=== PATIENT | male | born 1950 | race Caucasian/White ===

== ENCOUNTER 2017-12-01 10:43 | Inpatient (IN) ==
--- NOTE | 2017-12-01 11:25 | ED ---
HPI General Chief Complaint: Altered Mental Status Stated Complaint: Altered Mental Status Time Seen by Provider: 12/01/17 11:05 Source: family and EMS Mode of arrival: EMS Limitations: altered mental status History of Present Illness HPI narrative: Patient is a 67-year-old male presenting to emerge department for evaluation of altered mental status. Per EMS report patient's blood glucose on their arrival was 36. He was given dextrose, his blood sugar improved to 82. Son called 911 and stated that patient missed several dialysis treatments and was acting disoriented. H&P is limited at this time due to patient's mental status and there is no family at bedside. Patient has a history of chronic kidney disease, peripheral artery disease, COPD/emphysema, type 2 diabetes, coronary artery disease with stent placement. His dialysis schedule is Tuesday, , Tuesday. Blood glucose was reassessed on arrival to the emergency department is currently 326. Patient is attempting to speak but appears to have expressive aphasia at this time. MD complaint: altered mental status and confusion Onset (ago): unknown Timing confirmed by: family member Consistency of symptoms: unknown Context: diabetes and unknown Treatments prior to arrival: glucose Related Data Home Medications Medication Instructions Recorded Confirmed Nephro-Tye Rx 1 tab PO DAILY 12/01/17 12/01/17 Novolog Flexpen U-100 Insulin 12/01/17 Vitamin D3 2,000 units PO DAILY 12/01/17 12/01/17 albuterol sulfate [Ventolin HFA] 2 inh INHALATION 12/01/17 alpha lipoic acid 600 mg PO DAILY 12/01/17 12/01/17 apixaban [Eliquis] 5 mg PO BID 12/01/17 12/01/17 atorvastatin 40 mg 12/01/17 carvedilol 25 mg PO BID 12/01/17 12/01/17 colchicine 0.6 mg PO 4XW 12/01/17 12/01/17 [id number] 1 inh INHALATION DAILY 12/01/17 12/01/17 [Trelegy Ellipta] gentamicin 3 drp 12/01/17 glimepiride 4 mg PO BID 12/01/17 12/01/17 insulin detemir U-100 [Levemir 25 unit SUB-Q QPM 12/01/17 12/01/17 U-100 Insulin] levothyroxine 50 mcg PO DAILY 12/01/17 12/01/17 [id number] [Creon] 1 cap PO QID 12/01/17 12/01/17 lisinopril 10 mg PO DAILY 12/01/17 12/01/17 nifedipine 90 mg PO DAILY 12/01/17 12/01/17 omeprazole 40 mg PO DAILY 12/01/17 12/01/17 Allergies Allergy/AdvReac Type Severity Reaction Status Date / Time Penicillins Allergy Mild rash Verified 12/01/17 17:09 Review of Systems ROS Unobtainable ROS Unobtainable: unobtainable due to mental status PMFSH History History Provided By: Family Member and Hiv/Aids Care Nurse / EMT Medical History Medical History GERD (gastroesophageal reflux disease) (Chronic) Hypothyroidism (Chronic) CAD (coronary artery disease) (Chronic) CKD (chronic kidney disease) (Chronic) COPD (chronic obstructive pulmonary disease) (Chronic) ESRD (end stage renal disease) on dialysis (Chronic) PAD (peripheral artery disease) (Chronic) Type 2 diabetes mellitus (Chronic) Social History Social History Smoking Status: Former smoker Tobacco Type: Cigarettes How Often Do You Have a Drink Containing Alcohol: 2 to 3 times a week Recent Travel in [place] within the Last 8 Weeks: No Recent Out of Country Travel within the Last 8 Weeks: No Exam Narrative Exam Narrative: GENERAL: Well-developed, well-nourished, alert agitated appearing elderly male. SKIN: Focused skin assessment warm/dry. HEAD: Atraumatic. Normocephalic. EYES: Pupils equal and round. No scleral icterus. No injection or drainage. ENT: No nasal bleeding or discharge. Mucous membranes pink and moist. Dried blood to left nostril NECK: Trachea midline. No JVD. CARDIOVASCULAR: Regular rate and rhythm. No murmur appreciated. Left upper arm AV fistula, positive thrill, positive bruit. Right chest wall dialysis catheter. RESPIRATORY: No accessory muscle use. Coarse breath sounds right lower lobe. GASTROINTESTINAL: Abdomen soft, non-tender, nondistended. Hepatic and splenic margins not palpable. MUSCULOSKELETAL: No obvious deformities. No clubbing. No cyanosis. No edema. NEUROLOGICAL: Awake and alert. No obvious cranial nerve deficits. Motor grossly within normal limits. Expressive aphasia. Course Initial Documented Vital Signs Temperature 98.5 F 12/01/17 11:13 Pulse Rate 94 H 12/01/17 11:13 Respiratory Rate 18 12/01/17 11:13 Blood Pressure 165/78 H 12/01/17 11:13 Pulse Oximetry 100 12/01/17 11:13 Last Documented Vital Signs Temperature 98.5 F 12/01/17 11:15 Pulse Rate 75 12/01/17 16:30 Respiratory Rate 18 12/01/17 16:30 Blood Pressure 182/81 H 12/01/17 16:30 Pulse Oximetry 95 12/01/17 16:30 Medical Decision Making MDM Narrative Medical decision making narrative: Patient is a 67-year-old male presenting with altered mental status. In the setting of a very limited history, patient currently has expressive aphasia, we are sure of his baseline. Sepsis workup initiated. Labs and imaging ordered and pending. Blood cultures ordered and pending. Patient was started on antibiotics empirically. IV access established , patient was placed on telemetry monitoring continuous pulse oximetry. Patient was placed on 2 L of oxygen via nasal cannula. Ativan 0.5 mg ordered 1 dose, patient appears agitated and restless. Patient was initially hypoglycemic on EMS arrival, he was given dextrose and blood sugar has improved to 326. CT scan of the brain shows mild atrophy, no acute infarct. CBC with an elevated white count of 13.9, BUN and creatinine are elevated, this is to be expected patient is currently on dialysis. Potassium level is 5.3. Troponin is elevated 0.06, CPK was greater than 2000. Patient had received a total of 1300 cc of IV fluids between the 500 cc he received from EMS, the 500 of normal saline in the ER, 250 cc in the vancomycin infusion and 50 cc in the Zosyn infusion. Discussed with Dr. Cartagena, nephrology. He stated that he would see him in consult. Patient is resting comfortably, he appears restless. Family never presented to the emergency department. 1545- Brother presented to the ED. He stated that patient normally drives, has full cognition, cares for himself. He last spoke with patient Tuesday. According to the brother he was notified by the dialysis clinic today that pt had missed 3 treatments, today being the 3rd. Verified with Delmer in [facility] that he is their patient. Medical records are being sent to the ED. Medical records reviewed. Medication list was updated in the computer. Pt is followed by Dr. Briceno who does not practice at this facility. Pt transported to dialysis from the ED. Medical Screen Exam Complete: Yes Emergency Medical Condition: Yes Differential Diagnosis Differential Diagnosis: CVA versus TIA versus metabolic abnormality versus sepsis versus other Lab Data Lab results reviewed: Yes I reviewed the patient's lab results. Result diagrams: 12/01/17 11:20 12/01/17 13:14 Lab Results 12/01/17 12/01/17 12/01/17 Range/Units 11:19 11:20 11:20 WBC 13.9 H (4.0-11.0) th/mm3 RBC 4.74 (4.50-5.90) mil/mm3 Hgb 13.0 (13.0-17.0) gm/dL Hct 41.0 (39.0-51.0) % MCV 86.5 (80.0-100.0) fL MCH 27.5 (27.0-34.0) pg MCHC 31.8 L (32.0-36.0) % RDW 19.6 H (11.6-17.2) % Plt Count 157 (150-450) th/mm3 MPV 9.0 (7.0-11.0) fL Neut % (Auto) 82.1 H (16.0-70.0) % Lymph % (Auto) 5.2 L (9.0-44.0) % Hart % (Auto) 9.8 H (0.0-8.0) % Eos % (Auto) 2.2 (0.0-4.0) % Baso % (Auto) 0.7 (0.0-2.0) % Neut # (Auto) 11.4 H (1.8-7.7) th/mm3 Lymph # (Auto) 0.7 L (1.0-4.8) th/mm3 Hart # (Auto) 1.4 H (0.0-0.9) th/mm3 Eos # (Auto) 0.3 (0.0-0.4) th/mm3 Baso # (Auto) 0.1 (0.0-0.2) th/mm3 WBC Differential . Differential Comment Auto diff final Sodium (136-145) meq/L Potassium (3.5-5.1) meq/L Chloride (98-107) meq/L Carbon Dioxide (21.0-32.0) meq/L Anion Gap (5-15) meq/L BUN (7-18) mg/dL Creatinine (0.60-1.30) mg/dL Estimated GFR (>89) mL/min POC Glucose 326 H (68-110) mg/dl Random Glucose (74-106) mg/dL Lactic Acid 2.2 H (0.4-2.0) mmol/L Calcium (8.5-10.1) mg/dL Magnesium (1.5-2.5) mg/dL Total Bilirubin (0.2-1.0) mg/dL AST (15-37) U/L ALT (12-78) U/L Alkaline Phosphatase (45-117) U/L Total Creatine Kinase (39-308) U/L CK-MB (CK-2) (0.5-3.6) ng/mL CK-MB (CK-2) % (0.0-4.0) % Troponin I (0.02-0.05) ng/mL Total Protein (6.4-8.2) g/dL Albumin (3.4-5.0) g/dL Urine Color (Yellw/Straw) Urine Clarity (Clear) Urine pH (5.0-8.5) Ur Specific [place] (1.002-1.035) Urine Protein (Neg-Trace) mg/dL Urine Glucose (UA) (Negative) mg/dL Urine Ketones (Negative) mg/dL Urine Occult Blood (Negative) Urine Nitrate (Negative) Urine Bilirubin (Negative) Urine Urobilinogen (Less than 2) mg/dL Ur Leukocyte Esterase (Negative) Urine RBC (0-3) /hpf Urine WBC (0-5) /hpf Urine Bacteria (None) /hpf Hyaline Casts (0-3) /lpf Micro UA Comment Ur Microscopic Review Urine Culture Comments 12/01/17 12/01/17 Range/Units 13:14 13:52 WBC (4.0-11.0) th/mm3 RBC (4.50-5.90) mil/mm3 Hgb (13.0-17.0) gm/dL Hct (39.0-51.0) % MCV (80.0-100.0) fL MCH (27.0-34.0) pg MCHC (32.0-36.0) % RDW (11.6-17.2) % Plt Count (150-450) th/mm3 MPV (7.0-11.0) fL Neut % (Auto) (16.0-70.0) % Lymph % (Auto) (9.0-44.0) % Hart % (Auto) (0.0-8.0) % Eos % (Auto) (0.0-4.0) % Baso % (Auto) (0.0-2.0) % Neut # (Auto) (1.8-7.7) th/mm3 Lymph # (Auto) (1.0-4.8) th/mm3 Hart # (Auto) (0.0-0.9) th/mm3 Eos # (Auto) (0.0-0.4) th/mm3 Baso # (Auto) (0.0-0.2) th/mm3 WBC Differential Differential Comment Sodium 139 (136-145) meq/L Potassium 5.3 H (3.5-5.1) meq/L Chloride 106 (98-107) meq/L Carbon Dioxide 18.5 L (21.0-32.0) meq/L Anion Gap 15 (5-15) meq/L BUN 37 H (7-18) mg/dL Creatinine 5.72 H (0.60-1.30) mg/dL Estimated GFR 10 L (>89) mL/min POC Glucose (68-110) mg/dl Random Glucose 169 H (74-106) mg/dL Lactic Acid (0.4-2.0) mmol/L Calcium 8.0 L (8.5-10.1) mg/dL Magnesium 1.8 (1.5-2.5) mg/dL Total Bilirubin 0.5 (0.2-1.0) mg/dL AST 89 H (15-37) U/L ALT 43 (12-78) U/L Alkaline Phosphatase 138 H (45-117) U/L Total Creatine Kinase 2049 H (39-308) U/L CK-MB (CK-2) 40.2 H (0.5-3.6) ng/mL CK-MB (CK-2) % 2.0 (0.0-4.0) % Troponin I 0.06 H (0.02-0.05) ng/mL Total Protein 5.6 L (6.4-8.2) g/dL Albumin 2.4 L (3.4-5.0) g/dL Urine Color Yellow (Yellw/Straw) Urine Clarity Cloudy H (Clear) Urine pH 5.0 (5.0-8.5) Ur Specific [place] 1.015 (1.002-1.035) Urine Protein 500 or greater (Neg-Trace) mg/dL Urine Glucose (UA) 50 (Negative) mg/dL Urine Ketones Trace H (Negative) mg/dL Urine Occult Blood Large H (Negative) Urine Nitrate Negative (Negative) Urine Bilirubin Negative (Negative) Urine Urobilinogen Less than 2 (Less than 2) mg/dL Ur Leukocyte Esterase Trace H (Negative) Urine RBC 1 (0-3) /hpf Urine WBC 18 H (0-5) /hpf Urine Bacteria Moderate H (None) /hpf Hyaline Casts 6 (0-3) /lpf Micro UA Comment Cath-culture ind Ur Microscopic Review Not Reportable Urine Culture Comments Cath-cult indicated Imaging Data Radiologist's impression: Chest X-Ray 12/01/17 11:12 CONCLUSION: 1. No focal or acute intrathoracic disease. 2. Right-sided central line in place. Head CT 12/01/17 11:12 CONCLUSION: 1. Mild cerebral atrophy. 2. No acute infarct, acute hemorrhage, midline shift or extra-axial fluid collections. 3. Small fluid level within the left maxillary sinus. Discharge Plan Discharge Disposition Patient Disposition: 30 Still Patient Discharge Condition Condition: Stable Discharge Details Diagnosis: Altered mental status, Hypoglycemia, Sepsis, ESRD (end stage renal disease) on dialysis Physicians Team ED Provider: Manuel Veronica ED Midlevel Provider: Franny Maya Primary Care Provider: UNKNOWN, Attending Provider: Mehdi Hsieh Other Providers: Antonina Cartagena Status ED Status: Admitted Patient
[2017-12-01 11:40] LABS: Baso # (Auto) 0.1 th/mm3 (0.0-0.2); Baso % (Auto) 0.7 % (0.0-2.0); Eos # (Auto) 0.3 th/mm3 (0.0-0.4); Eos % (Auto) 2.2 % (0.0-4.0); Lymph # (Auto) 0.7 th/mm3 (1.0-4.8); Lymph % (Auto) 5.2 % (9.0-44.0); Mean Corpuscular HGB Conc 31.8 % (32.0-36.0); Mean Corpuscular Hemoglobin 27.5 pg (27.0-34.0); Mean Corpuscular Volume 86.5 fL (80.0-100.0); Mono # (Auto) 1.4 th/mm3 (0.0-0.9); Mono % (Auto) 9.8 % (0.0-8.0); Neut # (Auto) 11.4 th/mm3 (1.8-7.7); Neut % (Auto) 82.1 % (16.0-70.0); Platelet Count 157 th/mm3 (150-450); Red Blood Count 4.74 mil/mm3 (4.50-5.90); Red Cell Distribution Width 19.6 % (11.6-17.2); White Blood Count 13.9 th/mm3 (4.0-11.0)
--- NOTE | 2017-12-01 11:42 | XR ---
EXAM DATE: 12/01/2017 11:30 AM EDT AGE/SEX: 67 years / Male INDICATIONS: Fever CLINICAL DATA: This is the patient's initial encounter. Patient reports that signs and symptoms have been present for 1 day and indicates a pain score of Nonresponsive. MEDICAL/SURGICAL HISTORY: Non-responsive. Non-responsive. COMPARISON: No prior exams available for comparison. FINDINGS: A single AP view of the chest demonstrates the lungs to be symmetrically aerated without evidence of mass, infiltrate or effusion. The cardiomediastinal contours are unremarkable. Osseous structures a re intact. There is a right-sided central line in place. There is no pneumothorax. CONCLUSION: 1. No focal or acute intrathoracic disease. 2. Right-sided central line in place. Electronically signed by: Madhu Jose MD 12/01/2017 11:40 AM EDT
[2017-12-01] MEDS ORDERED: Sodium Chlor 0.9% Inj 500 ML IV.SIG SCH (12:00)
[2017-12-01 12:02] LABS: Alanine Aminotransferase 43 U/L (12-78)
--- NOTE | 2017-12-01 12:20 | CT ---
EXAM DATE: 12/01/2017 11:49 AM EDT AGE/SEX: 67 years / Male INDICATIONS: Altered mental status CLINICAL DATA: This is the patient's initial encounter. Patient reports that signs and symptoms have been present for 1 day and indicates a pain score of Nonresponsive. MEDICAL/SURGICAL HISTORY: Non-responsive. Non-responsive. RADIATION DOSE: 43.24 CTDI (mGy) COMPARISON: No prior exams available for comparison. TECHNIQUE: CT of the head without contrast. Using automated exposure control and adjustment of the mA and/or kV according to patient size, radiation dose was kept as low as reasonably achievable to ob tain optimal diagnostic quality images. DICOM format image data is available electronically for revi ew and comparison. FINDINGS: Cerebrum: Mild cerebral atrophy is noted. No evidence of midline shift, mass lesion, hemorrhage or a cute infarction. No extraaxial fluid collections are seen. Posterior Fossa: The cerebellum and brainstem are intact. The 4th ventricle is midline. The cerebe llopontine angle is unremarkable. Extracranial: The visualized portion of the orbits is intact. Small fluid level is noted within left maxillary sinus. Skull: The calvaria is intact. No evidence of skull fracture. CONCLUSION: 1. Mild cerebral atrophy. 2. No acute infarct, acute hemorrhage, midline shift or extra-axial fluid collections. 3. Small fluid level within the left maxillary sinus. Electronically signed by: Tommy Duran MD 12/01/2017 12:18 PM EDT
[2017-12-01] MEDS ORDERED: Vancomycin Inj 1,000 MG in Sodium Chlor 0.9% Inj 250 ML IV.SIG STA (12:25)
[2017-12-01] MEDS ORDERED: Piperacil/Tazo 3.375 GM Premix 50 ML IV.SIG ONE (12:27)
[2017-12-01 14:18] LABS: Bacteria,Urine Moderate /hpf; Bilirubin,Urine Negative (Negative); Clarity,Urine Cloudy (Clear); Color,Urine Yellow (Yellw/Straw); Glucose,Urine (UA) 50 mg/dL (Negative); Hyaline Casts,Urine 6 /lpf (0-3); Leukocyte Esterase,Urine Trace (Negative); Nitrite,Urine Negative (Negative); Specific Gravity,Urine 1.015 (1.002-1.035)
[2017-12-01 14:18] LABS: Albumin 2.4 g/dL (3.4-5.0); Anion Gap 15 meq/L (5-15); Aspartate Aminotransferase 89 U/L (15-37); Blood Urea Nitrogen 37 mg/dL (7-18); Carbon Dioxide 18.5 meq/L (21.0-32.0); Chloride 106 meq/L (98-107); Glomerular Filtration Rate 10 mL/min (>89); Glucose,Random 169 mg/dL (74-106); Magnesium 1.8 mg/dL (1.5-2.5); Sodium 139 meq/L (136-145)
[2017-12-01 14:22] LABS: Potassium 5.3 meq/L (3.5-5.1)
[2017-12-01 14:29] LABS: Alkaline Phosphatase 138 U/L (45-117); Creatine Kinase 2049 U/L (39-308); Total Protein 5.6 g/dL (6.4-8.2); Troponin I 0.06 ng/mL (0.02-0.05)
[2017-12-01 14:44] LABS: Creatine Kinase MB 40.2 ng/mL (0.5-3.6)
--- NOTE | 2017-12-01 16:31 | ECG ---
Date Performed: 12/01/2017 Time Performed: 12:18:07 PTAGE: 67 years EKG: SINUS TACHYCARDIA ABNORMAL ECG NO PREVIOUS TRACING DOCTOR: Joel Hess Interpretating Date/Time 12/01/2017 16:30:11
--- NOTE | 2017-12-01 16:47 | P.HP ---
History of Present Illness Primary Care Physician: UNKNOWN History of Present Illness: 67-year-old white male being admitted for acute metabolic encephalopathy. Patient was in his usual state of health until he was found to be lying on the floor at home. His dialysis center contacted the patient's brother today when they noted that he missed his session today, and they say that the patient never misses his dialysis sessions. They say at baseline the patient is ambulatory and quite functional. Upon the brothers investigation, patient was found to be needed medical help. Dialysis session read mentions that the patient has been on NovoLog and Levemir flex pens for the past month. Patient was brought to the emergency department with confusion. Blood work demonstrated leukocytosis at about 13,000, elevated creatinine greater than 5. CT head is negative for any acute insults. Chest x-ray which I independently reviewed is negative. EKG which independently reviewed shows normal rate with hypertrophy otherwise. Troponin is minimally elevated at 0.06. In the emergency department patient was given vancomycin and Zosyn. Given about 1300 mL's of fluid. Patient attends [facility] dialysis in [place]. Inpatient Certification: I certify that the inpatient services were ordered in accordance with Medicare regulations governing the order. This includes certification that hospital inpatient services are reasonable and necessary and in the case of services not specified as inpatient-only under 42 CFR 419.22(n), that they are appropriately provided as inpatient services in accordance to with the 2-midnight benchmark under 43 CFR 412.3(e) Estimated Total Length of Stay (Days): 2 Plans for Post Hospital Care: Not yet determined Review of Systems unobtainable due to mental condition PMFSH - History History Provided By: Family Member, Shop Director / EMT - Medical History Medical History: Medical History (Last Reviewed 12/01/17 @ 16:35 by Mehdi Hsieh MD) CAD (coronary artery disease) CKD (chronic kidney disease) COPD (chronic obstructive pulmonary disease) ESRD (end stage renal disease) on dialysis PAD (peripheral artery disease) Type 2 diabetes mellitus - Family History Family History: Family History (Last Updated 12/08/17 @ 15:16 by JENN Carvajal) Other Diabetes - Tobacco History Tobacco Use In Past 30 Days: No Smoking Status: Former smoker Tobacco Type: Cigarettes - Alcohol History How Often Do You Have a Drink Containing Alcohol: 2 to 3 times a week - Travel History Recent Travel in the [place] Within the Last 8 Weeks: No Recent Travel Out of the Country Within the Last 8 Weeks: No - Immunization History Tetanus Immunization: Unable to Assess Hx Influenza Vaccine This Season: Unable to Assess Medications and Allergies Active Medications: Active Medications Sodium Chloride (Ns Inj) 500 mls @ 0 mls/hr IV.SIG BOLUS KRUNAL Last Admin: 12/01/17 13:15 Dose: 500 mls/hr Sodium Chloride (Ns Flush) 2 ml IV.FLUSH BID KRUNAL Sodium Chloride (Ns Flush) 2 ml IV.FLUSH UNSCH PRN PRN Reason: FLUSH AFTER USING IV ACCESS Allergies Allergy/AdvReac Type Severity Reaction Status Date / Time Penicillins Allergy Mild rash Verified 12/01/17 17:09 Home Medications Medication Instructions Recorded Confirmed Type Nephro-Tye Rx 1 tab PO DAILY 12/01/17 12/01/17 History Novolog Flexpen U-100 Insulin 12/01/17 History Vitamin D3 2,000 units PO DAILY 12/01/17 12/01/17 History albuterol sulfate [Ventolin HFA] 2 inh INHALATION 12/01/17 History alpha lipoic acid 600 mg PO DAILY 12/01/17 12/01/17 History apixaban [Eliquis] 5 mg PO BID 12/01/17 12/01/17 History atorvastatin 40 mg 12/01/17 History carvedilol 25 mg PO BID 12/01/17 12/01/17 History colchicine 0.6 mg PO 4XW 12/01/17 12/01/17 History oxwyxafhzvb-uqjwgjbwx-zmztkrhb 1 inh INHALATION DAILY 12/01/17 12/01/17 History [Trelegy Ellipta] gentamicin 3 drp 12/01/17 History glimepiride 4 mg PO BID 12/01/17 12/01/17 History insulin detemir U-100 [Levemir 25 unit SUB-Q QPM 12/01/17 12/01/17 History U-100 Insulin] levothyroxine 50 mcg PO DAILY 12/01/17 12/01/17 History oiifgd-uvrvpewq-bpssbbx [Creon] 1 cap PO QID 12/01/17 12/01/17 History lisinopril 10 mg PO DAILY 12/01/17 12/01/17 History nifedipine 90 mg PO DAILY 12/01/17 12/01/17 History omeprazole 40 mg PO DAILY 12/01/17 12/01/17 History Exam Vital signs: Vital Signs 12/01/17 11:13 12/01/17 11:15 12/01/17 11:27 Temperature 98.5 F 98.5 F Pulse Rate 94 H 102 H Respiratory Rate 18 19 Blood Pressure 165/78 H 165/84 H Pulse Oximetry 100 95 98 12/01/17 14:03 12/01/17 15:44 Temperature Pulse Rate 101 H 95 H Respiratory Rate 21 17 Blood Pressure 170/83 H Pulse Oximetry 96 Intake & Output 11/30/17 12/01/17 12/01/17 18:59 06:59 18:59 Weight 81.81 kg Narrative: VS: afebrile GENERAL: Encephalopathic middle-aged white male, lying in bed, spontaneously moving all extremities, may his eye contact but makes no statements, has some feces on him, appears disheveled SKIN: Warm and dry. EYES: Pupils equal and round. No scleral icterus. No injection or drainage. ENT: NC AT CARDIOVASCULAR: Regular rate and rhythm. no murmurs RESPIRATORY: No accessory muscle use. Clear to auscultation. Breath sounds equal bilaterally. GASTROINTESTINAL: Abdomen soft, non-tender, nondistended. Extremities: No clubbing, cyanosis, or edema. No obvious deformities. MUSCULOSKELETAL: adequate muscle bulk and tone for age and habitus NEUROLOGICAL: Awake, maintaining eye contact, not making any coherent speech, has no facial droop PSYCHIATRIC: Encephalopathic, unable to assess mood Results - Labs CBC & Chem 7: 12/09/17 07:51 12/09/17 07:51 Labs: Laboratory Results - last 24 hr 12/01/17 12/01/17 12/01/17 11:19 11:20 11:20 WBC 13.9 H RBC 4.74 Hgb 13.0 Hct 41.0 MCV 86.5 MCH 27.5 MCHC 31.8 L RDW 19.6 H Plt Count 157 MPV 9.0 Neut % (Auto) 82.1 H Lymph % (Auto) 5.2 L [place] % (Auto) 9.8 H Eos % (Auto) 2.2 Baso % (Auto) 0.7 Neut # (Auto) 11.4 H Lymph # (Auto) 0.7 L [place] # (Auto) 1.4 H Eos # (Auto) 0.3 Baso # (Auto) 0.1 WBC Differential . Differential Comment Auto diff final Sodium Potassium Chloride Carbon Dioxide Anion Gap BUN Creatinine Estimated GFR POC Glucose 326 H Random Glucose Lactic Acid 2.2 H Calcium Magnesium Total Bilirubin AST ALT Alkaline Phosphatase Total Creatine Kinase CK-MB (CK-2) CK-MB (CK-2) % Troponin I Total Protein Albumin Urine Color Urine Clarity Urine pH Ur Specific [place] Urine Protein Urine Glucose (UA) Urine Ketones Urine Occult Blood Urine Nitrate Urine Bilirubin Urine Urobilinogen Ur Leukocyte Esterase Urine RBC Urine WBC Urine Bacteria Hyaline Casts Micro UA Comment Ur Microscopic Review Urine Culture Comments 12/01/17 12/01/17 13:14 13:52 WBC RBC Hgb Hct MCV MCH MCHC RDW Plt Count MPV Neut % (Auto) Lymph % (Auto) [place] % (Auto) Eos % (Auto) Baso % (Auto) Neut # (Auto) Lymph # (Auto) [place] # (Auto) Eos # (Auto) Baso # (Auto) WBC Differential Differential Comment Sodium 139 Potassium 5.3 H Chloride 106 Carbon Dioxide 18.5 L Anion Gap 15 BUN 37 H Creatinine 5.72 H Estimated GFR 10 L POC Glucose Random Glucose 169 H Lactic Acid Calcium 8.0 L Magnesium 1.8 Total Bilirubin 0.5 AST 89 H ALT 43 Alkaline Phosphatase 138 H Total Creatine Kinase 2049 H CK-MB (CK-2) 40.2 H CK-MB (CK-2) % 2.0 Troponin I 0.06 H Total Protein 5.6 L Albumin 2.4 L Urine Color Yellow Urine Clarity Cloudy H Urine pH 5.0 Ur Specific [place] 1.015 Urine Protein 500 or greater Urine Glucose (UA) 50 Urine Ketones Trace H Urine Occult Blood Large H Urine Nitrate Negative Urine Bilirubin Negative Urine Urobilinogen Less than 2 Ur Leukocyte Esterase Trace H Urine RBC 1 Urine WBC 18 H Urine Bacteria Moderate H Hyaline Casts 6 Micro UA Comment Cath-culture ind Ur Microscopic Review Not Reportable Urine Culture Comments Cath-cult indicated - Imaging Impressions Chest X-Ray 12/01/17 11:12 CONCLUSION: 1. No focal or acute intrathoracic disease. 2. Right-sided central line in place. Head CT 12/01/17 11:12 CONCLUSION: 1. Mild cerebral atrophy. 2. No acute infarct, acute hemorrhage, midline shift or extra-axial fluid collections. 3. Small fluid level within the left maxillary sinus. Caprini VTE Risk Assessment Caprini VTE Risk Assessment: Moderate/High Risk (score >= 2) Caprini Risk Assessment Model: Point Value = 1 Point Value = 2 Point Value = 3 Point Value = 5 Age 41-60 Minor surgery BMI > 25 kg/m2 Swollen legs Varicose veins or History of unexplained or recurrent spontaneous Oral contraceptives or hormone replacement Sepsis (< 1 month) Serious lung disease, including pneumonia (< 1 month) Abnormal pulmonary function Acute myocardial infarction Congestive heart failure (< 1 month) History of inflammatory bowel disease Medical patient at bed rest Age 61-74 Arthroscopic surgery Major open surgery (> 45 min) Laparoscopic surgery (> 45 min) Malignancy Confined to bed (> 72 hours) Immobilizing plaster cast Central venous access Age >= 75 History of VTE Family history of VTE Factor V Leiden Prothrombin [id number] Lupus anticoagulant Anticardiolipin antibodies Elevated serum homocysteine Heparin-induced thrombocytopenia Other congenital or acquired thrombophilia Stroke (< 1 month) Elective arthroplasty Hip, pelvis, or leg fracture Acute spinal cord injury (< 1 month) Prophylaxis Regimen: Total Risk Factor Score Risk Level Prophylaxis Regimen 0-1 Low Early ambulation 2 Moderate Order ONE of the following: *Sequential Compression Device (SCD) *Heparin 5000 units SQ BID 3-4 Higher Order ONE of the following medications: *Heparin 5000 units SQ TID *Enoxaparin/Lovenox 40 mg SQ daily (WT < 150 kg, CrCl > 30 mL/min) *Enoxaparin/Lovenox 30 mg SQ daily (WT < 150 kg, CrCl > 10-29 mL/min) *Enoxaparin/Lovenox 30 mg SQ BID (WT < 150 kg, CrCl > 30 mL/min) AND/OR *Sequential Compression Device (SCD) 5 or more Highest Order ONE of the following medications: *Heparin 5000 units SQ TID (Preferred with Epidurals) *Enoxaparin/Lovenox 40 mg SQ daily (WT < 150 kg, CrCl > 30 mL/min) *Enoxaparin/Lovenox 30 mg SQ daily (WT < 150 kg, CrCl > 10-29 mL/min) *Enoxaparin/Lovenox 30 mg SQ BID (WT < 150 kg, CrCl > 30 mL/min) AND *Sequential Compression Device (SCD) Assessment and Plan - Plan 67-year-old white male being admitted for acute encephalopathy and possible sepsis. Acute encephalopathy Metabolic versus infectious versus neurogenic -Telemetry -Emergency department has already contacted nephrology, who will see the patient Renal function panel in a.m., status post 1300 cc of fluid -Head CT in AM, neuro-checks at this time, telemetry, Head MRI if symptoms don' t improve by AM Dialysis dependent CKD - nephrology being consulted Possible sepsis -? UTI, f/u cultures, follow-up blood cultures, chest x-ray is negative Continue vancomycin and Zosyn renally dosed Acute rhabdomylosis - unsure of etiology, s/p fluid boluses, hopefully will improve w/ dialysis - trend CK slightly bumped troponin - no st segment elevation or depression - trend, likely type 2 secondary to CKD DM - LDSS w/ accuchecks novolog and christiano flexpen Dialysis center verifies that he takes lisinopril 10 mg daily nifedipine 90 ER mg daily coreg 25 mg BID Awaiting for dialysis ctr to fax pt's home meds over. [facility] in [facility] is on [facility]Sn and their # [phone]
[2017-12-01] MEDS ORDERED: Dextrose 50% in Water 50 ML Vial IV.PUSH PRN (16:51)
[2017-12-01] MEDS ORDERED: Sod Chloride 0.9% Inj 1,000 ML OTHER PRN ×2 (17:33)
[2017-12-01] MEDS ORDERED: Heparin 10,000 UNITS/10 ML Vial (for IV use) OTHER PRN (17:33)
[2017-12-01] MEDS ORDERED: Acetaminophen 325 MG Tablet PO PRN (17:33)
[2017-12-01] MEDS ORDERED: Sodium Chlor 0.9% Inj 200 ML IV.CONT PRN (17:33)
[2017-12-01] MEDS ORDERED: Gelatin 12 MM/7 MM Topical Foam TOPICAL PRN (17:33)
--- NOTE | 2017-12-01 17:41 | P.CONNP ---
History of Present Illness Service: Nephrology Consult date: 12/01/17 Requesting Physician: Mehdi Hsieh Reason for Consult: End-stage renal disease on hemodialysis Primary Care Provider: UNKNOWN History of Present Illness: Patient is a 67-year-old white male with history of diabetes was found altered mental status and brought to the emergency. Apparently patient was due for dialysis at [facility], he missed dialysis and was brought here he is unable to provide any clear history and he has a permacath in place and has a AV fistula and left arm. Review of Systems unobtainable due to mental status PMFSH - History History Provided By: Family Member, Data Virtualization Consultant / EMT - Medical History Medical History: Medical History (Last Updated 12/01/17 @ 17:13 by JENN Rodrigues) GERD (gastroesophageal reflux disease) Hypothyroidism CAD (coronary artery disease) CKD (chronic kidney disease) COPD (chronic obstructive pulmonary disease) ESRD (end stage renal disease) on dialysis PAD (peripheral artery disease) Type 2 diabetes mellitus - Tobacco History Tobacco Use In Past 30 Days: No Smoking Status: Former smoker Tobacco Type: Cigarettes - Alcohol History How Often Do You Have a Drink Containing Alcohol: 2 to 3 times a week - Travel History Recent Travel in the [place] Within the Last 8 Weeks: No Recent Travel Out of the Country Within the Last 8 Weeks: No - Immunization History Tetanus Immunization: Unable to Assess Hx Influenza Vaccine This Season: Unable to Assess Medications and Allergies Active Medications: Active Medications Acetaminophen (Tylenol) 650 mg PO UNSCH PRN PRN Reason: SEE LABEL COMMENTS Carvedilol (Coreg) 25 mg PO BID KRUNAL Clonidine HCl (Catapres) 0.1 mg PO UNSCH PRN PRN Reason: SEE LABEL COMMENTS Dextrose (D50w Vial) 50 ml IV.PUSH UNSCH PRN PRN Reason: PER HYPOGLYCEMIA PROTOCOL Diphenhydramine HCl (Benadryl) 25 mg PO UNSCH PRN PRN Reason: SEE LABEL COMMENTS Gelatin (Gelfoam 12 Mm/7 Mm Topical) 1 foam TOPICAL PRN PRN PRN Reason: help stop bleeding from site Gentamicin Sulfate (Gentamicin Inj) 20 mg OTHER WITH DIALYSIS PRN PRN Reason: Dwell Gentamycin Lock Glucagon (Glucagon Inj) 1 mg OTHER UNSCH PRN PRN Reason: for Hypoglycemia Protocol Heparin Sodium (Porcine) (Heparin Inj) 8,000 units OTHER WITH DIALYSIS PRN PRN Reason: for machine prime Heparin Sodium (Porcine) (Heparin Inj) 1,000 units OTHER WITH DIALYSIS PRN PRN Reason: Dwell Heparin to Fill Catheter Sodium Chloride (Ns Inj) 500 mls @ 0 mls/hr IV.SIG BOLUS KRUNAL Last Infusion: 12/01/17 14:15 Dose: Infused Albumin Human (Flexbumin 25% Inj) 100 mls @ 60 mls/hr IV.SIG WITH DIALYSIS PRN PRN Reason: hypotension / volume replace Sodium Chloride (Ns Inj) 1,000 mls @ 0 mls/hr OTHER .Q0M PRN PRN Reason: for prime and rinse back Sodium Chloride (Ns Inj) 1,000 mls @ 200 mls/hr OTHER .Q5H PRN PRN Reason: for dialyzer flush PRN Sodium Chloride (Ns Inj) 1,000 mls @ 0 mls/hr IV.CONT .Q0M PRN PRN Reason: hypotension / volume replace Insulin Aspart (Novolog Insulin Correctional Sugar Inj) 0 unit SQ ACHS KRUNAL; Protocol Mannitol (Mannitol Inj) 12.5 gm IV.PUSH UNSCH PRN PRN Reason: hypotension / volume replace Nitroglycerin (Nitrostat Sl) 0.4 mg SL Q5M PRN PRN Reason: CHEST PAIN Ondansetron HCl (Zofran Inj) 4 mg IV.PUSH UNSCH PRN PRN Reason: NAUSEA OR VOMITING Sodium Chloride (Ns Flush) 2 ml IV.FLUSH BID KRUNAL Sodium Chloride (Ns Flush) 2 ml IV.FLUSH UNSCH PRN PRN Reason: FLUSH AFTER USING IV ACCESS Sodium Chloride (Ns Flush) 5 ml IV.FLUSH PRN PRN PRN Reason: flush each lumen during HD Allergies Allergy/AdvReac Type Severity Reaction Status Date / Time Penicillins Allergy Mild rash Verified 12/01/17 17:09 Home Medications Medication Instructions Recorded Confirmed Type Nephro-Tye Rx 1 tab PO DAILY 12/01/17 12/01/17 History Novolog Flexpen U-100 Insulin 12/01/17 History Vitamin D3 2,000 units PO DAILY 12/01/17 12/01/17 History albuterol sulfate [Ventolin HFA] 2 inh INHALATION 12/01/17 History alpha lipoic acid 600 mg PO DAILY 12/01/17 12/01/17 History apixaban [Eliquis] 5 mg PO BID 12/01/17 12/01/17 History atorvastatin 40 mg 12/01/17 History carvedilol 25 mg PO BID 12/01/17 12/01/17 History colchicine 0.6 mg PO 4XW 12/01/17 12/01/17 History lipozfowzet-ucqkrmkjx-jkpfxfjf 1 inh INHALATION DAILY 12/01/17 12/01/17 History [Trelegy Ellipta] gentamicin 3 drp 12/01/17 History glimepiride 4 mg PO BID 12/01/17 12/01/17 History insulin detemir U-100 [Levemir 25 unit SUB-Q QPM 12/01/17 12/01/17 History U-100 Insulin] levothyroxine 50 mcg PO DAILY 12/01/17 12/01/17 History mswyfk-mnmhxrak-tddqiwd [Creon] 1 cap PO QID 12/01/17 12/01/17 History lisinopril 10 mg PO DAILY 12/01/17 12/01/17 History nifedipine 90 mg PO DAILY 12/01/17 12/01/17 History omeprazole 40 mg PO DAILY 12/01/17 12/01/17 History Exam Vital signs: Vital Signs 12/01/17 11:13 12/01/17 11:15 12/01/17 11:27 Temperature 98.5 F 98.5 F Pulse Rate 94 H 102 H Respiratory Rate 18 19 Blood Pressure 165/78 H 165/84 H Pulse Oximetry 100 95 98 12/01/17 14:03 12/01/17 15:44 12/01/17 16:30 Temperature Pulse Rate 101 H 95 H 75 Respiratory Rate 21 17 18 Blood Pressure 170/83 H 182/81 H Pulse Oximetry 96 95 Intake & Output 11/30/17 12/01/17 12/01/17 18:59 06:59 18:59 Intake Total 800 / 800 Balance 800 / 800 Weight 81.81 kg Intake: IV 800 / 800 NS Inj 500 ML @ Wide Open IV. 500 / 500 SIG BOLUS KRUNAL Rx#:[id number] - Constitutional no acute distress - Routine HEENT Exam Head: Present: normocephalic Eye: Present: EOMI, PERRL - Routine Neck Exam Present: supple - Routine Respiratory Exam Present: decreased breath sounds (At bases) - Routine Cardiovascular Exam Present: RRR - Routine Abdominal Exam Present: soft, normoactive bowel sounds - Routine Extremities Exam Present: edema - Routine Skin Exam Present: intact - Routine Neurological Exam Present: alert (Confused) Results - Lab Results 12/01/17 11:20 12/01/17 13:14 Most recent lab results Calcium 8.0 mg/dL (8.5-10.1) L 12/01/17 13:14 Magnesium 1.8 mg/dL (1.5-2.5) 12/01/17 13:14 Assessment and Plan - Assessment (1) Altered mental status Code(s): R41.82 - Altered mental status, unspecified Status: Acute (2) Hypoglycemia Code(s): E16.2 - Hypoglycemia, unspecified Status: Acute (3) Sepsis Code(s): A41.9 - Sepsis, unspecified organism Status: Acute (4) ESRD (end stage renal disease) on dialysis Code(s): N18.6 - End stage renal disease; Z99.2 - Dependence on renal dialysis Status: Acute - Plan Patient is on insulin and possibly has hypoglycemic event he is being observed for altered mental status and recovery I have seen him during hemodialysis he was confused, his AV fistula appeared matured and this was accessed he has a PermCath on the right side of the chest as well continue to provide dialysis while in the hospital. Follow blood cultures, he was given vancomycin and Zosyn Continue to monitor his situation. (1) Altered mental status Qualifiers: Altered mental status type: unspecified Qualified Code(s): R41.82 - Altered mental status, unspecified (3) Sepsis Qualifiers: Sepsis type: sepsis due to unspecified organism Qualified Code(s): A41.9 - Sepsis, unspecified organism
[2017-12-01] MEDS ORDERED: Vancomycin Consult Pharmacy OTHER PRN (18:47)
[2017-12-01] MEDS: Insulin NovoLOG Aspart Correctional Sugar Inj SQ SCH ×2 (21:13→22:30)
[2017-12-01] MEDS: Carvedilol 12.5 MG Tablet PO SCH ×3 (22:29→23:29)
[2017-12-01 23:20] LABS: Activated Partial Thrombo Time 29.4 sec (24.3-30.1); INR 1.2 Ratio
[2017-12-01 23:21] LABS: Prothrombin Time 12.1 sec (9.8-11.6)
[2017-12-01] MEDS: Lipase/Protease/Amylase 24/76/120 DR Capsule PO SCH (23:29)
[2017-12-02] MEDS: Piperacil/Tazo 2.25 GM Premix 50 ML IV.SIG SCH ×2 (02:26→12:15)
[2017-12-02] MEDS: Insulin NovoLOG Aspart Correctional Sugar Inj SQ SCH ×2 (07:36→11:09)
[2017-12-02 08:15] LABS: Albumin 2.5 g/dL (3.4-5.0); Calcium 8.4 mg/dL (8.5-10.1); Phosphorus 8.3 mg/dL (2.5-4.9); Troponin I 0.08 ng/mL (0.02-0.05); Vancomycin,Random 10.1 Comment
[2017-12-02 08:33] LABS: CKMB Percent 1.7 % (0.0-4.0); Creatine Kinase MB 35.3 ng/mL (0.5-3.6)
[2017-12-02] MEDS: Vitamin B Complex/Vit C/Folic Tablet PO SCH (08:59)
[2017-12-02] MEDS: Lipase/Protease/Amylase 24/76/120 DR Capsule PO SCH ×4 (08:59→22:33)
[2017-12-02] MEDS: Carvedilol 12.5 MG Tablet PO SCH ×4 (08:59→22:32)
[2017-12-02] MEDS: Levothyroxine 50 MCG Tablet PO SCH (09:00)
[2017-12-02] MEDS: Lisinopril 10 MG Tablet PO SCH (09:00)
[2017-12-02] MEDS ORDERED: FLUTICASONE UMECLIDIN VILANTER INH SCH (09:00)
--- NOTE | 2017-12-02 09:46 | P.PNIM ---
Subjective Interval history: f/u; encephalopathy in no acute distress. but still confused and on restraints. no fever. Physical Exam Vital signs: Vital Signs 12/01/17 11:13 12/01/17 11:15 12/01/17 11:27 Temperature 98.5 F 98.5 F Pulse Rate 94 H 102 H Respiratory Rate 18 19 Blood Pressure 165/78 H 165/84 H Pulse Oximetry 100 95 98 12/01/17 14:03 12/01/17 15:44 12/01/17 16:30 Temperature Pulse Rate 101 H 95 H 75 Respiratory Rate 21 17 18 Blood Pressure 170/83 H 182/81 H Pulse Oximetry 96 95 12/01/17 20:00 12/01/17 21:30 12/01/17 23:45 Temperature 98 F 98 F Pulse Rate 110 H 110 H Respiratory Rate 20 20 Blood Pressure 130/89 130/89 Pulse Oximetry 96 96 96 12/02/17 04:40 12/02/17 07:15 12/02/17 08:00 Temperature 98.8 F 98.0 F Pulse Rate 109 H 98 H Respiratory Rate 20 12 18 Blood Pressure 144/80 H 152/66 H Pulse Oximetry 96 96 Intake & Output 12/01/17 12/02/17 12/02/17 18:59 06:59 18:59 Intake Total 800 / 800 50 / 50 Output Total 0 / 0 Balance 800 / 800 50 / 50 Weight 81.81 kg 77.5 kg Intake: IV 800 / 800 50 / 50 Zosyn 2.25 GM Premix 50 ML @ 50 / 50 100 mls/hr IV.SIG Q12H KRUNAL Rx#: [id number] NS Inj 500 ML @ Wide Open IV. 500 / 500 SIG BOLUS KRUNAL Rx#:[id number] Oral 0 / 0 Output: Urine 0 / 0 Other: # Incontinent Voids 1 # Bowel Movements 0 Weight On Admission 77.5 kg - Constitutional no acute distress - Routine Respiratory Exam Present: CTA bilaterally - Routine Cardiovascular Exam Present: RRR - Routine Abdominal Exam Present: soft - Routine Extremities Exam Comments: no pedal edema. - Routine Neurological Exam awake but confused. - Urinary Catheter Management Straight Cath placed during this visit: yes Reason for continuing: Not indwelling catheter Insertion date: 12/01/17 Insertion time: 13:46 Results - Labs CBC & Chem 7: 12/01/17 11:20 12/02/17 06:57 Laboratory Results - last 24 hr 12/01/17 12/01/17 12/01/17 11:19 11:20 11:20 WBC 13.9 H RBC 4.74 Hgb 13.0 Hct 41.0 MCV 86.5 MCH 27.5 MCHC 31.8 L RDW 19.6 H Plt Count 157 MPV 9.0 Neut % (Auto) 82.1 H Lymph % (Auto) 5.2 L Parmer % (Auto) 9.8 H Eos % (Auto) 2.2 Baso % (Auto) 0.7 Neut # (Auto) 11.4 H Lymph # (Auto) 0.7 L Parmer # (Auto) 1.4 H Eos # (Auto) 0.3 Baso # (Auto) 0.1 WBC Differential . Differential Comment Auto diff final PT INR APTT Sodium Potassium Chloride Carbon Dioxide Anion Gap BUN Creatinine Estimated GFR POC Glucose 326 H Random Glucose Lactic Acid 2.2 H Calcium Phosphorus Magnesium Total Bilirubin AST ALT Alkaline Phosphatase Total Creatine Kinase CK-MB (CK-2) CK-MB (CK-2) % Troponin I Total Protein Albumin Urine Color Urine Clarity Urine pH Ur Specific Aiken Urine Protein Urine Glucose (UA) Urine Ketones Urine Occult Blood Urine Nitrate Urine Bilirubin Urine Urobilinogen Ur Leukocyte Esterase Urine RBC Urine WBC Urine Bacteria Hyaline Casts Micro UA Comment Ur Microscopic Review Urine Culture Comments Random Vancomycin 12/01/17 12/01/17 12/01/17 13:14 13:52 18:58 WBC RBC Hgb Hct MCV MCH MCHC RDW Plt Count MPV Neut % (Auto) Lymph % (Auto) Parmer % (Auto) Eos % (Auto) Baso % (Auto) Neut # (Auto) Lymph # (Auto) Parmer # (Auto) Eos # (Auto) Baso # (Auto) WBC Differential Differential Comment PT INR APTT Sodium 139 Potassium 5.3 H Chloride 106 Carbon Dioxide 18.5 L Anion Gap 15 BUN 37 H Creatinine 5.72 H Estimated GFR 10 L POC Glucose 104 Random Glucose 169 H Lactic Acid Calcium 8.0 L Phosphorus Magnesium 1.8 Total Bilirubin 0.5 AST 89 H ALT 43 Alkaline Phosphatase 138 H Total Creatine Kinase 2049 H CK-MB (CK-2) 40.2 H CK-MB (CK-2) % 2.0 Troponin I 0.06 H Total Protein 5.6 L Albumin 2.4 L Urine Color Yellow Urine Clarity Cloudy H Urine pH 5.0 Ur Specific Aiken 1.015 Urine Protein 500 or greater Urine Glucose (UA) 50 Urine Ketones Trace H Urine Occult Blood Large H Urine Nitrate Negative Urine Bilirubin Negative Urine Urobilinogen Less than 2 Ur Leukocyte Esterase Trace H Urine RBC 1 Urine WBC 18 H Urine Bacteria Moderate H Hyaline Casts 6 Micro UA Comment Cath-culture ind Ur Microscopic Review Not Reportable Urine Culture Comments Cath-cult indicated Random Vancomycin 12/01/17 12/01/17 12/01/17 22:28 22:50 22:50 WBC RBC Hgb Hct MCV MCH MCHC RDW Plt Count MPV Neut % (Auto) Lymph % (Auto) Parmer % (Auto) Eos % (Auto) Baso % (Auto) Neut # (Auto) Lymph # (Auto) Parmer # (Auto) Eos # (Auto) Baso # (Auto) WBC Differential Differential Comment PT 12.1 H INR 1.2 APTT 29.4 Sodium Potassium Chloride Carbon Dioxide Anion Gap BUN Creatinine Estimated GFR POC Glucose 112 H Random Glucose Lactic Acid 1.7 Calcium Phosphorus Magnesium Total Bilirubin AST ALT Alkaline Phosphatase Total Creatine Kinase CK-MB (CK-2) CK-MB (CK-2) % Troponin I Total Protein Albumin Urine Color Urine Clarity Urine pH Ur Specific Aiken Urine Protein Urine Glucose (UA) Urine Ketones Urine Occult Blood Urine Nitrate Urine Bilirubin Urine Urobilinogen Ur Leukocyte Esterase Urine RBC Urine WBC Urine Bacteria Hyaline Casts Micro UA Comment Ur Microscopic Review Urine Culture Comments Random Vancomycin 12/01/17 12/02/17 12/02/17 22:50 06:57 07:06 WBC RBC Hgb Hct MCV MCH MCHC RDW Plt Count MPV Neut % (Auto) Lymph % (Auto) Parmer % (Auto) Eos % (Auto) Baso % (Auto) Neut # (Auto) Lymph # (Auto) Parmer # (Auto) Eos # (Auto) Baso # (Auto) WBC Differential Differential Comment PT INR APTT Sodium 144 Potassium 4.0 D Chloride 104 Carbon Dioxide 22.0 Anion Gap 18 H BUN 40 H Creatinine 5.52 H Estimated GFR 10 L POC Glucose 138 H Random Glucose 146 H Lactic Acid Calcium 8.4 L Phosphorus 8.3 H Magnesium Total Bilirubin AST ALT Alkaline Phosphatase Total Creatine Kinase 2122 H CK-MB (CK-2) 35.3 H CK-MB (CK-2) % 1.7 Troponin I 0.08 H 0.08 H Total Protein Albumin 2.5 L Urine Color Urine Clarity Urine pH Ur Specific Aiken Urine Protein Urine Glucose (UA) Urine Ketones Urine Occult Blood Urine Nitrate Urine Bilirubin Urine Urobilinogen Ur Leukocyte Esterase Urine RBC Urine WBC Urine Bacteria Hyaline Casts Micro UA Comment Ur Microscopic Review Urine Culture Comments Random Vancomycin 10.1 Microbiology 12/01/17 11:20 Blood - Peripheral Anaerobic Blood Culture - Final QNS - See aerobic report. 12/01/17 11:20 Blood - Peripheral Anaerobic Blood Culture - Final QNS - See aerobic report. - Imaging Impressions Chest X-Ray 12/01/17 11:12 CONCLUSION: 1. No focal or acute intrathoracic disease. 2. Right-sided central line in place. Head CT 12/01/17 11:12 CONCLUSION: 1. Mild cerebral atrophy. 2. No acute infarct, acute hemorrhage, midline shift or extra-axial fluid collections. 3. Small fluid level within the left maxillary sinus. Assessment and Plan - Plan Acute encephalopathy- hasn't improved. Metabolic versus infectious versus neurogenic -Telemetry -will obtain MRI and consult Neurology if no improvement within the next 24 hrs. Dialysis dependent CKD - nephrology consulted. Possible sepsis -? UTI, f/u cultures, follow-up blood cultures, chest x-ray is negative Continue vancomycin and Zosyn renally dosed Acute rhabdomylosis - unsure of etiology, s/p fluid boluses, hopefully will improve w/ dialysis - trend CK slightly bumped troponin - no st segment elevation or depression - trend, likely type 2 secondary to CKD DM with reported hypoglycemia prior to this presentation - LDSS w/ accuchecks Hypertension; resumed home meds. DVT prophylaxis; on Eliquis
[2017-12-02] MEDS ORDERED: Vancomycin Inj 500 MG in Sodium Chlor 0.9% Inj 100 ML IV.SIG ONE (12:00)
[2017-12-02] MEDS: Sodium Chloride 0.45 % Inj 1,000 ML IV.CONT SCH (12:51)
--- NOTE | 2017-12-02 17:04 | MR ---
EXAM DATE: 12/02/2017 4:56 PM EDT AGE/SEX: 67 years / Male INDICATIONS: Altered mental status. CLINICAL DATA: This is the patient's subsequent encounter. Patient reports that signs and symptoms h ave been present for 2 days and indicates a pain score of 0/10. MEDICAL/SURGICAL HISTORY: . CKD, Dialysis . Cardiac Cath (06/2017), AV Fistula placed COMPARISON: [facility] [place], CT HEAD W/O CONTRAST, 12/01/2017. . TECHNIQUE: Multiplanar, multisequence examination of the brain was performed without contrast. FINDINGS: There are no signs of intracranial hemorrhage. No masses are seen. A small focus of increased FLAIR s ignal is noted in the right frontal subcortical white matter, otherwise the signal intensity of the b rain is normal. There is mild diffuse prominence of the CSF spaces, ventricles and cisterns. Diffusio n weighted images are normal. No signs of acute infarction. CONCLUSION: 1. No acute findings. 2. Atrophy and minimal white matter disease. Electronically signed by: Anatoly Villegas MD 12/02/2017 5:03 PM EDT
--- NOTE | 2017-12-02 17:57 | P.PNNP ---
Subjective Interval history: Patient has sepsis Physical Exam Vital signs: Vital Signs 12/01/17 20:00 12/01/17 21:30 12/01/17 23:45 Temperature 98 F 98 F Pulse Rate 110 H 110 H Respiratory Rate 20 20 Blood Pressure 130/89 130/89 Pulse Oximetry 96 96 96 12/02/17 04:40 12/02/17 07:15 12/02/17 08:00 Temperature 98.8 F 98.0 F Pulse Rate 109 H 98 H Respiratory Rate 20 12 18 Blood Pressure 144/80 H 152/66 H Pulse Oximetry 96 96 12/02/17 12:00 12/02/17 12:21 12/02/17 17:52 Temperature 98.1 F Pulse Rate 98 H Respiratory Rate 18 Blood Pressure 122/56 L Pulse Oximetry 104 H 98 98 Intake & Output 12/01/17 12/02/17 12/02/17 18:59 06:59 18:59 Intake Total 800 / 800 50 / 50 150 / 150 Output Total 0 / 0 Balance 800 / 800 50 / 50 150 / 150 Weight 81.81 kg 77.5 kg Intake: IV 800 / 800 50 / 50 150 / 150 Zosyn 2.25 GM Premix 50 ML @ 50 / 50 50 / 50 100 mls/hr IV.SIG Q12H KRUNAL Rx#: [id number] NS Inj 500 ML @ Wide Open IV. 500 / 500 SIG BOLUS KRUNAL Rx#:[id number] Vancomycin Inj 500 MG In NS Inj 100 / 100 100 ML @ 200 mls/hr IV.SIG ONCE ONE Rx#:[id number] Oral 0 / 0 0 / 0 Output: Urine 0 / 0 Other: # Incontinent Voids 1 # Bowel Movements 0 Weight On Admission 77.5 kg - Constitutional no acute distress - Routine HEENT Exam Eye: Present: EOMI - Routine Neck Exam Present: supple - Routine Respiratory Exam Present: CTA bilaterally - Routine Cardiovascular Exam Present: RRR - Routine Abdominal Exam Present: soft - Routine Extremities Exam Present: edema - Urinary Catheter Management Straight Cath placed during this visit: yes Reason for continuing: Not indwelling catheter Insertion date: 12/01/17 Insertion time: 13:46 Assessment and Plan - Assessment (1) Altered mental status Code(s): R41.82 - Altered mental status, unspecified Status: Acute Qualifiers: Altered mental status type: unspecified Qualified Code(s): R41.82 - Altered mental status, unspecified (2) Hypoglycemia Code(s): E16.2 - Hypoglycemia, unspecified Status: Acute (3) Sepsis Code(s): A41.9 - Sepsis, unspecified organism Status: Acute Qualifiers: Sepsis type: sepsis due to unspecified organism Qualified Code(s): A41.9 - Sepsis, unspecified organism (4) ESRD (end stage renal disease) on dialysis Code(s): N18.6 - End stage renal disease; Z99.2 - Dependence on renal dialysis Status: Acute - Plan Patient AV fistula is matured and being used Gram-positive cocci blood cultures, he was given vancomycin Continue to monitor his situation. Altered mental status due to sepsis
[2017-12-03] MEDS: Piperacil/Tazo 2.25 GM Premix 50 ML IV.SIG SCH ×2 (00:41→15:17)
[2017-12-03] MEDS ORDERED: Labetalol HCl Inj 100 MG/20 ML Vial IV.PUSH ONE (01:14)
[2017-12-03 09:13] LABS: Calcium 8.3 mg/dL (8.5-10.1); Carbon Dioxide 18.2 meq/L (21.0-32.0); Vancomycin,Random 13.3 Comment
[2017-12-03 09:21] LABS: Potassium 4.8 meq/L (3.5-5.1)
--- NOTE | 2017-12-03 10:08 | P.PNNP ---
Subjective Interval history: Patient seen on dialysis - confusion and altered mental status. infiltration of AVF with cannulation - using right IJ tunneled catheter now. Physical Exam Vital signs: Vital Signs 12/02/17 12:00 12/02/17 12:21 12/02/17 17:52 Temperature 98.1 F Pulse Rate 98 H Respiratory Rate 18 Blood Pressure 122/56 L Pulse Oximetry 104 H 98 98 12/02/17 20:00 12/02/17 21:30 12/02/17 23:25 Temperature 98 F 98.3 F Pulse Rate 96 H 89 Respiratory Rate 19 20 Blood Pressure 180/85 H 183/90 H Pulse Oximetry 97 94 L 95 12/02/17 23:26 12/03/17 02:19 12/03/17 05:30 Temperature 97.8 F Pulse Rate 75 87 Respiratory Rate 18 22 Blood Pressure 148/69 H 187/87 H Pulse Oximetry 97 95 93 L Intake & Output 12/02/17 12/03/17 12/03/17 18:59 06:59 18:59 Intake Total 150 / 150 50 / 50 Output Total 0 / 0 Balance 150 / 150 50 / 50 Weight 78 kg Intake: IV 150 / 150 50 / 50 Zosyn 2.25 GM Premix 50 ML @ 50 / 50 50 / 50 100 mls/hr IV.SIG Q12H KRUNAL Rx#: [id number] Vancomycin Inj 500 MG In NS Inj 100 / 100 100 ML @ 200 mls/hr IV.SIG ONCE ONE Rx#:[id number] Oral 0 / 0 0 / 0 Output: Urine 0 / 0 Other: # Incontinent Voids 0 # Bowel Movements 0 # Incontinent Bowel Movements 0 - Constitutional moderate distress Comments: confused - Routine HEENT Exam Head: Present: normocephalic Eye: Present: EOMI ENT: Present: mucous membranes moist - Routine Neck Exam Present: supple - Routine Respiratory Exam Present: decreased breath sounds - Routine Cardiovascular Exam Present: RRR - Routine Abdominal Exam Present: soft - Routine Skin Exam Present: intact - Routine Neurological Exam Present: altered mental status - Detailed Neurological Exam: Coma Scale Eye Opening: Spontaneous - Routine Psychiatric Exam Present: unable to assess - Urinary Catheter Management Straight Cath placed during this visit: yes Reason for continuing: Not indwelling catheter Insertion date: 12/01/17 Insertion time: 13:46 Assessment and Plan - Assessment (1) Altered mental status Code(s): R41.82 - Altered mental status, unspecified Status: Acute Qualifiers: Altered mental status type: unspecified Qualified Code(s): R41.82 - Altered mental status, unspecified (2) Hypoglycemia Code(s): E16.2 - Hypoglycemia, unspecified Status: Acute (3) Sepsis Code(s): A41.9 - Sepsis, unspecified organism Status: Acute Qualifiers: Sepsis type: sepsis due to unspecified organism Qualified Code(s): A41.9 - Sepsis, unspecified organism (4) ESRD (end stage renal disease) on dialysis Code(s): N18.6 - End stage renal disease; Z99.2 - Dependence on renal dialysis Status: Acute - Plan Gram-positive cocci blood cultures, he was given vancomycin Suspect AMS secondary to sepsis - likely related to dialysis catheter. Seen on HD today - continue TTS HD Attempted AV fistula use today - however fistula infiltration and currently using dialysis catheter. Received 1 gram Vancomycin with HD today. Tunneled right IJ catheter D/C after treatment today and catheter tip sent for culture, blood cultures from catheter also sent for culture. Suspect MRSA at this point - continue with Vancomycin Will need cattuesday for next HD - catheter holiday from now until next treatment, continue to treat with Vancomycin. Procedure note: Right IJ Tunneled Catheter Removal: The catheter exit site was prepped. Blunt dissction and traction was used to fully remove the tunneled catheter. A dressing was placed at the exit site, and the tip was sent for culture. There were no complications
--- NOTE | 2017-12-03 13:48 | P.PNIM ---
Subjective Interval history: in no acute distress. but still confused. had his HD today. no fever. d/w the RN at the bedside. Physical Exam Vital signs: Vital Signs 12/02/17 17:52 12/02/17 20:00 12/02/17 21:30 Temperature 98 F Pulse Rate 96 H Respiratory Rate 19 Blood Pressure 180/85 H Pulse Oximetry 98 97 94 L 12/02/17 23:25 12/02/17 23:26 12/03/17 02:19 Temperature 98.3 F Pulse Rate 89 75 Respiratory Rate 20 18 Blood Pressure 183/90 H 148/69 H Pulse Oximetry 95 97 95 12/03/17 05:30 Temperature 97.8 F Pulse Rate 87 Respiratory Rate 22 Blood Pressure 187/87 H Pulse Oximetry 93 L Intake & Output 12/02/17 12/03/17 12/03/17 18:59 06:59 18:59 Intake Total 150 / 150 50 / 50 Output Total 0 / 0 1999 Balance 150 / 150 50 / 50 -1999 Weight 78 kg Intake: IV 150 / 150 50 / 50 Zosyn 2.25 GM Premix 50 ML @ 50 / 50 50 / 50 100 mls/hr IV.SIG Q12H KRUNAL Rx#: [id number] Vancomycin Inj 500 MG In NS Inj 100 / 100 100 ML @ 200 mls/hr IV.SIG ONCE ONE Rx#:[id number] Oral 0 / 0 0 / 0 Output: Urine 0 / 0 Hemodialysis Amount 1999 Other: # Incontinent Voids 0 # Bowel Movements 0 # Incontinent Bowel Movements 0 - Constitutional no acute distress - Routine Respiratory Exam Present: CTA bilaterally - Routine Cardiovascular Exam Present: RRR - Routine Abdominal Exam Present: soft - Routine Skin Exam Present: erythema (right shoulder.) - Routine Neurological Exam awake but confused. - Urinary Catheter Management Straight Cath placed during this visit: yes Reason for continuing: Not indwelling catheter Insertion date: 12/01/17 Insertion time: 13:46 Results - Labs CBC & Chem 7: 12/01/17 11:20 12/03/17 08:00 Laboratory Results - last 24 hr 12/02/17 12/02/17 12/03/17 15:55 19:41 01:49 Sodium Potassium Chloride Carbon Dioxide Anion Gap BUN Creatinine Estimated GFR POC Glucose 103 132 H 91 Random Glucose Calcium Random Vancomycin 12/03/17 12/03/17 08:00 13:30 Sodium 145 Potassium 4.8 D Chloride 104 Carbon Dioxide 18.2 L Anion Gap 23 H BUN 56 H Creatinine 6.81 H Estimated GFR 8 L POC Glucose 85 Random Glucose 133 H Calcium 8.3 L Random Vancomycin 13.3 Microbiology 12/01/17 11:20 Blood - Peripheral Aerobic Blood Culture - Preliminary No growth in 2 days 12/01/17 11:20 Blood - Peripheral Anaerobic Blood Culture - Final QNS - See aerobic report. 12/01/17 11:20 Blood - Peripheral Aerobic Blood Culture - Preliminary Staphylococcus coag negative 12/01/17 11:20 Blood - Peripheral Anaerobic Blood Culture - Final QNS - See aerobic report. 12/01/17 13:52 Catheterized Urine Urine Culture - Final No growth in 48 hours - Imaging Impressions Head MRI 12/02/17 00:00 CONCLUSION: 1. No acute findings. 2. Atrophy and minimal white matter disease. Assessment and Plan - Plan Acute encephalopathy- hasn't improved. Metabolic versus infectious -Telemetry -MRI brain with no acute abnormality -continue to monitor. -awaiting ST for f/u; will insert NG tube if he fails the swallow evaluation. Dialysis dependent CKD - nephrology consulted. Possible sepsis -possibly due to HD access Continue vancomycin and Zosyn renally dosed -will follow the repeated blood cultures. Acute rhabdomylosis - unsure of etiology, s/p fluid boluses, hopefully will improve w/ dialysis - trend CK slightly bumped troponin - no st segment elevation or depression - trend, likely type 2 secondary to CKD DM with reported hypoglycemia prior to this presentation - LDSS w/ accuchecks Hypertension; resumed home meds. DVT prophylaxis; on Eliquis Discharge Planning: still confused- suspect HD access infection. not ready for discharge.
[2017-12-03] MEDS ORDERED: Vancomycin Inj 1,000 MG in Sodium Chlor 0.9% Inj 250 ML IV.SIG SCH (14:00)
[2017-12-03] MEDS: Carvedilol 12.5 MG Tablet PO SCH ×4 (14:17→22:13)
[2017-12-03] MEDS: Vitamin B Complex/Vit C/Folic Tablet PO SCH (14:18)
[2017-12-03] MEDS: Lipase/Protease/Amylase 24/76/120 DR Capsule PO SCH ×3 (14:18→22:13)
[2017-12-03] MEDS: Levothyroxine 50 MCG Tablet PO SCH (14:19)
[2017-12-03] MEDS: Lisinopril 10 MG Tablet PO SCH (14:19)
[2017-12-03] MEDS: Sodium Chloride 0.45 % Inj 1,000 ML IV.CONT SCH (15:18)
[2017-12-04] MEDS: Piperacil/Tazo 2.25 GM Premix 50 ML IV.SIG SCH ×2 (01:42→12:01)
[2017-12-04] MEDS ORDERED: Labetalol HCl Inj 100 MG/20 ML Vial IV.PUSH ONE (04:50)
--- NOTE | 2017-12-04 05:36 | MB ---
cc: Vladislav Ruby MD, PhD DATE: 12/03/2017 REASON FOR CONSULTATION: Mental status change. HISTORY OF PRESENT ILLNESS: Mr. Power is a 67-year-old man who has renal failure, is on dialysis, was found at home lying on the floor very confused. The dialysis center contacted his brother when he missed dialysis as that was unusual since he never misses dialysis. He had no seizure activity. No focal deficits. He has been very confused and disoriented. PAST MEDICAL HISTORY: End-stage renal disease on dialysis, COPD, coronary artery disease, peripheral artery disease, type 2 diabetes. CURRENT MEDICATIONS: 1. Tylenol. 2. Albumin. 3. Eliquis 5 mg b.i.d. 4. Lipitor 40 mg daily. 5. Coreg 25 mg b.i.d. 6. Catapres. 7. Benadryl. 8. Gentamicin with dialysis. 9. Heparin with dialysis. 10. Insulin. 11. Synthroid. 12. Prinivil. 13. Ativan. 14. Mannitol p.r.n. 15. Nitroglycerin p.r.n. 16. Zofran p.r.n. 17. Piperacillin 18. Vancomycin. NEUROLOGICAL EXAMINATION: VITAL SIGNS: His blood pressure is 183/90, pulse 89, respirations 20, temperature 98.3. HIGHER CORTICAL FUNCTION: He is alert. He is very confused and disoriented. He can only follow occasional commands. He keeps repeating phrases that do not make sense. Cranial nerves are intact. His neck is supple with no meningismus. On motor exam, he is generally weak, but no focal deficits are identified. DIAGNOSTIC DATA: His MRI of the brain, no acute changes. There is atrophy present. CT of the head, mild atrophy, no acute change present. LABORATORY DATA: White count 13,900, hemoglobin 13, hematocrit 41%, platelet count 157,000. PT 12.1, INR 1.2, PTT 29.4. Sodium is 145, potassium 4.8, chloride 104, CO2 is 18.2, BUN is 56, creatinine 6.81, glucose is 133. UA, pH is 5, specific gravity 1.015, protein 500 or greater. Glucose is 50. 18 WBCs are identified, moderate bacteria. Culture is pending. Blood culture positive for Staph coag-negative. IMPRESSION: Mental status change probably encephalopathy from urosepsis. ASSESSMENT AND PLAN: MRI brain is normal. No sign of acute stroke. There is no meningismus. No sign of meningitis. Would not recommend LP at this time, especially in view of the fact that he is on Eliquis, which would contraindicate a lumbar puncture. Vladislav Ruby MD, PhD RASHIDA/amlik , 04:08 PM , 04:15 PM
[2017-12-04 06:57] LABS: Calcium 8.3 mg/dL (8.5-10.1); Carbon Dioxide 24.6 meq/L (21.0-32.0)
--- NOTE | 2017-12-04 09:57 | P.PNIM ---
Subjective Interval history: in no acute distress. still on restraints. no fever today. d/w the RN. Physical Exam Vital signs: Vital Signs 12/03/17 17:51 12/03/17 19:55 12/03/17 20:00 Temperature 98.2 F Pulse Rate 101 H 116 H Respiratory Rate 20 Blood Pressure 182/81 H Pulse Oximetry 94 L 91 L 91 L 12/04/17 00:00 12/04/17 00:17 12/04/17 04:00 Temperature 97.2 F L 97.4 F L Pulse Rate 96 H 95 H Respiratory Rate 20 20 Blood Pressure 155/86 H 189/96 H Pulse Oximetry 96 94 L 98 12/04/17 06:04 12/04/17 08:00 12/04/17 08:04 Temperature 97.4 F L Pulse Rate 76 78 Respiratory Rate 20 Blood Pressure 168/80 H 172/80 H Pulse Oximetry 97 98 Intake & Output 12/03/17 12/04/17 12/04/17 18:59 06:59 18:59 Intake Total 1050 / 1050 50 / 50 Output Total 1999 Balance -950 / -950 50 / 50 Weight 97.4 kg Intake: IV 1050 / 1050 50 / 50 1/2 Normal Saline Inj 1,000 ML 1000 / 1000 @ 55 mls/hr IV.CONT .[id number] KRUNAL Rx#:[id number] Zosyn 2.25 GM Premix 50 ML @ 50 / 50 50 / 50 100 mls/hr IV.SIG Q12H KRUNAL Rx#: [id number] Output: Hemodialysis Amount 1999 Other: # Incontinent Voids 1 Date of Last Bowel Movement 12/04/17 12/01/17 - Constitutional no acute distress - Routine Respiratory Exam Present: CTA bilaterally - Routine Cardiovascular Exam Present: RRR - Routine Abdominal Exam Present: soft - Routine Extremities Exam Comments: no pedal edema. - Routine Neurological Exam confused. - Urinary Catheter Management Straight Cath placed during this visit: yes Reason for continuing: Not indwelling catheter Insertion date: 12/01/17 Insertion time: 13:46 Results - Labs CBC & Chem 7: 12/01/17 11:20 12/04/17 05:49 Laboratory Results - last 24 hr 12/03/17 12/03/17 12/03/17 13:30 18:23 23:57 Sodium Potassium Chloride Carbon Dioxide Anion Gap BUN Creatinine Estimated GFR POC Glucose 85 126 H 139 H Random Glucose Calcium 12/04/17 12/04/17 12/04/17 05:49 06:12 06:20 Sodium 143 Potassium 4.0 D Chloride 99 Carbon Dioxide 24.6 Anion Gap 19 H BUN 35 H Creatinine 5.61 H Estimated GFR 10 L POC Glucose 225 H 203 H Random Glucose 192 H Calcium 8.3 L 12/04/17 07:45 Sodium Potassium Chloride Carbon Dioxide Anion Gap BUN Creatinine Estimated GFR POC Glucose 174 H Random Glucose Calcium Microbiology 12/01/17 11:20 Blood - Peripheral Aerobic Blood Culture - Preliminary No growth in 2 days 12/01/17 11:20 Blood - Peripheral Anaerobic Blood Culture - Final QNS - See aerobic report. 12/01/17 11:20 Blood - Peripheral Aerobic Blood Culture - Preliminary Staphylococcus coag negative 12/01/17 11:20 Blood - Peripheral Anaerobic Blood Culture - Final QNS - See aerobic report. 12/01/17 13:52 Catheterized Urine Urine Culture - Final No growth in 48 hours Assessment and Plan - Plan Acute encephalopathy- hasn't improved. Metabolic versus infectious -Telemetry -MRI brain with no acute abnormality -neurology consult appreciated. -continue to monitor. -awaiting ST for f/u; will insert NG tube if he fails the swallow evaluation. Dialysis dependent CKD - nephrology consulted. Possible sepsis -possibly due to HD access; this was removed on 12/03- -needs vas-cath for next HD. Continue vancomycin and Zosyn renally dosed -will follow the repeated blood cultures/ and cath-tip culture. Acute rhabdomyolysis - unsure of etiology, s/p fluid boluses, hopefully will improve w/ dialysis - trend CK slightly bumped troponin - no st segment elevation or depression - trend, likely type 2 secondary to CKD DM with reported hypoglycemia prior to this presentation - LDSS w/ accuchecks Hypertension; resumed home meds. DVT prophylaxis; on Eliquis Discharge Planning: still confused- suspect HD access infection. not ready for discharge.
[2017-12-04 10:50] LABS: CKMB Percent 2.7 % (0.0-4.0); Creatine Kinase MB 11.4 ng/mL (0.5-3.6)
[2017-12-04] MEDS: Carvedilol 12.5 MG Tablet PO SCH ×3 (11:13→22:27)
[2017-12-04] MEDS: Lipase/Protease/Amylase 24/76/120 DR Capsule PO SCH ×4 (11:16→22:26)
[2017-12-04] MEDS: Lisinopril 10 MG Tablet PO SCH (11:17)
[2017-12-04] MEDS: Vitamin B Complex/Vit C/Folic Tablet PO SCH (11:17)
[2017-12-04] MEDS: Levothyroxine 50 MCG Tablet PO SCH (11:34)
--- NOTE | 2017-12-04 14:59 | P.PNNP ---
Subjective Interval history: ongoing confusion and AMS - however more lucid today per family Physical Exam Vital signs: Vital Signs 12/03/17 17:51 12/03/17 19:55 12/03/17 20:00 Temperature 98.2 F Pulse Rate 101 H 116 H Respiratory Rate 20 Blood Pressure 182/81 H Pulse Oximetry 94 L 91 L 91 L 12/04/17 00:00 12/04/17 00:17 12/04/17 04:00 Temperature 97.2 F L 97.4 F L Pulse Rate 96 H 95 H Respiratory Rate 20 20 Blood Pressure 155/86 H 189/96 H Pulse Oximetry 96 94 L 98 12/04/17 06:04 12/04/17 08:00 12/04/17 08:04 Temperature 97.4 F L Pulse Rate 76 78 Respiratory Rate 20 Blood Pressure 168/80 H 172/80 H Pulse Oximetry 97 98 12/04/17 12:00 12/04/17 13:18 Temperature 97.1 F L Pulse Rate 85 90 Respiratory Rate 20 Blood Pressure 191/88 H Pulse Oximetry 97 Intake & Output 12/03/17 12/04/17 12/04/17 18:59 06:59 18:59 Intake Total 1050 / 1050 50 / 50 50 / 50 Output Total 1999 Balance -950 / -950 50 / 50 50 / 50 Weight 97.4 kg Intake: IV 1050 / 1050 50 / 50 50 / 50 1/2 Normal Saline Inj 1,000 ML 1000 / 1000 @ 55 mls/hr IV.CONT .[id number] [facility] Rx#:[id number] Zosyn 2.25 GM Premix 50 ML @ 50 / 50 50 / 50 50 / 50 100 mls/hr IV.SIG Q12H [facility] Rx#: [id number] Output: Hemodialysis Amount 1999 Other: # Incontinent Voids 1 Date of Last Bowel Movement 12/04/17 12/01/17 - Constitutional no acute distress - Routine HEENT Exam Head: Present: normocephalic Eye: Present: EOMI ENT: Present: mucous membranes moist - Routine Neck Exam Present: supple - Routine Respiratory Exam Present: diminished air movement - Routine Cardiovascular Exam Present: RRR - Routine Abdominal Exam Present: soft - Routine Extremities Exam Present: AV fistula, vascular access - Routine Skin Exam Present: intact - Detailed Neurological Exam: Coma Scale Eye Opening: Spontaneous Verbal Response: Confused - Routine Psychiatric Exam Present: unable to assess - Urinary Catheter Management Straight Cath placed during this visit: yes Reason for continuing: Not indwelling catheter Insertion date: 12/01/17 Insertion time: 13:46 Assessment and Plan - Assessment (1) Altered mental status Code(s): R41.82 - Altered mental status, unspecified Status: Acute Qualifiers: Altered mental status type: unspecified Qualified Code(s): R41.82 - Altered mental status, unspecified (2) Hypoglycemia Code(s): E16.2 - Hypoglycemia, unspecified Status: Acute (3) Sepsis Code(s): A41.9 - Sepsis, unspecified organism Status: Acute Qualifiers: Sepsis type: sepsis due to unspecified organism Qualified Code(s): A41.9 - Sepsis, unspecified organism (4) ESRD (end stage renal disease) on dialysis Code(s): N18.6 - End stage renal disease; Z99.2 - Dependence on renal dialysis Status: Acute - Plan Gram-positive cocci blood cultures, he was given vancomycin Suspect AMS secondary to sepsis - likely related to dialysis catheter. HD done Tuesday Attempted AV fistula Tuesday - however fistula infiltration and catheter used. Tunneled right IJ catheter D/C after treatment Tuesday and catheter tip sent for culture, blood cultures from catheter also sent for culture. Suspect MRSA at this point - continue with Vancomycin with HD and follow cultures. Will need vascath Tuesday for next HD - catheter holiday from now until next treatment, continue to treat with Vancomycin. Ordered vascath with IR for Tuesday - will need to be NPO at midnight Tuesday night. Volume status and electrolytes otherwise stable.
[2017-12-04] MEDS ORDERED: Sod Chloride 0.9% Inj 1,000 ML IV.SIG ONE (20:14)
--- NOTE | 2017-12-04 21:43 | XR ---
EXAM DATE: 12/04/2017 9:37 PM EDT AGE/SEX: 67 years / Male INDICATIONS: Pain. CLINICAL DATA: This is the patient's initial encounter. Patient reports that signs and symptoms have been present for 1 day and indicates a pain score of Nonresponsive. MEDICAL/SURGICAL HISTORY: . CKD, Dialysis . Cardiac Cath (06/2017), AV Fistula placed None. COMPARISON: No prior exams available for comparison. FINDINGS: No definite fractures, or dislocations are identified. No definite lytic or sclerotic les ion is seen. The joint spaces are well maintained. Chronic vascular calcifications are seen. CONCLUSION: Unremarkable study. Electronically signed by: Nagi Paige MD 12/04/2017 9:42 PM EDT
--- NOTE | 2017-12-04 21:44 | XR ---
EXAM DATE: 12/04/2017 9:39 PM EDT AGE/SEX: 67 years / Male INDICATIONS: Pain. CLINICAL DATA: This is the patient's initial encounter. Patient reports that signs and symptoms have been present for 1 day and indicates a pain score of Nonresponsive. MEDICAL/SURGICAL HISTORY: . CKD, Dialysis . Cardiac Cath (06/2017), AV Fistula placed None. COMPARISON: No prior exams available for comparison. FINDINGS: No definite fractures, or dislocations are identified. There are atherosclerotic calcifica tions involving the visualized blood vessels chronic in nature. No definite lytic or sclerotic lesio n is seen. CONCLUSION: Unremarkable study. Electronically signed by: Nagi Paige MD 12/04/2017 9:43 PM EDT
--- NOTE | 2017-12-04 21:49 | XR ---
EXAM DATE: 12/04/2017 9:45 PM EDT AGE/SEX: 67 years / Male INDICATIONS: Pain. CLINICAL DATA: This is the patient's initial encounter. Patient reports that signs and symptoms have been present for 1 day and indicates a pain score of Nonresponsive. MEDICAL/SURGICAL HISTORY: . CKD, Dialysis . Cardiac Cath (06/2017), AV Fistula placed None. COMPARISON: No prior exams available for comparison. FINDINGS: No definite fractures, or dislocations are identified. No definite lytic or sclerotic les ion is seen. Slight hypertrophic change is identified within the AC joint with indentation on the sub acromial fat plane. CONCLUSION: No definite fracture is identified for technique. Electronically signed by: Nagi Paige MD 12/04/2017 9:48 PM EDT
[2017-12-05] MEDS: Piperacil/Tazo 2.25 GM Premix 50 ML IV.SIG SCH ×2 (01:06→12:20)
[2017-12-05 05:42] LABS: Hematocrit 35.4 % (39.0-51.0); Hemoglobin 11.2 gm/dL (13.0-17.0); Mean Corpuscular HGB Conc 31.6 % (32.0-36.0); Mean Corpuscular Hemoglobin 27.3 pg (27.0-34.0); Mean Corpuscular Volume 86.6 fL (80.0-100.0); Mean Platelet Volume 9.1 fL (7.0-11.0); Platelet Count 161 th/mm3 (150-450); Red Blood Count 4.09 mil/mm3 (4.50-5.90); Red Cell Distribution Width 18.6 % (11.6-17.2); White Blood Count 19.5 th/mm3 (4.0-11.0)
[2017-12-05 05:54] LABS: INR 1.4 Ratio; Prothrombin Time 14.1 sec (9.8-11.6)
[2017-12-05 06:04] LABS: Calcium 8.3 mg/dL (8.5-10.1); Carbon Dioxide 20.4 meq/L (21.0-32.0); Potassium 4.3 meq/L (3.5-5.1)
[2017-12-05] MEDS: Levothyroxine 50 MCG Tablet PO SCH (09:13)
[2017-12-05] MEDS: Vitamin B Complex/Vit C/Folic Tablet PO SCH (09:14)
[2017-12-05] MEDS: Lisinopril 10 MG Tablet PO SCH (09:14)
[2017-12-05] MEDS: Carvedilol 12.5 MG Tablet PO SCH ×2 (09:14→21:09)
[2017-12-05] MEDS: Lipase/Protease/Amylase 24/76/120 DR Capsule PO SCH ×4 (09:19→21:03)
--- NOTE | 2017-12-05 11:01 | P.PNIM ---
Subjective Interval history: in no acute distress. but still confused and on restraints. started to eat part of his breakfast and also took his meds this morning. no fever. d/w the RN. Physical Exam Vital signs: Vital Signs 12/04/17 12:00 12/04/17 13:18 12/04/17 16:00 Temperature 97.1 F L 98.8 F Pulse Rate 85 90 104 H Respiratory Rate 20 20 Blood Pressure 191/88 H 189/90 H Pulse Oximetry 97 94 L 12/04/17 16:04 12/04/17 20:00 12/05/17 00:00 Temperature 102.7 F H 98.7 F Pulse Rate 126 H 84 Respiratory Rate 20 18 Blood Pressure 176/71 H 100/51 L Pulse Oximetry 97 95 97 12/05/17 04:00 12/05/17 07:46 12/05/17 07:56 Temperature 97.9 F 95.9 F L Pulse Rate 73 69 Respiratory Rate 18 18 Blood Pressure 109/51 L 115/57 L Pulse Oximetry 95 96 97 12/05/17 10:00 Temperature Pulse Rate Respiratory Rate Blood Pressure Pulse Oximetry 97 Intake & Output 12/04/17 12/05/17 12/05/17 18:59 06:59 18:59 Intake Total 50 / 50 2150 / 2150 Output Total 300 / 300 Balance -250 / -250 2150 / 2150 Weight 74.4 kg Intake: IV 50 / 50 2150 / 2150 Ofirmev Inj 1,000 mg In 100 ml 100 / 100 @ 400 mls/hr IV.SIG ONCE ONE Rx #:[id number] Zosyn 2.25 GM Premix 50 ML @ 50 / 50 50 / 50 100 mls/hr IV.SIG Q12H [facility] Rx#: [id number] NS Inj 1,000 ML @ Wide Open IV. 1000 / 1000 SIG BOLUS ONE Rx#:[id number] Output: Urine 300 / 300 Other: # Incontinent Voids 1 Date of Last Bowel Movement 12/01/17 12/05/17 12/05/17 # Bowel Movements 0 - Constitutional no acute distress - Routine Respiratory Exam Present: CTA bilaterally - Routine Cardiovascular Exam Present: RRR - Routine Abdominal Exam Present: soft - Routine Extremities Exam Comments: no pedal edema. - Routine Neurological Exam awake but confused. - Urinary Catheter Management Straight Cath placed during this visit: yes Reason for continuing: Not indwelling catheter Insertion date: 12/01/17 Insertion time: 13:46 Results - Labs CBC & Chem 7: 12/05/17 04:56 12/05/17 04:56 Laboratory Results - last 24 hr 12/04/17 12/04/17 12/04/17 11:25 17:03 23:46 WBC RBC Hgb Hct MCV MCH MCHC RDW Plt Count MPV PT INR Sodium Potassium Chloride Carbon Dioxide Anion Gap BUN Creatinine Estimated GFR POC Glucose 177 H 193 H 216 H Random Glucose Calcium 12/05/17 12/05/17 12/05/17 04:56 04:56 04:56 WBC 19.5 H RBC 4.09 L Hgb 11.2 L Hct 35.4 L MCV 86.6 MCH 27.3 MCHC 31.6 L RDW 18.6 H Plt Count 161 MPV 9.1 PT 14.1 H INR 1.4 Sodium 143 Potassium 4.3 Chloride 101 Carbon Dioxide 20.4 L Anion Gap 22 H BUN 48 H Creatinine 7.94 H Estimated GFR 7 L POC Glucose Random Glucose 251 H Calcium 8.3 L 12/05/17 06:32 WBC RBC Hgb Hct MCV MCH MCHC RDW Plt Count MPV PT INR Sodium Potassium Chloride Carbon Dioxide Anion Gap BUN Creatinine Estimated GFR POC Glucose 263 H Random Glucose Calcium Microbiology 12/01/17 11:20 Blood - Peripheral Aerobic Blood Culture - Final Staphylococcus epidermidis 12/01/17 11:20 Blood - Peripheral Anaerobic Blood Culture - Final QNS - See aerobic report. 12/03/17 11:50 Catheter Tip - Other Wound Culture - Final No growth in 48 hours 12/03/17 11:30 Blood - Line Aerobic Blood Culture - Preliminary No growth in 1 day 12/03/17 11:30 Blood - Line Anaerobic Blood Culture - Preliminary No growth in 1 day 12/03/17 11:10 Blood - Line Aerobic Blood Culture - Preliminary No growth in 1 day 12/03/17 11:10 Blood - Line Anaerobic Blood Culture - Preliminary No growth in 1 day 12/01/17 11:20 Blood - Peripheral Aerobic Blood Culture - Preliminary No growth in 3 days 12/01/17 11:20 Blood - Peripheral Anaerobic Blood Culture - Final QNS - See aerobic report. - Imaging Impressions Hand X-Ray 12/04/17 00:00 CONCLUSION: Unremarkable study. Forearm X-Ray 12/04/17 18:49 CONCLUSION: Unremarkable study. Shoulder X-Ray 12/04/17 18:49 CONCLUSION: No definite fracture is identified for technique. Assessment and Plan - Plan Acute encephalopathy- hasn't improved. Metabolic versus infectious versus due to hypoglycemia ( prior to this presentation). -Telemetry -MRI brain with no acute abnormality -neurology consult appreciated. -continue to monitor. -awaiting ST for f/u - will insert NG tube if his oral intake doesn't improve. Dialysis dependent CKD - nephrology consulted. Possible sepsis -possibly due to HD access; this was removed on 12/03- -needs vas-cath for next HD; this will be done tomorrow. Continue vancomycin and Zosyn renally dosed -repeated blood cultures and cath- tip culture negative so far. 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 DVT prophylaxis; on Eliquis ( will hold for the planned procedure) Discharge Planning: still confused- suspect HD access infection. not ready for discharge.
[2017-12-05] MEDS ORDERED: Dextrose 50% in Water 50 ML Vial IV.PUSH PRN (11:56)
--- NOTE | 2017-12-05 11:58 | P.PNADD ---
Addendum to Inpatient Note Reason for Addendum: Additional Documentation (d/w the daughter at the bedside- she was given an update- code status and extent of care were discussed- she wants to talk to her uncle.she agreed with tube feeding if necessary.)
[2017-12-05] MEDS: Insulin NovoLOG Aspart Correctional Sugar Inj SQ SCH ×3 (12:53→23:07)
--- NOTE | 2017-12-05 13:36 | P.PNNP ---
Subjective Interval history: Patient is sleeping open sites Physical Exam Vital signs: Vital Signs 12/04/17 16:00 12/04/17 16:04 12/04/17 20:00 Temperature 98.8 F 102.7 F H Pulse Rate 104 H 126 H Respiratory Rate 20 20 Blood Pressure 189/90 H 176/71 H Pulse Oximetry 94 L 97 95 12/05/17 00:00 12/05/17 04:00 12/05/17 07:46 Temperature 98.7 F 97.9 F Pulse Rate 84 73 Respiratory Rate 18 18 Blood Pressure 100/51 L 109/51 L Pulse Oximetry 97 95 96 12/05/17 07:56 12/05/17 08:00 12/05/17 10:00 Temperature 95.9 F L Pulse Rate 69 74 Respiratory Rate 18 Blood Pressure 115/57 L Pulse Oximetry 97 97 12/05/17 12:42 Temperature 97.4 F L Pulse Rate 70 Respiratory Rate 16 Blood Pressure 107/56 L Pulse Oximetry 96 Intake & Output 12/04/17 12/05/17 12/05/17 18:59 06:59 18:59 Intake Total 50 / 50 2150 / 2150 50 / 50 Output Total 300 / 300 Balance -250 / -250 2150 / 2150 50 / 50 Weight 74.4 kg Intake: IV 50 / 50 2150 / 2150 50 / 50 Ofirmev Inj 1,000 mg In 100 ml 100 / 100 @ 400 mls/hr IV.SIG ONCE ONE Rx #:[id number] Zosyn 2.25 GM Premix 50 ML @ 50 / 50 50 / 50 50 / 50 100 mls/hr IV.SIG Q12H [facility] Rx#: [id number] NS Inj 1,000 ML @ Wide Open IV. 1000 / 1000 SIG BOLUS ONE Rx#:[id number] Output: Urine 300 / 300 Other: # Incontinent Voids 1 Date of Last Bowel Movement 12/01/17 12/05/17 12/05/17 # Bowel Movements 0 - Constitutional no acute distress - Routine HEENT Exam Head: Present: normocephalic Eye: Present: EOMI - Routine Neck Exam Present: supple - Routine Respiratory Exam Present: CTA bilaterally - Routine Cardiovascular Exam Present: RRR - Routine Abdominal Exam Present: soft, normoactive bowel sounds - Routine Extremities Exam Present: pulses intact - Urinary Catheter Management Straight Cath placed during this visit: yes Reason for continuing: Not indwelling catheter Insertion date: 12/01/17 Insertion time: 13:46 Assessment and Plan - Assessment (1) Altered mental status Code(s): R41.82 - Altered mental status, unspecified Status: Acute Qualifiers: Altered mental status type: unspecified Qualified Code(s): R41.82 - Altered mental status, unspecified (2) Hypoglycemia Code(s): E16.2 - Hypoglycemia, unspecified Status: Acute (3) Sepsis Code(s): A41.9 - Sepsis, unspecified organism Status: Acute Qualifiers: Sepsis type: sepsis due to unspecified organism Qualified Code(s): A41.9 - Sepsis, unspecified organism (4) ESRD (end stage renal disease) on dialysis Code(s): N18.6 - End stage renal disease; Z99.2 - Dependence on renal dialysis Status: Acute - Plan Gram-positive cocci blood cultures, he was given vancomycin Suspect AMS secondary to sepsis - likely related to dialysis catheter. HD done Tuesday Attempted AV fistula Tuesday - however fistula infiltration and catheter used. Tunneled right IJ catheter D/C after treatment Tuesday and catheter tip sent for culture, blood cultures from catheter also sent for culture. Suspect MRSA at this point - continue with Vancomycin with HD and follow cultures. Will need vascath Tuesday for next HD - catheter holiday from now until next treatment, continue to treat with Vancomycin. Ordered vascath with IR for Tuesday - will need to be NPO at midnight Tuesday night. Volume status and electrolytes otherwise stable. Condition remained stable continue to observe
[2017-12-05 15:49] LABS: Alanine Aminotransferase 32 U/L (12-78); Albumin 1.9 g/dL (3.4-5.0); Alkaline Phosphatase 92 U/L (45-117); Anion Gap 18 meq/L (5-15); Aspartate Aminotransferase 24 U/L (15-37); Blood Urea Nitrogen 54 mg/dL (7-18); Calcium 8.2 mg/dL (8.5-10.1); Carbon Dioxide 24.5 meq/L (21.0-32.0); Chloride 100 meq/L (98-107); Glomerular Filtration Rate 6 mL/min (>89); Glucose,Random 323 mg/dL (74-106); Potassium 4.2 meq/L (3.5-5.1); Sodium 142 meq/L (136-145); Total Protein 5.8 g/dL (6.4-8.2); Vancomycin,Random 14.2 Comment
[2017-12-05] MEDS ORDERED: Metoprolol Tartrate 25 MG Tablet PO ONE (15:50)
[2017-12-05] MEDS ORDERED: Chlorhexidine Gluconate 2% 1 Pack (2 Cloths) TOPICAL ONE ×2 (15:50→16:27)
[2017-12-05] MEDS ORDERED: Sodium Chlor 0.9% Inj 500 ML IV.SIG SCH ×2 (16:00→17:00)
[2017-12-05] MEDS ORDERED: Vancomycin Inj 1,000 MG in Sodium Chlor 0.9% Inj 250 ML IV.SIG ONE (17:00)
--- NOTE | 2017-12-05 21:31 | ECG ---
Date Performed: 12/05/2017 Time Performed: 16:01:25 PTAGE: 67 years EKG: Sinus rhythm ANTEROSEPTAL MYOCARDIAL INFARCTION , OF INDETERMINATE AGE ABNORMAL ECG PREVIOUS TRACING : 12/01/2017 12.18 No significant change from previous tracing noted. DOCTOR: Justin Rowley Interpretating Date/Time 12/05/2017 21:30:36
[2017-12-06] MEDS: Piperacil/Tazo 2.25 GM Premix 50 ML IV.SIG SCH ×2 (02:06→13:12)
[2017-12-06 07:39] LABS: Baso # (Auto) 0.1 th/mm3 (0.0-0.2); Baso % (Auto) 0.6 % (0.0-2.0); Eos # (Auto) 1.1 th/mm3 (0.0-0.4); Eos % (Auto) 8.9 % (0.0-4.0); Hematocrit 32.7 % (39.0-51.0); Hemoglobin 10.3 gm/dL (13.0-17.0); Lymph # (Auto) 0.7 th/mm3 (1.0-4.8); Lymph % (Auto) 5.2 % (9.0-44.0); Mean Corpuscular HGB Conc 31.4 % (32.0-36.0); Mean Corpuscular Hemoglobin 27.4 pg (27.0-34.0); Mean Corpuscular Volume 87.2 fL (80.0-100.0); Mean Platelet Volume 8.5 fL (7.0-11.0); Mono # (Auto) 1.3 th/mm3 (0.0-0.9); Neut # (Auto) 9.5 th/mm3 (1.8-7.7); Neut % (Auto) 75.3 % (16.0-70.0); Platelet Count 161 th/mm3 (150-450); Red Blood Count 3.75 mil/mm3 (4.50-5.90); Red Cell Distribution Width 18.8 % (11.6-17.2); White Blood Count 12.7 th/mm3 (4.0-11.0)
[2017-12-06 08:06] LABS: Alanine Aminotransferase 30 U/L (12-78); Albumin 1.8 g/dL (3.4-5.0); Alkaline Phosphatase 94 U/L (45-117); Anion Gap 17 meq/L (5-15); Aspartate Aminotransferase 24 U/L (15-37); Blood Urea Nitrogen 63 mg/dL (7-18); Calcium 8.3 mg/dL (8.5-10.1); Carbon Dioxide 23.1 meq/L (21.0-32.0); Chloride 103 meq/L (98-107); Glomerular Filtration Rate 5 mL/min (>89); Glucose,Random 271 mg/dL (74-106); Potassium 3.8 meq/L (3.5-5.1); Sodium 143 meq/L (136-145); Total Protein 5.6 g/dL (6.4-8.2)
--- NOTE | 2017-12-06 09:23 | P.PNIM ---
Subjective Interval history: f/u encephalopathy in no acute distress. but still confused and on restraints. no fever. Physical Exam Vital signs: Vital Signs 12/05/17 10:00 12/05/17 12:42 12/05/17 15:45 Temperature 97.4 F L 98.1 F Pulse Rate 70 69 Respiratory Rate 16 14 Blood Pressure 107/56 L 112/56 L Pulse Oximetry 97 96 94 L 12/05/17 20:00 12/06/17 00:00 12/06/17 04:00 Temperature 98.1 F 98 F 98.1 F Pulse Rate 74 76 78 Respiratory Rate 18 18 18 Blood Pressure 109/57 L 111/62 114/65 Pulse Oximetry 96 96 96 12/06/17 08:00 Temperature 98.1 F Pulse Rate 74 Respiratory Rate 18 Blood Pressure 108/59 L Pulse Oximetry 91 L Intake & Output 12/05/17 12/06/17 12/06/17 18:59 06:59 18:59 Intake Total 170 / 170 300 / 300 Output Total 101 / 101 Balance 170 / 170 199 / 199 Weight 74.4 kg Intake: IV 50 / 50 300 / 300 Zosyn 2.25 GM Premix 50 ML @ 50 / 50 50 / 50 100 mls/hr IV.SIG Q12H [facility] Rx#: [id number] Vancomycin Inj 1,000 MG In NS 250 / 250 Inj 250 ML @ 250 mls/hr IV.SIG ONCE ONE Rx#:[id number] Oral 120 / 120 Output: Urine 100 / 100 Stool 1 / Other: # Incontinent Voids 1 Date of Last Bowel Movement 12/05/17 12/06/17 # Incontinent Bowel Movements 3 2 - Constitutional no acute distress - Routine Respiratory Exam Present: CTA bilaterally - Routine Cardiovascular Exam Present: RRR - Routine Abdominal Exam Present: soft - Routine Extremities Exam Comments: no pedal edema. - Routine Neurological Exam awake but confused. - Urinary Catheter Management Straight Cath placed during this visit: yes Reason for continuing: Not indwelling catheter Insertion date: 12/01/17 Insertion time: 13:46 Results - Labs CBC & Chem 7: 12/06/17 06:56 12/06/17 06:56 Laboratory Results - last 24 hr 12/05/17 12/05/17 12/05/17 10:59 14:50 16:50 WBC RBC Hgb Hct MCV MCH MCHC RDW Plt Count MPV Neut % (Auto) Lymph % (Auto) Roberts % (Auto) Eos % (Auto) Baso % (Auto) Neut # (Auto) Lymph # (Auto) Roberts # (Auto) Eos # (Auto) Baso # (Auto) WBC Differential Differential Comment Sodium 142 Potassium 4.2 Chloride 100 Carbon Dioxide 24.5 Anion Gap 18 H BUN 54 H Creatinine 8.70 H Estimated GFR 6 L POC Glucose 313 H 298 H Random Glucose 323 H Calcium 8.2 L Total Bilirubin 0.5 AST 24 ALT 32 Alkaline Phosphatase 92 Total Protein 5.8 L Albumin 1.9 L Random Vancomycin 14.2 12/05/17 12/06/17 12/06/17 21:00 06:56 06:56 WBC 12.7 H RBC 3.75 L Hgb 10.3 L Hct 32.7 L MCV 87.2 MCH 27.4 MCHC 31.4 L RDW 18.8 H Plt Count 161 MPV 8.5 Neut % (Auto) 75.3 H Lymph % (Auto) 5.2 L Roberts % (Auto) 10.0 H Eos % (Auto) 8.9 H Baso % (Auto) 0.6 Neut # (Auto) 9.5 H Lymph # (Auto) 0.7 L Roberts # (Auto) 1.3 H Eos # (Auto) 1.1 H Baso # (Auto) 0.1 WBC Differential . Differential Comment Auto diff final Sodium 143 Potassium 3.8 Chloride 103 Carbon Dioxide 23.1 Anion Gap 17 H BUN 63 H Creatinine 9.77 H Estimated GFR 5 L POC Glucose 180 H Random Glucose 271 H Calcium 8.3 L Total Bilirubin 0.5 AST 24 ALT 30 Alkaline Phosphatase 94 Total Protein 5.6 L Albumin 1.8 L Random Vancomycin 12/06/17 08:11 WBC RBC Hgb Hct MCV MCH MCHC RDW Plt Count MPV Neut % (Auto) Lymph % (Auto) Roberts % (Auto) Eos % (Auto) Baso % (Auto) Neut # (Auto) Lymph # (Auto) Roberts # (Auto) Eos # (Auto) Baso # (Auto) WBC Differential Differential Comment Sodium Potassium Chloride Carbon Dioxide Anion Gap BUN Creatinine Estimated GFR POC Glucose 269 H Random Glucose Calcium Total Bilirubin AST ALT Alkaline Phosphatase Total Protein Albumin Random Vancomycin Microbiology 12/03/17 11:30 Blood - Line Aerobic Blood Culture - Preliminary No growth in 2 days 12/03/17 11:30 Blood - Line Anaerobic Blood Culture - Preliminary No growth in 2 days 12/03/17 11:10 Blood - Line Aerobic Blood Culture - Preliminary No growth in 2 days 12/03/17 11:10 Blood - Line Anaerobic Blood Culture - Preliminary No growth in 2 days 12/01/17 11:20 Blood - Peripheral Aerobic Blood Culture - Preliminary No growth in 4 days 12/01/17 11:20 Blood - Peripheral Anaerobic Blood Culture - Final QNS - See aerobic report. 12/01/17 11:20 Blood - Peripheral Aerobic Blood Culture - Final Staphylococcus epidermidis 12/01/17 11:20 Blood - Peripheral Anaerobic Blood Culture - Final QNS - See aerobic report. 12/03/17 11:50 Catheter Tip - Other Wound Culture - Final No growth in 48 hours Assessment and Plan - Plan Acute encephalopathy- hasn't improved. Metabolic versus infectious versus due to hypoglycemia ( prior to this presentation). -Telemetry -MRI brain with no acute abnormality -neurology consult appreciated. -continue to monitor. -on puree diet per ST but will consider NG tube if his oral intake doesn't improve. this was previously d/w the daughter who agreed with the plan. Dialysis dependent CKD - nephrology consulted. Possible sepsis -possibly due to HD access; this was removed on 12/03- -needs vas-cath for next HD; this will be done today. Continue vancomycin and Zosyn renally dosed; will deescalate the antibiotic regimen within the next 24-48 hrs. -repeated blood cultures and cath- tip culture negative so far. 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 DVT prophylaxis; on Eliquis ( will hold for the planned procedure) Discharge Planning: still confused- suspect HD access infection. not ready for discharge. d/w the daughter yesterday; palliative care consult was discussed; she would talk to her uncle about the code status and extent of care.
[2017-12-06] MEDS: Carvedilol 12.5 MG Tablet PO SCH ×3 (10:17→20:52)
[2017-12-06] MEDS: Lisinopril 10 MG Tablet PO SCH ×2 (10:17→10:29)
[2017-12-06] MEDS: Vitamin B Complex/Vit C/Folic Tablet PO SCH ×2 (10:17→10:28)
[2017-12-06] MEDS: Levothyroxine 50 MCG Tablet PO SCH ×2 (10:17→10:29)
[2017-12-06] MEDS: Insulin NovoLOG Aspart Correctional Sugar Inj SQ SCH ×4 (10:18→20:52)
[2017-12-06] MEDS: Lipase/Protease/Amylase 24/76/120 DR Capsule PO SCH ×4 (10:19→20:52)
[2017-12-06] MEDS ORDERED: *Heparin 10,000 UNITS/10 ML Vial Periprocedural ONLY ONE (13:57)
--- NOTE | 2017-12-06 14:58 | IR ---
EXAM DATE: 12/06/2017 2:51 PM EDT AGE/SEX: 67 years / Male INDICATIONS: Patient presents with renal failure in need of dialysis catheter placement. CLINICAL DATA: This is the patient's initial encounter. Patient reports that signs and symptoms have been present for 4 - 6 days and indicates a pain score of Nonresponsive. MEDICAL/SURGICAL HISTORY: . GERD, CAD, CKD, COPD, ESRD, PAD, Diabetes, Former smoker. . Barr ry stent placement COMPARISON: No prior exams available for comparison. FLUORO TIME (min): 0.6 IMAGE SERIES: 2 ACCESS SITE: Right internal jugular vein MEDICATION(S): 1 mg lorazepam (Ativan) IV 2,200 units Heparin IV DEVICE(S): 15 Maori double lumen 15 cm Schon catheter . . PROCEDURE : 1. Ultrasound guided venipuncture. 2. Fluoroscopic guidance. 3. Central line placement. The risks, benefits and alternatives to the procedure were explained and verbal and written consent w as obtained. The site was prepped in sterile fashion. Full sterile technique was used, including ca p, mask, sterile gloves and gown and a large sterile sheet. Hand hygiene and 2% chlorhexidine prep w as utilized per protocol for cutaneous antisepsis with appropriate dry time for site. Sterile gel an d sterile probe cover were utilized for ultrasound guidance. The skin and subcutaneous tissues were infiltrated with local anesthetic solution. A suitable site a mike the vein was selected with ultrasound and fluoroscopic guidance. A small incision was made. Th e vein was accessed under direct ultrasound visualization using the micropuncture technique. The ojsiane ropuncture set was exchanged for a 0.035 wire. The tract was dilated. The catheter was advanced int o position under direct fluoroscopic visualization, and was advanced with the tip at the junction of the superior vena cava and rt atrium. The catheter was fixed in place with suture and a sterile dres sing was applied. The patient tolerated the procedure well and there were no complications. CONCLUSION: 1. Uncomplicated line placement as above. Electronically signed by: Elio Mcgarry MD 12/06/2017 2:57 PM EDT
[2017-12-06] MEDS: Albumin Human 25% Inj 100 ML IV.SIG PRN (16:36)
[2017-12-06] MEDS: Heparin 10,000 UNITS/10 ML Vial (for IV use) OTHER PRN (16:38)
--- NOTE | 2017-12-06 21:14 | P.PNNP ---
Subjective Interval history: Patient remains confused Physical Exam Vital signs: Vital Signs 12/06/17 00:00 12/06/17 04:00 12/06/17 08:00 Temperature 98 F 98.1 F 98.1 F Pulse Rate 76 78 74 Respiratory Rate 18 18 18 Blood Pressure 111/62 114/65 108/59 L Pulse Oximetry 96 96 95 12/06/17 12:00 12/06/17 13:00 12/06/17 14:34 Temperature 97.5 F L Pulse Rate 68 Respiratory Rate 18 Blood Pressure 89/43 L 96/52 L Pulse Oximetry 92 L 96 12/06/17 17:47 Temperature Pulse Rate Respiratory Rate Blood Pressure Pulse Oximetry 96 Intake & Output 12/06/17 12/06/17 12/07/17 06:59 18:59 06:59 Intake Total 300 / 300 50 / 50 100 / 100 Output Total 101 / 101 1900 / 1900 Balance 199 / 199 -1850 / -1850 100 / 100 Weight 74.4 kg Intake: IV 300 / 300 50 / 50 100 / 100 Flexbumin 25% Inj 100 ML @ 60 100 / 100 mls/hr IV.SIG WITH DIALYSIS PRN Rx#:[id number] Zosyn 2.25 GM Premix 50 ML @ 50 / 50 50 / 50 100 mls/hr IV.SIG Q12H KRUNAL Rx#: [id number] Vancomycin Inj 1,000 MG In NS 250 / 250 Inj 250 ML @ 250 mls/hr IV.SIG ONCE ONE Rx#:[id number] Oral 0 / 0 Output: Urine 100 / 100 100 / 100 Stool 1 / 1 Hemodialysis Amount 1800 / 1800 Other: Date of Last Bowel Movement 12/06/17 12/06/17 # Incontinent Bowel Movements 2 - Constitutional no acute distress - Routine HEENT Exam Head: Present: normocephalic - Routine Respiratory Exam Present: CTA bilaterally - Routine Cardiovascular Exam Present: RRR - Routine Abdominal Exam Present: soft, normoactive bowel sounds - Routine Extremities Exam Present: edema - Urinary Catheter Management Straight Cath placed during this visit: yes Reason for continuing: Not indwelling catheter Insertion date: 12/01/17 Insertion time: 13:46 Assessment and Plan - Assessment (1) Altered mental status Code(s): R41.82 - Altered mental status, unspecified Status: Acute Qualifiers: Altered mental status type: unspecified Qualified Code(s): R41.82 - Altered mental status, unspecified (2) Hypoglycemia Code(s): E16.2 - Hypoglycemia, unspecified Status: Acute (3) Sepsis Code(s): A41.9 - Sepsis, unspecified organism Status: Acute Qualifiers: Sepsis type: sepsis due to unspecified organism Qualified Code(s): A41.9 - Sepsis, unspecified organism (4) ESRD (end stage renal disease) on dialysis Code(s): N18.6 - End stage renal disease; Z99.2 - Dependence on renal dialysis Status: Acute - Plan Gram-positive cocci blood cultures, he was given vancomycin Suspect AMS secondary to sepsis - likely related to dialysis catheter. HD done today 1 L off vascath in place Volume status and electrolytes otherwise stable. Condition remained confused continue to observe
[2017-12-07] MEDS: Piperacil/Tazo 2.25 GM Premix 50 ML IV.SIG SCH ×2 (00:30→14:50)
[2017-12-07] MEDS: Vitamin B Complex/Vit C/Folic Tablet PO SCH (09:56)
[2017-12-07] MEDS: Lipase/Protease/Amylase 24/76/120 DR Capsule PO SCH ×4 (09:56→20:23)
[2017-12-07] MEDS: Carvedilol 12.5 MG Tablet PO SCH ×2 (09:56→20:23)
[2017-12-07] MEDS: Levothyroxine 50 MCG Tablet PO SCH (09:56)
[2017-12-07] MEDS: Lisinopril 10 MG Tablet PO SCH (09:59)
[2017-12-07] MEDS: Insulin NovoLOG Aspart Correctional Sugar Inj SQ SCH ×4 (09:59→21:22)
--- NOTE | 2017-12-07 11:25 | P.PNIM ---
Subjective Interval history: f/u; encephalopathy/poor oral intake in no acute distress. but still confused and on restraints. no fever. didn't eat as much yesterday. d/w the RN. Physical Exam Vital signs: Vital Signs 12/06/17 12:00 12/06/17 13:00 12/06/17 14:34 Temperature 97.5 F L Pulse Rate 68 Respiratory Rate 18 Blood Pressure 89/43 L 96/52 L Pulse Oximetry 92 L 96 12/06/17 17:47 12/06/17 20:00 12/07/17 00:00 Temperature 98.2 F 97.6 F Pulse Rate 69 74 Respiratory Rate 18 18 Blood Pressure 131/83 119/56 L Pulse Oximetry 96 94 L 95 12/07/17 04:00 12/07/17 07:27 12/07/17 08:00 Temperature 97.7 F 97.9 F Pulse Rate 75 75 75 Respiratory Rate 18 18 Blood Pressure 118/58 L 102/45 L Pulse Oximetry 95 95 12/07/17 09:38 Temperature Pulse Rate Respiratory Rate Blood Pressure Pulse Oximetry 95 Intake & Output 12/06/17 12/07/17 12/07/17 18:59 06:59 18:59 Intake Total 50 / 50 150 / 150 Output Total 1900 / 1900 Balance -1850 / -1850 150 / 150 Weight 75.5 kg 75.5 kg Intake: IV 50 / 50 150 / 150 Flexbumin 25% Inj 100 ML @ 60 100 / 100 mls/hr IV.SIG WITH DIALYSIS PRN Rx#:[id number] Zosyn 2.25 GM Premix 50 ML @ 50 / 50 50 / 50 100 mls/hr IV.SIG Q12H KRUNAL Rx#: [id number] Oral 0 / 0 Output: Urine 100 / 100 Hemodialysis Amount 1800 / 1800 Other: # Voids 1 Date of Last Bowel Movement 12/06/17 12/06/17 # Bowel Movements 1 - Constitutional no acute distress - Routine Respiratory Exam Present: CTA bilaterally - Routine Cardiovascular Exam Present: RRR - Routine Abdominal Exam Present: soft - Routine Extremities Exam Comments: no pedal edema. - Routine Neurological Exam awake but confused. - Urinary Catheter Management Straight Cath placed during this visit: yes Reason for continuing: Not indwelling catheter Insertion date: 12/01/17 Insertion time: 13:46 Results - Labs CBC & Chem 7: 12/06/17 06:56 12/06/17 06:56 Laboratory Results - last 24 hr 12/06/17 12/06/17 12/06/17 13:00 14:59 20:06 POC Glucose 223 H 198 H Vancomycin Trough 25.6 H 12/07/17 09:39 POC Glucose 255 H Vancomycin Trough Microbiology 12/03/17 11:30 Blood - Line Aerobic Blood Culture - Preliminary No growth in 4 days 12/03/17 11:30 Blood - Line Anaerobic Blood Culture - Preliminary No growth in 4 days 12/03/17 11:10 Blood - Line Aerobic Blood Culture - Preliminary No growth in 4 days 12/03/17 11:10 Blood - Line Anaerobic Blood Culture - Preliminary No growth in 4 days 12/01/17 11:20 Blood - Peripheral Aerobic Blood Culture - Final No growth in 5 days 12/01/17 11:20 Blood - Peripheral Anaerobic Blood Culture - Final QNS - See aerobic report. - Imaging Impressions Catheter Placement 12/06/17 00:00 CONCLUSION: 1. Uncomplicated line placement as above. Assessment and Plan - Plan Acute encephalopathy- hasn't improved as much. Metabolic versus infectious versus due to hypoglycemia ( prior to this presentation). -Telemetry -MRI brain with no acute abnormality -neurology consult appreciated. -continue to monitor. -on puree diet per ST but still with poor oral intake- will place NG tube; [employer] worker consulted for tube feeding. this was previously d/w the daughter who agreed with the plan. Dialysis dependent CKD - nephrology consulted. Possible sepsis -possibly due to HD access; this was removed on 12/03- -s/p vas-cath placement . Continue vancomycin and Zosyn renally dosed; will deescalate the antibiotic regimen within the next 24 hrs. -repeated blood cultures and cath- tip culture negative so far. 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 DVT prophylaxis; on Eliquis ( will hold for the planned procedure) Discharge Planning: still confused- suspect HD access infection. not ready for discharge. previously d/w the daughter ; palliative care consult was discussed; she would talk to her uncle about the code status and extent of care.
--- NOTE | 2017-12-07 12:34 | P.PNNP ---
Subjective Interval history: Is confused Physical Exam Vital signs: Vital Signs 12/06/17 13:00 12/06/17 14:34 12/06/17 17:47 Temperature Pulse Rate Respiratory Rate Blood Pressure 96/52 L Pulse Oximetry 96 96 12/06/17 20:00 12/07/17 00:00 12/07/17 04:00 Temperature 98.2 F 97.6 F Pulse Rate 69 74 75 Respiratory Rate 18 18 Blood Pressure 131/83 119/56 L Pulse Oximetry 94 L 95 12/07/17 07:27 12/07/17 08:00 12/07/17 09:38 Temperature 97.7 F 97.9 F Pulse Rate 75 75 Respiratory Rate 18 18 Blood Pressure 118/58 L 102/45 L Pulse Oximetry 95 95 95 Intake & Output 12/06/17 12/07/17 12/07/17 18:59 06:59 18:59 Intake Total 50 / 50 150 / 150 Output Total 1900 / 1900 Balance -1850 / -1850 150 / 150 Weight 75.5 kg 75.5 kg Intake: IV 50 / 50 150 / 150 Flexbumin 25% Inj 100 ML @ 60 100 / 100 mls/hr IV.SIG WITH DIALYSIS PRN Rx#:[id number] Zosyn 2.25 GM Premix 50 ML @ 50 / 50 50 / 50 100 mls/hr IV.SIG Q12H KRUNAL Rx#: [id number] Oral 0 / 0 Output: Urine 100 / 100 Hemodialysis Amount 1800 / 1800 Other: # Voids 1 Date of Last Bowel Movement 12/06/17 12/06/17 # Bowel Movements 1 - Constitutional no acute distress - Routine Respiratory Exam Present: CTA bilaterally - Routine Cardiovascular Exam Present: RRR - Routine Abdominal Exam Present: soft - Routine Skin Exam Present: erythema - Routine Neurological Exam Present: alert (Confused) - Urinary Catheter Management Straight Cath placed during this visit: yes Reason for continuing: Not indwelling catheter Insertion date: 12/01/17 Insertion time: 13:46 Assessment and Plan - Assessment (1) Altered mental status Code(s): R41.82 - Altered mental status, unspecified Status: Acute Qualifiers: Altered mental status type: unspecified Qualified Code(s): R41.82 - Altered mental status, unspecified (2) Hypoglycemia Code(s): E16.2 - Hypoglycemia, unspecified Status: Acute (3) Sepsis Code(s): A41.9 - Sepsis, unspecified organism Status: Acute Qualifiers: Sepsis type: sepsis due to unspecified organism Qualified Code(s): A41.9 - Sepsis, unspecified organism (4) ESRD (end stage renal disease) on dialysis Code(s): N18.6 - End stage renal disease; Z99.2 - Dependence on renal dialysis Status: Acute - Plan Gram-positive cocci blood cultures, he was given vancomycin Suspect AMS secondary to hypoglycemia versus sepsis HD done yesterday 1 L off vascath in place Volume status and electrolytes otherwise stable. Condition remained unchanged and remains confused Cultures are so far -1 culture grew staph epidermidis Possibly a contaminant I believe the initial insult with hypoglycemia may have caused altered mental status
[2017-12-07 13:11] LABS: Hemoglobin 10.9 gm/dL (13.0-17.0); Mean Corpuscular HGB Conc 31.9 % (32.0-36.0); Mean Corpuscular Volume 87.7 fL (80.0-100.0); Mean Platelet Volume 9.2 fL (7.0-11.0); Platelet Count 212 th/mm3 (150-450); Red Blood Count 3.88 mil/mm3 (4.50-5.90); White Blood Count 9.7 th/mm3 (4.0-11.0)
[2017-12-07 13:21] LABS: Albumin 2.6 g/dL (3.4-5.0); Anion Gap 25 meq/L (5-15); Aspartate Aminotransferase 26 U/L (15-37); Blood Urea Nitrogen 51 mg/dL (7-18); Calcium 8.4 mg/dL (8.5-10.1); Carbon Dioxide 17.4 meq/L (21.0-32.0); Chloride 100 meq/L (98-107); Glomerular Filtration Rate 7 mL/min (>89); Glucose,Random 276 mg/dL (74-106); Sodium 142 meq/L (136-145)
[2017-12-07 13:23] LABS: Alanine Aminotransferase 31 U/L (12-78)
[2017-12-07 13:25] LABS: Alkaline Phosphatase 92 U/L (45-117); Total Protein 6.5 g/dL (6.4-8.2)
--- NOTE | 2017-12-07 15:01 | P.DIET ---
Nutritional Evaluation Type of nutrition evaluation: initial Nutrition screening: [facility] [place] (TF recommendation) Subjective Subjective Comments: Confused. Poor po intake. Eats ~25% at times. Objective - Diagnosis AMS, CKD, sepsis - Objective % IBW: 108 (IBW = 154#) Body Weight Used for Calculations: Actual (75.5 kg) Energy Needs - Lower Range (kCal/kg): 28 Energy Needs - Upper Range (kCal/kg): 32 Lower Limit kCal/kg (kCals): 2,115 Upper Limit kCal/kg (kCals): 2,416 Lower Limit Protein Factor (Grams per Kg): 1.2 Upper Limit Protein Factor (Grams per Kg): 1.5 Lower Protein Needs (Protein): 91 Upper Protein Needs (Protein): 113 Dietitian Reviewed in Medical Record: Current diet, Curent medications, Intake & Output, Labs, Medical history Diet Order: Renal: 50K, 2GM NA, Mechanical Soft, honey thickened liqs Speech Therapy Recommendations: Yes (pureed, honey thickened liqs) Objective Comments: Meds include synthroid Assessment Assessment: Pt is at high nutrition risk d/t dx, poor po intake, dependence on dialysis and need for TFing. To meet nutritional needs with TFing, recommend Nepro @ 55 mls/ hr x 22 hrs to provide 2178 kcals, 98 gms protein and 880 mls of free water. TF run time will be 22 hours because the pt is on synthroid and the TF must be held one hour before and after this med is given. Will monitor po intake and adjust TF recs accordingly. Recommendations: Nepro @ 55 mls/hr x 22 hrs (d/t synthroid) Dietitian to Monitor: Lab values, Intake & Output, Tube feeding tolerance, Weight change, PO Intake, Diet advancement, Swallow recommendations, Medical course
[2017-12-08] MEDS: Piperacil/Tazo 2.25 GM Premix 50 ML IV.SIG SCH ×2 (00:28→15:37)
--- NOTE | 2017-12-08 05:50 | XR ---
EXAM DATE: 12/08/2017 5:45 AM EDT AGE/SEX: 67 years / Male INDICATIONS: Nasogastric tube placement. CLINICAL DATA: This is the patient's subsequent encounter. Patient reports that signs and symptoms h ave been present for 1 week and indicates a pain score of Nonresponsive. MEDICAL/SURGICAL HISTORY: Renal disease. None. COMPARISON: No prior exams available for comparison. FINDINGS: Single view of the upper abdomen demonstrates nasogastric tube distal tip at the GE junction. Other l bryan overlie the patient. Upper abdomen demonstrates no abnormality. Visualized lungs are clear. CONCLUSION: Nasogastric tube distal tip is at the GE junction. Suggest further advancement stomach. Electronically signed by: Luis Eagle MD 12/08/2017 5:49 AM EDT
[2017-12-08 08:05] LABS: Hematocrit 35.2 % (39.0-51.0); Mean Corpuscular HGB Conc 31.1 % (32.0-36.0); Mean Corpuscular Hemoglobin 27.3 pg (27.0-34.0); Mean Corpuscular Volume 87.6 fL (80.0-100.0); Mean Platelet Volume 9.1 fL (7.0-11.0); Platelet Count 243 th/mm3 (150-450); Red Blood Count 4.02 mil/mm3 (4.50-5.90); Red Cell Distribution Width 18.8 % (11.6-17.2); White Blood Count 12.3 th/mm3 (4.0-11.0)
--- NOTE | 2017-12-08 08:17 | P.PNIM ---
Subjective Interval history: f/u; encephalopathy in no acute distress. mental status hasn't changes as much; still confused and on restraints. no fever. NG tube in place. Physical Exam Vital signs: Vital Signs 12/07/17 09:38 12/07/17 12:00 12/07/17 20:00 Temperature 97.4 F L 98.3 F Pulse Rate 72 88 Respiratory Rate 16 18 Blood Pressure 102/44 L 142/79 H Pulse Oximetry 95 92 L 98 12/08/17 00:00 12/08/17 05:00 Temperature 98 F 98.2 F Pulse Rate 83 76 Respiratory Rate 18 18 Blood Pressure 121/63 145/67 H Pulse Oximetry 95 94 L Intake & Output 12/07/17 12/08/17 12/08/17 18:59 06:59 18:59 Intake Total 0 / 0 100 / 100 Balance 0 / 0 100 / 100 Weight 75.5 kg 73.3 kg Intake: IV 100 / 100 Zosyn 2.25 GM Premix 50 ML @ 100 / 100 100 mls/hr IV.SIG Q12H KRUNAL Rx#: [id number] Oral 0 / 0 Other: # Incontinent Voids 1 1 Date of Last Bowel Movement 12/07/17 12/07/17 # Bowel Movements 1 - Constitutional no acute distress - Routine Respiratory Exam Present: CTA bilaterally - Routine Cardiovascular Exam Present: RRR - Routine Abdominal Exam Present: soft - Routine Extremities Exam Comments: no pedal edema. - Routine Neurological Exam awake but confused. - Urinary Catheter Management Straight Cath placed during this visit: yes Reason for continuing: Not indwelling catheter Insertion date: 12/01/17 Insertion time: 13:46 Results - Labs CBC & Chem 7: 12/08/17 06:50 12/07/17 12:15 Laboratory Results - last 24 hr 12/07/17 12/07/17 12/07/17 09:39 12:15 12:15 WBC 9.7 RBC 3.88 L Hgb 10.9 L Hct 34.0 L MCV 87.7 MCH 28.0 MCHC 31.9 L RDW 19.0 H Plt Count 212 D MPV 9.2 Sodium 142 Potassium 4.0 Chloride 100 Carbon Dioxide 17.4 L Anion Gap 25 H BUN 51 H Creatinine 8.29 H Estimated GFR 7 L POC Glucose 255 H Random Glucose 276 H Calcium 8.4 L Total Bilirubin 0.6 AST 26 ALT 31 Alkaline Phosphatase 92 Total Protein 6.5 D Albumin 2.6 L D 12/07/17 12/08/17 12/08/17 21:10 06:50 07:58 WBC 12.3 H RBC 4.02 L Hgb 11.0 L Hct 35.2 L MCV 87.6 MCH 27.3 MCHC 31.1 L RDW 18.8 H Plt Count 243 MPV 9.1 Sodium Potassium Chloride Carbon Dioxide Anion Gap BUN Creatinine Estimated GFR POC Glucose 332 H 262 H Random Glucose Calcium Total Bilirubin AST ALT Alkaline Phosphatase Total Protein Albumin Microbiology 12/03/17 11:30 Blood - Line Aerobic Blood Culture - Preliminary No growth in 4 days 12/03/17 11:30 Blood - Line Anaerobic Blood Culture - Preliminary No growth in 4 days 12/03/17 11:10 Blood - Line Aerobic Blood Culture - Preliminary No growth in 4 days 12/03/17 11:10 Blood - Line Anaerobic Blood Culture - Preliminary No growth in 4 days - Imaging Impressions Abdomen X-Ray 12/08/17 04:58 CONCLUSION: Nasogastric tube distal tip is at the GE junction. Suggest further advancement stomach. Assessment and Plan - Plan Acute encephalopathy- hasn't improved as much. Metabolic versus infectious versus due to hypoglycemia ( prior to this presentation). -Telemetry -MRI brain with no acute abnormality -neurology consult appreciated. -continue to monitor. -on puree diet per ST but still with poor oral intake- NG tube i place; factory helper consulted for tube feeding. this was previously d/w the daughter who agreed with the plan. Dialysis dependent CKD - nephrology consulted. Possible sepsis -possibly due to HD access; this was removed on 12/03- -s/p vas-cath placement . received vancomycin - will dc Zosyn. -repeated blood cultures and cath- tip culture negative so far. 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 DVT prophylaxis; will resume Eliquis. Discharge Planning: still confused and on restraints. not ready for discharge. will consider palliative care evaluation.
[2017-12-08 08:48] LABS: Alanine Aminotransferase 32 U/L (12-78); Albumin 2.6 g/dL (3.4-5.0); Alkaline Phosphatase 98 U/L (45-117); Anion Gap 26 meq/L (5-15); Aspartate Aminotransferase 31 U/L (15-37); Blood Urea Nitrogen 58 mg/dL (7-18); Calcium 8.8 mg/dL (8.5-10.1); Carbon Dioxide 17.6 meq/L (21.0-32.0); Chloride 102 meq/L (98-107); Glomerular Filtration Rate 5 mL/min (>89); Glucose,Random 217 mg/dL (74-106); Potassium 3.7 meq/L (3.5-5.1); Sodium 146 meq/L (136-145); Total Protein 6.7 g/dL (6.4-8.2); Vancomycin,Random 22.2 Comment
[2017-12-08] MEDS: Lipase/Protease/Amylase 24/76/120 DR Capsule PO SCH ×4 (10:09→20:29)
[2017-12-08] MEDS: Levothyroxine 50 MCG Tablet PO SCH (10:09)
[2017-12-08] MEDS: Vitamin B Complex/Vit C/Folic Tablet PO SCH (10:09)
[2017-12-08] MEDS: Lisinopril 10 MG Tablet PO SCH (10:09)
[2017-12-08] MEDS: Insulin NovoLOG Aspart Correctional Sugar Inj SQ SCH ×4 (10:15→20:30)
[2017-12-08] MEDS: Carvedilol 12.5 MG Tablet PO SCH ×2 (10:16→20:30)
[2017-12-08] MEDS ORDERED: *Heparin 10,000 UNITS/10 ML Vial Periprocedural ONLY ONE (12:54)
--- NOTE | 2017-12-08 14:05 | P.CONPAL ---
Consult Service: Palliative Care Requesting Physician: Mallory Dolan Reason for Consult: a. To assist with evaluation and management of symptoms including: confusion/ agitation, pain b. To assist medical decision maker(s) with: better understanding of current medical conditions; weighing benefits/burdens of medical treatment options; making medical treatment decisions. Primary Care Provider: UNKNOWN History of Present Illness History of Present Illness: This is a 67 y/o male with hx CAD s/p stent placement, CKD, COPD, ESRD, PAD, DM2 , who presented to ER 12/01 via EMS for altered mental status after being found down. Reportedly pt had blood glucose 36 when EMS arrived. Son reported to 911 that pt had missed several dialysis treatments and had seemed disoriented. On arrival pt was noted to have expressive aphasia, WBC 13k, Creatinine 5.3, creatine kinase 2049, troponin 0.[address] showed mild cerebral atrophy. Pt remained confused. MRI showed no acute findings. Neurology consulted, feels encephalopathy could be 2/2 urosepsis. Pt minimally cooperative with swallow evals, placed on pureed diet with honey thick; having decreased PO intake so NGT was placed. Today pt noted by nursing staff to be agitated, unable to participate in physical therapy and failed swallow eval. Pt seen in dialysis. He is restrained, eyes half closed, moaning, and trying to flail arms. HD RN and a tech are attempting to calm him to keep him from disturbing his recently replaced IJ HD catheter, which is starting to ooze blood. RN reports he was "like this" during HD Tuesday as well. Function/Cognitive Trajectory: Reportedly prior to this admission pt was independent with no cognitive deficits. Review of Systems unobtainable due to mental status (limited ROS from family, RN, chart) Constitutional: Denies weight gain Ears, Nose, Mouth, and Throat: Denies nosebleed Cardiovascular: Denies slow heart rate Respiratory: Denies wheezing Gastrointestinal: Reports difficulty swallowing Skin/Breast: Denies bleeding lesions Neurologic: Reports behavioral changes, Reports confusion PMFSH - History History Provided By: Family Member, Bag Repairer / EMT - Medical History Medical History: Medical History (Last Reviewed 12/08/17 @ 08:18 by Yanelis Soliman) GERD (gastroesophageal reflux disease) Hypothyroidism CAD (coronary artery disease) CKD (chronic kidney disease) COPD (chronic obstructive pulmonary disease) ESRD (end stage renal disease) on dialysis PAD (peripheral artery disease) Type 2 diabetes mellitus - Family History Family History: Family History (Last Updated 12/08/17 @ 15:16 by JENN Carvajal) Other Diabetes - Tobacco History Tobacco Use In Past 30 Days: No Smoking Status: Former smoker Tobacco Type: Cigarettes - Alcohol History How Often Do You Have a Drink Containing Alcohol: 2 to 3 times a week - Substance Use History Substance History: No History of Abuse - Travel History Recent Travel in the [place] Within the Last 8 Weeks: No Recent Travel Out of the Country Within the Last 8 Weeks: No - Immunization History Tetanus Immunization: Unable to Assess Hx Influenza Vaccine This Season: Unable to Assess Medications and Allergies Active Medications: Active Medications Acetaminophen (Tylenol) 650 mg PO UNSCH PRN PRN Reason: SEE LABEL COMMENTS Lipase/Protease/Amylase (Ian Enrique /120) 1 cap PO QID [facility] Last Admin: 12/08/17 10:09 Dose: 1 cap Apixaban (Eliquis) 5 mg PO BID [facility] Last Admin: 12/05/17 09:14 Dose: 5 mg Atorvastatin Calcium (Lipitor) 40 mg PO HS [facility] Last Admin: 12/07/17 20:23 Dose: 40 mg Carvedilol (Coreg) 25 mg PO BID [facility] Last Admin: 12/08/17 10:16 Dose: 25 mg Clonidine HCl (Catapres) 0.1 mg PO Q8H PRN PRN Reason: SEE LABEL COMMENTS Dextrose (D50w Vial) 50 ml IV.PUSH UNSCH PRN PRN Reason: PER HYPOGLYCEMIA PROTOCOL Diphenhydramine HCl (Benadryl) 25 mg PO UNSCH PRN PRN Reason: SEE LABEL COMMENTS Enalaprilat (Vasotec Inj) 1.25 mg IV.PUSH Q8H PRN PRN Reason: SBP>180 OR DBP>100 Last Admin: 12/04/17 18:46 Dose: 1.25 mg Gelatin (Gelfoam 12 Mm/7 Mm Topical) 1 foam TOPICAL PRN PRN PRN Reason: help stop bleeding from site Gentamicin Sulfate (Gentamicin Inj) 20 mg OTHER WITH DIALYSIS PRN PRN Reason: Dwell Gentamycin Lock Last Admin: 12/06/17 16:38 Dose: 20 mg Glucagon (Glucagon Inj) 1 mg OTHER PRN PRN PRN Reason: for Hypoglycemia Protocol Heparin Sodium (Porcine) (Heparin Inj) 8,000 units OTHER WITH DIALYSIS PRN PRN Reason: for machine prime Last Admin: 12/01/17 19:31 Dose: 2,000 units Heparin Sodium (Porcine) (Heparin Inj) 0 units OTHER WITH DIALYSIS PRN PRN Reason: Dwell Heparin to Fill Catheter Last Admin: 12/06/17 16:38 Dose: 1,000 units Sodium Chloride (Ns Inj) 500 mls @ 0 mls/hr IV.SIG BOLUS KRUNAL Last Infusion: 12/01/17 14:15 Dose: Infused Albumin Human (Flexbumin 25% Inj) 100 mls @ 60 mls/hr IV.SIG WITH DIALYSIS PRN PRN Reason: hypotension / volume replace Last Infusion: 12/06/17 19:00 Dose: Infused Sodium Chloride (Ns Inj) 1,000 mls @ 0 mls/hr OTHER .Q0M PRN PRN Reason: for prime and rinse back Sodium Chloride (Ns Inj) 1,000 mls @ 200 mls/hr OTHER .Q5H PRN PRN Reason: for dialyzer flush PRN Sodium Chloride (Ns Inj) 200 mls @ 0 mls/hr IV.CONT .Q0M PRN PRN Reason: hypotension / volume replace Piperacillin/Tazobactam/Dextrose (Zosyn 2.25 Gm Premix) 50 mls @ 100 mls/hr IV.SIG Q12H KRUNAL Last Infusion: 12/08/17 01:06 Dose: Infused Vancomycin HCl 1,000 mg/ (Sodium Chloride) 250 mls @ 250 mls/hr IV.SIG WITH DIALYSIS KRUNAL Sodium Chloride (Ns Inj) 500 mls @ 30 mls/hr IV.SIG .Q10H KRUNAL Last Admin: 12/06/17 01:51 Dose: Not Given Sodium Chloride (Ns Inj) 500 mls @ 30 mls/hr IV.SIG .Q10H KRUNAL Last Admin: 12/06/17 01:52 Dose: Not Given Insulin Aspart (Novolog Insulin Correctional Sugar Inj) 0 unit SQ ACHS KRUNAL; Protocol Last Admin: 12/08/17 10:15 Dose: 3 unit Levothyroxine Sodium (Synthroid) 50 mcg PO DAILY KRUNAL Last Admin: 12/08/17 10:09 Dose: 50 mcg Lisinopril (Prinivil) 10 mg PO DAILY KRUNAL Last Admin: 12/08/17 10:09 Dose: 10 mg Lorazepam (Ativan Inj) 0.5 mg IV.PUSH Q6H PRN PRN Reason: AGITATION Last Admin: 12/08/17 06:29 Dose: 0.5 mg Mannitol (Mannitol Inj) 12.5 gm IV.PUSH UNSCH PRN PRN Reason: hypotension / volume replace Nifedipine (Procardia Xl) 90 mg PO DAILY [facility] Last Admin: 12/08/17 10:09 Dose: 90 mg Nitroglycerin (Nitrostat Sl) 0.4 mg SL Q5M PRN PRN Reason: CHEST PAIN Ondansetron HCl (Zofran Inj) 4 mg IV.PUSH UNSCH PRN PRN Reason: NAUSEA OR VOMITING Fluticasone- Umeclidin-Vilanter [ Trelegy Ellipta] 1 Inh 1 each INH DAILY [facility] Pharmacy Profile Note (Vancomycin Consult Pharmacy) 1 each OTHER PRN PRN PRN Reason: Pharmacy to dose Sodium Chloride (Ns Flush) 2 ml IV.FLUSH BID [facility] Last Admin: 12/08/17 10:09 Dose: 2 ml Sodium Chloride (Ns Flush) 2 ml IV.FLUSH UNSCH PRN PRN Reason: FLUSH AFTER USING IV ACCESS Last Admin: 12/07/17 03:36 Dose: 2 ml Sodium Chloride (Ns Flush) 5 ml IV.FLUSH UNSCH PRN PRN Reason: flush each lumen during HD Vitamin B Complex/Vit C/Folic Acid (Nephrocaps) 1 tab PO DAILY [facility] Last Admin: 12/08/17 10:09 Dose: 1 tab Allergies Allergy/AdvReac Type Severity Reaction Status Date / Time Penicillins Allergy Mild rash Verified 12/01/17 17:09 Home Medications Medication Instructions Recorded Confirmed Type Nephro-Tye Rx 1 tab PO DAILY 12/01/17 12/01/17 History Novolog Flexpen U-100 Insulin 12/01/17 History Vitamin D3 2,000 units PO DAILY 12/01/17 12/01/17 History albuterol sulfate [Ventolin HFA] 2 inh INHALATION 12/01/17 History alpha lipoic acid 600 mg PO DAILY 12/01/17 12/01/17 History apixaban [Eliquis] 5 mg PO BID 12/01/17 12/01/17 History atorvastatin 40 mg 12/01/17 History carvedilol 25 mg PO BID 12/01/17 12/01/17 History colchicine 0.6 mg PO 4XW 12/01/17 12/01/17 History vuvbcartjwf-xdbnsmsvd-daandoho 1 inh INHALATION DAILY 12/01/17 12/01/17 History [Trelegy Ellipta] gentamicin 3 drp 12/01/17 History glimepiride 4 mg PO BID 12/01/17 12/01/17 History insulin detemir U-100 [Levemir 25 unit SUB-Q QPM 12/01/17 12/01/17 History U-100 Insulin] levothyroxine 50 mcg PO DAILY 12/01/17 12/01/17 History [id number]-uxokxwjc-sudroct [Creon] 1 cap PO QID 12/01/17 12/01/17 History lisinopril 10 mg PO DAILY 12/01/17 12/01/17 History nifedipine 90 mg PO DAILY 12/01/17 12/01/17 History omeprazole 40 mg PO DAILY 12/01/17 12/01/17 History Advance Directives Living Will: No Healthcare Surrogate: No Power of Supervisor Grinding: No Ethical and Legal Issues: patient not currently capacitated to make medical decisions. In the absence of a spouse, or designated healthcare surrogate, medical decision making would fall majority of his 3 adult children. Hector has opted out so decision making falls to pt's 2 daughters, who appear to be working together. Physical Exam Vital Signs: Vital Signs - 24 hr 12/07/17 20:00 12/08/17 00:00 12/08/17 05:00 Temperature 98.3 F 98 F 98.2 F Pulse Rate 88 83 76 Respiratory Rate 18 18 18 Blood Pressure 142/79 H 121/63 145/67 H Pulse Oximetry 98 95 94 L 12/08/17 09:00 Temperature 98 F Pulse Rate 84 Respiratory Rate 16 Blood Pressure 165/75 H Pulse Oximetry 94 L I&O: Intake & Output 12/06/17 12/07/17 12/08/17 12/09/17 06:59 06:59 06:59 06:59 Intake Total 470 / 470 200 / 200 100 / 100 Output Total 101 / 101 1900 / 1900 Balance 369 / 369 -1700 / -1700 100 / 100 Weight 74.4 kg 75.5 kg 73.3 kg Physical Exam: CONSTITUTIONAL/GENERAL: This is an adequately nourished patient, restless TUBES/LINES/DRAINS: left IJ HD cath SKIN: No jaundice, rashes, or lesions. No wounds seen anteriorly. Skin temperature appropriate. Not diaphoretic. excoriations around IJ site head: Atraumatic. Normocephalic. EYES: unable to assess pupils 2/2 pt lack coooperation. Extraocular motions intact. No scleral icterus. No injection or drainage. Fundi not examined. ENT: unable to assess hearing 2/2 mental status Nose without bleeding or purulent drainage. NECK: Trachea midline. Supple CARDIOVASCULAR: RRR without murmurs, gallops, or rubs. No JVD. RESPIRATORY/CHEST: Symmetric, unlabored respirations. Clear to auscultation. Breath sounds equal bilaterally. No wheezes, rales, or rhonchi. GASTROINTESTINAL: Abdomen soft, non-tender, nondistended. No hepato-splenomegaly , or palpable masses. No guarding. Bowel sounds present. GENITOURINARY: Without palpable bladder distension. MUSCULOSKELETAL: Extremities without clubbing, cyanosis, or edema. No joint tenderness or effusion noted. No mottling or clubbing. +BUE restraints NEUROLOGICAL: restless, confused, somewhat agitated. moves all extremities PSYCHIATRIC: restless, agitated Diagnostic Tests Laboratory: Laboratory Results - last 72 hr 12/05/17 12/05/17 12/05/17 14:50 16:50 21:00 WBC RBC Hgb Hct MCV MCH MCHC RDW Plt Count MPV Neut % (Auto) Lymph % (Auto) [place] % (Auto) Eos % (Auto) Baso % (Auto) Neut # (Auto) Lymph # (Auto) [place] # (Auto) Eos # (Auto) Baso # (Auto) WBC Differential Differential Comment Sodium 142 Potassium 4.2 Chloride 100 Carbon Dioxide 24.5 Anion Gap 18 H BUN 54 H Creatinine 8.70 H Estimated GFR 6 L POC Glucose 298 H 180 H Random Glucose 323 H Calcium 8.2 L Total Bilirubin 0.5 AST 24 ALT 32 Alkaline Phosphatase 92 Total Protein 5.8 L Albumin 1.9 L Vancomycin Trough Random Vancomycin 14.2 12/06/17 12/06/17 12/06/17 06:56 06:56 08:11 WBC 12.7 H RBC 3.75 L Hgb 10.3 L Hct 32.7 L MCV 87.2 MCH 27.4 MCHC 31.4 L RDW 18.8 H Plt Count 161 MPV 8.5 Neut % (Auto) 75.3 H Lymph % (Auto) 5.2 L [place] % (Auto) 10.0 H Eos % (Auto) 8.9 H Baso % (Auto) 0.6 Neut # (Auto) 9.5 H Lymph # (Auto) 0.7 L [place] # (Auto) 1.3 H Eos # (Auto) 1.1 H Baso # (Auto) 0.1 WBC Differential . Differential Comment Auto diff final Sodium 143 Potassium 3.8 Chloride 103 Carbon Dioxide 23.1 Anion Gap 17 H BUN 63 H Creatinine 9.77 H Estimated GFR 5 L POC Glucose 269 H Random Glucose 271 H Calcium 8.3 L Total Bilirubin 0.5 AST 24 ALT 30 Alkaline Phosphatase 94 Total Protein 5.6 L Albumin 1.8 L Vancomycin Trough Random Vancomycin 12/06/17 12/06/17 12/06/17 13:00 14:59 20:06 WBC RBC Hgb Hct MCV MCH MCHC RDW Plt Count MPV Neut % (Auto) Lymph % (Auto) [place] % (Auto) Eos % (Auto) Baso % (Auto) Neut # (Auto) Lymph # (Auto) [place] # (Auto) Eos # (Auto) Baso # (Auto) WBC Differential Differential Comment Sodium Potassium Chloride Carbon Dioxide Anion Gap BUN Creatinine Estimated GFR POC Glucose 223 H 198 H Random Glucose Calcium Total Bilirubin AST ALT Alkaline Phosphatase Total Protein Albumin Vancomycin Trough 25.6 H Random Vancomycin 12/07/17 12/07/17 12/07/17 09:39 12:15 12:15 WBC 9.7 RBC 3.88 L Hgb 10.9 L Hct 34.0 L MCV 87.7 MCH 28.0 MCHC 31.9 L RDW 19.0 H Plt Count 212 D MPV 9.2 Neut % (Auto) Lymph % (Auto) [place] % (Auto) Eos % (Auto) Baso % (Auto) Neut # (Auto) Lymph # (Auto) [place] # (Auto) Eos # (Auto) Baso # (Auto) WBC Differential Differential Comment Sodium 142 Potassium 4.0 Chloride 100 Carbon Dioxide 17.4 L Anion Gap 25 H BUN 51 H Creatinine 8.29 H Estimated GFR 7 L POC Glucose 255 H Random Glucose 276 H Calcium 8.4 L Total Bilirubin 0.6 AST 26 ALT 31 Alkaline Phosphatase 92 Total Protein 6.5 D Albumin 2.6 L D Vancomycin Trough Random Vancomycin 12/07/17 12/08/17 12/08/17 21:10 06:50 06:50 WBC 12.3 H RBC 4.02 L Hgb 11.0 L Hct 35.2 L MCV 87.6 MCH 27.3 MCHC 31.1 L RDW 18.8 H Plt Count 243 MPV 9.1 Neut % (Auto) Lymph % (Auto) [place] % (Auto) Eos % (Auto) Baso % (Auto) Neut # (Auto) Lymph # (Auto) [place] # (Auto) Eos # (Auto) Baso # (Auto) WBC Differential Differential Comment Sodium 146 H Potassium 3.7 Chloride 102 Carbon Dioxide 17.6 L Anion Gap 26 H BUN 58 H Creatinine 9.64 H Estimated GFR 5 L POC Glucose 332 H Random Glucose 217 H Calcium 8.8 Total Bilirubin 0.6 AST 31 ALT 32 Alkaline Phosphatase 98 Total Protein 6.7 Albumin 2.6 L Vancomycin Trough Random Vancomycin 22.2 12/08/17 12/08/17 07:58 10:07 WBC RBC Hgb Hct MCV MCH MCHC RDW Plt Count MPV Neut % (Auto) Lymph % (Auto) [place] % (Auto) Eos % (Auto) Baso % (Auto) Neut # (Auto) Lymph # (Auto) [place] # (Auto) Eos # (Auto) Baso # (Auto) WBC Differential Differential Comment Sodium Potassium Chloride Carbon Dioxide Anion Gap BUN Creatinine Estimated GFR POC Glucose 262 H 240 H Random Glucose Calcium Total Bilirubin AST ALT Alkaline Phosphatase Total Protein Albumin Vancomycin Trough Random Vancomycin Result Diagrams: 12/08/17 06:50 12/08/17 06:50 Microbiology: Microbiology 12/03/17 11:30 Aerobic Blood Culture - Final Blood - Line No growth in 5 days Anaerobic Blood Culture - Final No growth in 5 days 12/03/17 11:10 Aerobic Blood Culture - Final Blood - Line No growth in 5 days Anaerobic Blood Culture - Final No growth in 5 days 12/01/17 11:20 Aerobic Blood Culture - Final Blood - Peripheral No growth in 5 days Anaerobic Blood Culture - Final QNS - See aerobic report. 12/01/17 11:20 Aerobic Blood Culture - Final Blood - Peripheral Staphylococcus epidermidis Anaerobic Blood Culture - Final QNS - See aerobic report. 12/03/17 11:50 Wound Culture - Final Catheter Tip - Other No growth in 48 hours Imaging: ITS Impressions Chest X-Ray 12/01/17 11:12 CONCLUSION: 1. No focal or acute intrathoracic disease. 2. Right-sided central line in place. Head CT 12/01/17 11:12 CONCLUSION: 1. Mild cerebral atrophy. 2. No acute infarct, acute hemorrhage, midline shift or extra-axial fluid collections. 3. Small fluid level within the left maxillary sinus. Head MRI 12/02/17 00:00 CONCLUSION: 1. No acute findings. 2. Atrophy and minimal white matter disease. Hand X-Ray 12/04/17 00:00 CONCLUSION: Unremarkable study. Forearm X-Ray 12/04/17 18:49 CONCLUSION: Unremarkable study. Shoulder X-Ray 12/04/17 18:49 CONCLUSION: No definite fracture is identified for technique. Catheter Placement 12/06/17 00:00 CONCLUSION: 1. Uncomplicated line placement as above. Abdomen X-Ray 12/08/17 04:58 CONCLUSION: Nasogastric tube distal tip is at the GE junction. Suggest further advancement stomach. Procedures: 12/06 right IJ dialysis cath placed Patient/Family Conference Present at Family Conference: Tommy Adams Family Conference Location: Telephone Issues Discussed: spoke with Rich Crawford "Hector," and Tommy separately on the phone. * Palliative care role, purpose, approach * Additional medical, psychosocial, and spiritual history * Patients general health, functional status, and cognitive changes in the months leading up to the current hospitalization * family understanding of the current medical problems * family understanding of prognosis * Current medical treatment options and benefits/burdens of those options * Likely scenarios comparing ongoing aggressive care with a transition to comfort measures only including hospice * legal decision makers - Hector opts out of decision making, "I was not close to him" * Questions answered to the best of my ability * Palliative care contact information provided Goals pending family discussion. Spoke with all 3 adult children of pt; Hector opted out of decision making and the other 2 children verbalize not wanting him to suffer. They do not seem inclined to agree with feeding tube placement, "he will just pull it out." Tommy was hoping he could be lucid enough for them to discuss with him. THey are working on a return trip to [place]. Will follow up 12/09. Assessment and Plan - Disease Oriented Problem List (1) ESRD (end stage renal disease) on dialysis (2) Altered mental status (3) Hypoglycemia (4) Diabetes - Symptom Scale (1) Pain 0-10 Scale: Unable to quantify (2) Agitation 0-10 Scale: Unable to quantify Pertinent Non-Medical Issues: Psychosocial: Not . Has 3 children. Spiritual: pending Legal: Pt is not capacitated to make medical decisions. He is not . In the absence of designated HCS, medical decision making falls to the majority of his 3 adult children. Ethical issues impacting care: none Important Contacts: Daughter Tommy Tierney [phone] Son Rich Power [phone] Daughter Yvette Garcia [phone] Prognosis: This is a 67 y/o male with hx CAD s/p stent placement, CKD, COPD, ESRD, PAD, DM2 , who presented with AMS after being found down. Reportedly pt had blood glucose 36. He has had little PO intake, pulled out NGT. Cause of his continued encephalopathy is unclear at this time and it is unclear if he will return to his baseline. He is having to be restrained for dialysis. Given his comorbidities he is at risk for further decline, complications, setbacks. Without dialysis his prognosis is terminal. If his PO intake continues to be poor, his prognosis is quite poor. With or without feeding tube he is at risk for aspiration. Code Status: Full Code Plan: - LEGAL DECISON MAKER -patient not currently capacitated to make medical decisions. In the absence of a spouse, or designated healthcare surrogate, medical decision making would fall majority of his 3 adult children. Hector has opted out so decision making falls to pt's 2 daughters, who appear to be working together. - CODE STATUS- full code - GOALS -Goals pending family discussion. Spoke with all 3 adult children of pt ; Hector opted out of decision making and the other 2 children verbalize not wanting him to suffer. They do not seem inclined to agree with feeding tube placement, "he will just pull it out." Tommy was hoping he could be lucid enough for them to discuss with him. THey are working on a return trip to [place]. Will follow up 12/09. - SYMPTOMS - * agitation - unclear etiology. pt found down, blood glucose 36. per family he was somewhat lucid over the weekend but on my eval in HD he is confused and restless, moaning. He has PRN ativan 0.5mg IV q6h. HD RN giving additional ativan per orders of Dr Cartagena. Consider scheduled ativan. await neurology follow up. * pain - multifactorial - mult lines, recent procedure to replace HD catheter. unable to assess pt's pain level but he does appear restless and uncomfortable. has PRN apap ordered, would use caution with opiates given his mental status. - will follow up 12/09 after family has discussed - Palliative care will continue to follow during hospital course as condition evolves, to assist patient/decision-maker with understanding of medical conditions, weighing benefits/burdens of treatment options, for clarification of goals of treatment. Additionally will assist with any symptoms of palliative concern Appreciation Thank you for the opportunity to participate in the care of Malachi Power.
--- NOTE | 2017-12-08 14:14 | P.RAD ---
Post Procedure Progress Note - Pre Procedure Diagnosis (1) ESRD (end stage renal disease) on dialysis - Post Procedure Diagnosis (1) ESRD (end stage renal disease) on dialysis - Procedure Information Procedure Date: 12/08/17 Supervising Radiologist: Tung Gray MD Estimated blood loss (mL): 0 Anesthesia: Local - Plan of Activity Patient to Unit: Nursing Unit Patient Condition: Good See PACS Report for procedural detail/treatment. [facility] Radiology Procedures right Internal Jugular Hemodialysis Catheter Non-Tunneled Exchange [place]: 14 PICC Line Length (cm): 20 - Additional Detail Findings: Exchanged and upsized to 20 cm
--- NOTE | 2017-12-08 15:17 | P.PNNP ---
Subjective Interval history: Patient remains confused Physical Exam Vital signs: Vital Signs 12/07/17 20:00 12/08/17 00:00 12/08/17 05:00 Temperature 98.3 F 98 F 98.2 F Pulse Rate 88 83 76 Respiratory Rate 18 18 18 Blood Pressure 142/79 H 121/63 145/67 H Pulse Oximetry 98 95 94 L 12/08/17 09:00 Temperature 98 F Pulse Rate 84 Respiratory Rate 16 Blood Pressure 165/75 H Pulse Oximetry 94 L Intake & Output 12/07/17 12/08/17 12/08/17 18:59 06:59 18:59 Intake Total 0 / 0 100 / 100 Balance 0 / 0 100 / 100 Weight 75.5 kg 73.3 kg Intake: IV 100 / 100 Zosyn 2.25 GM Premix 50 ML @ 100 / 100 100 mls/hr IV.SIG Q12H KRUNAL Rx#: [id number] Oral 0 / 0 Other: # Incontinent Voids 1 1 Date of Last Bowel Movement 12/07/17 12/07/17 12/08/17 # Bowel Movements 1 - Constitutional no acute distress - Routine Neck Exam Present: supple - Routine Respiratory Exam Present: CTA bilaterally - Routine Cardiovascular Exam Present: RRR - Routine Abdominal Exam Present: soft, normoactive bowel sounds - Routine Extremities Exam Present: edema - Urinary Catheter Management Straight Cath placed during this visit: yes Reason for continuing: Not indwelling catheter Insertion date: 12/01/17 Insertion time: 13:46 Assessment and Plan - Assessment (1) Altered mental status Code(s): R41.82 - Altered mental status, unspecified Status: Acute Qualifiers: Qualified Code(s): R41.82 - Altered mental status, unspecified (2) Hypoglycemia Code(s): E16.2 - Hypoglycemia, unspecified Status: Acute (3) Sepsis Code(s): A41.9 - Sepsis, unspecified organism Status: Acute Qualifiers: Qualified Code(s): A41.9 - Sepsis, unspecified organism (4) ESRD (end stage renal disease) on dialysis Code(s): N18.6 - End stage renal disease; Z99.2 - Dependence on renal dialysis Status: Acute - Plan Suspect AMS secondary to hypoglycemic event 2 L off seen during hemodialysis treatment vascath in place which was replaced Volume status and electrolytes otherwise stable. Condition remained confused due to hypoglycemic event Patient remains confused and there is no recovery seen Prognosis is poor
[2017-12-08] MEDS: Sod Chloride 0.9% Inj 1,000 ML IV.CONT SCH (18:17)
[2017-12-09] MEDS: Piperacil/Tazo 2.25 GM Premix 50 ML IV.SIG SCH ×2 (00:03→15:02)
[2017-12-09] MEDS: Levothyroxine 50 MCG Tablet PO SCH (05:00)
[2017-12-09 08:19] LABS: Hematocrit 37.8 % (39.0-51.0); Hemoglobin 12.1 gm/dL (13.0-17.0); Mean Corpuscular Hemoglobin 27.8 pg (27.0-34.0); Mean Corpuscular Volume 86.8 fL (80.0-100.0); Mean Platelet Volume 8.9 fL (7.0-11.0); Platelet Count 211 th/mm3 (150-450); Red Blood Count 4.35 mil/mm3 (4.50-5.90); Red Cell Distribution Width 18.7 % (11.6-17.2); White Blood Count 8.7 th/mm3 (4.0-11.0)
[2017-12-09 08:47] LABS: Alanine Aminotransferase 34 U/L (12-78); Albumin 2.6 g/dL (3.4-5.0); Alkaline Phosphatase 100 U/L (45-117); Anion Gap 22 meq/L (5-15); Aspartate Aminotransferase 30 U/L (15-37); Blood Urea Nitrogen 41 mg/dL (7-18); Calcium 8.8 mg/dL (8.5-10.1); Carbon Dioxide 21.5 meq/L (21.0-32.0); Chloride 101 meq/L (98-107); Glomerular Filtration Rate 8 mL/min (>89); Glucose,Random 250 mg/dL (74-106); Potassium 3.9 meq/L (3.5-5.1); Sodium 144 meq/L (136-145); Total Protein 6.6 g/dL (6.4-8.2); Vancomycin,Random 16.8 Comment
[2017-12-09] MEDS: Vitamin B Complex/Vit C/Folic Tablet PO SCH (09:05)
[2017-12-09] MEDS: Lisinopril 10 MG Tablet PO SCH (09:05)
[2017-12-09] MEDS: Carvedilol 12.5 MG Tablet PO SCH ×2 (09:05→21:02)
[2017-12-09] MEDS: Lipase/Protease/Amylase 24/76/120 DR Capsule PO SCH ×4 (09:05→21:02)
--- NOTE | 2017-12-09 09:52 | IR ---
EXAM DATE: 12/08/2017 2:30 PM EDT AGE/SEX: 67 years / Male INDICATIONS: Patient presents with Sepsis in need of temporary dialysis catheter exchange. CLINICAL DATA: This is the patient's initial encounter. Patient reports that signs and symptoms have been present for 1 week and indicates a pain score of Nonresponsive. MEDICAL/SURGICAL HISTORY: Chronic obstructive pulmonary disease. Gastroesophageal reflux disea se. Diabetes mellitus type II. Coronary artery disease, Chronic kidney disease, End of stage renal disease, Peripheral artery disease. None. COMPARISON: No prior exams available for comparison. FLUORO TIME (min): .26 IMAGE SERIES: 1 ACCESS SITE: Right internal jugular vein DEVICE(S): 14 Macanese double lumen 20cm Vas Cath . . PROCEDURE : 1. Fluoroscopic guided central line placement. 2. Central line placement. The risks, benefits and alternatives to the procedure were explained and verbal and written consent w as obtained. The site was prepped in sterile fashion. Full sterile technique was used, including ca p, mask, sterile gloves and gown and a large sterile sheet. Hand hygiene and 2% chlorhexidine prep w as utilized per protocol for cutaneous antisepsis with appropriate dry time for site. The skin and subcutaneous tissues were infiltrated with local anesthetic solution. A wire was placed through the existing 15 cm Vas-Cath catheter and the device removed.. The new, 20 cm catheter was ad vanced into position under direct fluoroscopic visualization, and was advanced with the tip at the ju nction of the superior vena cava and rt atrium. The catheter was fixed in place with suture and a st erile dressing was applied. The patient tolerated the procedure well and there were no complications. CONCLUSION: 1. Uncomplicated line replacement and upsize. Electronically signed by: Tung Gray MD 12/09/2017 9:51 AM EDT
[2017-12-09] MEDS: Insulin NovoLOG Aspart Correctional Sugar Inj SQ SCH ×4 (10:07→21:05)
[2017-12-09] MEDS ORDERED: Vancomycin Inj 500 MG in Sodium Chlor 0.9% Inj 100 ML IV.SIG ONE (11:00)
--- NOTE | 2017-12-09 11:16 | P.PNIM ---
Subjective Interval history: in no acute distress. still confused with no improvement in his mental status. d/a the brother at the bedside. d/w the RN. Physical Exam Vital signs: Vital Signs 12/08/17 20:00 12/09/17 00:00 12/09/17 04:00 Temperature 98.4 F 98.5 F 97.9 F Pulse Rate 80 86 75 Respiratory Rate 18 18 18 Blood Pressure 146/69 H 169/82 H 165/79 H Pulse Oximetry 95 95 94 L 12/09/17 08:00 Temperature 98 F Pulse Rate 51 L Respiratory Rate 14 Blood Pressure 143/92 H Pulse Oximetry 94 L Intake & Output 12/08/17 12/09/17 12/09/17 18:59 06:59 18:59 Intake Total 50 / 50 Output Total 1999 Balance -1999 49 / 49 Weight 72.6 kg Intake: IV 50 / 50 Zosyn 2.25 GM Premix 50 ML @ 50 / 50 100 mls/hr IV.SIG Q12H [facility] Rx#: [id number] Output: Stool Hemodialysis Amount 1999 Other: # Incontinent Voids 1 Date of Last Bowel Movement 12/08/17 12/09/17 12/10/17 # Bowel Movements 2 # Incontinent Bowel Movements 2 - Constitutional no acute distress - Routine Respiratory Exam Present: CTA bilaterally - Routine Cardiovascular Exam Present: RRR - Routine Abdominal Exam Present: soft - Routine Extremities Exam Comments: no pedal edema. - Routine Neurological Exam still confused with no change. - Urinary Catheter Management Straight Cath placed during this visit: yes Reason for continuing: Not indwelling catheter Insertion date: 12/01/17 Insertion time: 13:46 Results - Labs CBC & Chem 7: 12/09/17 07:51 12/09/17 07:51 Laboratory Results - last 24 hr 12/08/17 12/08/17 12/09/17 17:35 20:17 07:23 WBC RBC Hgb Hct MCV MCH MCHC RDW Plt Count MPV Sodium Potassium Chloride Carbon Dioxide Anion Gap BUN Creatinine Estimated GFR POC Glucose 146 H 182 H 228 H Random Glucose Calcium Total Bilirubin AST ALT Alkaline Phosphatase Total Protein Albumin Random Vancomycin 12/09/17 12/09/17 07:51 07:51 WBC 8.7 RBC 4.35 L Hgb 12.1 L Hct 37.8 L MCV 86.8 MCH 27.8 MCHC 32.0 RDW 18.7 H Plt Count 211 MPV 8.9 Sodium 144 Potassium 3.9 Chloride 101 Carbon Dioxide 21.5 Anion Gap 22 H BUN 41 H Creatinine 6.90 H Estimated GFR 8 L POC Glucose Random Glucose 250 H Calcium 8.8 Total Bilirubin 0.6 AST 30 ALT 34 Alkaline Phosphatase 100 Total Protein 6.6 Albumin 2.6 L Random Vancomycin 16.8 Microbiology 12/03/17 11:30 Blood - Line Aerobic Blood Culture - Final No growth in 5 days 12/03/17 11:30 Blood - Line Anaerobic Blood Culture - Final No growth in 5 days 12/03/17 11:10 Blood - Line Aerobic Blood Culture - Final No growth in 5 days 12/03/17 11:10 Blood - Line Anaerobic Blood Culture - Final No growth in 5 days - Imaging Impressions Catheter Placement 12/08/17 00:00 CONCLUSION: 1. Uncomplicated line replacement and upsize. Assessment and Plan - Plan Acute encephalopathy- hasn't improved as much. likely due to hypoglycemia ( prior to this presentation). -Telemetry -MRI brain with no acute abnormality -neurology consult appreciated. -continue to monitor. -on puree diet per ST but still with poor oral intake- NG tube i place; felt hat pouncing operator hand consulted for tube feeding. this was previously d/w the daughter who agreed with the plan. Dialysis dependent CKD - nephrology consulted. Possible sepsis -possibly due to HD access; this was removed on 12/03- -s/p vas-cath placement . received vancomycin - dc'ed Zosyn -repeated blood cultures and cath- tip culture negative so far. 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 DVT prophylaxis; resumed Eliquis. no recovery in his mental status. d/w the brother at the bedside today who wants to wait for his niece to arrive. palliative care consulted. Discharge Planning: still confused and on restraints. not ready for discharge. awaiting the family to make a decision on goals of care/ including PEG placement.
[2017-12-09] MEDS: Sod Chloride 0.9% Inj 1,000 ML IV.CONT SCH (15:02)
--- NOTE | 2017-12-09 16:38 | P.PNPAL ---
Reason for Visit Reason for visit: a. To assist with evaluation and management of symptoms including: confusion/ agitation, pain, dyspnea b. To assist medical decision maker(s) with: better understanding of current medical conditions; weighing benefits/burdens of medical treatment options; making medical treatment decisions. Subjective Subjective/Interval History: Pt in bed, mildly agitated. He is pulling at his BUE restraints and repeating "help me." He moans intermittently. Per RN they are prophylactically treating for scabies as he has been noted to scratch when not in restraints. BP up today, most recent reading 178/96. He is on NC 2L, sat 93. He is mildly tachypneic. He does not appear to be in any pain, no tenderness on exam. pt with copious liquid stool, c diff pending. Family/Friend Interactions: met with pt's brother and 2 daughters -Palliative care role, purpose, approach -Additional medical, psychosocial history -Patients general health, function, cognition in the months before current hospitalization -family understanding of the current medical problems -family understanding of prognosis -Current medical treatment options and their benefits/burdens -Likely scenarios comparing ongoing aggressive care with transition to ``comfort -measures only -introduced hospice - CODE STATUS, benefits/burdens/limitations of CPR, intubation, and mechanical ventilation -Questions answered to the best of my ability - Palliative care contact information provided Goals are aggressive. Family wants to "give him a chance". They wish to proceed with PEG tube placement as soon as possible, hoping to avoid another NGT placement. They wish for him to remain full code for now. They are not ready for hospice and would feel like they are giving up on him. Objective Vital Signs: Vital Signs 12/08/17 20:00 12/09/17 00:00 12/09/17 04:00 Temperature 98.4 F 98.5 F 97.9 F Pulse Rate 80 86 75 Respiratory Rate 18 18 18 Blood Pressure 146/69 H 169/82 H 165/79 H Pulse Oximetry 95 95 94 L 12/09/17 08:00 12/09/17 12:00 12/09/17 12:11 Temperature 98 F 98.5 F Pulse Rate 51 L 79 Respiratory Rate 14 18 Blood Pressure 143/92 H 180/81 H Pulse Oximetry 94 L 95 96 12/09/17 16:00 Temperature 97.8 F Pulse Rate 77 Respiratory Rate 20 Blood Pressure 178/96 H Pulse Oximetry 93 L Intake & Output 12/08/17 12/09/17 12/09/17 18:59 06:59 18:59 Intake Total 50 / 50 100 / 100 Output Total 1999 Balance -1999 49 / 49 100 / 100 Weight 72.6 kg Intake: IV 50 / 50 100 / 100 Zosyn 2.25 GM Premix 50 ML @ 50 / 50 100 mls/hr IV.SIG Q12H [facility] Rx#: [id number] Vancomycin Inj 500 MG In NS Inj 100 / 100 100 ML @ 200 mls/hr IV.SIG ONCE ONE Rx#:[id number] Output: Stool Hemodialysis Amount 1999 Other: # Incontinent Voids 1 Date of Last Bowel Movement 12/08/17 12/09/17 12/10/17 # Bowel Movements 2 # Incontinent Bowel Movements 2 Physical Exam: SKIN: No jaundice, rashes, or lesions. Skin temperature appropriate. Not diaphoretic. excoriations around IJ web site admin: Atraumatic. Normocephalic. EYES: Extraocular motions intact. No scleral icterus. No injection or drainage. Fundi not examined. ENT: no obvious hearing deficit. Nose without bleeding or purulent drainage. CARDIOVASCULAR: RRR without murmurs, gallops, or rubs. No JVD. RESPIRATORY/CHEST: Symmetric, unlabored respirations. Clear to auscultation. Breath sounds equal bilaterally. No wheezes, rales, or rhonchi. mildly tachypneic GASTROINTESTINAL: Abdomen soft, non-tender, nondistended. No hepato-splenomegaly , or palpable masses. No guarding. Bowel sounds present. GENITOURINARY: Without palpable bladder distension. MUSCULOSKELETAL: Extremities without clubbing, cyanosis, or edema. No joint tenderness or effusion noted. No mottling or clubbing. +BUE restraints NEUROLOGICAL: restless, confused, somewhat agitated. moves all extremities PSYCHIATRIC: restless, agitated Diagnostic Tests Laboratory: Laboratory Results - last 72 hr 12/06/17 12/07/17 12/07/17 20:06 09:39 12:15 WBC 9.7 RBC 3.88 L Hgb 10.9 L Hct 34.0 L MCV 87.7 MCH 28.0 MCHC 31.9 L RDW 19.0 H Plt Count 212 D MPV 9.2 Sodium Potassium Chloride Carbon Dioxide Anion Gap BUN Creatinine Estimated GFR POC Glucose 198 H 255 H Random Glucose Calcium Total Bilirubin AST ALT Alkaline Phosphatase Total Protein Albumin Random Vancomycin 12/07/17 12/07/17 12/08/17 12:15 21:10 06:50 WBC 12.3 H RBC 4.02 L Hgb 11.0 L Hct 35.2 L MCV 87.6 MCH 27.3 MCHC 31.1 L RDW 18.8 H Plt Count 243 MPV 9.1 Sodium 142 Potassium 4.0 Chloride 100 Carbon Dioxide 17.4 L Anion Gap 25 H BUN 51 H Creatinine 8.29 H Estimated GFR 7 L POC Glucose 332 H Random Glucose 276 H Calcium 8.4 L Total Bilirubin 0.6 AST 26 ALT 31 Alkaline Phosphatase 92 Total Protein 6.5 D Albumin 2.6 L D Random Vancomycin 12/08/17 12/08/17 12/08/17 06:50 07:58 10:07 WBC RBC Hgb Hct MCV MCH MCHC RDW Plt Count MPV Sodium 146 H Potassium 3.7 Chloride 102 Carbon Dioxide 17.6 L Anion Gap 26 H BUN 58 H Creatinine 9.64 H Estimated GFR 5 L POC Glucose 262 H 240 H Random Glucose 217 H Calcium 8.8 Total Bilirubin 0.6 AST 31 ALT 32 Alkaline Phosphatase 98 Total Protein 6.7 Albumin 2.6 L Random Vancomycin 22.2 12/08/17 12/08/17 12/09/17 17:35 20:17 07:23 WBC RBC Hgb Hct MCV MCH MCHC RDW Plt Count MPV Sodium Potassium Chloride Carbon Dioxide Anion Gap BUN Creatinine Estimated GFR POC Glucose 146 H 182 H 228 H Random Glucose Calcium Total Bilirubin AST ALT Alkaline Phosphatase Total Protein Albumin Random Vancomycin 12/09/17 12/09/17 12/09/17 07:51 07:51 12:10 WBC 8.7 RBC 4.35 L Hgb 12.1 L Hct 37.8 L MCV 86.8 MCH 27.8 MCHC 32.0 RDW 18.7 H Plt Count 211 MPV 8.9 Sodium 144 Potassium 3.9 Chloride 101 Carbon Dioxide 21.5 Anion Gap 22 H BUN 41 H Creatinine 6.90 H Estimated GFR 8 L POC Glucose 277 H Random Glucose 250 H Calcium 8.8 Total Bilirubin 0.6 AST 30 ALT 34 Alkaline Phosphatase 100 Total Protein 6.6 Albumin 2.6 L Random Vancomycin 16.8 Result Diagrams: 12/09/17 07:51 12/09/17 07:51 Microbiology: Microbiology 12/03/17 11:30 Aerobic Blood Culture - Final Blood - Line No growth in 5 days Anaerobic Blood Culture - Final No growth in 5 days 12/03/17 11:10 Aerobic Blood Culture - Final Blood - Line No growth in 5 days Anaerobic Blood Culture - Final No growth in 5 days Imaging: ITS Impressions Chest X-Ray 12/01/17 11:12 CONCLUSION: 1. No focal or acute intrathoracic disease. 2. Right-sided central line in place. Head CT 12/01/17 11:12 CONCLUSION: 1. Mild cerebral atrophy. 2. No acute infarct, acute hemorrhage, midline shift or extra-axial fluid collections. 3. Small fluid level within the left maxillary sinus. Head MRI 12/02/17 00:00 CONCLUSION: 1. No acute findings. 2. Atrophy and minimal white matter disease. Hand X-Ray 12/04/17 00:00 CONCLUSION: Unremarkable study. Forearm X-Ray 12/04/17 18:49 CONCLUSION: Unremarkable study. Shoulder X-Ray 12/04/17 18:49 CONCLUSION: No definite fracture is identified for technique. Catheter Placement 12/08/17 00:00 CONCLUSION: 1. Uncomplicated line replacement and upsize. Abdomen X-Ray 12/08/17 04:58 CONCLUSION: Nasogastric tube distal tip is at the GE junction. Suggest further advancement stomach. Procedures: 12/06 right IJ dialysis cath placed Assessment and Plan - Disease Oriented Problem List (1) ESRD (end stage renal disease) on dialysis (2) Altered mental status (3) Hypoglycemia (4) Diabetes - Symptom Scale (1) Pain 0-10 Scale: Unable to quantify (2) Agitation 0-10 Scale: Unable to quantify (3) Dyspnea 0-10 Scale: Unable to quantify Pertinent Non-Medical Issues: Psychosocial: Not . Has 3 children. Spiritual: pending Legal: Pt is not capacitated to make medical decisions. He is not . In the absence of designated HCS, medical decision making falls to the majority of his 3 adult children. Ethical issues impacting care: none Important Contacts: Daughter Tommy Tierney [phone] Son Rich Power [phone] Daughter Yvette Garcia [phone] Prognosis: This is a 67 y/o male with hx CAD s/p stent placement, CKD, COPD, ESRD, PAD, DM2 , who presented with AMS after being found down. Reportedly pt had blood glucose 36. He has had little PO intake, pulled out NGT. Cause of his continued encephalopathy is unclear at this time and it is unclear if he will return to his baseline. He is having to be restrained for dialysis. Given his comorbidities he is at risk for further decline, complications, setbacks. Without dialysis his prognosis is terminal. If his PO intake continues to be poor, his prognosis is quite poor. With or without feeding tube he is at risk for aspiration. Code Status: Full Code Plan: - LEGAL DECISON MAKER -patient not currently capacitated to make medical decisions. In the absence of a spouse, or designated healthcare surrogate, medical decision making would fall majority of his 3 adult children. Hector has opted out so decision making falls to pt's 2 daughters, who appear to be working together, and including pt's brother in decision making. - CODE STATUS- full code - GOALS -Goals are aggressive. Explained that prognosis remains poor and he may not recover from this encephalopathy. They verbalized understanding.Family wants to "give him a chance". They wish to proceed with PEG tube placement as soon as possible, hoping to avoid another NGT placement. They wish for him to remain full code for now. They are not ready for hospice and would feel like they are giving up on him. - SYMPTOMS - * agitation - unclear etiology. ?hypoglyemia related brain injury? pt found down , blood glucose 36. he is agitated, pulling at restraints, "help me" on my eval. Per RN he is going to be treated for scabies as he has been trying to scractch and was noted to have excoriations on his buttocks. He does have excoriations around site of his IJ. + liquid stool, c diff pending. has PRN benadryl, recommend administering this. He has PRN ativan 0.5mg IV q6h. no further recs * pain - multifactorial - mult lines, recent procedure to replace HD catheter. unable to assess pt's pain, he appears restless and uncomfortable but not sure if this is due to pain, anxiety, or itching. has PRN apap ordered, would use caution with opiates given his mental status. * dyspnea - unclear etiology, 2/2 agitation possibly. he is on o2 2L via NC. sat 93. m ildly tachypneic. poss could improve if agitation improved, recommend use PRN sigrid gayle - d/w RN, D/w Dr Dolan - Palliative care will continue to follow during hospital course as condition evolves, to assist patient/decision-maker with understanding of medical conditions, weighing benefits/burdens of treatment options, for clarification of goals of treatment. Additionally will assist with any symptoms of palliative concern
[2017-12-09] MEDS ORDERED: niCARdipine Inj 25 MG in Sodium Chlor 0.9% Inj 240 ML IV.CONT PRN (20:05)
[2017-12-09] MEDS: Metoprolol Inj 5 MG/5 ML Vial IV.PUSH PRN (20:59)
[2017-12-10] MEDS: Piperacil/Tazo 2.25 GM Premix 50 ML IV.SIG SCH ×2 (01:27→13:22)
[2017-12-10] MEDS: Levothyroxine 50 MCG Tablet PO SCH (05:09)
[2017-12-10] MEDS: Vitamin B Complex/Vit C/Folic Tablet PO SCH (08:56)
[2017-12-10] MEDS: Carvedilol 12.5 MG Tablet PO SCH (08:56)
[2017-12-10] MEDS: Lipase/Protease/Amylase 24/76/120 DR Capsule PO SCH ×3 (08:56→18:29)
[2017-12-10] MEDS: Insulin NovoLOG Aspart Correctional Sugar Inj SQ SCH ×3 (08:56→18:28)
[2017-12-10] MEDS: Lisinopril 10 MG Tablet PO SCH (08:57)
--- NOTE | 2017-12-10 10:48 | P.PNNP ---
Subjective Interval history: very confused seen on dialysis Physical Exam Vital signs: Vital Signs 12/09/17 12:00 12/09/17 12:11 12/09/17 16:00 Temperature 98.5 F 97.8 F Pulse Rate 79 77 Respiratory Rate 18 20 Blood Pressure 180/81 H 178/96 H Pulse Oximetry 95 96 93 L 12/09/17 18:09 12/09/17 18:10 12/09/17 20:00 Temperature 98.1 F Pulse Rate 78 Respiratory Rate 20 Blood Pressure 204/81 H Pulse Oximetry 93 L 93 L 99 12/09/17 21:41 12/10/17 00:00 12/10/17 00:30 Temperature 97.9 F Pulse Rate 70 83 Respiratory Rate 20 Blood Pressure 184/76 H 164/79 H Pulse Oximetry 100 93 L 12/10/17 04:00 12/10/17 08:00 Temperature 97.6 F 97.7 F Pulse Rate 89 71 Respiratory Rate 20 20 Blood Pressure 184/88 H 187/82 H Pulse Oximetry 98 93 L Intake & Output 12/09/17 12/10/17 12/10/17 18:59 06:59 18:59 Intake Total 100 / 100 1050 / 1050 Balance 100 / 100 1050 / 1050 Weight 72 kg Intake: IV 100 / 100 1050 / 1050 NS Inj 1,000 ML @ 42 mls/hr IV. 1000 / 1000 CONT .[id number] [facility] Rx#:[id number] Zosyn 2.25 GM Premix 50 ML @ 50 / 50 100 mls/hr IV.SIG Q12H [facility] Rx#: [id number] Vancomycin Inj 500 MG In NS Inj 100 / 100 100 ML @ 200 mls/hr IV.SIG ONCE ONE Rx#:[id number] Oral 0 / 0 Other: # Voids 4 Date of Last Bowel Movement 12/10/17 12/10/17 12/10/17 # Bowel Movements 2 - Constitutional agitated - Routine Respiratory Exam Present: CTA bilaterally - Routine Cardiovascular Exam Present: tachycardia - Routine Abdominal Exam Present: soft, normoactive bowel sounds - Routine Extremities Exam Present: full ROM - Urinary Catheter Management Straight Cath placed during this visit: yes Reason for continuing: Not indwelling catheter Insertion date: 12/01/17 Insertion time: 13:46 Assessment and Plan - Assessment (1) Altered mental status Code(s): R41.82 - Altered mental status, unspecified Status: Acute Qualifiers: Altered mental status type: unspecified Qualified Code(s): R41.82 - Altered mental status, unspecified (2) Hypoglycemia Code(s): E16.2 - Hypoglycemia, unspecified Status: Acute (3) Sepsis Code(s): A41.9 - Sepsis, unspecified organism Status: Acute Qualifiers: Sepsis type: sepsis due to unspecified organism Qualified Code(s): A41.9 - Sepsis, unspecified organism (4) ESRD (end stage renal disease) on dialysis Code(s): N18.6 - End stage renal disease; Z99.2 - Dependence on renal dialysis Status: Acute - Plan Suspect AMS secondary to hypoglycemic event 2 L off seen during hemodialysis treatment doing poorly tied to the bed vey confused vascath in place which was replaced Volume status and electrolytes otherwise stable. Condition remained confused due to hypoglycemic event Patient remains confused and there is no recovery seen Prognosis is poor
[2017-12-10] MEDS ORDERED: Vancomycin Inj 1,000 MG in Sodium Chlor 0.9% Inj 250 ML IV.SIG SCH (13:00)
--- NOTE | 2017-12-10 13:13 | P.PNIM ---
Subjective Interval history: f/u; encephalopathy in no acute distress. still confused, restless and on restraints. no fever. d/w the RN. Physical Exam Vital signs: Vital Signs 12/09/17 16:00 12/09/17 18:09 12/09/17 18:10 Temperature 97.8 F Pulse Rate 77 Respiratory Rate 20 Blood Pressure 178/96 H Pulse Oximetry 93 L 93 L 93 L 12/09/17 20:00 12/09/17 21:41 12/10/17 00:00 Temperature 98.1 F 97.9 F Pulse Rate 78 70 83 Respiratory Rate 20 20 Blood Pressure 204/81 H 184/76 H 164/79 H Pulse Oximetry 99 100 12/10/17 00:30 12/10/17 04:00 12/10/17 08:00 Temperature 97.6 F 97.7 F Pulse Rate 89 77 Respiratory Rate 20 20 Blood Pressure 184/88 H 187/82 H Pulse Oximetry 93 L 98 93 L Intake & Output 12/09/17 12/10/17 12/10/17 18:59 06:59 18:59 Intake Total 100 / 100 1050 / 1050 Output Total 1999 Balance 100 / 100 1050 / 1050 -1999 Weight 72 kg Intake: IV 100 / 100 1050 / 1050 NS Inj 1,000 ML @ 42 mls/hr IV. 1000 / 1000 [facility][id number] Rx#:[id number] Zosyn 2.25 GM Premix 50 ML @ 50 / 50 100 mls/hr IV.SIG Q12H [facility] Rx#: [id number] Vancomycin Inj 500 MG In NS Inj 100 / 100 100 ML @ 200 mls/hr IV.SIG ONCE ONE Rx#:[id number] Oral 0 / 0 Output: Hemodialysis Amount 1999 Other: # Voids 4 Date of Last Bowel Movement 12/10/17 12/10/17 12/10/17 # Bowel Movements 2 - Constitutional no acute distress - Routine Respiratory Exam Present: CTA bilaterally - Routine Cardiovascular Exam Present: RRR - Routine Abdominal Exam Present: soft - Routine Extremities Exam Comments: no pedal edema. - Routine Neurological Exam confused with no change. - Urinary Catheter Management Straight Cath placed during this visit: yes Reason for continuing: Not indwelling catheter Insertion date: 12/01/17 Insertion time: 13:46 Results - Labs CBC & Chem 7: 12/09/17 07:51 12/09/17 07:51 Laboratory Results - last 24 hr 12/09/17 12/10/17 12/10/17 17:30 07:21 11:08 POC Glucose 277 H 302 H 166 H Assessment and Plan - Plan Acute encephalopathy- hasn't improved as much. likely due to hypoglycemia ( prior to this presentation). -Telemetry -MRI brain with no acute abnormality -neurology consult appreciated. -continue to monitor. -on puree diet per ST but still with poor oral intake- d/w the daughter again today regarding the PEG and she wants to proceed with feeding tube placement; GI consulted for PEG placement. will reinsert NG tube till GI evaluation. Dialysis dependent CKD - nephrology consulted. Possible sepsis -possibly due to HD access; this was removed on 12/03- -s/p vas-cath placement . received vancomycin - dc'ed Zosyn -repeated blood cultures and cath- tip culture negative so far. 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 DVT prophylaxis; resumed Eliquis. no recovery in his mental status. palliative care following. Discharge Planning: still confused and on restraints. not ready for discharge. PEG to be placed.
--- NOTE | 2017-12-10 15:42 | MB ---
cc: Varinder Serrano MD DATE: 12/10/2017 TYPE OF CONSULTATION: GI consult. REASON FOR CONSULTATION: PEG tube placement. HISTORY OF PRESENT ILLNESS: This is a 67-year-old male patient with history of coronary artery disease, status post multiple stent placement, chronic kidney disease, chronic obstructive pulmonary disease, end-stage renal disease, type 2 diabetes, who presented to the emergency room with an episode of hypoglycemia. The patient was found to be unresponsive with a glucose of 36. The patient has had low oral intake over the last few days before the presentation. An NG tube was placed during this hospitalization and he pulled out all the attempts to place the NG tube. The patient continued to have encephalopathy despite correction of his blood sugar and given the fact that he is not showing any evidence of improvement in mental status, GI was consulted for possible PEG tube placement for nutrition. The procedure was explained to family members, including his 2 daughters and they agreed to proceed with that and they would like to keep him on FULL CODE for the time being. REVIEW OF SYSTEMS: Unobtainable. PSYCHOSOCIAL HISTORY: He is an ex-smoker. He drinks 2-3 drinks a week. No history of IV drug abuse. PAST MEDICAL HISTORY: Coronary artery disease, chronic kidney disease, chronic obstructive pulmonary disease, end-stage renal disease on hemodialysis, peripheral artery disease, type 2 diabetes. PHYSICAL EXAMINATION: GENERAL: The patient appeared to be very agitated, restrained at the current time. Hemodynamically stable. No pallor or jaundice. HEAD AND NECK: Normocephalic, atraumatic. CHEST: Clear to auscultation bilaterally. No crackles or wheezes. HEART: Regular rate and rhythm. No murmurs. ABDOMEN: Soft, nontender. No hepatosplenomegaly. No palpable masses. EXTREMITIES: Normal pulses. No edema. NEUROLOGIC: Difficult to evaluate with his agitation status. SKIN: No rashes. LABORATORY DATA: Showed a white count of 8.7, hemoglobin 12.1, hematocrit 37.8, platelet count of 211. PT, PTT within normal limits. An x-ray showed NG tube tip in the GE junction and this is before removing the NG tube. ASSESSMENT AND PLAN: A 67-year-old male patient with multiple comorbid conditions including diabetes, chronic kidney injury, dialysis and coronary artery disease, who is currently encephalopathic of multifactorial origin. Appears to be agitated with poor oral intake, not showing evidence of improvement. GI consulted for PEG tube placement. The procedure was discussed with the daughter, including risks, benefits, and possible complication and she requested it to be done and she agreed to proceed with that. For the time being, we will hold heparin. Continue antibiotics and we will schedule that tentatively for Tuesday. Further recommendation to follow. MD JOSE Salas/tash , 03:09 PM , 03:18 PM
[2017-12-10] MEDS: Sod Chloride 0.9% Inj 1,000 ML IV.CONT SCH (18:28)
[2017-12-11] MEDS: Lipase/Protease/Amylase 24/76/120 DR Capsule PO SCH ×4 (00:44→18:24)
[2017-12-11] MEDS: Carvedilol 12.5 MG Tablet PO SCH ×2 (00:44→11:39)
[2017-12-11] MEDS: Insulin NovoLOG Aspart Correctional Sugar Inj SQ SCH ×5 (00:45→21:46)
[2017-12-11] MEDS: QUEtiapine 25 MG Tablet PO SCH (00:46)
[2017-12-11] MEDS: Piperacil/Tazo 2.25 GM Premix 50 ML IV.SIG SCH ×2 (01:20→13:53)
[2017-12-11] MEDS: Levothyroxine 50 MCG Tablet PO SCH (05:25)
--- NOTE | 2017-12-11 11:27 | P.PNIM ---
Subjective Interval history: in no distress. looks calm today. NG tube was placed in but he pulled it out. d/w the RN. Physical Exam Vital signs: Vital Signs 12/10/17 12:00 12/10/17 15:49 12/10/17 16:00 Temperature 98.2 F 97.9 F Pulse Rate 98 H 85 Respiratory Rate 20 20 Blood Pressure 146/66 H 136/64 Pulse Oximetry 95 93 L 93 L 12/10/17 22:15 12/11/17 00:30 12/11/17 04:15 Temperature 98.1 F 97 F L 98.8 F Pulse Rate 110 H 112 H 115 H Respiratory Rate 20 21 16 Blood Pressure 160/88 H 150/67 H 166/72 H Pulse Oximetry 96 97 100 12/11/17 08:00 Temperature 97.8 F Pulse Rate 88 Respiratory Rate 18 Blood Pressure 140/59 L Pulse Oximetry 95 Intake & Output 12/10/17 12/11/17 12/11/17 18:59 06:59 18:59 Intake Total 50 / 50 50 / 50 Output Total 1999 Balance -1950 / -1950 50 / 50 Weight 72 kg Intake: IV 50 / 50 50 / 50 Zosyn 2.25 GM Premix 50 ML @ 50 / 50 50 / 50 100 mls/hr IV.SIG Q12H KRUNAL Rx#: [id number] Oral 0 / 0 0 / 0 Output: Hemodialysis Amount 1999 Other: # Voids 0 # Incontinent Voids 0 Date of Last Bowel Movement 12/10/17 12/10/17 12/10/17 # Bowel Movements 6 0 - Constitutional no acute distress - Routine Respiratory Exam Present: CTA bilaterally - Routine Cardiovascular Exam Present: RRR - Routine Abdominal Exam Present: soft - Routine Extremities Exam Comments: no pedal edema. - Routine Neurological Exam awake and confused but looks fairly calm today-compared to yesterday. - Urinary Catheter Management Straight Cath placed during this visit: yes Reason for continuing: Not indwelling catheter Insertion date: 12/01/17 Insertion time: 13:46 Results - Labs CBC & Chem 7: 12/09/17 07:51 12/09/17 07:51 Laboratory Results - last 24 hr 12/10/17 12/10/17 12/10/17 08:40 11:08 14:10 POC Glucose 166 H Random Vancomycin 19.2 17.2 12/10/17 12/10/17 12/11/17 17:54 19:56 07:44 POC Glucose 255 H 284 H 322 H Random Vancomycin Assessment and Plan - Plan Acute encephalopathy- hasn't improved as much. likely due to hypoglycemia ( prior to this presentation). -MRI brain with no acute abnormality- EEG could not be done; patient not cooperative. -neurology consult appreciated. -continue to monitor. -on puree diet per ST but still with poor oral intake- previously d/w the daughter regarding the PEG and she wanted to proceed with feeding tube placement; GI consulted for PEG placement; this has been scheduled for tomorrow. will try to reinsert NG tube again till PEG placement. Dialysis dependent CKD - nephrology consulted. questionable sepsis due to HD access infection; this was removed on 12/03- -s/p vas-cath placement . received vancomycin - dc'ed Zosyn -repeated blood cultures and cath- tip culture negative so far. 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 DVT prophylaxis; resumed Eliquis. no improvement of his mental status. palliative care following. Discharge Planning: for PEG placement tomorrow- needs placement. palliative care following.
[2017-12-11] MEDS: Vitamin B Complex/Vit C/Folic Tablet PO SCH (11:39)
[2017-12-11] MEDS: Lisinopril 10 MG Tablet PO SCH (11:39)
[2017-12-11] MEDS: Sod Chloride 0.9% Inj 1,000 ML IV.CONT SCH (13:53)
--- NOTE | 2017-12-11 17:17 | P.PNNP ---
Subjective Interval history: Patient remains confused Physical Exam Vital signs: Vital Signs 12/10/17 22:15 12/11/17 00:30 12/11/17 04:15 Temperature 98.1 F 97 F L 98.8 F Pulse Rate 110 H 112 H 115 H Respiratory Rate 20 21 16 Blood Pressure 160/88 H 150/67 H 166/72 H Pulse Oximetry 96 97 100 12/11/17 08:00 12/11/17 12:00 12/11/17 13:38 Temperature 97.8 F 97.9 F Pulse Rate 88 85 Respiratory Rate 18 18 Blood Pressure 140/59 L 110/63 Pulse Oximetry 95 95 95 12/11/17 16:00 Temperature 98.0 F Pulse Rate 81 Respiratory Rate 18 Blood Pressure 92/72 L Pulse Oximetry 95 Intake & Output 12/10/17 12/11/17 12/11/17 18:59 06:59 18:59 Intake Total 50 / 50 50 / 50 50 / 50 Output Total 1999 Balance -1950 / -1950 50 / 50 50 / 50 Weight 72 kg 69.5 kg Intake: IV 50 / 50 50 / 50 50 / 50 Zosyn 2.25 GM Premix 50 ML @ 50 / 50 50 / 50 50 / 50 100 mls/hr IV.SIG Q12H KRUNAL Rx#: [id number] Oral 0 / 0 0 / 0 Output: Hemodialysis Amount 1999 Other: # Voids 0 # Incontinent Voids 0 Date of Last Bowel Movement 12/10/17 12/10/17 12/10/17 # Bowel Movements 6 0 - Constitutional no acute distress - Routine Neck Exam Present: supple - Routine Respiratory Exam Present: CTA bilaterally - Routine Cardiovascular Exam Present: RRR - Routine Abdominal Exam Present: soft, normoactive bowel sounds - Routine Extremities Exam Present: edema - Routine Psychiatric Exam Present: agitated - Urinary Catheter Management Straight Cath placed during this visit: yes Reason for continuing: Not indwelling catheter Insertion date: 12/01/17 Insertion time: 13:46 Assessment and Plan - Assessment (1) Altered mental status Code(s): R41.82 - Altered mental status, unspecified Status: Acute Qualifiers: Altered mental status type: unspecified Qualified Code(s): R41.82 - Altered mental status, unspecified (2) Hypoglycemia Code(s): E16.2 - Hypoglycemia, unspecified Status: Acute (3) Sepsis Code(s): A41.9 - Sepsis, unspecified organism Status: Acute Qualifiers: Sepsis type: sepsis due to unspecified organism Qualified Code(s): A41.9 - Sepsis, unspecified organism (4) ESRD (end stage renal disease) on dialysis Code(s): N18.6 - End stage renal disease; Z99.2 - Dependence on renal dialysis Status: Acute - Plan Suspect AMS secondary to hypoglycemic event Hemodialysis yesterday 2 L off [address] in [address] which was replaced Volume status and electrolytes otherwise stable. Condition remained confused due to hypoglycemic event Patient remains confused and there is no recovery seen Prognosis is poor
[2017-12-12] MEDS: Carvedilol 12.5 MG Tablet PO SCH ×2 (00:52→08:01)
[2017-12-12] MEDS: Lipase/Protease/Amylase 24/76/120 DR Capsule PO SCH ×3 (00:52→12:07)
[2017-12-12] MEDS: QUEtiapine 25 MG Tablet PO SCH (00:53)
[2017-12-12] MEDS ORDERED: Chlorhexidine Gluconate 2% 1 Pack (2 Cloths) TOPICAL ONE (03:30)
[2017-12-12] MEDS ORDERED: Sodium Chlor 0.9% Inj 500 ML IV.SIG SCH ×2 (04:00→18:00)
[2017-12-12] MEDS: Levothyroxine 50 MCG Tablet PO SCH (05:28)
[2017-12-12] MEDS: Lisinopril 10 MG Tablet PO SCH (08:01)
[2017-12-12] MEDS: Vitamin B Complex/Vit C/Folic Tablet PO SCH (08:01)
[2017-12-12] MEDS: Insulin NovoLOG Aspart Correctional Sugar Inj SQ SCH ×4 (08:08→22:27)
--- NOTE | 2017-12-12 11:29 | P.PNIM ---
Subjective Interval history: f/u; encephalopathy in no acute distress. received ativan earlier and now is somewhat lethargic. no fever. awaiting PEG placement. d/w the RN. Physical Exam Vital signs: Vital Signs 12/11/17 12:00 12/11/17 13:38 12/11/17 16:00 Temperature 97.9 F 98.0 F Pulse Rate 85 81 Respiratory Rate 18 18 Blood Pressure 110/63 92/72 L Pulse Oximetry 95 95 95 12/11/17 16:07 12/11/17 20:45 12/12/17 00:45 Temperature 98.1 F 97.7 F Pulse Rate 84 80 87 Respiratory Rate 20 19 Blood Pressure 140/90 135/88 Pulse Oximetry 92 L 93 L 12/12/17 03:45 12/12/17 07:15 12/12/17 07:47 Temperature 98.2 F Pulse Rate 115 H Respiratory Rate 20 12 12 Blood Pressure 142/98 H Pulse Oximetry 94 L 12/12/17 08:00 Temperature 98.0 F Pulse Rate 73 Respiratory Rate 20 Blood Pressure 155/75 H Pulse Oximetry 92 L Intake & Output 12/11/17 12/12/17 12/12/17 18:59 06:59 18:59 Intake Total 50 / 50 0 / 0 500 / 500 Output Total 0 / 0 Balance 50 / 50 0 / 0 500 / 500 Weight 69.5 kg 70 kg Intake: IV 50 / 50 500 / 500 Zosyn 2.25 GM Premix 50 ML @ 50 / 50 100 mls/hr IV.SIG Q12H KRUNAL Rx#: [id number] NS Inj 500 ML @ 30 mls/hr IV. 500 / 500 SIG .Q10H KRUNAL Rx#:[id number] Oral 0 / 0 0 / 0 Output: Urine 0 / 0 Other: # Voids 0 # Incontinent Voids 1 Date of Last Bowel Movement 12/10/17 12/10/17 # Bowel Movements 0 - Constitutional no acute distress - Routine Respiratory Exam Present: CTA bilaterally - Routine Cardiovascular Exam Present: RRR - Routine Abdominal Exam Present: soft - Routine Extremities Exam Comments: no pedal edema. - Routine Neurological Exam somewhat lethargic but easily arousable. - Urinary Catheter Management Straight Cath placed during this visit: yes Reason for continuing: Not indwelling catheter Insertion date: 12/01/17 Insertion time: 13:46 Results - Labs CBC & Chem 7: 12/09/17 07:51 12/09/17 07:51 Laboratory Results - last 24 hr 12/11/17 12/12/17 12/12/17 21:36 00:05 07:17 POC Glucose 413 H 291 H 309 H 12/12/17 11:04 POC Glucose 278 H Assessment and Plan - Plan Acute encephalopathy- hasn't improved as much. likely due to hypoglycemia ( prior to this presentation). -MRI brain with no acute abnormality- EEG could not be done; patient not cooperative. -evaluated by neurology. -continue to monitor. -on puree diet per but still with poor oral intake- previously d/w the daughter regarding the PEG and she wanted to proceed with feeding tube placement; GI consulted for PEG placement; NG tube was tried several times but the patient pulled it out each time. will stop IV fluid and start tube feeding after PEG placement. Dialysis dependent CKD - nephrology consulted. questionable sepsis due to HD access infection; this was removed on 12/03- -s/p vas-cath placement . received vancomycin - dc'ed Zosyn -repeated blood cultures and cath- tip culture negative so far. 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 DVT prophylaxis; on Eliquis ( on hold for the procedure). no improvement in his mental status. palliative care following. previously d/w the daughter over the weekend; full code for now along with aggressive care per family request. Discharge Planning: for PEG placement today. needs placement. palliative care following.
[2017-12-12] MEDS: Sod Chloride 0.9% Inj 1,000 ML IV.CONT SCH (12:56)
[2017-12-12 13:59] LABS: Alanine Aminotransferase 35 U/L (12-78); Albumin 2.6 g/dL (3.4-5.0); Alkaline Phosphatase 100 U/L (45-117); Anion Gap 17 meq/L (5-15); Aspartate Aminotransferase 32 U/L (15-37); Blood Urea Nitrogen 71 mg/dL (7-18); Calcium 8.9 mg/dL (8.5-10.1); Carbon Dioxide 24.8 meq/L (21.0-32.0); Chloride 107 meq/L (98-107); Glomerular Filtration Rate 5 mL/min (>89); Glucose,Random 278 mg/dL (74-106); Potassium 4.1 meq/L (3.5-5.1); Sodium 149 meq/L (136-145); Total Protein 6.7 g/dL (6.4-8.2)
[2017-12-12] MEDS ORDERED: Phenylephrine/NS 1000 MCG/10ML Syringe IV.PUSH ONE (14:30)
[2017-12-12] MEDS ORDERED: Propofol 1000 mg/100 ml Inj 1,000 MG/100 ML BOTTLE ONE (16:05)
[2017-12-12] MEDS: Heparin 10,000 UNITS/10 ML Vial (for IV use) OTHER PRN (16:41)
--- NOTE | 2017-12-12 17:25 | P.CONCC ---
History of Present Illness Service: Critical care Consult date: 12/12/17 Requesting Physician: Mallory Dolan Reason for Consult: Resp failure, aspiration, hypotension Primary Care Provider: UNKNOWN Chief Complaint: Resp failure, aspiration History of Present Illness: 67-year-old male patient with history of CAD, multiple stent placement, COPD, end-stage renal disease, type 2 diabetes, who presented to the emergency room on 12/01/17 after being found to be unresponsive with a glucose of 36. Patient was admitted to hospitalist service and despite correction of hypoglycemia remained agitated and encephalopathic. GI was consulted for PEG tube placement for nutrition as the patient had pulled out NG tube several times. Initially the PEG tube placement was started as an LMA procedure. Apparently there was large amount of regurgitation and possible aspiration. He was endotracheally intubated during the procedure by anesthesiologist. Patient remained hemodynamically unstable and was started on Jonas-Synephrine infusion. Apparently per anesthesia patient had evidence of gastritis and duodenitis with stigmata of bleeding. Also there was a question of bowel ischemia on endoscopy. Due to hemodynamic instability requiring Jonas-Synephrine, and possible aspiration patient was left intubated for stabilization and critical care medicine was consulted. I evaluated the patient in the PACU. He remains on Jonas-Synephrine hypotensive with map hardly 50. I have instructed the RN to give 500 ML normal saline bolus , 25 g of IV albumin and also increase Jonas-Synephrine to target map above 65. Patient appears to have intermittent irregular rhythm which appears like atrial fibrillation. EKG and lab work is pending at this time. Blood and urine culture and sputum culture ordered, currently on vancomycin, add Azactam for gram-negative coverage. Clinically there is no evidence gastric perforation related to PEG placement, check CT abdomen pelvis to rule out gastric perforation Review of Systems unobtainable due to endotracheal tube PMFSH - History History Provided By: Family Member, Software Developer Intern / EMT - Medical History Medical History: Medical History (Last Reviewed 12/08/17 @ 08:18 by Yanelis Soliman) GERD (gastroesophageal reflux disease) Hypothyroidism CAD (coronary artery disease) CKD (chronic kidney disease) COPD (chronic obstructive pulmonary disease) ESRD (end stage renal disease) on dialysis PAD (peripheral artery disease) Type 2 diabetes mellitus - Family History Family History: Family History (Last Updated 12/08/17 @ 15:16 by JENN Carvajal) Other Diabetes - Tobacco History Tobacco Use In Past 30 Days: No Smoking Status: Former smoker Tobacco Type: Cigarettes - Alcohol History How Often Do You Have a Drink Containing Alcohol: 2 to 3 times a week - Substance Use History Substance History: No History of Abuse - Travel History Recent Travel in the [place] Within the Last 8 Weeks: No Recent Travel Out of the Country Within the Last 8 Weeks: No - Immunization History Tetanus Immunization: Unable to Assess Hx Influenza Vaccine This Season: Unable to Assess Medications and Allergies Active Medications: Active Medications Acetaminophen (Tylenol) 650 mg PO UNSCH PRN PRN Reason: SEE LABEL COMMENTS Lipase/Protease/Amylase (Ian Enrique /120) 1 cap PO QID [facility] Last Admin: 12/12/17 12:07 Dose: Not Given Apixaban (Eliquis) 5 mg PO BID [facility] Last Admin: 12/05/17 09:14 Dose: 5 mg Atorvastatin Calcium (Lipitor) 40 mg PO HS [facility] Last Admin: 12/12/17 00:52 Dose: Not Given Carvedilol (Coreg) 25 mg PO BID [facility] Last Admin: 12/12/17 08:01 Dose: Not Given Clonidine HCl (Catapres) 0.1 mg NG/OG Q8H PRN PRN Reason: SEE LABEL COMMENTS Dextrose (D50w Vial) 50 ml IV.PUSH UNSCH PRN PRN Reason: PER HYPOGLYCEMIA PROTOCOL Diphenhydramine HCl (Benadryl) 25 mg PO UNSCH PRN PRN Reason: SEE LABEL COMMENTS Diphenhydramine HCl (Benadryl Inj) 25 mg IV.PUSH Q8H PRN PRN Reason: itching Last Admin: 12/12/17 10:49 Dose: 25 mg Enalaprilat (Vasotec Inj) 1.25 mg IV.PUSH Q8H PRN PRN Reason: SBP>180 OR DBP>100 Last Admin: 12/04/17 18:46 Dose: 1.25 mg Gelatin (Gelfoam 12 Mm/7 Mm Topical) 1 foam TOPICAL PRN PRN PRN Reason: help stop bleeding from site Gentamicin Sulfate (Gentamicin Inj) 20 mg OTHER WITH DIALYSIS PRN PRN Reason: Dwell Gentamycin Lock Last Admin: 12/12/17 16:40 Dose: 20 mg Glucagon (Glucagon Inj) 1 mg OTHER PRN PRN PRN Reason: for Hypoglycemia Protocol Heparin Sodium (Porcine) (Heparin Inj) 8,000 units OTHER WITH DIALYSIS PRN PRN Reason: for machine prime Last Admin: 12/01/17 19:31 Dose: 2,000 units Heparin Sodium (Porcine) (Heparin Inj) 0 units OTHER WITH DIALYSIS PRN PRN Reason: Dwell Heparin to Fill Catheter Last Admin: 12/12/17 16:41 Dose: 1,000 units Sodium Chloride (Ns Inj) 500 mls @ 0 mls/hr IV.SIG BOLUS [facility] Last Infusion: 12/01/17 14:15 Dose: Infused Albumin Human (Flexbumin 25% Inj) 100 mls @ 60 mls/hr IV.SIG WITH DIALYSIS PRN PRN Reason: hypotension / volume replace Last Infusion: 12/06/17 19:00 Dose: Infused Sodium Chloride (Ns Inj) 1,000 mls @ 0 mls/hr OTHER .Q0M PRN PRN Reason: for prime and rinse back Sodium Chloride (Ns Inj) 1,000 mls @ 200 mls/hr OTHER .Q5H PRN PRN Reason: for dialyzer flush PRN Sodium Chloride (Ns Inj) 200 mls @ 0 mls/hr IV.CONT .Q0M PRN PRN Reason: hypotension / volume replace Sodium Chloride (Ns Inj) 500 mls @ 30 mls/hr IV.SIG .Q10H [facility] Last Admin: 12/06/17 01:51 Dose: Not Given Sodium Chloride (Ns Inj) 500 mls @ 30 mls/hr IV.SIG .Q10H [facility] Last Admin: 12/06/17 01:52 Dose: Not Given Sodium Chloride (Ns Inj) 1,000 mls @ 42 mls/hr IV.CONT .[id number] [facility] Last Admin: 12/12/17 12:56 Dose: 42 mls/hr Vancomycin HCl 1,000 mg/ (Sodium Chloride) 250 mls @ 250 mls/hr IV.SIG WITH DIALYSIS KRU[facility] Lactated Ringer's (Lr 1000 Ml Inj) 1,000 mls @ 30 mls/hr IV.SIG .Q24H [facility] Stop: 12/13/17 03:29 Last Admin: 12/12/17 08:00 Dose: Not Given Insulin Aspart (Novolog Insulin Correctional Sugar Inj) 0 unit SQ ACHS KRUNAL; Protocol Last Admin: 12/12/17 11:30 Dose: 5 unit Levothyroxine Sodium (Synthroid) 50 mcg PO DAILY@0600 [facility] Last Admin: 12/12/17 05:28 Dose: Not Given Lisinopril (Prinivil) 10 mg PO DAILY [facility] Last Admin: 12/12/17 08:01 Dose: Not Given Lorazepam (Ativan Inj) 0.5 mg IV.PUSH Q6H PRN PRN Reason: AGITATION Last Admin: 12/12/17 10:12 Dose: 0.5 mg Mannitol (Mannitol Inj) 12.5 gm IV.PUSH UNSCH PRN PRN Reason: hypotension / volume replace Metoprolol Tartrate (Lopressor Inj) 5 mg IV.PUSH Q6H PRN PRN Reason: SBP > 160;DBP > 100;HR > 60 Last Admin: 12/09/17 20:59 Dose: 5 mg Nifedipine (Procardia Xl) 90 mg PO DAILY [facility] Last Admin: 12/12/17 08:01 Dose: Not Given Nitroglycerin (Nitrostat Sl) 0.4 mg SL Q5M PRN PRN Reason: CHEST PAIN Ondansetron HCl (Zofran Inj) 4 mg IV.PUSH UNSCH PRN PRN Reason: NAUSEA OR VOMITING Fluticasone- Umeclidin-Vilanter [ Trelegy Ellipta] 1 Inh 1 each INH DAILY [facility] Pharmacy Profile Note (Vancomycin Consult Pharmacy) 1 each OTHER PRN PRN PRN Reason: Pharmacy to dose Quetiapine Fumarate (Seroquel) 25 mg PO HS [facility] Last Admin: 12/12/17 00:53 Dose: Not Given Sodium Chloride (Ns Flush) 2 ml IV.FLUSH BID [facility] Last Admin: 12/12/17 08:01 Dose: Not Given Sodium Chloride (Ns Flush) 2 ml IV.FLUSH UNSCH PRN PRN Reason: FLUSH AFTER USING IV ACCESS Last Admin: 12/07/17 03:36 Dose: 2 ml Sodium Chloride (Ns Flush) 5 ml IV.FLUSH UNSCH PRN PRN Reason: flush each lumen during HD Vitamin B Complex/Vit C/Folic Acid (Nephrocaps) 1 tab PO DAILY [facility] Last Admin: 12/12/17 08:01 Dose: Not Given Allergies Allergy/AdvReac Type Severity Reaction Status Date / Time Penicillins Allergy Mild rash Verified 12/01/17 17:09 Home Medications Medication Instructions Recorded Confirmed Type Nephro-Tye Rx 1 tab PO DAILY 12/01/17 12/01/17 History Novolog Flexpen U-100 Insulin 12/01/17 History Vitamin D3 2,000 units PO DAILY 12/01/17 12/01/17 History albuterol sulfate [Ventolin HFA] 2 inh INHALATION 12/01/17 History alpha lipoic acid 600 mg PO DAILY 12/01/17 12/01/17 History apixaban [Eliquis] 5 mg PO BID 12/01/17 12/01/17 History atorvastatin 40 mg 12/01/17 History carvedilol 25 mg PO BID 12/01/17 12/01/17 History colchicine 0.6 mg PO 4XW 12/01/17 12/01/17 History jstbghaeqjl-tvnjqsgif-gcxmvcso 1 inh INHALATION DAILY 12/01/17 12/01/17 History [Trelegy Ellipta] gentamicin 3 drp 12/01/17 History glimepiride 4 mg PO BID 12/01/17 12/01/17 History insulin detemir U-100 [Levemir 25 unit SUB-Q QPM 12/01/17 12/01/17 History U-100 Insulin] levothyroxine 50 mcg PO DAILY 12/01/17 12/01/17 History gbzlop-mmleyrhl-prdznht [Creon] 1 cap PO QID 12/01/17 12/01/17 History lisinopril 10 mg PO DAILY 12/01/17 12/01/17 History nifedipine 90 mg PO DAILY 12/01/17 12/01/17 History omeprazole 40 mg PO DAILY 12/01/17 12/01/17 History Physical Exam Vital signs: Vital Signs 12/11/17 20:45 12/12/17 00:45 12/12/17 03:45 Temperature 98.1 F 97.7 F 98.2 F Pulse Rate 80 87 115 H Respiratory Rate 20 19 20 Blood Pressure 140/90 135/88 142/98 H Pulse Oximetry 92 L 93 L 94 L 12/12/17 07:15 12/12/17 07:47 12/12/17 08:00 Temperature 98.0 F Pulse Rate 73 Respiratory Rate 12 12 20 Blood Pressure 155/75 H Pulse Oximetry 92 L 12/12/17 11:30 12/12/17 12:41 12/12/17 16:00 Temperature 97.6 F Pulse Rate 93 H 118 H Respiratory Rate 20 14 Blood Pressure 131/72 Pulse Oximetry 100 98 Intake & Output 12/11/17 12/12/17 12/12/17 18:59 06:59 18:59 Intake Total 50 / 50 0 / 0 1750 / 1750 Output Total 0 / 0 Balance 50 / 50 0 / 0 1750 / 1750 Weight 69.5 kg 70 kg Intake: IV 50 / 50 1500 / 1500 NS Inj 1,000 ML @ 42 mls/hr IV. 1000 / 1000 CONT .[id number] [facility] Rx#:[id number] Zosyn 2.25 GM Premix 50 ML @ 50 / 50 100 mls/hr IV.SIG Q12H [facility] Rx#: [id number] NS Inj 500 ML @ 30 mls/hr IV. 500 / 500 SIG .Q10H [facility] Rx#:[id number] Oral 0 / 0 0 / 0 Anesthesia Amount 250 / 250 Output: Urine 0 / 0 Other: # Voids 0 # Incontinent Voids 1 Date of Last Bowel Movement 12/10/17 12/10/17 # Bowel Movements 0 Narrative: - Constitutional Intubated sedated with propofol hypotensive critically ill - Routine Respiratory Exam CTA bilaterally, no wheezes or crackles - Routine Cardiovascular Exam Sinus rhythm, intermittently tachycardic, hypotensive currently on 80 mcg/min of Jonas-Synephrine - Routine Abdominal Exam soft, nontender. New PEG tube site without evidence of bleeding - Routine Extremities Exam No pedal edema. - Routine Neurological Exam Patient is intubated sedated with propofol. Moves all extremities do not follow commands - Urinary Catheter Management Straight Cath placed during this visit: yes Reason for continuing: Not indwelling catheter Insertion date: 12/01/17 Insertion time: 13:46 Septic Shock Reassessment Septic shock perfusion: reassessment completed Assessment and Plan - Assessment and Plan Plan: ASSESSMENT: Acute respiratory failure Aspiration pneumonitis Hypotension multifactorial Upper GI bleed Tachyarrhythmia Leukocytosis s/p PEG tube placement Metabolic encephalopathy Hypoglycemia now resolved History of coronary artery disease End-stage renal disease PLAN: NEURO: -Versed for sedation and ventilator synchrony, discontinue propofol -Start daily sedation vacation once hemodynamically more stable -Workup for encephalopathy essentially negative MRI was negative for acute findings. -Encephalopathy was previously attributed to hypoglycemia and metabolic causes RESP: -PRVC/AC -Ventilator bundle -DuoNeb every 6 hours scheduled and as needed -SBT when appropriate -Sputum culture CV: -Jonas-Synephrine to keep map above 65 -Check lactic acid, give 500 mL normal saline bolus, give 25 g IV albumin bolus -Hold all antihypertensive including Procardia XL, lisinopril, carvedilol -All lab works are pending at this time -Check cardiac enzymes GI: -N.p.o., and IV Protonix 40 mg q12 -Evaluate endoscopy report, GI following -CT abdomen pelvis to rule out gastric perforation : -ESRD on hemodialysis per nephrology ID: -Continue vancomycin, add Azactam for gram-negative coverage. Add Flagyl for anaerobic coverage -Blood urine and sputum cultures HEME: -Monitor CBC, coags -Transfuse to keep hemoglobin more than 8 due to severe hypotension ENDO: -Sliding scale insulin if needed -Check cortisol level PROPH: -Bilateral lower extremity SCDs. Eliquis on hold due to GI bleed -IV Protonix 40 mg every 12 hours LINES: -Utilize peripheral IVs, central line if needed for a persistent pressor requirement CC time 45 min Patient is critically ill with severe hypertension, leukocytosis status post PEG tube placement. Broad-spectrum antibiotic added. CT abdomen pelvis stat to rule out perforation Code Status: Full Discussed Condition With: Anesthesiologist
[2017-12-12 17:36] LABS: Baso # (Auto) 0.2 th/mm3 (0.0-0.2); Baso % (Auto) 0.9 % (0.0-2.0); Eos # (Auto) 0.8 th/mm3 (0.0-0.4); Eos % (Auto) 4.2 % (0.0-4.0); Hemoglobin 12.3 gm/dL (13.0-17.0); Lymph # (Auto) 1.5 th/mm3 (1.0-4.8); Lymph % (Auto) 8.3 % (9.0-44.0); Mean Corpuscular HGB Conc 32.2 % (32.0-36.0); Mean Corpuscular Hemoglobin 27.7 pg (27.0-34.0); Mean Platelet Volume 9.4 fL (7.0-11.0); Mono % (Auto) 11.4 % (0.0-8.0); Neut # (Auto) 13.5 th/mm3 (1.8-7.7); Neut % (Auto) 75.2 % (16.0-70.0); Platelet Count 282 th/mm3 (150-450); Red Blood Count 4.42 mil/mm3 (4.50-5.90); Red Cell Distribution Width 18.5 % (11.6-17.2); White Blood Count 17.9 th/mm3 (4.0-11.0)
[2017-12-12 17:39] LABS: ABG Base Excess -3.2 mmol/L (-2-2); ABG PCO2 42 mmHg (38-42); ABG PO2 171 mmHG (61-120)
--- NOTE | 2017-12-12 17:43 | XR ---
EXAM DATE: 12/12/2017 5:36 PM EDT AGE/SEX: 67 years / Male INDICATIONS: Respiratory distress. CLINICAL DATA: This is the patient's initial encounter. Patient reports that signs and symptoms have been present for 1 day and indicates a pain score of Nonresponsive. MEDICAL/SURGICAL HISTORY: Non-responsive. Non-responsive. [place] [facility] [place]. . FINDINGS: Underinflated AP view of the chest demonstrates a normal-sized cardiac silhouette. EKG lines overlie the patient. Right IJ central line distal tip is in the SVC and endotracheal tube distal tip is above the aortic knob level and estimated to measure 5 cm from the bailey. There is mild atelectasis at th e lung bases. No definite effusion, consolidation, or pneumothorax is identified. The bones and soft tissues demonstrate no acute abnormality. CONCLUSION: Underinflated examination with atelectasis at the lung bases. Otherwise, no acute finding is identifi ed given the technique. Electronically signed by: Luis Eagle MD 12/12/2017 5:42 PM EDT
[2017-12-12 18:00] LABS: Alanine Aminotransferase 32 U/L (12-78); Albumin 2.3 g/dL (3.4-5.0); Anion Gap 20 meq/L (5-15); Aspartate Aminotransferase 28 U/L (15-37); Blood Urea Nitrogen 73 mg/dL (7-18); Calcium 8.6 mg/dL (8.5-10.1); Carbon Dioxide 23.4 meq/L (21.0-32.0); Chloride 108 meq/L (98-107); Glomerular Filtration Rate 5 mL/min (>89); Glucose,Random 227 mg/dL (74-106); Sodium 151 meq/L (136-145)
[2017-12-12] MEDS ORDERED: Aztreonam Inj 2 GM in Sodium Chloride 0.9% Inj 100 ML IV.SIG SCH (18:00)
[2017-12-12 18:04] LABS: Alkaline Phosphatase 88 U/L (45-117); Total Protein 5.8 g/dL (6.4-8.2); Troponin I 0.12 ng/mL (0.02-0.05)
[2017-12-12] MEDS ORDERED: Sodium Chlor 0.9% Inj 500 ML IV.SIG STA (18:25)
[2017-12-12] MEDS ORDERED: Albumin Human 25% Inj 100 ML IV.SIG ONE (18:30)
--- NOTE | 2017-12-12 18:37 | P.PCN ---
Date of procedure: 12/12/17 Pre-op diagnosis: Hypotension, pressor requirement Post-op diagnosis: same Procedure: US guided left IJ central line Central line checklist completed, timeout completed. I wore a surgical cap, mask with protective eyewear, full gown and sterile gloves throughout the procedure. Left neck region was prepped using chlorhexidine scrub and draped in sterile fashion. The left IJ was identified using the ultrasound. Anesthesia was achieved over the vein using 1% lidocaine. The introducer needle was inserted into the left IJ under direct ultrasound visualization. Venous blood was withdrawn. The syringe was removed and a guidewire was advanced into the introducer needle. A small incision was made at the skin surface with a scalpel and the introducer needle was exchanged for a dilator over the guidewire. After appropriate dilation was obtained, the dilator was exchanged over the wire for a triple lumen, 7F, antibiotic coated central venous catheter. The wire was removed and the catheter was sutured in place at 18 cm. A sterile central line dressing was placed over the catheter at the insertion site. The patient tolerated the procedure without any hemodynamic compromise. At time of procedure completion, all ports aspirated and flushed properly. Post-procedure chest x-ray is pending at this time. Anesthesia: local Surgeon: Sandra Smith Estimated blood loss (mL): 2 Pathology: none sent Condition: critical Disposition: ICU
--- NOTE | 2017-12-12 19:03 | XR ---
EXAM DATE: 12/12/2017 6:40 PM EDT AGE/SEX: 67 years / Male INDICATIONS: Central line placement. CLINICAL DATA: This is the patient's initial encounter. Patient reports that signs and symptoms have been present for 1 day and indicates a pain score of Nonresponsive. MEDICAL/SURGICAL HISTORY: Non-responsive. Non-responsive. COMPARISON: [facility] [place], CHEST 1V SINGLE AP, 12/12/2017. . FINDINGS: A single AP portable supine view of the chest was obtained and demonstrates placement of a new left i nternal jugular central venous line. There is no visualized pneumothorax on the supine study. The end otracheal tube remains in place with the tip approximately 3 cm above the bailey. The double-lumen ri ght central venous catheter remains in place as well. There are no new confluent infiltrates or effus ions. The heart size is within normal limits. The bony thorax is intact. CONCLUSION: Interval placement of left internal jugular central venous line with no visualized pneumothorax on th e supine study. Electronically signed by: Wing Escamilla MD 12/12/2017 7:02 PM EDT
--- NOTE | 2017-12-12 19:28 | P.PNNP ---
Subjective Interval history: Patient became unsteady on the floor and transferred to [facility] [place] now intubated on vasopressors Physical Exam Vital signs: Vital Signs 12/11/17 20:45 12/12/17 00:45 12/12/17 03:45 Temperature 98.1 F 97.7 F 98.2 F Pulse Rate 80 87 115 H Respiratory Rate 20 19 20 Blood Pressure 140/90 135/88 142/98 H Pulse Oximetry 92 L 93 L 94 L 12/12/17 07:15 12/12/17 07:47 12/12/17 08:00 Temperature 98.0 F Pulse Rate 73 Respiratory Rate 12 12 20 Blood Pressure 155/75 H Pulse Oximetry 92 L 12/12/17 11:30 12/12/17 12:41 12/12/17 16:00 Temperature 97.6 F 98.0 F Pulse Rate 93 H 118 H 78 Respiratory Rate 20 14 Blood Pressure 131/72 104/49 L Pulse Oximetry 100 97 12/12/17 16:15 12/12/17 16:30 12/12/17 16:45 Temperature Pulse Rate 74 76 76 Respiratory Rate Blood Pressure 104/47 L 105/37 L 98/50 L Pulse Oximetry 97 98 96 12/12/17 17:00 12/12/17 17:15 12/12/17 17:30 Temperature Pulse Rate 78 74 94 H Respiratory Rate Blood Pressure 93/55 L 107/58 L Pulse Oximetry 96 96 97 12/12/17 17:35 12/12/17 17:40 12/12/17 17:42 Temperature Pulse Rate 93 H 79 78 Respiratory Rate 16 15 15 Blood Pressure 128/53 L 99/55 L 101/50 L Pulse Oximetry 97 97 96 12/12/17 17:45 12/12/17 17:48 12/12/17 17:50 Temperature Pulse Rate 73 67 Respiratory Rate 15 14 Blood Pressure 124/66 126/62 Pulse Oximetry 95 99 98 12/12/17 17:56 12/12/17 18:00 12/12/17 18:05 Temperature Pulse Rate 69 71 69 Respiratory Rate 16 16 16 Blood Pressure 145/67 H 125/58 L 140/65 Pulse Oximetry 98 98 98 12/12/17 18:10 12/12/17 18:15 12/12/17 18:17 Temperature Pulse Rate 66 64 66 Respiratory Rate 16 16 4 L Blood Pressure 146/71 H 140/65 146/69 H Pulse Oximetry 98 99 98 12/12/17 18:20 12/12/17 18:25 12/12/17 18:30 Temperature Pulse Rate 66 67 67 Respiratory Rate 16 18 16 Blood Pressure 143/65 H 132/69 165/79 H Pulse Oximetry 98 92 L 96 12/12/17 18:35 12/12/17 18:40 12/12/17 18:45 Temperature Pulse Rate 70 84 104 H Respiratory Rate 22 16 16 Blood Pressure 133/63 132/64 118/58 L Pulse Oximetry 96 92 L 86 L 12/12/17 18:50 12/12/17 18:55 12/12/17 19:00 Temperature Pulse Rate 144 H 120 H 73 Respiratory Rate 16 111 H 16 Blood Pressure 115/58 L 106/58 L 108/56 L Pulse Oximetry 95 98 97 12/12/17 19:05 12/12/17 19:10 Temperature Pulse Rate 76 77 Respiratory Rate 16 16 Blood Pressure 95/51 L 99/56 L Pulse Oximetry 97 97 Intake & Output 12/12/17 12/12/17 12/13/17 06:59 18:59 06:59 Intake Total 0 / 0 1750 / 1750 Balance 0 / 0 1750 / 1750 Weight 70 kg Intake: IV 1500 / 1500 NS Inj 1,000 ML @ 42 mls/hr IV. 1000 / 1000 CONT .[id number] [facility] Rx#:[id number] NS Inj 500 ML @ 30 mls/hr IV. 500 / 500 SIG .Q10H [facility] Rx#:[id number] Oral 0 / 0 Anesthesia Amount 250 / 250 Other: # Voids 0 # Incontinent Voids 1 Date of Last Bowel Movement 12/10/17 # Bowel Movements 0 - Constitutional obtunded - Routine HEENT Exam Head: Present: normocephalic - Routine Neck Exam Present: supple - Routine Respiratory Exam Present: patient mechanically ventilated, CTA bilaterally - Routine Cardiovascular Exam Present: S1, S2, irregular rhythm - Routine Abdominal Exam Present: soft - Detailed Abdominal Exam Bowel sounds: hypoactive - Routine Extremities Exam Present: edema - Urinary Catheter Management Straight Cath placed during this visit: yes Reason for continuing: Not indwelling catheter Insertion date: 12/01/17 Insertion time: 13:46 Assessment and Plan - Assessment (1) Altered mental status Code(s): R41.82 - Altered mental status, unspecified Status: Acute Qualifiers: Altered mental status type: unspecified Qualified Code(s): R41.82 - Altered mental status, unspecified (2) Hypoglycemia Code(s): E16.2 - Hypoglycemia, unspecified Status: Acute (3) Sepsis Code(s): A41.9 - Sepsis, unspecified organism Status: Acute Qualifiers: Sepsis type: sepsis due to unspecified organism Qualified Code(s): A41.9 - Sepsis, unspecified organism (4) ESRD (end stage renal disease) on dialysis Code(s): N18.6 - End stage renal disease; Z99.2 - Dependence on renal dialysis Status: Acute - Plan Patient now on mechanical ventilation there is a possibility of aspiration pneumonia, sepsis, hypotension, condition critical on vasopressors and ventilator Suspect AMS secondary to hypoglycemic event Hemodialysis on Tuesday 2 L off [address] in place Continue aggressive care Prognosis is poor
[2017-12-12 20:05] LABS: Activated Partial Thrombo Time 33.7 sec (24.3-30.1); INR 2.2 Ratio; Prothrombin Time 22.5 sec (9.8-11.6)
[2017-12-12] MEDS: Pantoprazole Inj 40 MG Vial IV.PUSH SCH (20:26)
[2017-12-12] MEDS: SODIUM CHLOR 0.9% IV.SIG SCH (20:27)
[2017-12-12] MEDS: AZTREONAM IV.SIG SCH (20:27)
[2017-12-12] MEDS ORDERED: Propofol 1000 mg/100 ml Inj 1,000 MG/100 ML BOTTLE IV.CONT PRN (21:09)
[2017-12-13 00:40] LABS: Alanine Aminotransferase 41 U/L (12-78); Albumin 2.6 g/dL (3.4-5.0); Alkaline Phosphatase 81 U/L (45-117); Anion Gap 22 meq/L (5-15); Aspartate Aminotransferase 55 U/L (15-37); Blood Urea Nitrogen 79 mg/dL (7-18); Calcium 8.1 mg/dL (8.5-10.1); Carbon Dioxide 19.4 meq/L (21.0-32.0); Chloride 106 meq/L (98-107); Glomerular Filtration Rate 5 mL/min (>89); Glucose,Random 355 mg/dL (74-106); Magnesium 2.5 mg/dL (1.5-2.5); Phosphorus 10.2 mg/dL (2.5-4.9); Sodium 147 meq/L (136-145); Total Protein 5.8 g/dL (6.4-8.2); Troponin I 0.11 ng/mL (0.02-0.05)
--- NOTE | 2017-12-13 01:27 | CT ---
EXAM DATE: 12/13/2017 1:14 AM EDT AGE/SEX: 67 years / Male INDICATIONS: Hypotensive. Post PEG. Evaluate for perforation. CLINICAL DATA: This is the patient's initial encounter. Patient reports that signs and symptoms have been present for 1 day and indicates a pain score of 7/10. MEDICAL/SURGICAL HISTORY: Gastroesophageal reflux disease. Chronic renal insufficiency. Chron ic obstructive pulmonary disease. Cardiovascular disease. Diabetes. . PEG tube. RADIATION DOSE: 16.62 CTDI (mGy) COMPARISON: No prior exams available for comparison. TECHNIQUE: Multiple contiguous axial images were obtained through the abdomen. Images were obtained using multiple row detector helical technique. Using automated exposure control and adjustment of the mA and/or kV according to patient size, radiation dose was kept as low as reasonably achievable to o btain optimal diagnostic quality images. DICOM format image data is available electronically for rev iew and comparison. FINDINGS: Lung bases demonstrate some minimal airspace disease at the right posterior costophrenic angle. No acute findings in the liver, spleen, adrenals. Low-attenuation lesions in both kidneys probably re present small cysts. The pancreas is diffusely abnormal with suspected massive enlargement of the pancreatic duct up to ar ound 2 cm in diameter. There are pancreatic calcifications most characteristic of chronic pancreatiti s. Cannot exclude an obstructing mass in the pancreatic head. This would be better evaluated on MRCP. Gastrostomy tube is present. Incidental 3 cm fat-containing umbilical hernia. Scattered colonic diverticula noted without evidence for diverticulitis. Degenerative change in the s pine. CONCLUSION: 1. Percutaneous gastrostomy tube present without abnormal fluid collection or free air identified. 2. 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 There is evidence for chronic pancreatitis. Cannot exclude an obstructing mass in the pancreatic head. Yasir mmend further evaluation with MRCP. 3. 3 cm fat-containing umbilical hernia. 4. Focal small airspace disease right posterior costophrenic angle. Electronically signed by: Madan Ramachandran MD 12/13/2017 1:26 AM EDT
[2017-12-13] MEDS: fentaNYL 10 mcg/mL Premix Drip 2,500 MCG/250 ML BAG IV.SIG PRN (04:05)
[2017-12-13] MEDS: Midazolam 50 MG/50 ML Inj 50 MG/50 ML BAG IV.CONT PRN ×2 (04:07→11:01)
[2017-12-13] MEDS: Lipase/Protease/Amylase 24/76/120 DR Capsule PO SCH ×5 (05:54→21:42)
[2017-12-13] MEDS: Oral Hygiene Kit OROPHARYNG SCH ×4 (05:55→16:05)
[2017-12-13] MEDS: SODIUM CHLOR 0.9% IV.SIG SCH ×3 (05:56→23:09)
[2017-12-13] MEDS: AZTREONAM IV.SIG SCH ×3 (05:56→23:09)
[2017-12-13] MEDS: Phenylephrine Inj 160 MG in Sodium Chlor 0.9% Inj 484 ML IV.CONT PRN (07:00)
[2017-12-13] MEDS: Levothyroxine 50 MCG Tablet PO SCH (07:46)
--- NOTE | 2017-12-13 08:06 | P.PNCC ---
Subjective Subjective Remarks/Hospital Course: 67-year-old male patient with history of CAD, multiple stent placement, COPD, end-stage renal disease, type 2 diabetes, who presented to the emergency room on 12/01/17 after being found to be unresponsive with a glucose of 36. Patient was admitted to hospitalist service and despite correction of hypoglycemia remained agitated and encephalopathic. GI was consulted for PEG tube placement for nutrition as the patient had pulled out NG tube several times. Initially the PEG tube placement was started as an LMA procedure. Apparently there was large amount of regurgitation and possible aspiration. He was endotracheally intubated during the procedure by anesthesiologist. Patient remained hemodynamically unstable and was started on Jonas-Synephrine infusion. Apparently per anesthesia patient had evidence of gastritis and duodenitis with stigmata of bleeding. Also there was a question of bowel ischemia on endoscopy. Due to hemodynamic instability requiring Jonas-Synephrine, and possible aspiration patient was left intubated for stabilization and critical care medicine was consulted. I evaluated the patient in the PACU. He remains on Jonas-Synephrine hypotensive with map hardly 50. I have instructed the RN to give 500 ML normal saline bolus , 25 g of IV albumin and also increase Jonas-Synephrine to target map above 65. Patient appears to have intermittent irregular rhythm which appears like atrial fibrillation. EKG and lab work is pending at this time. Blood and urine culture and sputum culture ordered, currently on vancomycin, add Azactam for gram-negative coverage. Clinically there is no evidence gastric perforation related to PEG placement, check CT abdomen pelvis to rule out gastric perforation SUBJ 12/13: Patient remains intubated sedated with Versed and fentanyl. Currently on Jonas-Synephrine at 40 mcg/min. CT abdomen pelvis did not show any evidence of perforation however showed massive dilation of pancreatic duct up to 2 cm. Cannot rule out mass. MRCP ordered, check CA 19-9 Objective Vital Signs / I&O: Vital Signs 12/12/17 11:30 12/12/17 12:41 12/12/17 16:00 Temperature 97.6 F 98.0 F Pulse Rate 93 H 118 H 78 Respiratory Rate 20 14 Blood Pressure 131/72 104/49 L Pulse Oximetry 100 97 12/12/17 16:15 12/12/17 16:30 12/12/17 16:45 Temperature Pulse Rate 74 76 76 Respiratory Rate Blood Pressure 104/47 L 105/37 L 98/50 L Pulse Oximetry 97 98 96 12/12/17 17:00 12/12/17 17:15 12/12/17 17:30 Temperature Pulse Rate 78 74 94 H Respiratory Rate Blood Pressure 93/55 L 107/58 L Pulse Oximetry 96 96 97 12/12/17 17:35 12/12/17 17:40 12/12/17 17:42 Temperature Pulse Rate 93 H 79 78 Respiratory Rate 16 15 15 Blood Pressure 128/53 L 99/55 L 101/50 L Pulse Oximetry 97 97 96 12/12/17 17:45 12/12/17 17:48 12/12/17 17:50 Temperature Pulse Rate 73 67 Respiratory Rate 15 14 Blood Pressure 124/66 126/62 Pulse Oximetry 95 99 98 12/12/17 17:56 12/12/17 18:00 12/12/17 18:05 Temperature Pulse Rate 69 71 69 Respiratory Rate 16 16 16 Blood Pressure 145/67 H 125/58 L 140/65 Pulse Oximetry 98 98 98 12/12/17 18:10 12/12/17 18:15 12/12/17 18:17 Temperature Pulse Rate 66 64 66 Respiratory Rate 16 16 4 L Blood Pressure 146/71 H 140/65 146/69 H Pulse Oximetry 98 99 98 12/12/17 18:20 12/12/17 18:25 12/12/17 18:30 Temperature Pulse Rate 66 67 67 Respiratory Rate 16 18 16 Blood Pressure 143/65 H 132/69 165/79 H Pulse Oximetry 98 92 L 96 12/12/17 18:35 12/12/17 18:40 12/12/17 18:45 Temperature Pulse Rate 70 84 104 H Respiratory Rate 22 16 16 Blood Pressure 133/63 132/64 118/58 L Pulse Oximetry 96 92 L 86 L 12/12/17 18:50 12/12/17 18:55 12/12/17 19:00 Temperature Pulse Rate 144 H 120 H 73 Respiratory Rate 16 111 H 16 Blood Pressure 115/58 L 106/58 L 108/56 L Pulse Oximetry 95 98 97 12/12/17 19:05 12/12/17 19:10 12/12/17 19:26 Temperature Pulse Rate 76 77 Respiratory Rate 16 16 16 Blood Pressure 95/51 L 99/56 L Pulse Oximetry 97 97 97 12/12/17 20:00 12/12/17 21:00 12/12/17 22:00 Temperature 97 F L 98.5 F Pulse Rate 61 76 90 Respiratory Rate 16 16 16 Blood Pressure 104/42 L 101/52 L 109/57 L Pulse Oximetry 96 96 96 12/12/17 22:18 12/12/17 23:00 12/12/17 23:08 Temperature Pulse Rate 69 69 Respiratory Rate 20 16 16 Blood Pressure 113/61 Pulse Oximetry 96 96 12/13/17 00:00 12/13/17 01:00 12/13/17 01:20 Temperature 98.7 F Pulse Rate 89 71 Respiratory Rate 16 16 17 Blood Pressure 109/57 L 112/56 L Pulse Oximetry 96 94 L 98 12/13/17 02:00 12/13/17 03:00 12/13/17 03:24 Temperature 98.7 F 98 F Pulse Rate 63 86 87 Respiratory Rate 16 16 18 Blood Pressure 152/72 H 102/56 L Pulse Oximetry 96 96 12/13/17 04:00 12/13/17 04:33 12/13/17 05:00 Temperature 99 F Pulse Rate 89 65 Respiratory Rate 16 19 16 Blood Pressure 108/58 L 149/76 H Pulse Oximetry 96 97 97 12/13/17 06:00 12/13/17 07:00 12/13/17 07:46 Temperature 98.7 F Pulse Rate 65 73 Respiratory Rate 16 16 16 Blood Pressure 152/72 H 124/60 Pulse Oximetry 96 96 12/13/17 07:48 Temperature Pulse Rate 71 Respiratory Rate 16 Blood Pressure Pulse Oximetry 100 Intake & Output 12/12/17 12/13/17 12/13/17 18:59 06:59 18:59 Intake Total 1750 / 1750 898 / 898 Balance 1750 / 1750 898 / 898 Weight 75 kg Intake: IV 1500 / 1500 300 / 300 NS Inj 1,000 ML @ 42 mls/hr IV. 1000 / 1000 CONT .[id number] [facility] Rx#:[id number] Azactam Inj 500 MG In NS Inj 50 100 / 100 ML @ 100 mls/hr IV.SIG Q8H [facility] Rx#:[id number] NS Inj 500 ML @ 30 mls/hr IV. 500 / 500 SIG .Q10H [facility] Rx#:[id number] Flagyl 500 MG Inj 100 ML @ 100 200 / 200 mls/hr IV.SIG Q8H [facility] Rx#: [id number] Anesthesia Amount 250 / 250 Other 598 / 598 Other: Date of Last Bowel Movement 12/10/17 Result Diagrams: 12/12/17 17:11 12/12/17 23:53 Objective Remarks: - Constitutional Intubated sedated with versed, critically ill - Routine Respiratory Exam CTA bilaterally, no wheezes or crackles - Routine Cardiovascular Exam Sinus rhythm, intermittent PAC, hypotensive currently on 40 mcg/min of Jonas- Synephrine - Routine Abdominal Exam soft, nontender. New PEG tube site without evidence of bleeding - Routine Extremities Exam No pedal edema. - Routine Neurological Exam Patient is intubated sedated with propofol. Moves all extremities do not follow commands Assessment and Plan - Assessment and Plan Plan: ASSESSMENT: Acute respiratory failure Aspiration pneumonitis Hypotension multifactorial Upper GI bleed Tachyarrhythmia Leukocytosis Dilated pancreatic duct Radiological evidence of chronic pancreatitis s/p PEG tube placement Metabolic encephalopathy Hypoglycemia now resolved History of coronary artery disease End-stage renal disease PLAN: NEURO: -Versed for sedation and ventilator synchrony, start daily sedation location after MRCP -Workup for encephalopathy essentially negative MRI was negative for acute findings. -Encephalopathy was previously attributed to hypoglycemia and metabolic cause RESP: -PRVC/AC -Ventilator bundle -DuoNeb every 6 hours scheduled and as needed -SBT after imaging studies are completed -Sputum culture CV: -Jonas-Synephrine to keep map above 65 -s/p 500 mL normal saline bolus, and 25 g IV albumin bolus -Hold all antihypertensive including Procardia XL, lisinopril, carvedilol -All lab works are pending at this time -F/u cardiac enzymes GI: -N.p.o., and IV Protonix 40 mg q12 -Endoscopy report pending, GI following -CT abdomen pelvis showed massive pancreatic duct dilation and chronic pancreatitis -Check MRCP, check amylase lipase, check CA-19-9 and CEA : -ESRD on hemodialysis per nephrology ID: -Continue vancomycin, Azactam for gram-negative coverage and Flagyl for anaerobic coverage -F/U Blood urine and sputum cultures HEME: -Monitor CBC, coags -Transfuse to keep hemoglobin more than 8 due to severe hypotension ENDO: -Sliding scale insulin if needed PROPH: -Bilateral lower extremity SCDs. Eliquis on hold due to GI bleed -IV Protonix 40 mg every 12 hours LINES: -Utilize peripheral IVs, [facility] central line placed 12/12/17 CC time 35 min Patient is critically ill with severe hypotension, leukocytosis status post PEG tube placement. Broad-spectrum antibioticS. CT abdomen pelvis showed pancreatic duct dilation. MRCP and further studies ordered. Code Status: Full
[2017-12-13] MEDS: Albumin Human 25% Inj 100 ML IV.SIG PRN (09:05)
[2017-12-13 09:29] LABS: Hematocrit 33.9 % (39.0-51.0); Hemoglobin 10.6 gm/dL (13.0-17.0); Mean Corpuscular HGB Conc 31.2 % (32.0-36.0); Mean Corpuscular Hemoglobin 27.7 pg (27.0-34.0); Mean Platelet Volume 9.3 fL (7.0-11.0); Platelet Count 235 th/mm3 (150-450); Red Blood Count 3.81 mil/mm3 (4.50-5.90); Red Cell Distribution Width 18.7 % (11.6-17.2); White Blood Count 15.1 th/mm3 (4.0-11.0)
[2017-12-13 09:55] LABS: Amylase 15 U/L (25-115); Lipase 40 U/L (73-393)
[2017-12-13 09:56] LABS: Albumin 2.5 g/dL (3.4-5.0); Anion Gap 22 meq/L (5-15); Aspartate Aminotransferase 60 U/L (15-37); Blood Urea Nitrogen 81 mg/dL (7-18); Calcium 8.5 mg/dL (8.5-10.1); Carbon Dioxide 18.1 meq/L (21.0-32.0); Chloride 106 meq/L (98-107); Glomerular Filtration Rate 5 mL/min (>89); Glucose,Random 334 mg/dL (74-106); Potassium 4.2 meq/L (3.5-5.1); Sodium 146 meq/L (136-145)
[2017-12-13 09:58] LABS: Alanine Aminotransferase 40 U/L (12-78)
[2017-12-13 10:00] LABS: Alkaline Phosphatase 80 U/L (45-117); Total Protein 5.6 g/dL (6.4-8.2)
[2017-12-13 10:35] LABS: Cancer Antigen 19-9 88.5 U/mL (0.0-35.0)
[2017-12-13] MEDS: Insulin NovoLOG Aspart Correctional Sugar Inj SQ SCH ×4 (10:40→21:42)
--- NOTE | 2017-12-13 10:51 | P.PNPAL ---
Reason for Visit Reason for visit: a. To assist with evaluation and management of symptoms including: confusion/ agitation, pain, dyspnea b. To assist medical decision maker(s) with: better understanding of current medical conditions; weighing benefits/burdens of medical treatment options; making medical treatment decisions. Subjective Subjective/Interval History: [place] [facility] [place] PEG tube [place] yesterday, had episode of aspiration during procedure and was intubated by anesthesia. Was also noted to be hemodynamically unstable and was put on ruddy-synephrine. Reportedly endoscopy found active bleeder that was clipped. CT abd/pelvis showed abnormal pancreas, massive dilation pancreatic duct, can't r/o mass. MRCP & CA 19-9, CA 125 are pending. Reportedly pt's brother told RN that pt had known spot on pancreas for 30 years. Daughter Tommy confirmed this to me, she could not remember the hospital where these records might be. WBC 17.9 yesterday, 15.1 today. Pt is intubated, sedated on vent. Unresponsive. Receiving dialysis, patient care provider at bedside. No sign of discomfort or agitation. In BUE restraints. Per RN pt she was able to wean him of ruddy-synephrine but he again needed it for dialysis. Family/Friend Interactions: Spoke with Daughter and proxy Tommy on phone. Provided medical update. FAmily continues to verbalize aggressive goals. They are hoping that with " some nutrition" his mental status will improved. Gently explained that tube feeding is unlikely to change his mental status. THey wish to continue with aggressive care. Answered all questions to the best of my ability. Provided palliative contact info. Objective Vital Signs: Vital Signs 12/12/17 11:30 12/12/17 12:41 12/12/17 16:00 Temperature 97.6 F 98.0 F Pulse Rate 93 H 118 H 78 Respiratory Rate 20 14 Blood Pressure 131/72 104/49 L Pulse Oximetry 100 97 12/12/17 16:15 12/12/17 16:30 12/12/17 16:45 Temperature Pulse Rate 74 76 76 Respiratory Rate Blood Pressure 104/47 L 105/37 L 98/50 L Pulse Oximetry 97 98 96 12/12/17 17:00 12/12/17 17:15 12/12/17 17:30 Temperature Pulse Rate 78 74 94 H Respiratory Rate Blood Pressure 93/55 L 107/58 L Pulse Oximetry 96 96 97 12/12/17 17:35 12/12/17 17:40 12/12/17 17:42 Temperature Pulse Rate 93 H 79 78 Respiratory Rate 16 15 15 Blood Pressure 128/53 L 99/55 L 101/50 L Pulse Oximetry 97 97 96 12/12/17 17:45 12/12/17 17:48 12/12/17 17:50 Temperature Pulse Rate 73 67 Respiratory Rate 15 14 Blood Pressure 124/66 126/62 Pulse Oximetry 95 99 98 12/12/17 17:56 12/12/17 18:00 12/12/17 18:05 Temperature Pulse Rate 69 71 69 Respiratory Rate 16 16 16 Blood Pressure 145/67 H 125/58 L 140/65 Pulse Oximetry 98 98 98 12/12/17 18:10 12/12/17 18:15 12/12/17 18:17 Temperature Pulse Rate 66 64 66 Respiratory Rate 16 16 4 L Blood Pressure 146/71 H 140/65 146/69 H Pulse Oximetry 98 99 98 12/12/17 18:20 12/12/17 18:25 12/12/17 18:30 Temperature Pulse Rate 66 67 67 Respiratory Rate 16 18 16 Blood Pressure 143/65 H 132/69 165/79 H Pulse Oximetry 98 92 L 96 12/12/17 18:35 12/12/17 18:40 12/12/17 18:45 Temperature Pulse Rate 70 84 104 H Respiratory Rate 22 16 16 Blood Pressure 133/63 132/64 118/58 L Pulse Oximetry 96 92 L 86 L 12/12/17 18:50 12/12/17 18:55 12/12/17 19:00 Temperature Pulse Rate 144 H 120 H 73 Respiratory Rate 16 111 H 16 Blood Pressure 115/58 L 106/58 L 108/56 L Pulse Oximetry 95 98 97 12/12/17 19:05 12/12/17 19:10 12/12/17 19:26 Temperature Pulse Rate 76 77 Respiratory Rate 16 16 16 Blood Pressure 95/51 L 99/56 L Pulse Oximetry 97 97 97 12/12/17 20:00 12/12/17 21:00 12/12/17 22:00 Temperature 97 F L 98.5 F Pulse Rate 61 76 90 Respiratory Rate 16 16 16 Blood Pressure 104/42 L 101/52 L 109/57 L Pulse Oximetry 96 96 96 12/12/17 22:18 12/12/17 23:00 12/12/17 23:08 Temperature Pulse Rate 69 69 Respiratory Rate 20 16 16 Blood Pressure 113/61 Pulse Oximetry 96 96 12/13/17 00:00 12/13/17 01:00 12/13/17 01:20 Temperature 98.7 F Pulse Rate 89 71 Respiratory Rate 16 16 17 Blood Pressure 109/57 L 112/56 L Pulse Oximetry 96 94 L 98 12/13/17 02:00 12/13/17 03:00 12/13/17 03:24 Temperature 98.7 F 98 F Pulse Rate 63 86 87 Respiratory Rate 16 16 18 Blood Pressure 152/72 H 102/56 L Pulse Oximetry 96 96 12/13/17 04:00 12/13/17 04:33 12/13/17 05:00 Temperature 99 F Pulse Rate 89 65 Respiratory Rate 16 19 16 Blood Pressure 108/58 L 149/76 H Pulse Oximetry 96 97 97 12/13/17 06:00 12/13/17 07:00 12/13/17 07:46 Temperature 98.7 F Pulse Rate 65 73 Respiratory Rate 16 16 16 Blood Pressure 152/72 H 124/60 Pulse Oximetry 96 96 12/13/17 07:48 Temperature Pulse Rate 71 Respiratory Rate 16 Blood Pressure Pulse Oximetry 100 Intake & Output 12/12/17 12/13/17 12/13/17 18:59 06:59 18:59 Intake Total 1750 / 1750 898 / 898 Balance 1750 / 1750 898 / 898 Weight 75 kg Intake: IV 1500 / 1500 300 / 300 NS Inj 1,000 ML @ 42 mls/hr IV. 1000 / 1000 CONT .[id number] SARA Rx#:[id number] Azactam Inj 500 MG In NS Inj 50 100 / 100 ML @ 100 mls/hr IV.SIG Q8H SARA Rx#:[id number] NS Inj 500 ML @ 30 mls/hr IV. 500 / 500 SIG .Q10H SARA Rx#:[id number] Flagyl 500 MG Inj 100 ML @ 100 200 / 200 mls/hr IV.SIG Q8H SARA Rx#: [id number] Anesthesia Amount 250 / 250 Other 598 / 598 Other: Date of Last Bowel Movement 12/10/17 Physical Exam: SKIN: No jaundice, rashes, or lesions. Skin temperature appropriate. Not diaphoretic. HEAD: Atraumatic. Normocephalic. EYES: PERRL. No scleral icterus. No injection or drainage. Fundi not examined. ENT: Nose with some traces dried blood CARDIOVASCULAR: RRR without murmurs, gallops, or rubs. No JVD. RESPIRATORY/CHEST: Symmetric, unlabored respirations. Clear to auscultation. Breath sounds equal bilaterally. intubated on vent GASTROINTESTINAL: Abdomen soft, non-tender, nondistended. No hepato-splenomegaly , or palpable masses. No guarding. Bowel sounds faint MUSCULOSKELETAL: Extremities without clubbing, cyanosis, or edema. No joint tenderness or effusion noted. No mottling or clubbing. +BUE restraints NEUROLOGICAL: sedated on vent, unresponsive Diagnostic Tests Laboratory: Laboratory Results - last 72 hr 12/10/17 12/10/17 12/10/17 08:40 11:08 14:10 WBC RBC Hgb Hct MCV MCH MCHC RDW Plt Count MPV Neut % (Auto) Lymph % (Auto) [place] % (Auto) Eos % (Auto) Baso % (Auto) Neut # (Auto) Lymph # (Auto) [place] # (Auto) Eos # (Auto) Baso # (Auto) WBC Differential Differential Comment PT INR APTT Puncture Site Patient Temperature O2 Saturation ABG pH ABG pCO2 ABG pO2 ABG HCO3 ABG O2 Content ABG Base Excess ABG Methemoglobin Hemoglobin Carboxyhemoglobin O2 Delivery Device Vent Setting Inspired O2 Critical Value Sodium Potassium Chloride Carbon Dioxide Anion Gap BUN Creatinine Estimated GFR POC Glucose 166 H Random Glucose Lactic Acid Calcium Phosphorus Magnesium Total Bilirubin AST ALT Alkaline Phosphatase Troponin I Total Protein Albumin Amylase Lipase Cortisol Random Vancomycin 19.2 17.2 Blood Type Antibody Screen MTS Gel Crossmatch 12/10/17 12/10/17 12/11/17 17:54 19:56 07:44 WBC RBC Hgb Hct MCV MCH MCHC RDW Plt Count MPV Neut % (Auto) Lymph % (Auto) [place] % (Auto) Eos % (Auto) Baso % (Auto) Neut # (Auto) Lymph # (Auto) [place] # (Auto) Eos # (Auto) Baso # (Auto) WBC Differential Differential Comment PT INR APTT Puncture Site Patient Temperature O2 Saturation ABG pH ABG pCO2 ABG pO2 ABG HCO3 ABG O2 Content ABG Base Excess ABG Methemoglobin Hemoglobin Carboxyhemoglobin O2 Delivery Device Vent Setting Inspired O2 Critical Value Sodium Potassium Chloride Carbon Dioxide Anion Gap BUN Creatinine Estimated GFR POC Glucose 255 H 284 H 322 H Random Glucose Lactic Acid Calcium Phosphorus Magnesium Total Bilirubin AST ALT Alkaline Phosphatase Troponin I Total Protein Albumin Amylase Lipase Cortisol Random Vancomycin Blood Type Antibody Screen MTS Gel Crossmatch 12/11/17 12/12/17 12/12/17 21:36 00:05 07:17 WBC RBC Hgb Hct MCV MCH MCHC RDW Plt Count MPV Neut % (Auto) Lymph % (Auto) [place] % (Auto) Eos % (Auto) Baso % (Auto) Neut # (Auto) Lymph # (Auto) [place] # (Auto) Eos # (Auto) Baso # (Auto) WBC Differential Differential Comment PT INR APTT Puncture Site Patient Temperature O2 Saturation ABG pH ABG pCO2 ABG pO2 ABG HCO3 ABG O2 Content ABG Base Excess ABG Methemoglobin Hemoglobin Carboxyhemoglobin O2 Delivery Device Vent Setting Inspired O2 Critical Value Sodium Potassium Chloride Carbon Dioxide Anion Gap BUN Creatinine Estimated GFR POC Glucose 413 H 291 H 309 H Random Glucose Lactic Acid Calcium Phosphorus Magnesium Total Bilirubin AST ALT Alkaline Phosphatase Troponin I Total Protein Albumin Amylase Lipase Cortisol Random Vancomycin Blood Type Antibody Screen MTS Gel Crossmatch 12/12/17 12/12/17 12/12/17 11:04 12:50 15:29 WBC RBC Hgb Hct MCV MCH MCHC RDW Plt Count MPV Neut % (Auto) Lymph % (Auto) [place] % (Auto) Eos % (Auto) Baso % (Auto) Neut # (Auto) Lymph # (Auto) [place] # (Auto) Eos # (Auto) Baso # (Auto) WBC Differential Differential Comment PT INR APTT Puncture Site Patient Temperature O2 Saturation ABG pH ABG pCO2 ABG pO2 ABG HCO3 ABG O2 Content ABG Base Excess ABG Methemoglobin Hemoglobin Carboxyhemoglobin O2 Delivery Device Vent Setting Inspired O2 Critical Value Sodium 149 H Potassium 4.1 Chloride 107 Carbon Dioxide 24.8 Anion Gap 17 H BUN 71 H Creatinine 10.61 H* D Estimated GFR 5 L POC Glucose 278 H Random Glucose 278 H Lactic Acid Calcium 8.9 Phosphorus Magnesium Total Bilirubin 0.4 AST 32 ALT 35 Alkaline Phosphatase 100 Troponin I Total Protein 6.7 Albumin 2.6 L Amylase Lipase Cortisol Random Vancomycin Blood Type B Positive Antibody Screen Negative MTS Gel Crossmatch See Detail 12/12/17 12/12/17 12/12/17 17:11 17:11 17:11 WBC 17.9 H RBC 4.42 L Hgb 12.3 L Hct 38.0 L MCV 86.0 MCH 27.7 MCHC 32.2 RDW 18.5 H Plt Count 282 D MPV 9.4 Neut % (Auto) 75.2 H Lymph % (Auto) 8.3 L [place] % (Auto) 11.4 H Eos % (Auto) 4.2 H Baso % (Auto) 0.9 Neut # (Auto) 13.5 H Lymph # (Auto) 1.5 [place] # (Auto) 2.0 H Eos # (Auto) 0.8 H Baso # (Auto) 0.2 WBC Differential . Differential Comment Auto diff final PT INR APTT Puncture Site Patient Temperature O2 Saturation ABG pH ABG pCO2 ABG pO2 ABG HCO3 ABG O2 Content ABG Base Excess ABG Methemoglobin Hemoglobin Carboxyhemoglobin O2 Delivery Device Vent Setting Inspired O2 Critical Value Sodium 151 H Potassium 4.0 Chloride 108 H Carbon Dioxide 23.4 Anion Gap 20 H BUN 73 H Creatinine 10.61 H* Estimated GFR 5 L POC Glucose Random Glucose 227 H Lactic Acid 1.2 Calcium 8.6 Phosphorus Magnesium Total Bilirubin 0.4 AST 28 ALT 32 Alkaline Phosphatase 88 Troponin I 0.12 H Total Protein 5.8 L D Albumin 2.3 L Amylase Lipase Cortisol Random Vancomycin Blood Type Antibody Screen MTS Gel Crossmatch 12/12/17 12/12/17 12/12/17 17:30 19:22 19:22 WBC RBC Hgb Hct MCV MCH MCHC RDW Plt Count MPV Neut % (Auto) Lymph % (Auto) [place] % (Auto) Eos % (Auto) Baso % (Auto) Neut # (Auto) Lymph # (Auto) [place] # (Auto) Eos # (Auto) Baso # (Auto) WBC Differential Differential Comment PT 22.5 H INR 2.2 APTT 33.7 H Puncture Site Art line Patient Temperature 98.6 O2 Saturation 96 ABG pH 7.34 L ABG pCO2 42 ABG pO2 171 H ABG HCO3 22 ABG O2 Content 17.0 ABG Base Excess -3.2 L ABG Methemoglobin 1.9 Hemoglobin 12.4 Carboxyhemoglobin 0.4 O2 Delivery Device Ventilator Vent Setting [id number] Inspired O2 40 Critical Value No Sodium Potassium Chloride Carbon Dioxide Anion Gap BUN Creatinine Estimated GFR POC Glucose Random Glucose Lactic Acid Calcium Phosphorus Magnesium Total Bilirubin AST ALT Alkaline Phosphatase Troponin I Total Protein Albumin Amylase Lipase Cortisol 22.8 Random Vancomycin Blood Type Antibody Screen MTS Gel Crossmatch 12/12/17 12/12/17 12/13/17 22:17 23:53 05:30 WBC RBC Hgb Hct MCV MCH MCHC RDW Plt Count MPV Neut % (Auto) Lymph % (Auto) [place] % (Auto) Eos % (Auto) Baso % (Auto) Neut # (Auto) Lymph # (Auto) [place] # (Auto) Eos # (Auto) Baso # (Auto) WBC Differential Differential Comment PT INR APTT Puncture Site Patient Temperature O2 Saturation ABG pH ABG pCO2 ABG pO2 ABG HCO3 ABG O2 Content ABG Base Excess ABG Methemoglobin Hemoglobin Carboxyhemoglobin O2 Delivery Device Vent Setting Inspired O2 Critical Value Sodium 147 H Potassium 4.0 Chloride 106 Carbon Dioxide 19.4 L Anion Gap 22 H BUN 79 H Creatinine 10.85 H* Estimated GFR 5 L POC Glucose 296 H Random Glucose 355 H D Lactic Acid Calcium 8.1 L Phosphorus 10.2 H Magnesium 2.5 Total Bilirubin 0.5 AST 55 H ALT 41 Alkaline Phosphatase 81 Troponin I 0.11 H 0.10 H Total Protein 5.8 L Albumin 2.6 L Amylase Lipase Cortisol Random Vancomycin Blood Type Antibody Screen MTS Gel Crossmatch 12/13/17 12/13/17 12/13/17 08:30 08:30 08:30 WBC 15.1 H RBC 3.81 L Hgb 10.6 L Hct 33.9 L MCV 89.0 MCH 27.7 MCHC 31.2 L RDW 18.7 H Plt Count 235 MPV 9.3 Neut % (Auto) Lymph % (Auto) [place] % (Auto) Eos % (Auto) Baso % (Auto) Neut # (Auto) Lymph # (Auto) [place] # (Auto) Eos # (Auto) Baso # (Auto) WBC Differential Differential Comment PT INR APTT Puncture Site Patient Temperature O2 Saturation ABG pH ABG pCO2 ABG pO2 ABG HCO3 ABG O2 Content ABG Base Excess ABG Methemoglobin Hemoglobin Carboxyhemoglobin O2 Delivery Device Vent Setting Inspired O2 Critical Value Sodium 146 H Potassium 4.2 Chloride 106 Carbon Dioxide 18.1 L Anion Gap 22 H BUN 81 H Creatinine 11.30 H* Estimated GFR 5 L POC Glucose Random Glucose 334 H Lactic Acid Calcium 8.5 Phosphorus Magnesium Total Bilirubin 0.5 AST 60 H ALT 40 Alkaline Phosphatase 80 Troponin I Total Protein 5.6 L Albumin 2.5 L Amylase 15 L Lipase 40 L Cortisol Random Vancomycin Blood Type Antibody Screen MTS Gel Crossmatch Result Diagrams: 12/13/17 08:30 12/13/17 08:30 Imaging: ITS Impressions Head CT 12/01/17 11:12 CONCLUSION: 1. Mild cerebral atrophy. 2. No acute infarct, acute hemorrhage, midline shift or extra-axial fluid collections. 3. Small fluid level within the left maxillary sinus. Head MRI 12/02/17 00:00 CONCLUSION: 1. No acute findings. 2. Atrophy and minimal white matter disease. Hand X-Ray 12/04/17 00:00 CONCLUSION: Unremarkable study. Forearm X-Ray 12/04/17 18:49 CONCLUSION: Unremarkable study. Shoulder X-Ray 12/04/17 18:49 CONCLUSION: No definite fracture is identified for technique. Catheter Placement 12/08/17 00:00 CONCLUSION: 1. Uncomplicated line replacement and upsize. Abdomen X-Ray 12/08/17 04:58 CONCLUSION: Nasogastric tube distal tip is at the GE junction. Suggest further advancement stomach. Chest X-Ray 12/12/17 18:00 CONCLUSION: Interval placement of left internal jugular central venous line with no visualized pneumothorax on the supine study. Abdomen/Pelvis CT 12/13/17 00:00 CONCLUSION: 1. Percutaneous gastrostomy tube present without abnormal fluid collection or free air identified. 2. 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 There is evidence for chronic pancreatitis. Cannot exclude an obstructing mass in the pancreatic head. Recommend further evaluation with MRCP. 3. 3 cm fat-containing umbilical hernia. 4. Focal small airspace disease right posterior costophrenic angle. Procedures: 12/06 right IJ dialysis cath placed 12/12 intubated, central line placement Assessment and Plan - Disease Oriented Problem List (1) ESRD (end stage renal disease) on dialysis (2) Altered mental status (3) Hypoglycemia (4) Diabetes Pertinent Non-Medical Issues: Psychosocial: Not . Has 3 children. Spiritual: pending Legal: Pt is not capacitated to make medical decisions. He is not . In the absence of designated HCS, medical decision making falls to the majority of his 3 adult children. Ethical issues impacting care: none Important Contacts: Daughter Tommy Tierney [phone] Son Rich Power [phone] - opted out of decision making Daughter Yvette Garcia [phone] Prognosis: This is a 67 y/o male with hx CAD s/p stent placement, CKD, COPD, ESRD, PAD, DM2 , who presented with AMS after being found down. Reportedly pt had blood glucose 36. Cause of his continued encephalopathy is unclear, possibly d/t hypoglycemia, and it is unclear if he will return to his baseline. He was having to be restrained for dialysis. Pulled out multiple NG tubes and had PEG placed 12/12. Imaging suggestive possible mass pancreas, this is being worked up. Aspirated during procedure, became hypotensive, was intubated and now is on vent. With or without feeding tube he is at continued risk for aspiration. Given his comorbidities and the complications he suffered already, his prognosis is poor and he remains at risk for further complications and setbacks. Prognosis worse if indeed he does have a pancreatic malignancy. Without dialysis his prognosis is terminal. Code Status: Full Code Plan: - LEGAL DECISON MAKER -patient not currently capacitated to make medical decisions. In the absence of a spouse, or designated healthcare surrogate, medical decision making would fall majority of his 3 adult children. Hector has opted out so decision making falls to pt's 2 daughters, who appear to be working together, and including pt's brother in decision making. - CODE STATUS- full code - GOALS -Family continues to verbalize aggressive goals. They are hoping that with "some nutrition" his mental status will improve. Gently explained that tube feeding is unlikely to change his mental status. They wish to continue with aggressive care. Answered all questions to the best of my ability. - SYMPTOMS - * agitation - unclear etiology. ?hypoglyemia related brain injury? pt found down , blood glucose 36. now sedated on vent. has versed gtt 2mls/hr, propofol gtt. sedation per [facility]. * pain - multifactorial - mult lines, recent procedure to replace HD catheter, s /p PEG tube placement. no sign discomfort, appears comfortable. unresponsive. has fentanyl gtt 2.5mls/hr. no further recs at this time. * dyspnea - aspirated during PEG tube placement and is now intubated on vent. has been hypotensive, was nearly weaned off ruddy-synephrine but it had to be given for dialysis. sat 100% fiO2 40%. has PRN and sara duonebs. No further recs. - Palliative care will continue to follow during hospital course as condition evolves, to assist patient/decision-maker with understanding of medical conditions, weighing benefits/burdens of treatment options, for clarification of goals of treatment. Additionally will assist with any symptoms of palliative concern Attestation Attestation: To help prompt me to consider important information that might be impacting today's encounter and assessment, information from prior notes written by myself or my colleagues may have been "brought forward" into today's note. My signature on this note, however, is an attestation that I personally performed the exam, history, and/or decision-making noted today, and, unless otherwise indicated, the interactions with patient, family, and staff as well as the review of records all occurred today. I also attest that the listed assessment and stated plan reflect my best clinical judgment today based on the combination of historical information, prior notes, and today's exam/ interactions. When time spent is documented, it refers only to time spent today by the signer, or if indicated, combined time spent today by collaborating physician/nurse practitioner.
[2017-12-13] MEDS: Heparin 10,000 UNITS/10 ML Vial (for IV use) OTHER PRN (11:43)
--- NOTE | 2017-12-13 11:58 | P.PNGI ---
Subjective Interval history: Patient continues to be in the intensive care setting resting in the bed. Currently status post EGD and PEG tube placement on 12/12/2017 Currently remains n.p.o. for now pending MRCP to evaluate further patient's common bile duct dilatation. No obvious nausea vomiting or abdominal pain. Patient remains intubated and sedated <Yanet Reeves - Last Filed: 12/13/17 12:05> Physical Exam Vital signs: Vital Signs 12/12/17 12:41 12/12/17 16:00 12/12/17 16:15 Temperature 98.0 F Pulse Rate 118 H 78 74 Respiratory Rate 14 Blood Pressure 104/49 L 104/47 L Pulse Oximetry 97 97 12/12/17 16:30 12/12/17 16:45 12/12/17 17:00 Temperature Pulse Rate 76 76 78 Respiratory Rate Blood Pressure 105/37 L 98/50 L 93/55 L Pulse Oximetry 98 96 96 12/12/17 17:15 12/12/17 17:30 12/12/17 17:35 Temperature Pulse Rate 74 94 H 93 H Respiratory Rate 16 Blood Pressure 107/58 L 128/53 L Pulse Oximetry 96 97 97 12/12/17 17:40 12/12/17 17:42 12/12/17 17:45 Temperature Pulse Rate 79 78 73 Respiratory Rate 15 15 15 Blood Pressure 99/55 L 101/50 L 124/66 Pulse Oximetry 97 96 95 12/12/17 17:48 12/12/17 17:50 12/12/17 17:56 Temperature Pulse Rate 67 69 Respiratory Rate 14 16 Blood Pressure 126/62 145/67 H Pulse Oximetry 99 98 98 12/12/17 18:00 12/12/17 18:05 12/12/17 18:10 Temperature Pulse Rate 71 69 66 Respiratory Rate 16 16 16 Blood Pressure 125/58 L 140/65 146/71 H Pulse Oximetry 98 98 98 12/12/17 18:15 12/12/17 18:17 12/12/17 18:20 Temperature Pulse Rate 64 66 66 Respiratory Rate 16 4 L 16 Blood Pressure 140/65 146/69 H 143/65 H Pulse Oximetry 99 98 98 12/12/17 18:25 12/12/17 18:30 12/12/17 18:35 Temperature Pulse Rate 67 67 70 Respiratory Rate 18 16 22 Blood Pressure 132/69 165/79 H 133/63 Pulse Oximetry 92 L 96 96 12/12/17 18:40 12/12/17 18:45 12/12/17 18:50 Temperature Pulse Rate 84 104 H 144 H Respiratory Rate 16 16 16 Blood Pressure 132/64 118/58 L 115/58 L Pulse Oximetry 92 L 86 L 95 12/12/17 18:55 12/12/17 19:00 12/12/17 19:05 Temperature Pulse Rate 120 H 73 76 Respiratory Rate 111 H 16 16 Blood Pressure 106/58 L 108/56 L 95/51 L Pulse Oximetry 98 97 97 12/12/17 19:10 12/12/17 19:26 12/12/17 20:00 Temperature 97 F L Pulse Rate 77 61 Respiratory Rate 16 16 16 Blood Pressure 99/56 L 104/42 L Pulse Oximetry 97 97 96 12/12/17 21:00 12/12/17 22:00 12/12/17 22:18 Temperature 98.5 F Pulse Rate 76 90 Respiratory Rate 16 16 20 Blood Pressure 101/52 L 109/57 L Pulse Oximetry 96 96 96 12/12/17 23:00 12/12/17 23:08 12/13/17 00:00 Temperature 98.7 F Pulse Rate 69 69 89 Respiratory Rate 16 16 16 Blood Pressure 113/61 109/57 L Pulse Oximetry 96 96 12/13/17 01:00 12/13/17 01:20 12/13/17 02:00 Temperature 98.7 F Pulse Rate 71 63 Respiratory Rate 16 17 16 Blood Pressure 112/56 L 152/72 H Pulse Oximetry 94 L 98 96 12/13/17 03:00 12/13/17 03:24 12/13/17 04:00 Temperature 98 F 99 F Pulse Rate 86 87 89 Respiratory Rate 16 18 16 Blood Pressure 102/56 L 108/58 L Pulse Oximetry 96 96 12/13/17 04:33 12/13/17 05:00 12/13/17 06:00 Temperature 98.7 F Pulse Rate 65 65 Respiratory Rate 19 16 16 Blood Pressure 149/76 H 152/72 H Pulse Oximetry 97 97 96 12/13/17 07:00 12/13/17 07:46 12/13/17 07:48 Temperature Pulse Rate 73 71 Respiratory Rate 16 16 16 Blood Pressure 124/60 Pulse Oximetry 96 100 Intake & Output 09/10/18 09/11/18 09/11/18 18:59 06:59 18:59 Intake Total 1750 / 1750 898 / 898 100 / 100 Output Total 3000 / 3000 Balance 1750 / 1750 898 / 898 -2900 / -2900 Weight 75 kg Intake: IV 1500 / 1500 300 / 300 100 / 100 NS Inj 1,000 ML @ 42 mls/hr IV. 1000 / 1000 CONT .[id number] KRUNAL Rx#:[id number] Flexbumin 25% Inj 100 ML @ 60 100 / 100 mls/hr IV.SIG WITH DIALYSIS PRN Rx#:[id number] Azactam Inj 500 MG In NS Inj 50 100 / 100 ML @ 100 mls/hr IV.SIG Q8H KRUNAL Rx#:[id number] NS Inj 500 ML @ 30 mls/hr IV. 500 / 500 SIG .Q10H KRUNAL Rx#:[id number] Flagyl 500 MG Inj 100 ML @ 100 200 / 200 mls/hr IV.SIG Q8H KRUNAL Rx#: [id number] Anesthesia Amount 250 / 250 Other 598 / 598 Output: Hemodialysis Amount 3000 / 3000 Other: Date of Last Bowel Movement 12/10/17 - Constitutional mild distress, somnolent (Sedated and intubated) - Routine HEENT Exam Head: Present: normocephalic ENT: Present: mucous membranes moist - Routine Neck Exam Present: supple - Routine Respiratory Exam Present: decreased breath sounds - Routine Cardiovascular Exam Present: S1, S2 - Routine Abdominal Exam Present: soft (Round, bowel sounds active PEG tube site clean dry and intact with light weight for before dressing, clamped for now) - Routine Skin Exam Present: pallor - Urinary Catheter Management Straight Cath placed during this visit: yes Reason for continuing: Not indwelling catheter Insertion date: 12/01/17 Insertion time: 13:46 <Yanet Reeves - Last Filed: 12/13/17 12:05> Vital signs: Vital Signs 12/12/17 16:30 12/12/17 16:45 12/12/17 17:00 Temperature Pulse Rate 76 76 78 Respiratory Rate Blood Pressure 105/37 L 98/50 L 93/55 L Pulse Oximetry 98 96 96 12/12/17 17:15 12/12/17 17:30 12/12/17 17:35 Temperature Pulse Rate 74 94 H 93 H Respiratory Rate 16 Blood Pressure 107/58 L 128/53 L Pulse Oximetry 96 97 97 12/12/17 17:40 12/12/17 17:42 12/12/17 17:45 Temperature Pulse Rate 79 78 73 Respiratory Rate 15 15 15 Blood Pressure 99/55 L 101/50 L 124/66 Pulse Oximetry 97 96 95 12/12/17 17:48 12/12/17 17:50 12/12/17 17:56 Temperature Pulse Rate 67 69 Respiratory Rate 14 16 Blood Pressure 126/62 145/67 H Pulse Oximetry 99 98 98 12/12/17 18:00 12/12/17 18:05 12/12/17 18:10 Temperature Pulse Rate 71 69 66 Respiratory Rate 16 16 16 Blood Pressure 125/58 L 140/65 146/71 H Pulse Oximetry 98 98 98 12/12/17 18:15 12/12/17 18:17 12/12/17 18:20 Temperature Pulse Rate 64 66 66 Respiratory Rate 16 4 L 16 Blood Pressure 140/65 146/69 H 143/65 H Pulse Oximetry 99 98 98 12/12/17 18:25 12/12/17 18:30 12/12/17 18:35 Temperature Pulse Rate 67 67 70 Respiratory Rate 18 16 22 Blood Pressure 132/69 165/79 H 133/63 Pulse Oximetry 92 L 96 96 12/12/17 18:40 12/12/17 18:45 12/12/17 18:50 Temperature Pulse Rate 84 104 H 144 H Respiratory Rate 16 16 16 Blood Pressure 132/64 118/58 L 115/58 L Pulse Oximetry 92 L 86 L 95 12/12/17 18:55 12/12/17 19:00 12/12/17 19:05 Temperature Pulse Rate 120 H 73 76 Respiratory Rate 111 H 16 16 Blood Pressure 106/58 L 108/56 L 95/51 L Pulse Oximetry 98 97 97 12/12/17 19:10 12/12/17 19:26 12/12/17 20:00 Temperature 97 F L Pulse Rate 77 61 Respiratory Rate 16 16 16 Blood Pressure 99/56 L 104/42 L Pulse Oximetry 97 97 96 12/12/17 21:00 12/12/17 22:00 12/12/17 22:18 Temperature 98.5 F Pulse Rate 76 90 Respiratory Rate 16 16 20 Blood Pressure 101/52 L 109/57 L Pulse Oximetry 96 96 96 12/12/17 23:00 12/12/17 23:08 12/13/17 00:00 Temperature 98.7 F Pulse Rate 69 69 89 Respiratory Rate 16 16 16 Blood Pressure 113/61 109/57 L Pulse Oximetry 96 96 12/13/17 01:00 12/13/17 01:20 12/13/17 02:00 Temperature 98.7 F Pulse Rate 71 63 Respiratory Rate 16 17 16 Blood Pressure 112/56 L 152/72 H Pulse Oximetry 94 L 98 96 12/13/17 03:00 12/13/17 03:24 12/13/17 04:00 Temperature 98 F 99 F Pulse Rate 86 87 89 Respiratory Rate 16 18 16 Blood Pressure 102/56 L 108/58 L Pulse Oximetry 96 96 12/13/17 04:33 12/13/17 05:00 12/13/17 06:00 Temperature 98.7 F Pulse Rate 65 65 Respiratory Rate 19 16 16 Blood Pressure 149/76 H 152/72 H Pulse Oximetry 97 97 96 12/13/17 07:00 12/13/17 07:46 12/13/17 07:48 Temperature Pulse Rate 73 71 Respiratory Rate 16 16 16 Blood Pressure 124/60 Pulse Oximetry 96 100 12/13/17 08:00 12/13/17 08:30 12/13/17 08:45 Temperature 98.0 F Pulse Rate 71 69 76 Respiratory Rate 16 16 Blood Pressure 139/69 121/58 L Pulse Oximetry 100 100 100 12/13/17 09:00 12/13/17 09:15 12/13/17 09:30 Temperature Pulse Rate 81 81 86 Respiratory Rate 16 62 H 17 Blood Pressure 113/59 L 107/57 L 104/56 L Pulse Oximetry 92 L 92 L 92 L 12/13/17 09:45 12/13/17 10:00 12/13/17 10:15 Temperature Pulse Rate 88 75 74 Respiratory Rate 22 18 21 Blood Pressure 105/57 L 132/72 134/78 Pulse Oximetry 90 L 95 96 12/13/17 10:30 12/13/17 10:45 12/13/17 11:00 Temperature Pulse Rate 72 77 74 Respiratory Rate 18 19 156 H Blood Pressure 136/77 137/79 132/75 Pulse Oximetry 96 97 94 L 12/13/17 11:15 12/13/17 11:30 12/13/17 11:45 Temperature Pulse Rate 73 86 92 H Respiratory Rate 19 19 161 H Blood Pressure 109/64 103/60 98/55 L Pulse Oximetry 94 L 96 96 12/13/17 11:59 12/13/17 12:00 12/13/17 12:04 Temperature 98.0 F Pulse Rate 84 85 Respiratory Rate 17 17 18 Blood Pressure 117/71 118/72 Pulse Oximetry 97 98 95 12/13/17 12:15 12/13/17 12:30 12/13/17 12:45 Temperature Pulse Rate 75 84 87 Respiratory Rate 16 17 127 H Blood Pressure 131/78 114/62 122/66 Pulse Oximetry 100 99 95 12/13/17 12:59 12/13/17 13:00 12/13/17 13:59 Temperature Pulse Rate 84 84 81 Respiratory Rate 116 H 118 H 31 H Blood Pressure 99/64 L 101/67 127/62 Pulse Oximetry 95 97 100 12/13/17 14:00 12/13/17 14:39 12/13/17 15:00 Temperature Pulse Rate 80 93 H 93 H Respiratory Rate 121 H 16 19 Blood Pressure 141/65 H 100/53 L 94/53 L Pulse Oximetry 100 95 98 12/13/17 15:53 Temperature Pulse Rate 88 Respiratory Rate 18 Blood Pressure Pulse Oximetry 100 Intake & Output 12/12/17 12/13/17 12/13/17 18:59 06:59 18:59 Intake Total 1750 / 1750 898 / 898 200 / 200 Output Total 3000 / 3000 Balance 1750 / 1750 898 / 898 -2800 / -2800 Weight 75 kg Intake: IV 1500 / 1500 300 / 300 200 / 200 NS Inj 1,000 ML @ 42 mls/hr IV. 1000 / 1000 CONT .[id number] KRUNAL Rx#:[id number] Flexbumin 25% Inj 100 ML @ 60 100 / 100 mls/hr IV.SIG WITH DIALYSIS PRN Rx#:[id number] Azactam Inj 500 MG In NS Inj 50 100 / 100 ML @ 100 mls/hr IV.SIG Q8H KRUNAL Rx#:[id number] NS Inj 500 ML @ 30 mls/hr IV. 500 / 500 SIG .Q10H KRUNAL Rx#:[id number] Flagyl 500 MG Inj 100 ML @ 100 200 / 200 100 / 100 mls/hr IV.SIG Q8H KRUNAL Rx#: [id number] Anesthesia Amount 250 / 250 Other 598 / 598 Output: Hemodialysis Amount 3000 / 3000 Other: Date of Last Bowel Movement 12/10/17 12/10/17 - Urinary Catheter Management Straight Cath placed during this visit: no <Varinder Serrano A - Last Filed: 12/13/17 16:20> Results - Labs CBC & Chem 7: 12/13/17 08:30 12/13/17 08:30 Laboratory Results - last 24 hr 12/12/17 12/12/17 12/12/17 12:50 15:29 17:11 WBC RBC Hgb Hct MCV MCH MCHC RDW Plt Count MPV Neut % (Auto) Lymph % (Auto) Faulk % (Auto) Eos % (Auto) Baso % (Auto) Neut # (Auto) Lymph # (Auto) Faulk # (Auto) Eos # (Auto) Baso # (Auto) WBC Differential Differential Comment PT INR APTT Puncture Site Patient Temperature O2 Saturation ABG pH ABG pCO2 ABG pO2 ABG HCO3 ABG O2 Content ABG Base Excess ABG Methemoglobin Hemoglobin Carboxyhemoglobin O2 Delivery Device Vent Setting Inspired O2 Critical Value Sodium 149 H Potassium 4.1 Chloride 107 Carbon Dioxide 24.8 Anion Gap 17 H BUN 71 H Creatinine 10.61 H* D Estimated GFR 5 L POC Glucose Random Glucose 278 H Lactic Acid 1.2 Calcium 8.9 Phosphorus Magnesium Total Bilirubin 0.4 AST 32 ALT 35 Alkaline Phosphatase 100 Troponin I Total Protein 6.7 Albumin 2.6 L Amylase Lipase CA 19-9 Antigen CA 125 Antigen Cortisol Blood Type B Positive Antibody Screen Negative MTS Gel Crossmatch See Detail 12/12/17 12/12/17 12/12/17 17:11 17:11 17:30 WBC 17.9 H RBC 4.42 L Hgb 12.3 L Hct 38.0 L MCV 86.0 MCH 27.7 MCHC 32.2 RDW 18.5 H Plt Count 282 D MPV 9.4 Neut % (Auto) 75.2 H Lymph % (Auto) 8.3 L Faulk % (Auto) 11.4 H Eos % (Auto) 4.2 H Baso % (Auto) 0.9 Neut # (Auto) 13.5 H Lymph # (Auto) 1.5 Faulk # (Auto) 2.0 H Eos # (Auto) 0.8 H Baso # (Auto) 0.2 WBC Differential . Differential Comment Auto diff final PT INR APTT Puncture Site Art line Patient Temperature 98.6 O2 Saturation 96 ABG pH 7.34 L ABG pCO2 42 ABG pO2 171 H ABG HCO3 22 ABG O2 Content 17.0 ABG Base Excess -3.2 L ABG Methemoglobin 1.9 Hemoglobin 12.4 Carboxyhemoglobin 0.4 O2 Delivery Device Ventilator Vent Setting [id number]/[id number]/[id number] Inspired O2 40 Critical Value No Sodium 151 H Potassium 4.0 Chloride 108 H Carbon Dioxide 23.4 Anion Gap 20 H BUN 73 H Creatinine 10.61 H* Estimated GFR 5 L POC Glucose Random Glucose 227 H Lactic Acid Calcium 8.6 Phosphorus Magnesium Total Bilirubin 0.4 AST 28 ALT 32 Alkaline Phosphatase 88 Troponin I 0.12 H Total Protein 5.8 L D Albumin 2.3 L Amylase Lipase CA 19-9 Antigen CA 125 Antigen Cortisol Blood Type Antibody Screen MTS Gel Crossmatch 12/12/17 12/12/17 12/12/17 19:22 19:22 22:17 WBC RBC Hgb Hct MCV MCH MCHC RDW Plt Count MPV Neut % (Auto) Lymph % (Auto) Faulk % (Auto) Eos % (Auto) Baso % (Auto) Neut # (Auto) Lymph # (Auto) Faulk # (Auto) Eos # (Auto) Baso # (Auto) WBC Differential Differential Comment PT 22.5 H INR 2.2 APTT 33.7 H Puncture Site Patient Temperature O2 Saturation ABG pH ABG pCO2 ABG pO2 ABG HCO3 ABG O2 Content ABG Base Excess ABG Methemoglobin Hemoglobin Carboxyhemoglobin O2 Delivery Device Vent Setting Inspired O2 Critical Value Sodium Potassium Chloride Carbon Dioxide Anion Gap BUN Creatinine Estimated GFR POC Glucose 296 H Random Glucose Lactic Acid Calcium Phosphorus Magnesium Total Bilirubin AST ALT Alkaline Phosphatase Troponin I Total Protein Albumin Amylase Lipase CA 19-9 Antigen CA 125 Antigen Cortisol 22.8 Blood Type Antibody Screen MTS Gel Crossmatch 12/12/17 12/13/17 12/13/17 23:53 05:30 08:30 WBC RBC Hgb Hct MCV MCH MCHC RDW Plt Count MPV Neut % (Auto) Lymph % (Auto) Faulk % (Auto) Eos % (Auto) Baso % (Auto) Neut # (Auto) Lymph # (Auto) Faulk # (Auto) Eos # (Auto) Baso # (Auto) WBC Differential Differential Comment PT INR APTT Puncture Site Patient Temperature O2 Saturation ABG pH ABG pCO2 ABG pO2 ABG HCO3 ABG O2 Content ABG Base Excess ABG Methemoglobin Hemoglobin Carboxyhemoglobin O2 Delivery Device Vent Setting Inspired O2 Critical Value Sodium 147 H Potassium 4.0 Chloride 106 Carbon Dioxide 19.4 L Anion Gap 22 H BUN 79 H Creatinine 10.85 H* Estimated GFR 5 L POC Glucose Random Glucose 355 H D Lactic Acid Calcium 8.1 L Phosphorus 10.2 H Magnesium 2.5 Total Bilirubin 0.5 AST 55 H ALT 41 Alkaline Phosphatase 81 Troponin I 0.11 H 0.10 H Total Protein 5.8 L Albumin 2.6 L Amylase Lipase CA 19-9 Antigen 88.5 H CA 125 Antigen 20.0 Cortisol Blood Type Antibody Screen MTS Gel Crossmatch 12/13/17 12/13/17 12/13/17 08:30 08:30 08:30 WBC 15.1 H RBC 3.81 L Hgb 10.6 L Hct 33.9 L MCV 89.0 MCH 27.7 MCHC 31.2 L RDW 18.7 H Plt Count 235 MPV 9.3 Neut % (Auto) Lymph % (Auto) Faulk % (Auto) Eos % (Auto) Baso % (Auto) Neut # (Auto) Lymph # (Auto) Faulk # (Auto) Eos # (Auto) Baso # (Auto) WBC Differential Differential Comment PT INR APTT Puncture Site Patient Temperature O2 Saturation ABG pH ABG pCO2 ABG pO2 ABG HCO3 ABG O2 Content ABG Base Excess ABG Methemoglobin Hemoglobin Carboxyhemoglobin O2 Delivery Device Vent Setting Inspired O2 Critical Value Sodium 146 H Potassium 4.2 Chloride 106 Carbon Dioxide 18.1 L Anion Gap 22 H BUN 81 H Creatinine 11.30 H* Estimated GFR 5 L POC Glucose Random Glucose 334 H Lactic Acid Calcium 8.5 Phosphorus Magnesium Total Bilirubin 0.5 AST 60 H ALT 40 Alkaline Phosphatase 80 Troponin I Total Protein 5.6 L Albumin 2.5 L Amylase 15 L Lipase 40 L CA 19-9 Antigen CA 125 Antigen Cortisol Blood Type Antibody Screen MTS Gel Crossmatch Microbiology 12/12/17 19:27 Blood - Peripheral Aerobic Blood Culture - Preliminary No growth in 1 day 12/12/17 19:27 Blood - Peripheral Anaerobic Blood Culture - Preliminary No growth in 1 day 12/12/17 19:22 Blood - Peripheral Aerobic Blood Culture - Preliminary No growth in 1 day 12/12/17 19:22 Blood - Peripheral Anaerobic Blood Culture - Preliminary No growth in 1 day - Imaging Impressions Chest X-Ray 12/12/17 00:00 CONCLUSION: Underinflated examination with atelectasis at the lung bases. Otherwise, no acute finding is identified given the technique. Chest X-Ray 12/12/17 18:00 CONCLUSION: Interval placement of left internal jugular central venous line with no visualized pneumothorax on the supine study. Abdomen/Pelvis CT 12/13/17 00:00 CONCLUSION: 1. Percutaneous gastrostomy tube present without abnormal fluid collection or free air identified. 2. 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 There is evidence for chronic pancreatitis. Cannot exclude an obstructing mass in the pancreatic head. Recommend further evaluation with MRCP. 3. 3 cm fat-containing umbilical hernia. 4. Focal small airspace disease right posterior costophrenic angle. <Yanet Reeves - Last Filed: 12/13/17 12:05> - Labs CBC & Chem 7: 12/13/17 08:30 12/13/17 08:30 Laboratory Results - last 24 hr 12/12/17 12/12/17 12/12/17 15:29 17:11 17:11 WBC RBC Hgb Hct MCV MCH MCHC RDW Plt Count MPV Neut % (Auto) Lymph % (Auto) Faulk % (Auto) Eos % (Auto) Baso % (Auto) Neut # (Auto) Lymph # (Auto) Faulk # (Auto) Eos # (Auto) Baso # (Auto) WBC Differential Differential Comment PT INR APTT Puncture Site Patient Temperature O2 Saturation ABG pH ABG pCO2 ABG pO2 ABG HCO3 ABG O2 Content ABG Base Excess ABG Methemoglobin Hemoglobin Carboxyhemoglobin O2 Delivery Device Vent Setting Inspired O2 Critical Value Sodium 151 H Potassium 4.0 Chloride 108 H Carbon Dioxide 23.4 Anion Gap 20 H BUN 73 H Creatinine 10.61 H* Estimated GFR 5 L POC Glucose Random Glucose 227 H Lactic Acid 1.2 Calcium 8.6 Phosphorus Magnesium Total Bilirubin 0.4 AST 28 ALT 32 Alkaline Phosphatase 88 Troponin I 0.12 H Total Protein 5.8 L D Albumin 2.3 L Amylase Lipase CA 19-9 Antigen CA 125 Antigen Cortisol Blood Type B Positive Antibody Screen Negative MTS Gel Crossmatch See Detail 12/12/17 12/12/17 12/12/17 17:11 17:30 19:22 WBC 17.9 H RBC 4.42 L Hgb 12.3 L Hct 38.0 L MCV 86.0 MCH 27.7 MCHC 32.2 RDW 18.5 H Plt Count 282 D MPV 9.4 Neut % (Auto) 75.2 H Lymph % (Auto) 8.3 L Faulk % (Auto) 11.4 H Eos % (Auto) 4.2 H Baso % (Auto) 0.9 Neut # (Auto) 13.5 H Lymph # (Auto) 1.5 Faulk # (Auto) 2.0 H Eos # (Auto) 0.8 H Baso # (Auto) 0.2 WBC Differential . Differential Comment Auto diff final PT 22.5 H INR 2.2 APTT 33.7 H Puncture Site Art line Patient Temperature 98.6 O2 Saturation 96 ABG pH 7.34 L ABG pCO2 42 ABG pO2 171 H ABG HCO3 22 ABG O2 Content 17.0 ABG Base Excess -3.2 L ABG Methemoglobin 1.9 Hemoglobin 12.4 Carboxyhemoglobin 0.4 O2 Delivery Device Ventilator Vent Setting [id number] Inspired O2 40 Critical Value No Sodium Potassium Chloride Carbon Dioxide Anion Gap BUN Creatinine Estimated GFR POC Glucose Random Glucose Lactic Acid Calcium Phosphorus Magnesium Total Bilirubin AST ALT Alkaline Phosphatase Troponin I Total Protein Albumin Amylase Lipase CA 19-9 Antigen CA 125 Antigen Cortisol Blood Type Antibody Screen MTS Gel Crossmatch 12/12/17 12/12/17 12/12/17 19:22 22:17 23:53 WBC RBC Hgb Hct MCV MCH MCHC RDW Plt Count MPV Neut % (Auto) Lymph % (Auto) Faulk % (Auto) Eos % (Auto) Baso % (Auto) Neut # (Auto) Lymph # (Auto) Faulk # (Auto) Eos # (Auto) Baso # (Auto) WBC Differential Differential Comment PT INR APTT Puncture Site Patient Temperature O2 Saturation ABG pH ABG pCO2 ABG pO2 ABG HCO3 ABG O2 Content ABG Base Excess ABG Methemoglobin Hemoglobin Carboxyhemoglobin O2 Delivery Device Vent Setting Inspired O2 Critical Value Sodium 147 H Potassium 4.0 Chloride 106 Carbon Dioxide 19.4 L Anion Gap 22 H BUN 79 H Creatinine 10.85 H* Estimated GFR 5 L POC Glucose 296 H Random Glucose 355 H D Lactic Acid Calcium 8.1 L Phosphorus 10.2 H Magnesium 2.5 Total Bilirubin 0.5 AST 55 H ALT 41 Alkaline Phosphatase 81 Troponin I 0.11 H Total Protein 5.8 L Albumin 2.6 L Amylase Lipase CA 19-9 Antigen CA 125 Antigen Cortisol 22.8 Blood Type Antibody Screen MTS Gel Crossmatch 12/13/17 12/13/17 12/13/17 05:30 08:30 08:30 WBC RBC Hgb Hct MCV MCH MCHC RDW Plt Count MPV Neut % (Auto) Lymph % (Auto) Faulk % (Auto) Eos % (Auto) Baso % (Auto) Neut # (Auto) Lymph # (Auto) Faulk # (Auto) Eos # (Auto) Baso # (Auto) WBC Differential Differential Comment PT INR APTT Puncture Site Patient Temperature O2 Saturation ABG pH ABG pCO2 ABG pO2 ABG HCO3 ABG O2 Content ABG Base Excess ABG Methemoglobin Hemoglobin Carboxyhemoglobin O2 Delivery Device Vent Setting Inspired O2 Critical Value Sodium Potassium Chloride Carbon Dioxide Anion Gap BUN Creatinine Estimated GFR POC Glucose Random Glucose Lactic Acid Calcium Phosphorus Magnesium Total Bilirubin AST ALT Alkaline Phosphatase Troponin I 0.10 H Total Protein Albumin Amylase 15 L Lipase 40 L CA 19-9 Antigen 88.5 H CA 125 Antigen 20.0 Cortisol Blood Type Antibody Screen MTS Gel Crossmatch 12/13/17 12/13/17 12/13/17 08:30 08:30 14:14 WBC 15.1 H RBC 3.81 L Hgb 10.6 L Hct 33.9 L MCV 89.0 MCH 27.7 MCHC 31.2 L RDW 18.7 H Plt Count 235 MPV 9.3 Neut % (Auto) Lymph % (Auto) Faulk % (Auto) Eos % (Auto) Baso % (Auto) Neut # (Auto) Lymph # (Auto) Faulk # (Auto) Eos # (Auto) Baso # (Auto) WBC Differential Differential Comment PT INR APTT Puncture Site Patient Temperature O2 Saturation ABG pH ABG pCO2 ABG pO2 ABG HCO3 ABG O2 Content ABG Base Excess ABG Methemoglobin Hemoglobin Carboxyhemoglobin O2 Delivery Device Vent Setting Inspired O2 Critical Value Sodium 146 H Potassium 4.2 Chloride 106 Carbon Dioxide 18.1 L Anion Gap 22 H BUN 81 H Creatinine 11.30 H* Estimated GFR 5 L POC Glucose 188 H Random Glucose 334 H Lactic Acid Calcium 8.5 Phosphorus Magnesium Total Bilirubin 0.5 AST 60 H ALT 40 Alkaline Phosphatase 80 Troponin I Total Protein 5.6 L Albumin 2.5 L Amylase Lipase CA 19-9 Antigen CA 125 Antigen Cortisol Blood Type Antibody Screen MTS Gel Crossmatch Microbiology 12/12/17 19:27 Blood - Peripheral Aerobic Blood Culture - Preliminary No growth in 1 day 12/12/17 19:27 Blood - Peripheral Anaerobic Blood Culture - Preliminary No growth in 1 day 12/12/17 19:22 Blood - Peripheral Aerobic Blood Culture - Preliminary No growth in 1 day 12/12/17 19:22 Blood - Peripheral Anaerobic Blood Culture - Preliminary No growth in 1 day - Imaging Impressions Chest X-Ray 12/12/17 00:00 CONCLUSION: Underinflated examination with atelectasis at the lung bases. Otherwise, no acute finding is identified given the technique. Chest X-Ray 12/12/17 18:00 CONCLUSION: Interval placement of left internal jugular central venous line with no visualized pneumothorax on the supine study. Abdomen/Pelvis CT 12/13/17 00:00 CONCLUSION: 1. Percutaneous gastrostomy tube present without abnormal fluid collection or free air identified. 2. 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 There is evidence for chronic pancreatitis. Cannot exclude an obstructing mass in the pancreatic head. Recommend further evaluation with MRCP. 3. 3 cm fat-containing umbilical hernia. 4. Focal small airspace disease right posterior costophrenic angle. Cholangiopancreatography MRI 12/13/17 00:00 CONCLUSION: 1. Dilatation of the pancreatic duct ranging from 2 cm in the head of pancreas to 1.6 images in the mid body with a [place] pseudocyst appearance. 2. Findings would be consistent with a chronic pancreatitis. 3. If there is a focal mass present it would be at the ampulla. This can be followed by MR or endoscopic ultrasound. 4. Trace ascites 5. No other recent cross-sectional imaging studies of the pancreas. These would be most helpful given the appearance. <Varinder Serrano - Last Filed: 12/13/17 16:20> Assessment and Plan (1) Nutritional deficiency Status: Acute Code(s): E63.9 - Nutritional deficiency, unspecified - Plan ASSESSMENT AND PLAN: A 67-year-old male patient with multiple comorbid conditions including diabetes, chronic kidney injury, dialysis and coronary artery disease, who is currently encephalopathic of multifactorial origin. Appears to be agitated with poor oral intake, not showing evidence of improvement. GI consulted for PEG tube placement. The procedure was discussed with the daughter, including risks, benefits, and possible complication and she requested it to be done and she agreed to proceed with that. For the time being, we will hold heparin. Continue antibiotics and we will schedule that tentatively for Tuesday. Further recommendation to follow. 12/12/2017 EGD performed with PEG tube placement without any major complications per Dr. Serrano, Patient initially was being seen per speech therapy but is currently signed off. Patient currently remains n.p.o. but has been seen and evaluated per rack maker for tube feeds which will be Nepro goal rate 55 cc an hour. No obvious bleeding noted current hemoglobin 10.6 WBC count 15.1 leukocytosis unspecified. Abdominal pelvic CT scan noted abnormal pancreas with suspected massive dilatation of the pancreatic duct to around 2 cm's there is evidence of chronic pancreatitis but cannot exclude an obstructing mass in the pancreatic head further recommendation with MRCP. Umbilical hernia, focal small airspace disease right posterior costophrenic angle and percutaneous gastrostomy tube present without abnormal fluid collection or free air identified. MRCP is pending, patient may need ERCP but further recommendations are to follow. Patient remains intubated, sedated, and in the intensive care setting. Plan Diet per PEG tube currently n.p.o. pending MRCP results Monitor labs Further recommendations to follow after MRCP done Supportive care Patient was seen per myself and Dr. Serrano, note was written on his behalf <Yanet Reeves - Last Filed: 12/13/17 12:05> (1) Nutritional deficiency Status: Acute Code(s): E63.9 - Nutritional deficiency, unspecified - Attending Attestation No GI bleeding overnight or this morning, MRCP results reviewed. Continue supportive care. Okay to start TF via PEG. <Varinder Serrano - Last Filed: 12/13/17 16:20>
[2017-12-13] MEDS: Chlorhexidine 0.12% Oral Kit 15 ML UDC OROPHARYNG SCH ×2 (12:14→21:41)
[2017-12-13] MEDS: Pantoprazole Inj 40 MG Vial IV.PUSH SCH ×2 (12:15→21:42)
[2017-12-13] MEDS: Vitamin B Complex/Vit C/Folic Tablet PO SCH (12:15)
--- NOTE | 2017-12-13 13:13 | P.PNNP ---
Subjective Interval history: Patient had dialysis Physical Exam Vital signs: Vital Signs 12/12/17 16:00 12/12/17 16:15 12/12/17 16:30 Temperature 98.0 F Pulse Rate 78 74 76 Respiratory Rate 14 Blood Pressure 104/49 L 104/47 L 105/37 L Pulse Oximetry 97 97 98 12/12/17 16:45 12/12/17 17:00 12/12/17 17:15 Temperature Pulse Rate 76 78 74 Respiratory Rate Blood Pressure 98/50 L 93/55 L 107/58 L Pulse Oximetry 96 96 96 12/12/17 17:30 12/12/17 17:35 12/12/17 17:40 Temperature Pulse Rate 94 H 93 H 79 Respiratory Rate 16 15 Blood Pressure 128/53 L 99/55 L Pulse Oximetry 97 97 97 12/12/17 17:42 12/12/17 17:45 12/12/17 17:48 Temperature Pulse Rate 78 73 Respiratory Rate 15 15 Blood Pressure 101/50 L 124/66 Pulse Oximetry 96 95 99 12/12/17 17:50 12/12/17 17:56 12/12/17 18:00 Temperature Pulse Rate 67 69 71 Respiratory Rate 14 16 16 Blood Pressure 126/62 145/67 H 125/58 L Pulse Oximetry 98 98 98 12/12/17 18:05 12/12/17 18:10 12/12/17 18:15 Temperature Pulse Rate 69 66 64 Respiratory Rate 16 16 16 Blood Pressure 140/65 146/71 H 140/65 Pulse Oximetry 98 98 99 12/12/17 18:17 12/12/17 18:20 12/12/17 18:25 Temperature Pulse Rate 66 66 67 Respiratory Rate 4 L 16 18 Blood Pressure 146/69 H 143/65 H 132/69 Pulse Oximetry 98 98 92 L 12/12/17 18:30 12/12/17 18:35 12/12/17 18:40 Temperature Pulse Rate 67 70 84 Respiratory Rate 16 22 16 Blood Pressure 165/79 H 133/63 132/64 Pulse Oximetry 96 96 92 L 12/12/17 18:45 12/12/17 18:50 12/12/17 18:55 Temperature Pulse Rate 104 H 144 H 120 H Respiratory Rate 16 16 111 H Blood Pressure 118/58 L 115/58 L 106/58 L Pulse Oximetry 86 L 95 98 12/12/17 19:00 12/12/17 19:05 12/12/17 19:10 Temperature Pulse Rate 73 76 77 Respiratory Rate 16 16 16 Blood Pressure 108/56 L 95/51 L 99/56 L Pulse Oximetry 97 97 97 12/12/17 19:26 12/12/17 20:00 12/12/17 21:00 Temperature 97 F L Pulse Rate 61 76 Respiratory Rate 16 16 16 Blood Pressure 104/42 L 101/52 L Pulse Oximetry 97 96 96 12/12/17 22:00 12/12/17 22:18 12/12/17 23:00 Temperature 98.5 F Pulse Rate 90 69 Respiratory Rate 16 20 16 Blood Pressure 109/57 L 113/61 Pulse Oximetry 96 96 96 12/12/17 23:08 12/13/17 00:00 12/13/17 01:00 Temperature 98.7 F Pulse Rate 69 89 71 Respiratory Rate 16 16 16 Blood Pressure 109/57 L 112/56 L Pulse Oximetry 96 94 L 12/13/17 01:20 12/13/17 02:00 12/13/17 03:00 Temperature 98.7 F 98 F Pulse Rate 63 86 Respiratory Rate 17 16 16 Blood Pressure 152/72 H 102/56 L Pulse Oximetry 98 96 96 12/13/17 03:24 12/13/17 04:00 12/13/17 04:33 Temperature 99 F Pulse Rate 87 89 Respiratory Rate 18 16 19 Blood Pressure 108/58 L Pulse Oximetry 96 97 12/13/17 05:00 12/13/17 06:00 12/13/17 07:00 Temperature 98.7 F Pulse Rate 65 65 73 Respiratory Rate 16 16 16 Blood Pressure 149/76 H 152/72 H 124/60 Pulse Oximetry 97 96 96 12/13/17 07:46 12/13/17 07:48 12/13/17 12:04 Temperature Pulse Rate 71 Respiratory Rate 16 16 18 Blood Pressure Pulse Oximetry 100 95 Intake & Output 12/12/17 12/13/17 12/13/17 18:59 06:59 18:59 Intake Total 1750 / 1750 898 / 898 100 / 100 Output Total 3000 / 3000 Balance 1750 / 1750 898 / 898 -2900 / -2900 Weight 75 kg Intake: IV 1500 / 1500 300 / 300 100 / 100 NS Inj 1,000 ML @ 42 mls/hr IV. 1000 / 1000 CONT .[id number] [facility] Rx#:[id number] Flexbumin 25% Inj 100 ML @ 60 100 / 100 mls/hr IV.SIG WITH DIALYSIS PRN Rx#:[id number] Azactam Inj 500 MG In NS Inj 50 100 / 100 ML @ 100 mls/hr IV.SIG Q8H [facility] Rx#:[id number] NS Inj 500 ML @ 30 mls/hr IV. 500 / 500 SIG .Q10H [facility] Rx#:[id number] Flagyl 500 MG Inj 100 ML @ 100 200 / 200 mls/hr IV.SIG Q8H [facility] Rx#: [id number] Anesthesia Amount 250 / 250 Other 598 / 598 Output: Hemodialysis Amount 3000 / 3000 Other: Date of Last Bowel Movement 12/10/17 Narrative: - Constitutional Intubated sedated with propofol hypotensive critically ill - Routine Respiratory Exam CTA bilaterally, no wheezes or crackles - Routine Cardiovascular Exam Sinus rhythm, intermittently tachycardic, hypotensive currently on 80 mcg/min of Jonas-Synephrine - Routine Abdominal Exam soft, nontender. New PEG tube site without evidence of bleeding - Routine Extremities Exam No pedal edema. - Routine Neurological Exam Patient is intubated sedated with propofol. Moves all extremities do not follow commands - Urinary Catheter Management Straight Cath placed during this visit: yes Reason for continuing: Not indwelling catheter Insertion date: 12/01/17 Insertion time: 13:46 Assessment and Plan - Assessment (1) Altered mental status Code(s): R41.82 - Altered mental status, unspecified Status: Acute Qualifiers: Altered mental status type: unspecified Qualified Code(s): R41.82 - Altered mental status, unspecified (2) Hypoglycemia Code(s): E16.2 - Hypoglycemia, unspecified Status: Acute (3) Sepsis Code(s): A41.9 - Sepsis, unspecified organism Status: Acute Qualifiers: Sepsis type: sepsis due to unspecified organism Qualified Code(s): A41.9 - Sepsis, unspecified organism (4) ESRD (end stage renal disease) on dialysis Code(s): N18.6 - End stage renal disease; Z99.2 - Dependence on renal dialysis Status: Acute - Plan Patient now on mechanical ventilation there is a possibility of aspiration pneumonia, sepsis, hypotension, condition critical on vasopressors and ventilator Suspect AMS secondary to hypoglycemic event Hemodialysis earlier today 3 L off [address] in place Continue aggressive care Prognosis is poor
--- NOTE | 2017-12-13 13:57 | ECG ---
Date Performed: 12/12/2017 Time Performed: 17:17:36 PTAGE: 67 years EKG: Sinus rhythm WITH FREQUENT SUPRAVENTRICULAR PREMATURE COMPLEXES SEPTAL MYOCARDIAL INFARCTION , PROBABLY OLD ABNOR MAL ECG Since the PREVIOUS TRACING , no significant change noted PREVIOUS TRACIN12/05/2017 16.01 DOCTOR: Soren Garner Interpretating Date/Time 12/13/2017 13:55:08
--- NOTE | 2017-12-13 14:03 | MR ---
EXAM DATE: 12/13/2017 1:54 PM EDT AGE/SEX: 67 years / Male INDICATIONS: Abnormal CT scan. Rukhsana lated pancreatic duct. CLINICAL DATA: This is the patient's subsequent encounter. Patient reports that signs and symptoms h ave been present for 2 weeks and indicates a pain score of Nonresponsive. MEDICAL/SURGICAL HISTORY: Diabetes. Gastroesophageal reflux disease. Chronic obstructive pulm onary disease. Dialysis. PAD. None. [place] [facility] [place], 12/13/2017. . TECHNIQUE: Multiplanar, multisequence images of the abdomen were obtained without contrast including dedicated cholangiographic images. FINDINGS: CT scan had suggested findings typical of chronic pancreatitis with mass in the pancreas. Liver: The liver is homogeneous and normal in signal intensity with no focal defects. Intrahepatic Bile Ducts: There is no intrahepatic biliary ductal dilatation. Common Bile Duct: The common bile duct is normal in caliber No filling defects or obstructing lesio ns are identified. Gallbladder: The gallbladder is normal with no evidence for cholelithiasis, gallbladder wall thicken ing, or pericholecystic fluid. Pancreas: There is significant dilatation of the pancreatic duct from the tail to ampulla which [place] pseudocyst appearance. Multiple cysts are seen in the head of the pancreas as well. I do not see a focal mass. If there is a small mass present it is right at the ampulla. Trace ascites is evident. CONCLUSION: 1. Dilatation of the pancreatic duct ranging from 2 cm in the head of pancreas to 1.6 images in the mid body with a [place] pseudocyst appearance. 2. Findings would be consistent with a chronic pancreatitis. 3. If there is a focal mass present it would be at the ampulla. This can be followed by MR or endosc opic ultrasound. 4. Trace ascites 5. No other recent cross-sectional imaging studies of the pancreas. These would be most helpful give n the appearance. Electronically signed by: Jd Kline MD 12/13/2017 2:01 PM EDT
[2017-12-13] MEDS ORDERED: Vancomycin Inj 1,000 MG in Sodium Chlor 0.9% Inj 250 ML IV.SIG ONE (16:00)
--- NOTE | 2017-12-13 16:22 | P.DIET ---
Nutritional Evaluation Type of nutrition evaluation: follow-up Nutrition screening: [facility] [place] ([place] recommendation) Objective - Diagnosis AMS, CKD, sepsis - Objective % IBW: 108 (IBW = 154#) Body Weight Used for Calculations: Actual (75.5 kg) Energy Needs - Lower Range (kCal/kg): 28 Energy Needs - Upper Range (kCal/kg): 32 Lower Limit kCal/kg (kCals): 2,115 Upper Limit kCal/kg (kCals): 2,416 Lower Limit Protein Factor (Grams per Kg): 1.2 Upper Limit Protein Factor (Grams per Kg): 1.5 Lower Protein Needs (Protein): 91 Upper Protein Needs (Protein): 113 Dietitian Reviewed in Medical Record: Current diet, Curent medications, Intake & Output, Labs, Medical history, Tube feeding Diet Order: NPO Objective Comments: Meds include synthroid Assessment Assessment: Pt is at high nutrition risk d/t dx, dependence on dialysis and need for TFing. PEG was placed yesterday but TF remains on hold until ERCP is completed. To meet nutritional needs with TFing, recommend Nepro @ 55 mls/hr x 22 hrs to provide 2178 kcals, 98 gms protein and 880 mls of free water. TF run time will be 22 hours because the pt is on synthroid and the TF must be held one hour before and after this med is given. Labs, wts and clinical course reviewed: CBW = 75 kg. Recommendations: Nepro @ 55 mls/hr x 22 hrs (d/t synthroid) Dietitian to Monitor: Lab values, Intake & Output, Tube feeding tolerance, Weight change, PO Intake, Diet advancement, Swallow recommendations, Medical course
[2017-12-13] MEDS: Hypromellose 0.3% Opth Gel 10 GM Bottle EACH EYE SCH ×2 (17:06→23:10)
[2017-12-14] MEDS: Chlorhexidine Gluconate 2% 1 Pack (2 Cloths) TOPICAL SCH (03:59)
[2017-12-14] MEDS: Oral Hygiene Kit OROPHARYNG SCH ×4 (03:59→23:56)
[2017-12-14] MEDS ORDERED: Chlorhexidine Gluconate 2% 1 Pack (2 Cloths) TOPICAL PRN (04:00)
[2017-12-14 04:01] LABS: Hematocrit 31.6 % (39.0-51.0); Hemoglobin 9.9 gm/dL (13.0-17.0); Mean Corpuscular HGB Conc 31.3 % (32.0-36.0); Mean Corpuscular Hemoglobin 27.7 pg (27.0-34.0); Mean Corpuscular Volume 88.7 fL (80.0-100.0); Mean Platelet Volume 9.2 fL (7.0-11.0); Platelet Count 227 th/mm3 (150-450); Red Blood Count 3.56 mil/mm3 (4.50-5.90); Red Cell Distribution Width 18.9 % (11.6-17.2); White Blood Count 17.3 th/mm3 (4.0-11.0)
[2017-12-14] MEDS: Sod Chloride 0.9% Inj 1,000 ML IV.CONT SCH ×2 (04:36→15:18)
[2017-12-14 04:38] LABS: Alanine Aminotransferase 45 U/L (12-78); Albumin 2.6 g/dL (3.4-5.0); Alkaline Phosphatase 82 U/L (45-117); Anion Gap 16 meq/L (5-15); Aspartate Aminotransferase 73 U/L (15-37); Blood Urea Nitrogen 52 mg/dL (7-18); Calcium 8.3 mg/dL (8.5-10.1); Chloride 103 meq/L (98-107); Glomerular Filtration Rate 7 mL/min (>89); Glucose,Random 303 mg/dL (74-106); Sodium 145 meq/L (136-145); Total Protein 5.7 g/dL (6.4-8.2)
[2017-12-14] MEDS: AZTREONAM IV.SIG SCH ×3 (05:51→20:26)
[2017-12-14] MEDS: SODIUM CHLOR 0.9% IV.SIG SCH ×3 (05:51→20:26)
[2017-12-14] MEDS: Levothyroxine 50 MCG Tablet PO SCH (07:21)
--- NOTE | 2017-12-14 09:07 | P.PNCC ---
Subjective Subjective Remarks/Hospital Course: 67-year-old male patient with history of CAD, multiple stent placement, COPD, end-stage renal disease, type 2 diabetes, who presented to the emergency room on 12/01/17 after being found to be unresponsive with a glucose of 36. Patient was admitted to hospitalist service and despite correction of hypoglycemia remained agitated and encephalopathic. GI was consulted for PEG tube placement for nutrition as the patient had pulled out NG tube several times. Initially the PEG tube placement was started as an LMA procedure. Apparently there was large amount of regurgitation and possible aspiration. He was endotracheally intubated during the procedure by anesthesiologist. Patient remained hemodynamically unstable and was started on Jonas-Synephrine infusion. Apparently per anesthesia patient had evidence of gastritis and duodenitis with stigmata of bleeding. Also there was a question of bowel ischemia on endoscopy. Due to hemodynamic instability requiring Jonas-Synephrine, and possible aspiration patient was left intubated for stabilization and critical care medicine was consulted. I evaluated the patient in the PACU. He remains on Jonas-Synephrine hypotensive with map hardly 50. I have instructed the RN to give 500 ML normal saline bolus , 25 g of IV albumin and also increase Jonas-Synephrine to target map above 65. Patient appears to have intermittent irregular rhythm which appears like atrial fibrillation. EKG and lab work is pending at this time. Blood and urine culture and sputum culture ordered, currently on vancomycin, add Azactam for gram-negative coverage. Clinically there is no evidence gastric perforation related to PEG placement, check CT abdomen pelvis to rule out gastric perforation SUBJ 12/13: Patient remains intubated sedated with Versed and fentanyl. Currently on Jonas-Synephrine at 40 mcg/min. CT abdomen pelvis did not show any evidence of perforation however showed massive dilation of pancreatic duct up to 2 cm. Cannot rule out mass. MRCP ordered, check CA 19-9 12/14: Intubated off sedation moving all extremities tracking but not following commands. Patient has baseline encephalopathy prior to intubation. MRCP yesterday showed Dilatation of the pancreatic duct 2 cm in the head of pancreas to 1.6 images in the mid body with a [place] pseudocyst appearance. Findings would be consistent with a chronic pancreatitis. Per radiologist If there is a focal mass present it would be at the ampulla. May need ERCP, GI following Objective Vital Signs / I&O: Vital Signs 12/13/17 09:15 12/13/17 09:30 12/13/17 09:45 Temperature Pulse Rate 81 86 88 Respiratory Rate 62 H 17 22 Blood Pressure 107/57 L 104/56 L 105/57 L Pulse Oximetry 92 L 92 L 90 L 12/13/17 10:00 12/13/17 10:15 12/13/17 10:30 Temperature Pulse Rate 75 74 72 Respiratory Rate 18 21 18 Blood Pressure 132/72 134/78 136/77 Pulse Oximetry 95 96 96 12/13/17 10:45 12/13/17 11:00 12/13/17 11:15 Temperature Pulse Rate 77 74 73 Respiratory Rate 19 156 H 19 Blood Pressure 137/79 132/75 109/64 Pulse Oximetry 97 94 L 94 L 12/13/17 11:30 12/13/17 11:45 12/13/17 11:59 Temperature Pulse Rate 86 92 H 84 Respiratory Rate 19 161 H 17 Blood Pressure 103/60 98/55 L 117/71 Pulse Oximetry 96 96 97 12/13/17 12:00 12/13/17 12:04 12/13/17 12:15 Temperature 98.0 F Pulse Rate 85 75 Respiratory Rate 17 18 16 Blood Pressure 118/72 131/78 Pulse Oximetry 98 95 100 12/13/17 12:30 12/13/17 12:45 12/13/17 12:59 Temperature Pulse Rate 84 87 84 Respiratory Rate 17 127 H 116 H Blood Pressure 114/62 122/66 99/64 L Pulse Oximetry 99 95 95 12/13/17 13:00 12/13/17 13:59 12/13/17 14:00 Temperature Pulse Rate 84 81 80 Respiratory Rate 118 H 31 H 121 H Blood Pressure 101/67 127/62 141/65 H Pulse Oximetry 97 100 100 12/13/17 14:39 12/13/17 15:00 12/13/17 15:53 Temperature Pulse Rate 93 H 93 H 88 Respiratory Rate 16 19 18 Blood Pressure 100/53 L 94/53 L Pulse Oximetry 95 98 100 12/13/17 16:00 12/13/17 17:00 12/13/17 18:00 Temperature 97.8 F Pulse Rate 80 79 80 Respiratory Rate 17 23 18 Blood Pressure 125/71 144/62 H 143/66 H Pulse Oximetry 100 100 100 12/13/17 20:00 12/13/17 20:08 12/13/17 20:12 Temperature Pulse Rate 82 80 Respiratory Rate 16 16 Blood Pressure Pulse Oximetry 100 12/13/17 23:24 12/14/17 00:00 12/14/17 03:42 Temperature 98.1 F Pulse Rate 92 H 75 Respiratory Rate 16 23 16 Blood Pressure 120/58 L Pulse Oximetry 99 99 12/14/17 03:47 12/14/17 04:00 12/14/17 07:45 Temperature 98.6 F Pulse Rate 75 77 Respiratory Rate 16 18 15 Blood Pressure 117/65 Pulse Oximetry 98 95 100 Intake & Output 12/13/17 12/14/17 12/14/17 18:59 06:59 18:59 Intake Total 1422 / 1422 510 / 510 50 / 50 Output Total 3000 / 3000 0 / 0 Balance -1578 / -1578 510 / 510 50 / 50 Weight 71.1 kg Intake: IV 1362 / 1362 500 / 500 50 / 50 Versed Inj 50 mg In 50 ml @ 2 62 / 62 MG/HR 2 mls/hr IV.CONT TITRATE PRN Rx#:[id number] NS Inj 1,000 ML @ 42 mls/hr IV. 1000 / 1000 CONT .[id number] [facility] Rx#:[id number] Flexbumin 25% Inj 100 ML @ 60 100 / 100 mls/hr IV.SIG WITH DIALYSIS PRN Rx#:[id number] Azactam Inj 500 MG In NS Inj 50 50 / 50 50 / 50 50 / 50 ML @ 100 mls/hr IV.SIG Q8H [facility] Rx#:[id number] Vancomycin Inj 1,000 MG In NS 250 / 250 Inj 250 ML @ 250 mls/hr IV.SIG ONCE ONE Rx#:[id number] fentaNYL 10 mcg/mL Premix Drip 50 / 50 2,500 mcg In 250 ml @ 25 MCG/HR 2.5 mls/hr IV.SIG TITRATE PRN Rx#:[id number] Flagyl 500 MG Inj 100 ML @ 100 100 / 100 200 / 200 mls/hr IV.SIG Q8H [facility] Rx#: [id number] Oral 0 / 0 Tube Feeding 10 / 10 Water Bolus Amount 60 / 60 Output: Urine 0 / 0 Stool 0 / 0 Urine/Stool Mix 0 / 0 Hemodialysis Amount 3000 / 3000 Other: # Voids 0 Date of Last Bowel Movement 12/10/17 12/10/17 # Bowel Movements 0 # Incontinent Bowel Movements 0 Result Diagrams: 12/14/17 03:30 12/14/17 03:30 Objective Remarks: - Constitutional Intubated sedated , critically ill - Routine Respiratory Exam CTA bilaterally, no wheezes or crackles - Routine Cardiovascular Exam Sinus rhythm, intermittent PAC, hypotensive currently on 50 mcg/min of Jonas- Synephrine - Routine Abdominal Exam soft, nontender. New PEG tube site without evidence of bleeding - Routine Extremities Exam No pedal edema. - Routine Neurological Exam Patient is intubated sedate. On sedation hold, moves all extremities do not follow commands, but appears to be tracking Assessment and Plan - Assessment and Plan Plan: ASSESSMENT: Acute respiratory failure Aspiration pneumonitis Hypotension multifactorial Upper GI bleed Tachyarrhythmia Leukocytosis Dilated pancreatic duct, elevated 88.5 Radiological evidence of chronic pancreatitis s/p PEG tube placement Metabolic encephalopathy Hypoglycemia now resolved History of coronary artery disease End-stage renal disease PLAN: NEURO: -Versed for sedation and ventilator synchrony, start daily sedation location after MRCP -Workup for encephalopathy essentially negative MRI was negative for acute findings. -Encephalopathy was previously attributed to hypoglycemia and metabolic cause RESP: -PRVC/AC, Ventilator bundle -DuoNeb every 6 hours scheduled and as needed -SBT after imaging studies are completed -Sputum culture CV: -Jonas-Synephrine to keep map above 65 -s/p 500 mL normal saline bolus, and 25 g IV albumin bolus -Hold all antihypertensive including Procardia XL, lisinopril, carvedilol -F/u cardiac enzymes GI: -N.p.o., and IV Protonix 40 mg q12 -CT abdomen pelvis showed massive pancreatic duct dilation and chronic pancreatitis, confirmed on MRCP -Ampullary mass cannot be ruled out. Patient may need an ERCP -CA-19-9 88.5. Will discuss with GI : -ESRD on hemodialysis per nephrology, 3L removed yesterday ID: -Continue vancomycin, Azactam for gram-negative coverage and Flagyl for anaerobic coverage -F/U Blood urine and sputum cultures-negative to date -Leukocytosis and hypotension persistent, will request ID evaluation HEME: -Monitor CBC, coags -Transfuse to keep hemoglobin more than 8 due to severe hypotension ENDO: -Sliding scale insulin if needed PROPH: -Bilateral lower extremity SCDs. Eliquis on hold due to GI bleed -IV Protonix 40 mg every 12 hours LINES: -Utilize peripheral IVs, [facility] central line placed 12/12/17 CC time 35 min Patient is critically ill with hypotension, leukocytosis status post PEG tube placement. Continue broad-spectrum antibiotics. CT abdomen pelvis showed pancreatic duct dilation. MRCP and further studies ordered.
[2017-12-14] MEDS: Vitamin B Complex/Vit C/Folic Tablet PO SCH (10:35)
[2017-12-14] MEDS: Hypromellose 0.3% Opth Gel 10 GM Bottle EACH EYE SCH ×2 (10:35→20:28)
[2017-12-14] MEDS: Chlorhexidine 0.12% Oral Kit 15 ML UDC OROPHARYNG SCH ×2 (10:35→20:27)
[2017-12-14] MEDS: Pantoprazole Inj 40 MG Vial IV.PUSH SCH ×2 (10:35→20:26)
[2017-12-14] MEDS: Lipase/Protease/Amylase 24/76/120 DR Capsule PO SCH ×4 (10:35→20:26)
[2017-12-14] MEDS: Haloperidol Inj 5 MG/ML Ampul IV.PUSH PRN ×2 (10:36→20:26)
[2017-12-14] MEDS: Insulin NovoLOG Aspart Correctional Sugar Inj SQ SCH ×4 (10:36→21:44)
--- NOTE | 2017-12-14 12:31 | P.PNGI ---
Subjective Interval history: Pt opens eyes but does not follow commands or any verbal response. He was extubated this morning, TF on hold because of this. Also, received Haldol this morning for agitation. Now off [facility] gtt. <Daysi Bennett - Last Filed: 12/14/17 12:32> Physical Exam Vital signs: Vital Signs 12/13/17 12:15 12/13/17 12:30 12/13/17 12:45 Temperature Pulse Rate 75 84 87 Respiratory Rate 16 17 127 H Blood Pressure 131/78 114/62 122/66 Pulse Oximetry 100 99 95 12/13/17 12:59 12/13/17 13:00 12/13/17 13:59 Temperature Pulse Rate 84 84 81 Respiratory Rate 116 H 118 H 31 H Blood Pressure 99/64 L 101/67 127/62 Pulse Oximetry 95 97 100 12/13/17 14:00 12/13/17 14:39 12/13/17 15:00 Temperature Pulse Rate 80 93 H 93 H Respiratory Rate 121 H 16 19 Blood Pressure 141/65 H 100/53 L 94/53 L Pulse Oximetry 100 95 98 12/13/17 15:53 12/13/17 16:00 12/13/17 17:00 Temperature 97.8 F Pulse Rate 88 80 79 Respiratory Rate 18 17 23 Blood Pressure 125/71 144/62 H Pulse Oximetry 100 100 100 12/13/17 18:00 12/13/17 20:00 12/13/17 20:08 Temperature Pulse Rate 80 82 80 Respiratory Rate 18 16 Blood Pressure 143/66 H Pulse Oximetry 100 12/13/17 20:12 12/13/17 23:24 12/14/17 00:00 Temperature 98.1 F Pulse Rate 92 H Respiratory Rate 16 16 23 Blood Pressure 120/58 L Pulse Oximetry 100 99 99 12/14/17 03:42 12/14/17 03:47 12/14/17 04:00 Temperature 98.6 F Pulse Rate 75 75 Respiratory Rate 16 16 18 Blood Pressure 117/65 Pulse Oximetry 98 95 12/14/17 07:45 12/14/17 08:00 12/14/17 08:15 Temperature 98.9 F Pulse Rate 77 77 91 H Respiratory Rate 15 14 27 H Blood Pressure 113/57 L 117/59 L Pulse Oximetry 100 99 100 12/14/17 08:30 12/14/17 08:45 12/14/17 09:00 Temperature Pulse Rate 94 H 97 H 106 H Respiratory Rate 147 H 10 L 22 Blood Pressure 141/70 H 132/63 176/84 H Pulse Oximetry 92 L 86 L 12/14/17 09:15 18 09:30 12/14/17 09:35 Temperature Pulse Rate 110 H 115 H Respiratory Rate 20 18 Blood Pressure 157/72 H 129/54 L Pulse Oximetry 95 88 L 92 L 12/14/17 09:45 Temperature Pulse Rate 113 H Respiratory Rate 17 Blood Pressure 126/61 Pulse Oximetry 90 L Intake & Output 12/13/17 12/14/17 12/14/17 18:59 06:59 18:59 Intake Total 1422 / 1422 510 / 510 50 / 50 Output Total 3000 / 3000 0 / 0 Balance -1578 / -1578 510 / 510 50 / 50 Weight 71.1 kg Intake: IV 1362 / 1362 500 / 500 50 / 50 Versed Inj 50 mg In 50 ml @ 2 62 / 62 MG/HR 2 mls/hr IV.CONT TITRATE PRN Rx#:[id number] NS Inj 1,000 ML @ 42 mls/hr IV. 1000 / 1000 CONT .[id number] KRUNAL Rx#:[id number] Flexbumin 25% Inj 100 ML @ 60 100 / 100 mls/hr IV.SIG WITH DIALYSIS PRN Rx#:[id number] Azactam Inj 500 MG In NS Inj 50 50 / 50 50 / 50 50 / 50 ML @ 100 mls/hr IV.SIG Q8H KRUNAL Rx#:[id number] Vancomycin Inj 1,000 MG In NS 250 / 250 Inj 250 ML @ 250 mls/hr IV.SIG ONCE ONE Rx#:[id number] fentaNYL 10 mcg/mL Premix Drip 50 / 50 2,500 mcg In 250 ml @ 25 MCG/HR 2.5 mls/hr IV.SIG TITRATE PRN Rx#:[id number] Flagyl 500 MG Inj 100 ML @ 100 100 / 100 200 / 200 mls/hr IV.SIG Q8H [facility] Rx#: [id number] Oral 0 / 0 Tube Feeding 10 / 10 Water Bolus Amount 60 / 60 Output: Urine 0 / 0 Stool 0 / 0 Urine/Stool Mix 0 / 0 Hemodialysis Amount 3000 / 3000 Other: # Voids 0 Date of Last Bowel Movement 12/10/17 12/10/17 12/10/17 # Bowel Movements 0 # Incontinent Bowel Movements 0 - Constitutional no acute distress - Routine HEENT Exam Head: Present: normocephalic, atraumatic - Routine Respiratory Exam Absent: accessory muscle use - Routine Abdominal Exam Present: soft, normoactive bowel sounds. Absent: distended - Routine Skin Exam Present: dry, warm - Routine Neurological Exam Lethargic - Urinary Catheter Management Straight Cath placed during this visit: yes Reason for continuing: Not indwelling catheter Insertion date: 12/01/17 Insertion time: 13:46 <Daysi Bennett - Last Filed: 12/14/17 12:32> Vital signs: Vital Signs 12/13/17 13:59 12/13/17 14:00 12/13/17 14:39 Temperature Pulse Rate 81 80 93 H Respiratory Rate 31 H 121 H 16 Blood Pressure 127/62 141/65 H 100/53 L Pulse Oximetry 100 100 95 12/13/17 15:00 12/13/17 15:53 12/13/17 16:00 Temperature 97.8 F Pulse Rate 93 H 88 80 Respiratory Rate 19 18 17 Blood Pressure 94/53 L 125/71 Pulse Oximetry 98 100 100 12/13/17 17:00 12/13/17 18:00 12/13/17 20:00 Temperature Pulse Rate 79 80 82 Respiratory Rate 23 18 Blood Pressure 144/62 H 143/66 H Pulse Oximetry 100 100 12/13/17 20:08 12/13/17 20:12 12/13/17 23:24 Temperature Pulse Rate 80 Respiratory Rate 16 16 16 Blood Pressure Pulse Oximetry 100 99 12/14/17 00:00 12/14/17 03:42 12/14/17 03:47 Temperature 98.1 F Pulse Rate 92 H 75 Respiratory Rate 23 16 16 Blood Pressure 120/58 L Pulse Oximetry 99 98 12/14/17 04:00 12/14/17 07:45 12/14/17 08:00 Temperature 98.6 F 98.9 F Pulse Rate 75 77 77 Respiratory Rate 18 15 14 Blood Pressure 117/65 113/57 L Pulse Oximetry 95 100 99 12/14/17 08:15 12/14/17 08:30 12/14/17 08:45 Temperature Pulse Rate 91 H 94 H 97 H Respiratory Rate 27 H 147 H 10 L Blood Pressure 117/59 L 141/70 H 132/63 Pulse Oximetry 100 92 L 86 L 12/14/17 09:00 12/14/17 09:15 12/14/17 09:30 Temperature Pulse Rate 106 H 110 H 115 H Respiratory Rate 22 20 18 Blood Pressure 176/84 H 157/72 H 129/54 L Pulse Oximetry 95 88 L 12/14/17 09:35 12/14/17 09:45 12/14/17 10:00 Temperature Pulse Rate 113 H 108 H Respiratory Rate 17 15 Blood Pressure 126/61 104/58 L Pulse Oximetry 92 L 90 L 90 L 12/14/17 10:15 12/14/17 10:30 12/14/17 10:45 Temperature Pulse Rate 111 H 108 H 101 H Respiratory Rate 27 H 32 H 13 Blood Pressure 111/55 L 110/64 115/55 L Pulse Oximetry 88 L 90 L 91 L 12/14/17 11:00 12/14/17 11:15 12/14/17 11:30 Temperature Pulse Rate 102 H 102 H 102 H Respiratory Rate 150 H 12 11 L Blood Pressure 115/58 L 109/58 L 111/56 L Pulse Oximetry 91 L 90 L 90 L 12/14/17 11:45 12/14/17 12:00 12/14/17 12:15 Temperature Pulse Rate 101 H 100 H 99 H Respiratory Rate 12 13 12 Blood Pressure 119/57 L 124/57 L 131/58 L Pulse Oximetry 90 L 90 L 90 L Intake & Output 12/13/17 12/14/17 12/14/17 18:59 06:59 18:59 Intake Total 1422 / 1422 510 / 510 50 / 50 Output Total 3000 / 3000 0 / 0 Balance -1578 / -1578 510 / 510 50 / 50 Weight 71.1 kg Intake: IV 1362 / 1362 500 / 500 50 / 50 Versed Inj 50 mg In 50 ml @ 2 62 / 62 MG/HR 2 mls/hr IV.CONT TITRATE PRN Rx#:[id number] NS Inj 1,000 ML @ 42 mls/hr IV. 1000 / 1000 CONT .[id number] KRUNAL Rx#:[id number] Flexbumin 25% Inj 100 ML @ 60 100 / 100 mls/hr IV.SIG WITH DIALYSIS PRN Rx#:[id number] Azactam Inj 500 MG In NS Inj 50 50 / 50 50 / 50 50 / 50 ML @ 100 mls/hr IV.SIG Q8H [facility] Rx#:[id number] Vancomycin Inj 1,000 MG In NS 250 / 250 Inj 250 ML @ 250 mls/hr IV.SIG ONCE ONE Rx#:[id number] fentaNYL 10 mcg/mL Premix Drip 50 / 50 2,500 mcg In 250 ml @ 25 MCG/HR 2.5 mls/hr IV.SIG TITRATE PRN Rx#:[id number] Flagyl 500 MG Inj 100 ML @ 100 100 / 100 200 / 200 mls/hr IV.SIG Q8H [facility] Rx#: [id number] Oral 0 / 0 Tube Feeding 10 / 10 Water Bolus Amount 60 / 60 Output: Urine 0 / 0 Stool 0 / 0 Urine/Stool Mix 0 / 0 Hemodialysis Amount 3000 / 3000 Other: # Voids 0 Date of Last Bowel Movement 12/10/17 12/10/17 12/10/17 # Bowel Movements 0 # Incontinent Bowel Movements 0 - Urinary Catheter Management Straight Cath placed during this visit: no <Varinder Serrano A - Last Filed: 12/14/17 14:14> Results - Labs CBC & Chem 7: 12/14/17 03:30 12/14/17 03:30 Laboratory Results - last 24 hr 12/13/17 12/13/17 12/13/17 14:14 15:45 17:05 WBC RBC Hgb Hct MCV MCH MCHC RDW Plt Count MPV Sodium Potassium Chloride Carbon Dioxide Anion Gap BUN Creatinine Estimated GFR POC Glucose 188 H 284 H Random Glucose Calcium Total Bilirubin AST ALT Alkaline Phosphatase Total Protein Albumin Nasal Screen MRSA (PCR) Not detected 12/13/17 12/14/17 12/14/17 21:27 03:30 03:30 WBC 17.3 H RBC 3.56 L Hgb 9.9 L Hct 31.6 L MCV 88.7 MCH 27.7 MCHC 31.3 L RDW 18.9 H Plt Count 227 MPV 9.2 Sodium 145 Potassium 4.0 Chloride 103 Carbon Dioxide 26.0 Anion Gap 16 H BUN 52 H Creatinine 7.80 H Estimated GFR 7 L POC Glucose 286 H Random Glucose 303 H Calcium 8.3 L Total Bilirubin 0.5 AST 73 H ALT 45 Alkaline Phosphatase 82 Total Protein 5.7 L Albumin 2.6 L Nasal Screen MRSA (PCR) 12/14/17 10:24 WBC RBC Hgb Hct MCV MCH MCHC RDW Plt Count MPV Sodium Potassium Chloride Carbon Dioxide Anion Gap BUN Creatinine Estimated GFR POC Glucose 361 H Random Glucose Calcium Total Bilirubin AST ALT Alkaline Phosphatase Total Protein Albumin Nasal Screen MRSA (PCR) Microbiology 12/12/17 19:27 Blood - Peripheral Aerobic Blood Culture - Preliminary No growth in 2 days 12/12/17 19:27 Blood - Peripheral Anaerobic Blood Culture - Preliminary No growth in 2 days 12/12/17 19:22 Blood - Peripheral Aerobic Blood Culture - Preliminary No growth in 2 days 12/12/17 19:22 Blood - Peripheral Anaerobic Blood Culture - Preliminary No growth in 2 days 12/13/17 18:00 Sputum - Endotracheal Gram Stain - Final - Imaging Impressions Cholangiopancreatography MRI 12/13/17 00:00 CONCLUSION: 1. Dilatation of the pancreatic duct ranging from 2 cm in the head of pancreas to 1.6 images in the mid body with a [place] pseudocyst appearance. 2. Findings would be consistent with a chronic pancreatitis. 3. If there is a focal mass present it would be at the ampulla. This can be followed by MR or endoscopic ultrasound. 4. Trace ascites 5. No other recent cross-sectional imaging studies of the pancreas. These would be most helpful given the appearance. <Daysi Bennett - Last Filed: 12/14/17 12:32> - Labs CBC & Chem 7: 12/14/17 03:30 12/14/17 03:30 Laboratory Results - last 24 hr 12/13/17 12/13/17 12/13/17 14:14 15:45 17:05 WBC RBC Hgb Hct MCV MCH MCHC RDW Plt Count MPV Sodium Potassium Chloride Carbon Dioxide Anion Gap BUN Creatinine Estimated GFR POC Glucose 188 H 284 H Random Glucose Calcium Total Bilirubin AST ALT Alkaline Phosphatase Total Protein Albumin Nasal Screen MRSA (PCR) Not detected 12/13/17 12/14/17 12/14/17 21:27 03:30 03:30 WBC 17.3 H RBC 3.56 L Hgb 9.9 L Hct 31.6 L MCV 88.7 MCH 27.7 MCHC 31.3 L RDW 18.9 H Plt Count 227 MPV 9.2 Sodium 145 Potassium 4.0 Chloride 103 Carbon Dioxide 26.0 Anion Gap 16 H BUN 52 H Creatinine 7.80 H Estimated GFR 7 L POC Glucose 286 H Random Glucose 303 H Calcium 8.3 L Total Bilirubin 0.5 AST 73 H ALT 45 Alkaline Phosphatase 82 Total Protein 5.7 L Albumin 2.6 L Nasal Screen MRSA (PCR) 12/14/17 12/14/17 10:24 12:47 WBC RBC Hgb Hct MCV MCH MCHC RDW Plt Count MPV Sodium Potassium Chloride Carbon Dioxide Anion Gap BUN Creatinine Estimated GFR POC Glucose 361 H 306 H Random Glucose Calcium Total Bilirubin AST ALT Alkaline Phosphatase Total Protein Albumin Nasal Screen MRSA (PCR) Microbiology 12/13/17 18:00 Sputum - Endotracheal Gram Stain - Final 12/13/17 18:00 Sputum - Endotracheal Sputum Culture - Preliminary Moderate growth normal respiratory char at 24 hours 12/12/17 19:27 Blood - Peripheral Aerobic Blood Culture - Preliminary No growth in 2 days 12/12/17 19:27 Blood - Peripheral Anaerobic Blood Culture - Preliminary No growth in 2 days 12/12/17 19:22 Blood - Peripheral Aerobic Blood Culture - Preliminary No growth in 2 days 12/12/17 19:22 Blood - Peripheral Anaerobic Blood Culture - Preliminary No growth in 2 days - Imaging Impressions Cholangiopancreatography MRI 12/13/17 00:00 CONCLUSION: 1. Dilatation of the pancreatic duct ranging from 2 cm in the head of pancreas to 1.6 images in the mid body with a [place] pseudocyst appearance. 2. Findings would be consistent with a chronic pancreatitis. 3. If there is a focal mass present it would be at the ampulla. This can be followed by MR or endoscopic ultrasound. 4. Trace ascites 5. No other recent cross-sectional imaging studies of the pancreas. These would be most helpful given the appearance. <Varinder Serrano - Last Filed: 12/14/17 14:14> Assessment and Plan (1) Nutritional deficiency Status: Acute Code(s): E63.9 - Nutritional deficiency, unspecified - Plan ASSESSMENT AND PLAN: - Encephalopathy- PEG tube placement for continued encephalopathy despite correction of hypoglycemia on arrival. S/P EGD with PEG on 12/12. Courier Delivery Driver recommended Nepro at 55 mL/hr for 22 hours (Synthroid). According to RN pt was tolerating TF, currently turned off for extubation this morning. Hypotensive after GI procedure, CT rule out gastric perforation. - Pancreatic ductal dilatation with elevated CA 19-9, chronic pancreatitis vs mass (cannot be excluded) MRCP --> Dilatation of the pancreatic duct ranging from 2 cm in the head of pancreas to 1.6 images in the mid body with a [place] pseudocyst appearance. Findings would be consistent with a chronic pancreatitis. If there is a focal mass present it would be at the ampulla. Trace ascites. No other recent cross-sectional imaging studies of the pancreas. These would be most helpful given the appearance. No previous hospitalizations. Unable to obtain history given pts current mental status. Discussed with radiology, if further imaging recommending CT abdomen with pancreatic protocol. Pt will need dialysis after procedure. Could also consider EUS, however pt is too unstable for this at this time, will monitor and consider EUS on Tuesday if stable when Dr. Orosco will be covering. Discussed with activities therapist, Dr. Smith Plan Recommend EUS on Tuesday if stable CA 19-9 noted Monitor LFTs Continue to monitor Continue TF per carnival worker If pt becomes more awake, evaluate for risk factors of chronic pancreatitis further recommendations to follow Pt has been seen and examined by myself and Dr. Serrano and this note is written on his behalf <Daysi Bennett - Last Filed: 12/14/17 12:32> (1) Nutritional deficiency Status: Acute Code(s): E63.9 - Nutritional deficiency, unspecified - Attending Attestation Seen and examined, plan as above, will hold off on any procedures for now, Large deep diffuse duodenal and gastric ulcers, will need several weeks for healing and needs sometime to recover from his current acute condition. TF for now, monitor for bleeding, await biopsy results. <Varinder Serrano - Last Filed: 12/14/17 14:14>
--- NOTE | 2017-12-14 14:56 | P.PNPAL ---
Reason for Visit Reason for visit: a. To assist with evaluation and management of symptoms including: confusion/ agitation, pain, dyspnea b. To assist medical decision maker(s) with: better understanding of current medical conditions; weighing benefits/burdens of medical treatment options; making medical treatment decisions. Subjective Subjective/Interval History: Pt in bed, extubated this morning, he is snoring. Per RN required haldol and ativan to keep him calm. Per respiratory notes holden brown and and black material suctioned from his nose and throat. MRCP showed chronic pancreatitis, [place] pseudocyst, if focal mass would be at ampulla and could be further evaluated with MRI or EUS. Per GI not recommended to do EUS at this time b/c pt had deep gastric and duodenal ulcers. CA 19-9 elevated 88. Family/Friend Interactions: Spoke with pt's Brother Jeovany at bedside and pt's daughter Tommy on phone : -reviewed Palliative care role, purpose, approach -Additional psychosocial history - provided detailed medical update -Likely scenarios comparing ongoing aggressive care with transition to ``comfort -measures only -Questions answered to the best of my ability - Palliative care contact information provided Goals remain fairly aggressive. Family wishes to continue HD. They are hoping he will improve. They do NOT wish to proceed with GI workup of pancreatic abnormality at this time. They did indicate that if there was no improvement they would consider changing their goals of medical treatment. Objective Vital Signs: Vital Signs 12/13/17 15:00 12/13/17 15:53 12/13/17 16:00 Temperature 97.8 F Pulse Rate 93 H 88 80 Respiratory Rate 19 18 17 Blood Pressure 94/53 L 125/71 Pulse Oximetry 98 100 100 12/13/17 17:00 12/13/17 18:00 12/13/17 20:00 Temperature Pulse Rate 79 80 82 Respiratory Rate 23 18 Blood Pressure 144/62 H 143/66 H Pulse Oximetry 100 100 12/13/17 20:08 12/13/17 20:12 12/13/17 23:24 Temperature Pulse Rate 80 Respiratory Rate 16 16 16 Blood Pressure Pulse Oximetry 100 99 12/14/17 00:00 12/14/17 03:42 12/14/17 03:47 Temperature 98.1 F Pulse Rate 92 H 75 Respiratory Rate 23 16 16 Blood Pressure 120/58 L Pulse Oximetry 99 98 12/14/17 04:00 12/14/17 07:45 12/14/17 08:00 Temperature 98.6 F 98.9 F Pulse Rate 75 77 77 Respiratory Rate 18 15 14 Blood Pressure 117/65 113/57 L Pulse Oximetry 95 100 99 12/14/17 08:15 12/14/17 08:30 12/14/17 08:45 Temperature Pulse Rate 91 H 94 H 97 H Respiratory Rate 27 H 147 H 10 L Blood Pressure 117/59 L 141/70 H 132/63 Pulse Oximetry 100 92 L 86 L 12/14/17 09:00 12/14/17 09:15 12/14/17 09:30 Temperature Pulse Rate 106 H 110 H 115 H Respiratory Rate 22 20 18 Blood Pressure 176/84 H 157/72 H 129/54 L Pulse Oximetry 95 88 L 12/14/17 09:35 12/14/17 09:45 12/14/17 10:00 Temperature Pulse Rate 113 H 108 H Respiratory Rate 17 15 Blood Pressure 126/61 104/58 L Pulse Oximetry 92 L 90 L 90 L 12/14/17 10:15 12/14/17 10:30 12/14/17 10:45 Temperature Pulse Rate 111 H 108 H 101 H Respiratory Rate 27 H 32 H 13 Blood Pressure 111/55 L 110/64 115/55 L Pulse Oximetry 88 L 90 L 91 L 12/14/17 11:00 12/14/17 11:15 12/14/17 11:30 Temperature Pulse Rate 102 H 102 H 102 H Respiratory Rate 150 H 12 11 L Blood Pressure 115/58 L 109/58 L 111/56 L Pulse Oximetry 91 L 90 L 90 L 12/14/17 11:45 12/14/17 12:00 12/14/17 12:15 Temperature Pulse Rate 101 H 100 H 99 H Respiratory Rate 12 13 12 Blood Pressure 119/57 L 124/57 L 131/58 L Pulse Oximetry 90 L 90 L 90 L Intake & Output 12/13/17 12/14/17 12/14/17 18:59 06:59 18:59 Intake Total 1422 / 1422 510 / 510 50 / 50 Output Total 3000 / 3000 0 / 0 Balance -1578 / -1578 510 / 510 50 / 50 Weight 71.1 kg Intake: IV 1362 / 1362 500 / 500 50 / 50 Versed Inj 50 mg In 50 ml @ 2 62 / 62 MG/HR 2 mls/hr IV.CONT TITRATE PRN Rx#:[id number] NS Inj 1,000 ML @ 42 mls/hr IV. 1000 / 1000 CONT .[id number] [facility] Rx#:[id number] Flexbumin 25% Inj 100 ML @ 60 100 / 100 mls/hr IV.SIG WITH DIALYSIS PRN Rx#:[id number] Azactam Inj 500 MG In NS Inj 50 50 / 50 50 / 50 50 / 50 ML @ 100 mls/hr IV.SIG Q8H [facility] Rx#:[id number] Vancomycin Inj 1,000 MG In NS 250 / 250 Inj 250 ML @ 250 mls/hr IV.SIG ONCE ONE Rx#:[id number] fentaNYL 10 mcg/mL Premix Drip 50 / 50 2,500 mcg In 250 ml @ 25 MCG/HR 2.5 mls/hr IV.SIG TITRATE PRN Rx#:[id number] Flagyl 500 MG Inj 100 ML @ 100 100 / 100 200 / 200 mls/hr IV.SIG Q8H [facility] Rx#: [id number] Oral 0 / 0 Tube Feeding 10 / 10 Water Bolus Amount 60 / 60 Output: Urine 0 / 0 Stool 0 / 0 Urine/Stool Mix 0 / 0 Hemodialysis Amount 3000 / 3000 Other: # Voids 0 Date of Last Bowel Movement 12/10/17 12/10/17 12/10/17 # Bowel Movements 0 # Incontinent Bowel Movements 0 Physical Exam: SKIN: No jaundice, rashes, or lesions. Skin temperature appropriate. Not diaphoretic. HEAD: Atraumatic. Normocephalic. EYES: PERRL. No scleral icterus. No injection or drainage. Fundi not examined. ENT: Nose with some traces dried blood CARDIOVASCULAR: RRR without murmurs, gallops, or rubs. No JVD. RESPIRATORY/CHEST: Symmetric, unlabored respirations. Clear to auscultation. Breath sounds equal bilaterally. intubated on vent GASTROINTESTINAL: Abdomen soft, non-tender, nondistended. No hepato-splenomegaly , or palpable masses. No guarding. Bowel sounds faint MUSCULOSKELETAL: Extremities without clubbing, cyanosis, or edema. No joint tenderness or effusion noted. No mottling or clubbing. +BUE restraints NEUROLOGICAL: sedated on vent, unresponsive Diagnostic Tests Laboratory: Laboratory Results - last 72 hr 12/11/17 12/12/17 12/12/17 21:36 00:05 07:17 WBC RBC Hgb Hct MCV MCH MCHC RDW Plt Count MPV Neut % (Auto) Lymph % (Auto) Barren % (Auto) Eos % (Auto) Baso % (Auto) Neut # (Auto) Lymph # (Auto) Barren # (Auto) Eos # (Auto) Baso # (Auto) WBC Differential Differential Comment PT INR APTT Puncture Site Patient Temperature O2 Saturation ABG pH ABG pCO2 ABG pO2 ABG HCO3 ABG O2 Content ABG Base Excess ABG Methemoglobin Hemoglobin Carboxyhemoglobin O2 Delivery Device Vent Setting Inspired O2 Critical Value Sodium Potassium Chloride Carbon Dioxide Anion Gap BUN Creatinine Estimated GFR POC Glucose 413 H 291 H 309 H Random Glucose Lactic Acid Calcium Phosphorus Magnesium Total Bilirubin AST ALT Alkaline Phosphatase Troponin I Total Protein Albumin Amylase Lipase CA 19-9 Antigen CA 125 Antigen Cortisol Nasal Screen MRSA (PCR) Blood Type Antibody Screen MTS Gel Crossmatch 12/12/17 12/12/17 12/12/17 11:04 12:50 15:29 WBC RBC Hgb Hct MCV MCH MCHC RDW Plt Count MPV Neut % (Auto) Lymph % (Auto) Barren % (Auto) Eos % (Auto) Baso % (Auto) Neut # (Auto) Lymph # (Auto) Barren # (Auto) Eos # (Auto) Baso # (Auto) WBC Differential Differential Comment PT INR APTT Puncture Site Patient Temperature O2 Saturation ABG pH ABG pCO2 ABG pO2 ABG HCO3 ABG O2 Content ABG Base Excess ABG Methemoglobin Hemoglobin Carboxyhemoglobin O2 Delivery Device Vent Setting Inspired O2 Critical Value Sodium 149 H Potassium 4.1 Chloride 107 Carbon Dioxide 24.8 Anion Gap 17 H BUN 71 H Creatinine 10.61 H* D Estimated GFR 5 L POC Glucose 278 H Random Glucose 278 H Lactic Acid Calcium 8.9 Phosphorus Magnesium Total Bilirubin 0.4 AST 32 ALT 35 Alkaline Phosphatase 100 Troponin I Total Protein 6.7 Albumin 2.6 L Amylase Lipase CA 19-9 Antigen CA 125 Antigen Cortisol Nasal Screen MRSA (PCR) Blood Type B Positive Antibody Screen Negative MTS Gel Crossmatch See Detail 12/12/17 12/12/17 12/12/17 17:11 17:11 17:11 WBC 17.9 H RBC 4.42 L Hgb 12.3 L Hct 38.0 L MCV 86.0 MCH 27.7 MCHC 32.2 RDW 18.5 H Plt Count 282 D MPV 9.4 Neut % (Auto) 75.2 H Lymph % (Auto) 8.3 L Barren % (Auto) 11.4 H Eos % (Auto) 4.2 H Baso % (Auto) 0.9 Neut # (Auto) 13.5 H Lymph # (Auto) 1.5 Barren # (Auto) 2.0 H Eos # (Auto) 0.8 H Baso # (Auto) 0.2 WBC Differential . Differential Comment Auto diff final PT INR APTT Puncture Site Patient Temperature O2 Saturation ABG pH ABG pCO2 ABG pO2 ABG HCO3 ABG O2 Content ABG Base Excess ABG Methemoglobin Hemoglobin Carboxyhemoglobin O2 Delivery Device Vent Setting Inspired O2 Critical Value Sodium 151 H Potassium 4.0 Chloride 108 H Carbon Dioxide 23.4 Anion Gap 20 H BUN 73 H Creatinine 10.61 H* Estimated GFR 5 L POC Glucose Random Glucose 227 H Lactic Acid 1.2 Calcium 8.6 Phosphorus Magnesium Total Bilirubin 0.4 AST 28 ALT 32 Alkaline Phosphatase 88 Troponin I 0.12 H Total Protein 5.8 L D Albumin 2.3 L Amylase Lipase CA 19-9 Antigen CA 125 Antigen Cortisol Nasal Screen MRSA (PCR) Blood Type Antibody Screen MTS Gel Crossmatch 12/12/17 12/12/17 12/12/17 17:30 19:22 19:22 WBC RBC Hgb Hct MCV MCH MCHC RDW Plt Count MPV Neut % (Auto) Lymph % (Auto) Barren % (Auto) Eos % (Auto) Baso % (Auto) Neut # (Auto) Lymph # (Auto) Barren # (Auto) Eos # (Auto) Baso # (Auto) WBC Differential Differential Comment PT 22.5 H INR 2.2 APTT 33.7 H Puncture Site Art line Patient Temperature 98.6 O2 Saturation 96 ABG pH 7.34 L ABG pCO2 42 ABG pO2 171 H ABG HCO3 22 ABG O2 Content 17.0 ABG Base Excess -3.2 L ABG Methemoglobin 1.9 Hemoglobin 12.4 Carboxyhemoglobin 0.4 O2 Delivery Device Ventilator Vent Setting [id number] Inspired O2 40 Critical Value No Sodium Potassium Chloride Carbon Dioxide Anion Gap BUN Creatinine Estimated GFR POC Glucose Random Glucose Lactic Acid Calcium Phosphorus Magnesium Total Bilirubin AST ALT Alkaline Phosphatase Troponin I Total Protein Albumin Amylase Lipase CA 19-9 Antigen CA 125 Antigen Cortisol 22.8 Nasal Screen MRSA (PCR) Blood Type Antibody Screen MTS Gel Crossmatch 12/12/17 12/12/17 12/13/17 22:17 23:53 05:30 WBC RBC Hgb Hct MCV MCH MCHC RDW Plt Count MPV Neut % (Auto) Lymph % (Auto) Barren % (Auto) Eos % (Auto) Baso % (Auto) Neut # (Auto) Lymph # (Auto) Barren # (Auto) Eos # (Auto) Baso # (Auto) WBC Differential Differential Comment PT INR APTT Puncture Site Patient Temperature O2 Saturation ABG pH ABG pCO2 ABG pO2 ABG HCO3 ABG O2 Content ABG Base Excess ABG Methemoglobin Hemoglobin Carboxyhemoglobin O2 Delivery Device Vent Setting Inspired O2 Critical Value Sodium 147 H Potassium 4.0 Chloride 106 Carbon Dioxide 19.4 L Anion Gap 22 H BUN 79 H Creatinine 10.85 H* Estimated GFR 5 L POC Glucose 296 H Random Glucose 355 H D Lactic Acid Calcium 8.1 L Phosphorus 10.2 H Magnesium 2.5 Total Bilirubin 0.5 AST 55 H ALT 41 Alkaline Phosphatase 81 Troponin I 0.11 H 0.10 H Total Protein 5.8 L Albumin 2.6 L Amylase Lipase CA 19-9 Antigen CA 125 Antigen Cortisol Nasal Screen MRSA (PCR) Blood Type Antibody Screen MTS Gel Crossmatch 12/13/17 12/13/17 12/13/17 08:30 08:30 08:30 WBC 15.1 H RBC 3.81 L Hgb 10.6 L Hct 33.9 L MCV 89.0 MCH 27.7 MCHC 31.2 L RDW 18.7 H Plt Count 235 MPV 9.3 Neut % (Auto) Lymph % (Auto) Barren % (Auto) Eos % (Auto) Baso % (Auto) Neut # (Auto) Lymph # (Auto) Barren # (Auto) Eos # (Auto) Baso # (Auto) WBC Differential Differential Comment PT INR APTT Puncture Site Patient Temperature O2 Saturation ABG pH ABG pCO2 ABG pO2 ABG HCO3 ABG O2 Content ABG Base Excess ABG Methemoglobin Hemoglobin Carboxyhemoglobin O2 Delivery Device Vent Setting Inspired O2 Critical Value Sodium Potassium Chloride Carbon Dioxide Anion Gap BUN Creatinine Estimated GFR POC Glucose Random Glucose Lactic Acid Calcium Phosphorus Magnesium Total Bilirubin AST ALT Alkaline Phosphatase Troponin I Total Protein Albumin Amylase 15 L Lipase 40 L CA 19-9 Antigen 88.5 H CA 125 Antigen 20.0 Cortisol Nasal Screen MRSA (PCR) Blood Type Antibody Screen MTS Gel Crossmatch 12/13/17 12/13/17 12/13/17 08:30 14:14 15:45 WBC RBC Hgb Hct MCV MCH MCHC RDW Plt Count MPV Neut % (Auto) Lymph % (Auto) Barren % (Auto) Eos % (Auto) Baso % (Auto) Neut # (Auto) Lymph # (Auto) Barren # (Auto) Eos # (Auto) Baso # (Auto) WBC Differential Differential Comment PT INR APTT Puncture Site Patient Temperature O2 Saturation ABG pH ABG pCO2 ABG pO2 ABG HCO3 ABG O2 Content ABG Base Excess ABG Methemoglobin Hemoglobin Carboxyhemoglobin O2 Delivery Device Vent Setting Inspired O2 Critical Value Sodium 146 H Potassium 4.2 Chloride 106 Carbon Dioxide 18.1 L Anion Gap 22 H BUN 81 H Creatinine 11.30 H* Estimated GFR 5 L POC Glucose 188 H Random Glucose 334 H Lactic Acid Calcium 8.5 Phosphorus Magnesium Total Bilirubin 0.5 AST 60 H ALT 40 Alkaline Phosphatase 80 Troponin I Total Protein 5.6 L Albumin 2.5 L Amylase Lipase CA 19-9 Antigen CA 125 Antigen Cortisol Nasal Screen MRSA (PCR) Not detected Blood Type Antibody Screen MTS Gel Crossmatch 12/13/17 12/13/17 12/14/17 17:05 21:27 03:30 WBC 17.3 H RBC 3.56 L Hgb 9.9 L Hct 31.6 L MCV 88.7 MCH 27.7 MCHC 31.3 L RDW 18.9 H Plt Count 227 MPV 9.2 Neut % (Auto) Lymph % (Auto) Barren % (Auto) Eos % (Auto) Baso % (Auto) Neut # (Auto) Lymph # (Auto) Barren # (Auto) Eos # (Auto) Baso # (Auto) WBC Differential Differential Comment PT INR APTT Puncture Site Patient Temperature O2 Saturation ABG pH ABG pCO2 ABG pO2 ABG HCO3 ABG O2 Content ABG Base Excess ABG Methemoglobin Hemoglobin Carboxyhemoglobin O2 Delivery Device Vent Setting Inspired O2 Critical Value Sodium Potassium Chloride Carbon Dioxide Anion Gap BUN Creatinine Estimated GFR POC Glucose 284 H 286 H Random Glucose Lactic Acid Calcium Phosphorus Magnesium Total Bilirubin AST ALT Alkaline Phosphatase Troponin I Total Protein Albumin Amylase Lipase CA 19-9 Antigen CA 125 Antigen Cortisol Nasal Screen MRSA (PCR) Blood Type Antibody Screen MTS Gel Crossmatch 12/14/17 12/14/17 12/14/17 03:30 10:24 12:47 WBC RBC Hgb Hct MCV MCH MCHC RDW Plt Count MPV Neut % (Auto) Lymph % (Auto) Barren % (Auto) Eos % (Auto) Baso % (Auto) Neut # (Auto) Lymph # (Auto) Barren # (Auto) Eos # (Auto) Baso # (Auto) WBC Differential Differential Comment PT INR APTT Puncture Site Patient Temperature O2 Saturation ABG pH ABG pCO2 ABG pO2 ABG HCO3 ABG O2 Content ABG Base Excess ABG Methemoglobin Hemoglobin Carboxyhemoglobin O2 Delivery Device Vent Setting Inspired O2 Critical Value Sodium 145 Potassium 4.0 Chloride 103 Carbon Dioxide 26.0 Anion Gap 16 H BUN 52 H Creatinine 7.80 H Estimated GFR 7 L POC Glucose 361 H 306 H Random Glucose 303 H Lactic Acid Calcium 8.3 L Phosphorus Magnesium Total Bilirubin 0.5 AST 73 H ALT 45 Alkaline Phosphatase 82 Troponin I Total Protein 5.7 L Albumin 2.6 L Amylase Lipase CA 19-9 Antigen CA 125 Antigen Cortisol Nasal Screen MRSA (PCR) Blood Type Antibody Screen MTS Gel Crossmatch Result Diagrams: 12/14/17 03:30 12/14/17 03:30 Microbiology: Microbiology 12/13/17 18:00 Gram Stain - Final Sputum - Endotracheal Sputum Culture - Preliminary Moderate growth normal respiratory char at 24 hours 12/12/17 19:27 Aerobic Blood Culture - Preliminary Blood - Peripheral No growth in 2 days Anaerobic Blood Culture - Preliminary No growth in 2 days 12/12/17 19:22 Aerobic Blood Culture - Preliminary Blood - Peripheral No growth in 2 days Anaerobic Blood Culture - Preliminary No growth in 2 days Procedures: 12/06 right IJ dialysis cath placed 12/12 intubated, central line placement 12/14 extubated Assessment and Plan - Disease Oriented Problem List (1) ESRD (end stage renal disease) on dialysis (2) Altered mental status (3) Hypoglycemia (4) Diabetes Pertinent Non-Medical Issues: Psychosocial: Not . Has 3 children. Spiritual: pending Legal: Pt is not capacitated to make medical decisions. He is not . In the absence of designated HCS, medical decision making falls to the majority of his 3 adult children. Ethical issues impacting care: none Important Contacts: Daughter Tommy Tierney [phone] Son Rich Power [phone] - opted out of decision making Daughter Yvette Garcia [phone] Prognosis: This is a 67 y/o male with hx CAD s/p stent placement, CKD, COPD, ESRD, PAD, DM2 , who presented with AMS after being found down. Reportedly pt had blood glucose 36. Cause of his continued encephalopathy is unclear, possibly d/t hypoglycemia, and it is unclear if he will return to his baseline. He was having to be restrained for dialysis. Pulled out multiple NG tubes and had PEG placed 12/12. Imaging suggestive possible mass pancreas, this is being worked up. Aspirated during procedure, became hypotensive, was intubated and now is on vent. With or without feeding tube he is at continued risk for aspiration. Given his comorbidities and the complications he suffered already, his prognosis is poor and he remains at risk for further complications and setbacks. Prognosis worse if indeed he does have a pancreatic malignancy. Without dialysis his prognosis is terminal. Code Status: Full Code Plan: - LEGAL DECISON MAKER -patient not currently capacitated to make medical decisions. In the absence of a spouse, or designated healthcare surrogate, medical decision making would fall majority of his 3 adult children. Hector has opted out so decision making falls to pt's 2 daughters, who appear to be working together, and including pt's brother in decision making. - CODE STATUS- full code - GOALS -Goals remain fairly aggressive. Family wishes to continue HD. They are hoping he will improve mentally. They do NOT wish to proceed with GI workup of pancreatic abnormality at this time. They did indicate that if there was no improvement they would consider changing their goals of medical treatment. - SYMPTOMS - * agitation - unclear etiology. ?hypoglyemia related brain injury? pt found down , blood glucose 36. extubated this morning and was agitated, nurse had to give Haldol and Ativan. He is calm on my eval. Sedation per [facility]. no further recs * pain - multifactorial - mult lines, recent procedure to replace HD catheter, s /p PEG tube placement. no sign discomfort, sedated and snoring on my eval. unresponsive. has fentanyl gtt. no further recs at this time. * dyspnea - aspirated during PEG tube placement and was intubated. extubated this morning, sedated now and snoring. sat 90 on 4L NC. has PRN and sara duonebs. No further recs. - d/w RN, d/w GI Dr Serrano - Palliative care will continue to follow during hospital course as condition evolves, to assist patient/decision-maker with understanding of medical conditions, weighing benefits/burdens of treatment options, for clarification of goals of treatment. Additionally will assist with any symptoms of palliative concern Attestation Attestation: To help prompt me to consider important information that might be impacting today's encounter and assessment, information from prior notes written by myself or my colleagues may have been "brought forward" into today's note. My signature on this note, however, is an attestation that I personally performed the exam, history, and/or decision-making noted today, and, unless otherwise indicated, the interactions with patient, family, and staff as well as the review of records all occurred today. I also attest that the listed assessment and stated plan reflect my best clinical judgment today based on the combination of historical information, prior notes, and today's exam/ interactions. When time spent is documented, it refers only to time spent today by the signer, or if indicated, combined time spent today by collaborating physician/nurse practitioner.
--- NOTE | 2017-12-14 15:07 | P.PNNP ---
Subjective Interval history: Patient extubated remains unresponsive obtunded Physical Exam Vital signs: Vital Signs 12/13/17 15:53 12/13/17 16:00 12/13/17 17:00 Temperature 97.8 F Pulse Rate 88 80 79 Respiratory Rate 18 17 23 Blood Pressure 125/71 144/62 H Pulse Oximetry 100 100 100 12/13/17 18:00 12/13/17 20:00 12/13/17 20:08 Temperature Pulse Rate 80 82 80 Respiratory Rate 18 16 Blood Pressure 143/66 H Pulse Oximetry 100 12/13/17 20:12 12/13/17 23:24 12/14/17 00:00 Temperature 98.1 F Pulse Rate 92 H Respiratory Rate 16 16 23 Blood Pressure 120/58 L Pulse Oximetry 100 99 99 12/14/17 03:42 12/14/17 03:47 12/14/17 04:00 Temperature 98.6 F Pulse Rate 75 75 Respiratory Rate 16 16 18 Blood Pressure 117/65 Pulse Oximetry 98 95 12/14/17 07:45 12/14/17 08:00 12/14/17 08:15 Temperature 98.9 F Pulse Rate 77 77 91 H Respiratory Rate 15 14 27 H Blood Pressure 113/57 L 117/59 L Pulse Oximetry 100 99 100 12/14/17 08:30 12/14/17 08:45 12/14/17 09:00 Temperature Pulse Rate 94 H 97 H 106 H Respiratory Rate 147 H 10 L 22 Blood Pressure 141/70 H 132/63 176/84 H Pulse Oximetry 92 L 86 L 12/14/17 09:15 12/14/17 09:30 12/14/17 09:35 Temperature Pulse Rate 110 H 115 H Respiratory Rate 20 18 Blood Pressure 157/72 H 129/54 L Pulse Oximetry 95 88 L 92 L 12/14/17 09:45 12/14/17 10:00 12/14/17 10:15 Temperature Pulse Rate 113 H 108 H 111 H Respiratory Rate 17 15 27 H Blood Pressure 126/61 104/58 L 111/55 L Pulse Oximetry 90 L 90 L 88 L 12/14/17 10:30 12/14/17 10:45 12/14/17 11:00 Temperature Pulse Rate 108 H 101 H 102 H Respiratory Rate 32 H 13 150 H Blood Pressure 110/64 115/55 L 115/58 L Pulse Oximetry 90 L 91 L 91 L 12/14/17 11:15 12/14/17 11:30 12/14/17 11:45 Temperature Pulse Rate 102 H 102 H 101 H Respiratory Rate 12 11 L 12 Blood Pressure 109/58 L 111/56 L 119/57 L Pulse Oximetry 90 L 90 L 90 L 12/14/17 12:00 12/14/17 12:15 Temperature Pulse Rate 100 H 99 H Respiratory Rate 13 12 Blood Pressure 124/57 L 131/58 L Pulse Oximetry 90 L 90 L Intake & Output 12/13/17 12/14/17 12/14/17 18:59 06:59 18:59 Intake Total 1422 / 1422 510 / 510 50 / 50 Output Total 3000 / 3000 0 / 0 Balance -1578 / -1578 510 / 510 50 / 50 Weight 71.1 kg Intake: IV 1362 / 1362 500 / 500 50 / 50 Versed Inj 50 mg In 50 ml @ 2 62 / 62 MG/HR 2 mls/hr IV.CONT TITRATE PRN Rx#:[id number] NS Inj 1,000 ML @ 42 mls/hr IV. 1000 / 1000 CONT .[id number] [facility] Rx#:[id number] Flexbumin 25% Inj 100 ML @ 60 100 / 100 mls/hr IV.SIG WITH DIALYSIS PRN Rx#:[id number] Azactam Inj 500 MG In NS Inj 50 50 / 50 50 / 50 50 / 50 ML @ 100 mls/hr IV.SIG Q8H [facility] Rx#:[id number] Vancomycin Inj 1,000 MG In NS 250 / 250 Inj 250 ML @ 250 mls/hr IV.SIG ONCE ONE Rx#:[id number] fentaNYL 10 mcg/mL Premix Drip 50 / 50 2,500 mcg In 250 ml @ 25 MCG/HR 2.5 mls/hr IV.SIG TITRATE PRN Rx#:[id number] Flagyl 500 MG Inj 100 ML @ 100 100 / 100 200 / 200 mls/hr IV.SIG Q8H [facility] Rx#: [id number] Oral 0 / 0 Tube Feeding 10 / 10 Water Bolus Amount 60 / 60 Output: Urine 0 / 0 Stool 0 / 0 Urine/Stool Mix 0 / 0 Hemodialysis Amount 3000 / 3000 Other: # Voids 0 Date of Last Bowel Movement 09/08/18 09/08/18 09/08/18 # Bowel Movements 0 # Incontinent Bowel Movements 0 Narrative: - Constitutional Intubated sedated with propofol hypotensive critically ill - Routine Respiratory Exam CTA bilaterally, no wheezes or crackles - Routine Cardiovascular Exam Sinus rhythm, intermittently tachycardic, hypotensive currently on 80 mcg/min of Jonas-Synephrine - Routine Abdominal Exam soft, nontender. New PEG tube site without evidence of bleeding - Routine Extremities Exam No pedal edema. - Routine Neurological Exam Patient is extubated do not follow commands - Urinary Catheter Management Straight Cath placed during this visit: yes Reason for continuing: Not indwelling catheter Insertion date: 12/01/17 Insertion time: 13:46 Assessment and Plan - Assessment (1) Altered mental status Code(s): R41.82 - Altered mental status, unspecified Status: Acute Qualifiers: Altered mental status type: unspecified Qualified Code(s): R41.82 - Altered mental status, unspecified (2) Hypoglycemia Code(s): E16.2 - Hypoglycemia, unspecified Status: Acute (3) Sepsis Code(s): A41.9 - Sepsis, unspecified organism Status: Acute Qualifiers: Sepsis type: sepsis due to unspecified organism Qualified Code(s): A41.9 - Sepsis, unspecified organism (4) ESRD (end stage renal disease) on dialysis Code(s): N18.6 - End stage renal disease; Z99.2 - Dependence on renal dialysis Status: Acute - Plan Patient now on mechanical ventilation there is a possibility of aspiration pneumonia, sepsis, hypotension, condition critical on vasopressors and ventilator Suspect AMS secondary to hypoglycemic event Hemodialysis continue hemodialysis on Tuesday and Tuesday vascat in place Continue aggressive care Prognosis is poor
--- NOTE | 2017-12-14 16:45 | P.PNNEU ---
Subjective Subjective Comments: Pt now extubated off sedation, but not showing signs of increase responsiveness Active Medications: Active Medications Acetaminophen (Tylenol) 650 mg PO UNSCH PRN PRN Reason: SEE LABEL COMMENTS Albuterol (Duoneb Neb (Cici)) 1 ampul NEB Q6HR NEB [facility] Last Admin: 12/14/17 15:08 Dose: 1 ampul Albuterol (Albuterol Neb (Prn)) 2.5 mg NEB Q2HR NEB PRN PRN Reason: DYSPNEA Lipase/Protease/Amylase (Ian Enrique 24/76/120) 1 cap PO QID [facility] Last Admin: 12/14/17 12:45 Dose: 1 cap Apixaban (Eliquis) 5 mg PO BID [facility] Last Admin: 12/05/17 09:14 Dose: 5 mg Artificial Tears (Genteal Severe Dry Eye Relief 0.3% Opth Gel) 1 drops EACH EYE BID [facility] Last Admin: 12/14/17 10:35 Dose: 1 drops Atorvastatin Calcium (Lipitor) 40 mg PO HS [facility] Last Admin: 12/13/17 21:42 Dose: 40 mg Carvedilol (Coreg) 25 mg PO BID [facility] Last Admin: 12/12/17 08:01 Dose: Not Given Chlorhexidine Gluconate (Peridex 0.12% Oral Kit) 15 ml OROPHARYNG BID@0800, 2000 [facility] Last Admin: 12/14/17 10:35 Dose: 15 ml Chlorhexidine Gluconate (Chlorhexidine 2% Cloth) 3 pack TOPICAL DAILY@0400 [facility] Stop: 12/19/17 03:59 Last Admin: 12/14/17 03:59 Dose: 3 pack Chlorhexidine Gluconate (Chlorhexidine 2% Cloth) 3 pack TOPICAL DAILY@0400 PRN PRN Reason: Extra cloth needed Stop: 12/19/17 03:59 Clonidine HCl (Catapres) 0.1 mg NG/OG Q8H PRN PRN Reason: SEE LABEL COMMENTS Dextrose (D50w Vial) 50 ml IV.PUSH UNSCH PRN PRN Reason: PER HYPOGLYCEMIA PROTOCOL Diphenhydramine HCl (Benadryl) 25 mg PO UNSCH PRN PRN Reason: SEE LABEL COMMENTS Diphenhydramine HCl (Benadryl Inj) 25 mg IV.PUSH Q8H PRN PRN Reason: itching Last Admin: 12/12/17 10:49 Dose: 25 mg Enalaprilat (Vasotec Inj) 1.25 mg IV.PUSH Q8H PRN PRN Reason: SBP>180 OR DBP>100 Last Admin: 12/04/17 18:46 Dose: 1.25 mg Gelatin (Gelfoam 12 Mm/7 Mm Topical) 1 foam TOPICAL PRN PRN PRN Reason: help stop bleeding from site Gentamicin Sulfate (Gentamicin Inj) 20 mg OTHER WITH DIALYSIS PRN PRN Reason: Dwell Gentamycin Lock Last Admin: 12/13/17 11:43 Dose: 20 mg Glucagon (Glucagon Inj) 1 mg OTHER PRN PRN PRN Reason: for Hypoglycemia Protocol Haloperidol Lactate (Haldol Inj) 4 mg IV.PUSH Q4H PRN PRN Reason: AGITATION Last Admin: 12/14/17 10:36 Dose: 4 mg Heparin Sodium (Porcine) (Heparin Inj) 8,000 units OTHER WITH DIALYSIS PRN PRN Reason: for machine prime Last Admin: 12/01/17 19:31 Dose: 2,000 units Heparin Sodium (Porcine) (Heparin Inj) 0 units OTHER WITH DIALYSIS PRN PRN Reason: Dwell Heparin to Fill Catheter Last Admin: 12/13/17 11:43 Dose: 1,500 units Sodium Chloride (Ns Inj) 500 mls @ 0 mls/hr IV.SIG BOLUS [facility] Last Infusion: 12/01/17 14:15 Dose: Infused Albumin Human (Flexbumin 25% Inj) 100 mls @ 60 mls/hr IV.SIG WITH DIALYSIS PRN PRN Reason: hypotension / volume replace Last Infusion: 12/13/17 11:42 Dose: Infused Sodium Chloride (Ns Inj) 1,000 mls @ 0 mls/hr OTHER .Q0M PRN PRN Reason: for prime and rinse back Sodium Chloride (Ns Inj) 1,000 mls @ 200 mls/hr OTHER .Q5H PRN PRN Reason: for dialyzer flush PRN Sodium Chloride (Ns Inj) 200 mls @ 0 mls/hr IV.CONT .Q0M PRN PRN Reason: hypotension / volume replace Sodium Chloride (Ns Inj) 500 mls @ 30 mls/hr IV.SIG .Q10H [facility] Last Admin: 12/06/17 01:51 Dose: Not Given Sodium Chloride (Ns Inj) 500 mls @ 30 mls/hr IV.SIG .Q10H [facility] Last Admin: 12/06/17 01:52 Dose: Not Given Sodium Chloride (Ns Inj) 1,000 mls @ 42 mls/hr IV.CONT .[id number] [facility] Last Admin: 12/14/17 15:18 Dose: Not Given Vancomycin HCl 1,000 mg/ (Sodium Chloride) 250 mls @ 250 mls/hr IV.SIG WITH DIALYSIS [facility] Sodium Chloride (Ns Inj) 500 mls @ 0 mls/hr IV.SIG BOLUS [facility] Midazolam HCl (Versed Inj) 50 mg in 50 mls @ 2 mls/hr IV.CONT TITRATE PRN; Protocol PRN Reason: Per Protocol Last Titration: 12/13/17 15:00 Dose: 0 mg/hr, 0 mls/hr Phenylephrine HCl 160 mg/ (Sodium Chloride) 500 mls @ 7.5 mls/hr IV.CONT TITRATE PRN; Protocol PRN Reason: See protol Last Titration: 12/13/17 08:15 Dose: 0 mcg/min, 0 mls/hr Metronidazole/Sodium Chloride (Flagyl 500 Mg Inj) 100 mls @ 100 mls/hr IV.SIG Q8H [facility] Last Infusion: 12/14/17 13:45 Dose: Infused Aztreonam 500 mg/ Sodium (Chloride) 50 mls @ 100 mls/hr IV.SIG Q8H [facility] Last Infusion: 12/14/17 13:15 Dose: Infused Propofol (Diprivan 1000 Mg/100 Ml Inj) 1,000 mg in 100 mls @ 2.1 mls/hr IV.CONT TITRATE PRN; Protocol PRN Reason: Per Protocol Last Titration: 12/13/17 07:45 Dose: 0 mcg/kg/min, 0 mls/hr Fentanyl (Fentanyl 10 Mcg/Ml Premix Drip) 2,500 mcg in 250 mls @ 2.5 mls/hr IV.SIG TITRATE PRN; Protocol PRN Reason: Per Protocol Last Titration: 12/14/17 04:01 Dose: 150 mcg/hr, 15 mls/hr Insulin Aspart (Novolog Insulin Correctional Sugar Inj) 0 unit SQ ACHS [facility]; Protocol Last Admin: 12/14/17 13:01 Dose: 7 unit Levothyroxine Sodium (Synthroid) 50 mcg PO DAILY@0600 [facility] Last Admin: 12/14/17 07:21 Dose: 50 mcg Lisinopril (Prinivil) 10 mg PO DAILY [facility] Last Admin: 12/12/17 08:01 Dose: Not Given Lorazepam (Ativan Inj) 0.5 mg IV.PUSH Q6H PRN PRN Reason: AGITATION Last Admin: 12/14/17 12:44 Dose: 0.5 mg Mannitol (Mannitol Inj) 12.5 gm IV.PUSH UNSCH PRN PRN Reason: hypotension / volume replace Metoprolol Tartrate (Lopressor Inj) 5 mg IV.PUSH Q6H PRN PRN Reason: SBP > 160;DBP > 100;HR > 60 Last Admin: 12/09/17 20:59 Dose: 5 mg Nitroglycerin (Nitrostat Sl) 0.4 mg SL Q5M PRN PRN Reason: CHEST PAIN Ondansetron HCl (Zofran Inj) 4 mg IV.PUSH UNSCH PRN PRN Reason: NAUSEA OR VOMITING Pantoprazole Sodium (Protonix Inj) 40 mg IV.PUSH Q12H [facility] Last Admin: 12/14/17 10:35 Dose: 40 mg Fluticasone- Umeclidin-Vilanter [ Trelegy Ellipta] 1 Inh 1 each INH DAILY [facility] Pharmacy Profile Note (Vancomycin Consult Pharmacy) 1 each OTHER PRN PRN PRN Reason: Pharmacy to dose Quetiapine Fumarate (Seroquel) 25 mg PO HS [facility] Last Admin: 12/12/17 00:53 Dose: Not Given Sodium Chloride (Ns Flush) 2 ml IV.FLUSH BID [facility] Last Admin: 12/14/17 10:35 Dose: 2 ml Sodium Chloride (Ns Flush) 2 ml IV.FLUSH UNSCH PRN PRN Reason: FLUSH AFTER USING IV ACCESS Last Admin: 12/07/17 03:36 Dose: 2 ml Sodium Chloride (Ns Flush) 5 ml IV.FLUSH UNSCH PRN PRN Reason: flush each lumen during HD Terbutaline Sulfate (Brethine Inj) 1 mg SQ UNSCH PRN PRN Reason: For Extravasation Vitamin B Complex/Vit C/Folic Acid (Nephrocaps) 1 tab PO DAILY [facility] Last Admin: 12/14/17 10:35 Dose: 1 tab Allergies/Adverse Reactions: Allergies Allergy/AdvReac Type Severity Reaction Status Date / Time Penicillins Allergy Mild rash Verified 12/01/17 17:09 Physical Exam Vital signs: Vital Signs 12/13/17 17:00 12/13/17 18:00 12/13/17 20:00 Temperature Pulse Rate 79 80 82 Respiratory Rate 23 18 Blood Pressure 144/62 H 143/66 H Pulse Oximetry 100 100 12/13/17 20:08 12/13/17 20:12 12/13/17 23:24 Temperature Pulse Rate 80 Respiratory Rate 16 16 16 Blood Pressure Pulse Oximetry 100 99 12/14/17 00:00 12/14/17 03:42 12/14/17 03:47 Temperature 98.1 F Pulse Rate 92 H 75 Respiratory Rate 23 16 16 Blood Pressure 120/58 L Pulse Oximetry 99 98 12/14/17 04:00 12/14/17 07:45 12/14/17 08:00 Temperature 98.6 F 98.9 F Pulse Rate 75 77 77 Respiratory Rate 18 15 14 Blood Pressure 117/65 113/57 L Pulse Oximetry 95 100 99 12/14/17 08:15 12/14/17 08:30 12/14/17 08:45 Temperature Pulse Rate 91 H 94 H 97 H Respiratory Rate 27 H 147 H 10 L Blood Pressure 117/59 L 141/70 H 132/63 Pulse Oximetry 100 92 L 86 L 12/14/17 09:00 12/14/17 09:15 12/14/17 09:30 Temperature Pulse Rate 106 H 110 H 115 H Respiratory Rate 22 20 18 Blood Pressure 176/84 H 157/72 H 129/54 L Pulse Oximetry 95 88 L 12/14/17 09:35 12/14/17 09:45 12/14/17 10:00 Temperature Pulse Rate 113 H 108 H Respiratory Rate 17 15 Blood Pressure 126/61 104/58 L Pulse Oximetry 92 L 90 L 90 L 12/14/17 10:15 12/14/17 10:30 12/14/17 10:45 Temperature Pulse Rate 111 H 108 H 101 H Respiratory Rate 27 H 32 H 13 Blood Pressure 111/55 L 110/64 115/55 L Pulse Oximetry 88 L 90 L 91 L 12/14/17 11:00 12/14/17 11:15 12/14/17 11:30 Temperature Pulse Rate 102 H 102 H 102 H Respiratory Rate 150 H 12 11 L Blood Pressure 115/58 L 109/58 L 111/56 L Pulse Oximetry 91 L 90 L 90 L 12/14/17 11:45 12/14/17 12:00 12/14/17 12:15 Temperature Pulse Rate 101 H 100 H 99 H Respiratory Rate 12 13 12 Blood Pressure 119/57 L 124/57 L 131/58 L Pulse Oximetry 90 L 90 L 90 L 12/14/17 12:33 12/14/17 12:45 12/14/17 13:00 Temperature Pulse Rate 105 H 101 H 103 H Respiratory Rate 23 14 89 H Blood Pressure 112/68 112/60 93/54 L Pulse Oximetry 88 L 91 L 92 L 12/14/17 13:15 12/14/17 13:30 12/14/17 13:45 Temperature Pulse Rate 101 H 104 H 109 H Respiratory Rate 14 18 19 Blood Pressure 93/55 L 95/53 L 94/53 L Pulse Oximetry 92 L 90 L 89 L 12/14/17 14:00 12/14/17 14:05 12/14/17 14:15 Temperature Pulse Rate 109 H 109 H 108 H Respiratory Rate 19 18 19 Blood Pressure 94/51 L 108/50 L 108/57 L Pulse Oximetry 91 L 90 L 91 L 12/14/17 14:30 12/14/17 14:45 12/14/17 15:00 Temperature Pulse Rate 109 H 109 H 107 H Respiratory Rate 17 13 12 Blood Pressure 134/58 L 102/51 L 108/55 L Pulse Oximetry 91 L 92 L 91 L 12/14/17 15:09 12/14/17 15:15 12/14/17 15:30 Temperature Pulse Rate 106 H 105 H 104 H Respiratory Rate 20 11 L 12 Blood Pressure 90/52 L 103/54 L Pulse Oximetry 92 L 91 L 12/14/17 15:40 12/14/17 15:45 12/14/17 16:00 Temperature Pulse Rate 102 H 102 H 107 H Respiratory Rate 13 15 26 H Blood Pressure 99/52 L 98/52 L 102/56 L Pulse Oximetry 92 L 90 L 90 L 12/14/17 16:15 Temperature Pulse Rate 105 H Respiratory Rate 134 H Blood Pressure 99/54 L Pulse Oximetry 90 L Intake & Output 12/13/17 12/14/17 12/14/17 18:59 06:59 18:59 Intake Total 1422 / 1422 510 / 510 200 / 200 Output Total 3000 / 3000 0 / 0 Balance -1578 / -1578 510 / 510 200 / 200 Weight 71.1 kg Intake: IV 1362 / 1362 500 / 500 200 / 200 Versed Inj 50 mg In 50 ml @ 2 62 / 62 MG/HR 2 mls/hr IV.CONT TITRATE PRN Rx#:[id number] NS Inj 1,000 ML @ 42 mls/hr IV. 1000 / 1000 CONT .[id number] [facility] Rx#:[id number] Flexbumin 25% Inj 100 ML @ 60 100 / 100 mls/hr IV.SIG WITH DIALYSIS PRN Rx#:[id number] Azactam Inj 500 MG In NS Inj 50 50 / 50 50 / 50 100 / 100 ML @ 100 mls/hr IV.SIG Q8H [facility] Rx#:[id number] Vancomycin Inj 1,000 MG In NS 250 / 250 Inj 250 ML @ 250 mls/hr IV.SIG ONCE ONE Rx#:[id number] fentaNYL 10 mcg/mL Premix Drip 50 / 50 2,500 mcg In 250 ml @ 25 MCG/HR 2.5 mls/hr IV.SIG TITRATE PRN Rx#:[id number] Flagyl 500 MG Inj 100 ML @ 100 100 / 100 200 / 200 100 / 100 mls/hr IV.SIG Q8H [facility] Rx#: [id number] Oral 0 / 0 Tube Feeding 10 / 10 Water Bolus Amount 60 / 60 Output: Urine 0 / 0 Stool 0 / 0 Urine/Stool Mix 0 / 0 Hemodialysis Amount 3000 / 3000 Other: # Voids 0 Date of Last Bowel Movement 12/10/17 12/10/17 12/10/17 # Bowel Movements 0 # Incontinent Bowel Movements 0 - Routine Neurological Exam does not follow commands PERRL. EOM --minimal to occulocephalic MOTOR no withdrawal no purposeful limb movement - Urinary Catheter Management Straight Cath placed during this visit: yes Reason for continuing: Not indwelling catheter Insertion date: 12/01/17 Insertion time: 13:46 Objective Laboratory Results - last 24 hr 12/13/17 12/13/17 12/13/17 15:45 17:05 21:27 WBC RBC Hgb Hct MCV MCH MCHC RDW Plt Count MPV Sodium Potassium Chloride Carbon Dioxide Anion Gap BUN Creatinine Estimated GFR POC Glucose 284 H 286 H Random Glucose Calcium Total Bilirubin AST ALT Alkaline Phosphatase Total Protein Albumin Nasal Screen MRSA (PCR) Not detected 12/14/17 12/14/17 12/14/17 03:30 03:30 10:24 WBC 17.3 H RBC 3.56 L Hgb 9.9 L Hct 31.6 L MCV 88.7 MCH 27.7 MCHC 31.3 L RDW 18.9 H Plt Count 227 MPV 9.2 Sodium 145 Potassium 4.0 Chloride 103 Carbon Dioxide 26.0 Anion Gap 16 H BUN 52 H Creatinine 7.80 H Estimated GFR 7 L POC Glucose 361 H Random Glucose 303 H Calcium 8.3 L Total Bilirubin 0.5 AST 73 H ALT 45 Alkaline Phosphatase 82 Total Protein 5.7 L Albumin 2.6 L Nasal Screen MRSA (PCR) 12/14/17 12:47 WBC RBC Hgb Hct MCV MCH MCHC RDW Plt Count MPV Sodium Potassium Chloride Carbon Dioxide Anion Gap BUN Creatinine Estimated GFR POC Glucose 306 H Random Glucose Calcium Total Bilirubin AST ALT Alkaline Phosphatase Total Protein Albumin Nasal Screen MRSA (PCR) Microbiology 12/13/17 18:00 Gram Stain - Final Sputum - Endotracheal Sputum Culture - Preliminary Moderate growth normal respiratory char at 24 hours 12/12/17 19:27 Aerobic Blood Culture - Preliminary Blood - Peripheral No growth in 2 days Anaerobic Blood Culture - Preliminary No growth in 2 days 12/12/17 19:22 Aerobic Blood Culture - Preliminary Blood - Peripheral No growth in 2 days Anaerobic Blood Culture - Preliminary No growth in 2 days Review/Management - Diagnosis (1) Altered mental status Code(s): R41.82 - Altered mental status, unspecified Status: Acute Current Visit: Yes - Review/Management Plan: encephalopathy--probably from renal failure and possible prolonged hypoglycemia prior to admission (glc 36). Prognosis guarded. WIll check EEG which may help in prognosis (1) Altered mental status Qualifiers: Altered mental status type: unspecified Qualified Code(s): R41.82 - Altered mental status, unspecified
--- NOTE | 2017-12-14 18:01 | P.CONID ---
History of Present Illness Service: ID Consult date: 12/14/17 Requesting Physician: Sandra Smith Reason for Consult: leukocytosis sepsis Primary Care Provider: UNKNOWN Chief Complaint: Resp failure, aspiration History of Present Illness: Pt is unable to provide history HIstory obbtained from the chart 67-year-old male patient with multiple med problems, including CAD, multiple stent placement, COPD, end-stage renal disease, on HD, type 2 diabetes, found down on 12/01/17 with a glucose of 36. Patient was admitted to hospitalist service and despite correction of hypoglycemia remained agitated and encephalopathic. Sp PEG tube placement for nutrition pt was endotracheally intubated during the procedure by anesthesiologist. Pt was transferred to ICu 2 days ago with large amount of regurgitation and possible aspiration. Patient remained hemodynamically unstable and was started on Jonas-Synephrine infusion. After procedure patient was left intubated for stabilization and critical care medicine was consulted. CT abdomen pelvis ruled out gastric perforation, however showed massive dilation of pancreatic duct up to 2 cm. Cannot rule out mass. MRCP yesterday showed Dilatation of the pancreatic duct 2 cm in the head of pancreas to 1.6 images in the mid body with a chain of lakes pseudocyst appearance. Findings would be consistent with a chronic pancreatitis. Per radiologist If there is a focal mass present it would be at the ampulla. May need ERCP Patient cont to remain encephalopathic, was extubated today He has some hypotenstion and worsening leukocytosis up to 17.9K He is on Metronidazole, Aztreonam and vancomycin with HD Blood clx negative @ 2 days, sputum clx with nl resp char Low grade Staph epi bacteremia on 12/01 (just one bottle) Review of Systems unobtainable due to mental condition PMFSH - History History Provided By: Family Member, Payroll Consultant / EMT - Medical History Medical History: Medical History (Last Reviewed 12/14/17 @ 17:41 by Maryann Parmar MD) GERD (gastroesophageal reflux disease) Hypothyroidism CAD (coronary artery disease) CKD (chronic kidney disease) COPD (chronic obstructive pulmonary disease) ESRD (end stage renal disease) on dialysis PAD (peripheral artery disease) Type 2 diabetes mellitus - Family History Family History: Family History (Last Reviewed 12/14/17 @ 17:41 by Maryann Parmar MD) Other Diabetes - Social History I have reviewed the patient's Social History: Yes - Tobacco History Tobacco Use In Past 30 Days: No Smoking Status: Former smoker Tobacco Type: Cigarettes - Alcohol History How Often Do You Have a Drink Containing Alcohol: 2 to 3 times a week - Substance Use History Substance History: No History of Abuse - Travel History Recent Travel in the [place] Within the Last 8 Weeks: No Recent Travel Out of the Country Within the Last 8 Weeks: No - Immunization History Tetanus Immunization: Unable to Assess Hx Influenza Vaccine This Season: Unable to Assess Medications and Allergies Active Medications: Active Medications Acetaminophen (Tylenol) 650 mg PO UNSCH PRN PRN Reason: SEE LABEL COMMENTS Albuterol (Duoneb Neb (Cici)) 1 ampul NEB Q6HR NEB [facility] Last Admin: 12/14/17 15:08 Dose: 1 ampul Albuterol (Albuterol Neb (Prn)) 2.5 mg NEB Q2HR NEB PRN PRN Reason: DYSPNEA Lipase/Protease/Amylase (Ian Enrique 24/76/120) 1 cap PO QID [facility] Last Admin: 12/14/17 12:45 Dose: 1 cap Apixaban (Eliquis) 5 mg PO BID [facility] Last Admin: 12/05/17 09:14 Dose: 5 mg Artificial Tears (Genteal Severe Dry Eye Relief 0.3% Opth Gel) 1 drops EACH EYE BID [facility] Last Admin: 12/14/17 10:35 Dose: 1 drops Atorvastatin Calcium (Lipitor) 40 mg PO HS [facility] Last Admin: 12/13/17 21:42 Dose: 40 mg Carvedilol (Coreg) 25 mg PO BID [facility] Last Admin: 12/12/17 08:01 Dose: Not Given Chlorhexidine Gluconate (Peridex 0.12% Oral Kit) 15 ml OROPHARYNG BID@0800, 2000 [facility] Last Admin: 12/14/17 10:35 Dose: 15 ml Chlorhexidine Gluconate (Chlorhexidine 2% Cloth) 3 pack TOPICAL DAILY@0400 [facility] Stop: 12/19/17 03:59 Last Admin: 12/14/17 03:59 Dose: 3 pack Chlorhexidine Gluconate (Chlorhexidine 2% Cloth) 3 pack TOPICAL DAILY@0400 PRN PRN Reason: Extra cloth needed Stop: 12/19/17 03:59 Clonidine HCl (Catapres) 0.1 mg NG/OG Q8H PRN PRN Reason: SEE LABEL COMMENTS Dextrose (D50w Vial) 50 ml IV.PUSH UNSCH PRN PRN Reason: PER HYPOGLYCEMIA PROTOCOL Diphenhydramine HCl (Benadryl) 25 mg PO UNSCH PRN PRN Reason: SEE LABEL COMMENTS Diphenhydramine HCl (Benadryl Inj) 25 mg IV.PUSH Q8H PRN PRN Reason: itching Last Admin: 12/12/17 10:49 Dose: 25 mg Enalaprilat (Vasotec Inj) 1.25 mg IV.PUSH Q8H PRN PRN Reason: SBP>180 OR DBP>100 Last Admin: 12/04/17 18:46 Dose: 1.25 mg Gelatin (Gelfoam 12 Mm/7 Mm Topical) 1 foam TOPICAL PRN PRN PRN Reason: help stop bleeding from site Gentamicin Sulfate (Gentamicin Inj) 20 mg OTHER WITH DIALYSIS PRN PRN Reason: Dwell Gentamycin Lock Last Admin: 12/13/17 11:43 Dose: 20 mg Glucagon (Glucagon Inj) 1 mg OTHER PRN PRN PRN Reason: for Hypoglycemia Protocol Haloperidol Lactate (Haldol Inj) 4 mg IV.PUSH Q4H PRN PRN Reason: AGITATION Last Admin: 12/14/17 10:36 Dose: 4 mg Heparin Sodium (Porcine) (Heparin Inj) 8,000 units OTHER WITH DIALYSIS PRN PRN Reason: for machine prime Last Admin: 12/01/17 19:31 Dose: 2,000 units Heparin Sodium (Porcine) (Heparin Inj) 0 units OTHER WITH DIALYSIS PRN PRN Reason: Dwell Heparin to Fill Catheter Last Admin: 12/13/17 11:43 Dose: 1,500 units Sodium Chloride (Ns Inj) 500 mls @ 0 mls/hr IV.SIG BOLUS CICI Last Infusion: 12/01/17 14:15 Dose: Infused Albumin Human (Flexbumin 25% Inj) 100 mls @ 60 mls/hr IV.SIG WITH DIALYSIS PRN PRN Reason: hypotension / volume replace Last Infusion: 12/13/17 11:42 Dose: Infused Sodium Chloride (Ns Inj) 1,000 mls @ 0 mls/hr OTHER .Q0M PRN PRN Reason: for prime and rinse back Sodium Chloride (Ns Inj) 1,000 mls @ 200 mls/hr OTHER .Q5H PRN PRN Reason: for dialyzer flush PRN Sodium Chloride (Ns Inj) 200 mls @ 0 mls/hr IV.CONT .Q0M PRN PRN Reason: hypotension / volume replace Sodium Chloride (Ns Inj) 500 mls @ 30 mls/hr IV.SIG .Q10H CICI Last Admin: 12/06/17 01:51 Dose: Not Given Sodium Chloride (Ns Inj) 500 mls @ 30 mls/hr IV.SIG .Q10H CICI Last Admin: 12/06/17 01:52 Dose: Not Given Sodium Chloride (Ns Inj) 1,000 mls @ 42 mls/hr IV.CONT .[id number] CICI Last Admin: 12/14/17 15:18 Dose: Not Given Vancomycin HCl 1,000 mg/ (Sodium Chloride) 250 mls @ 250 mls/hr IV.SIG WITH DIALYSIS CICI Sodium Chloride (Ns Inj) 500 mls @ 0 mls/hr IV.SIG BOLUS CICI Midazolam HCl (Versed Inj) 50 mg in 50 mls @ 2 mls/hr IV.CONT TITRATE PRN; Protocol PRN Reason: Per Protocol Last Titration: 12/13/17 15:00 Dose: 0 mg/hr, 0 mls/hr Phenylephrine HCl 160 mg/ (Sodium Chloride) 500 mls @ 7.5 mls/hr IV.CONT TITRATE PRN; Protocol PRN Reason: See protol Last Titration: 12/13/17 08:15 Dose: 0 mcg/min, 0 mls/hr Metronidazole/Sodium Chloride (Flagyl 500 Mg Inj) 100 mls @ 100 mls/hr IV.SIG Q8H [facility] Last Infusion: 12/14/17 13:45 Dose: Infused Aztreonam 500 mg/ Sodium (Chloride) 50 mls @ 100 mls/hr IV.SIG Q8H [facility] Last Infusion: 12/14/17 13:15 Dose: Infused Propofol (Diprivan 1000 Mg/100 Ml Inj) 1,000 mg in 100 mls @ 2.1 mls/hr IV.CONT TITRATE PRN; Protocol PRN Reason: Per Protocol Last Titration: 12/13/17 07:45 Dose: 0 mcg/kg/min, 0 mls/hr Fentanyl (Fentanyl 10 Mcg/Ml Premix Drip) 2,500 mcg in 250 mls @ 2.5 mls/hr IV.SIG TITRATE PRN; Protocol PRN Reason: Per Protocol Last Titration: 12/14/17 04:01 Dose: 150 mcg/hr, 15 mls/hr Insulin Aspart (Novolog Insulin Correctional Sugar Inj) 0 unit SQ ACHS [facility]; Protocol Last Admin: 12/14/17 13:01 Dose: 7 unit Levothyroxine Sodium (Synthroid) 50 mcg PO DAILY@0600 [facility] Last Admin: 12/14/17 07:21 Dose: 50 mcg Lisinopril (Prinivil) 10 mg PO DAILY [facility] Last Admin: 12/12/17 08:01 Dose: Not Given Lorazepam (Ativan Inj) 0.5 mg IV.PUSH Q6H PRN PRN Reason: AGITATION Last Admin: 12/14/17 12:44 Dose: 0.5 mg Mannitol (Mannitol Inj) 12.5 gm IV.PUSH UNSCH PRN PRN Reason: hypotension / volume replace Metoprolol Tartrate (Lopressor Inj) 5 mg IV.PUSH Q6H PRN PRN Reason: SBP > 160;DBP > 100;HR > 60 Last Admin: 12/09/17 20:59 Dose: 5 mg Nitroglycerin (Nitrostat Sl) 0.4 mg SL Q5M PRN PRN Reason: CHEST PAIN Ondansetron HCl (Zofran Inj) 4 mg IV.PUSH UNSCH PRN PRN Reason: NAUSEA OR VOMITING Pantoprazole Sodium (Protonix Inj) 40 mg IV.PUSH Q12H [facility] Last Admin: 12/14/17 10:35 Dose: 40 mg Fluticasone- Umeclidin-Vilanter [ Trelegy Ellipta] 1 Inh 1 each INH DAILY [facility] Pharmacy Profile Note (Vancomycin Consult Pharmacy) 1 each OTHER PRN PRN PRN Reason: Pharmacy to dose Quetiapine Fumarate (Seroquel) 25 mg PO HS [facility] Last Admin: 12/12/17 00:53 Dose: Not Given Sodium Chloride (Ns Flush) 2 ml IV.FLUSH BID [facility] Last Admin: 12/14/17 10:35 Dose: 2 ml Sodium Chloride (Ns Flush) 2 ml IV.FLUSH UNSCH PRN PRN Reason: FLUSH AFTER USING IV ACCESS Last Admin: 12/07/17 03:36 Dose: 2 ml Sodium Chloride (Ns Flush) 5 ml IV.FLUSH UNSCH PRN PRN Reason: flush each lumen during HD Terbutaline Sulfate (Brethine Inj) 1 mg SQ UNSCH PRN PRN Reason: For Extravasation Vitamin B Complex/Vit C/Folic Acid (Nephrocaps) 1 tab PO DAILY CICI Last Admin: 12/14/17 10:35 Dose: 1 tab Allergies Allergy/AdvReac Type Severity Reaction Status Date / Time Penicillins Allergy Mild rash Verified 12/01/17 17:09 Home Medications Medication Instructions Recorded Confirmed Type Nephro-Tye Rx 1 tab PO DAILY 12/01/17 12/01/17 History Novolog Flexpen U-100 Insulin 12/01/17 History Vitamin D3 2,000 units PO DAILY 12/01/17 12/01/17 History albuterol sulfate [Ventolin HFA] 2 inh INHALATION 12/01/17 History alpha lipoic acid 600 mg PO DAILY 12/01/17 12/01/17 History apixaban [Eliquis] 5 mg PO BID 12/01/17 12/01/17 History atorvastatin 40 mg 12/01/17 History carvedilol 25 mg PO BID 12/01/17 12/01/17 History colchicine 0.6 mg PO 4XW 12/01/17 12/01/17 History [id number]-[id number] 1 inh INHALATION DAILY 12/01/17 12/01/17 History [Trelegy Ellipta] gentamicin 3 drp 12/01/17 History glimepiride 4 mg PO BID 12/01/17 12/01/17 History insulin detemir U-100 [Levemir 25 unit SUB-Q QPM 12/01/17 12/01/17 History U-100 Insulin] levothyroxine 50 mcg PO DAILY 12/01/17 12/01/17 History [id number] [Creon] 1 cap PO QID 12/01/17 12/01/17 History lisinopril 10 mg PO DAILY 12/01/17 12/01/17 History nifedipine 90 mg PO DAILY 12/01/17 12/01/17 History omeprazole 40 mg PO DAILY 12/01/17 12/01/17 History Exam Vital signs: Vital Signs 12/13/17 18:00 12/13/17 20:00 12/13/17 20:08 Temperature Pulse Rate 80 82 80 Respiratory Rate 18 16 Blood Pressure 143/66 H Pulse Oximetry 100 12/13/17 20:12 12/13/17 23:24 12/14/17 00:00 Temperature 98.1 F Pulse Rate 92 H Respiratory Rate 16 16 23 Blood Pressure 120/58 L Pulse Oximetry 100 99 99 12/14/17 03:42 12/14/17 03:47 12/14/17 04:00 Temperature 98.6 F Pulse Rate 75 75 Respiratory Rate 16 16 18 Blood Pressure 117/65 Pulse Oximetry 98 95 12/14/17 07:45 12/14/17 08:00 12/14/17 08:15 Temperature 98.9 F Pulse Rate 77 77 91 H Respiratory Rate 15 14 27 H Blood Pressure 113/57 L 117/59 L Pulse Oximetry 100 99 100 12/14/17 08:30 12/14/17 08:45 12/14/17 09:00 Temperature Pulse Rate 94 H 97 H 106 H Respiratory Rate 147 H 10 L 22 Blood Pressure 141/70 H 132/63 176/84 H Pulse Oximetry 92 L 86 L 12/14/17 09:15 12/14/17 09:30 12/14/17 09:35 Temperature Pulse Rate 110 H 115 H Respiratory Rate 20 18 Blood Pressure 157/72 H 129/54 L Pulse Oximetry 95 88 L 92 L 12/14/17 09:45 12/14/17 10:00 12/14/17 10:15 Temperature Pulse Rate 113 H 108 H 111 H Respiratory Rate 17 15 27 H Blood Pressure 126/61 104/58 L 111/55 L Pulse Oximetry 90 L 90 L 88 L 12/14/17 10:30 12/14/17 10:45 12/14/17 11:00 Temperature Pulse Rate 108 H 101 H 102 H Respiratory Rate 32 H 13 150 H Blood Pressure 110/64 115/55 L 115/58 L Pulse Oximetry 90 L 91 L 91 L 12/14/17 11:15 12/14/17 11:30 12/14/17 11:45 Temperature Pulse Rate 102 H 102 H 101 H Respiratory Rate 12 11 L 12 Blood Pressure 109/58 L 111/56 L 119/57 L Pulse Oximetry 90 L 90 L 90 L 12/14/17 12:00 12/14/17 12:15 12/14/17 12:33 Temperature Pulse Rate 100 H 99 H 105 H Respiratory Rate 13 12 23 Blood Pressure 124/57 L 131/58 L 112/68 Pulse Oximetry 90 L 90 L 88 L 12/14/17 12:45 12/14/17 13:00 12/14/17 13:15 Temperature Pulse Rate 101 H 103 H 101 H Respiratory Rate 14 89 H 14 Blood Pressure 112/60 93/54 L 93/55 L Pulse Oximetry 91 L 92 L 92 L 12/14/17 13:30 12/14/17 13:45 12/14/17 14:00 Temperature Pulse Rate 104 H 109 H 109 H Respiratory Rate 18 19 19 Blood Pressure 95/53 L 94/53 L 94/51 L Pulse Oximetry 90 L 89 L 91 L 12/14/17 14:05 12/14/17 14:15 12/14/17 14:30 Temperature Pulse Rate 109 H 108 H 109 H Respiratory Rate 18 19 17 Blood Pressure 108/50 L 108/57 L 134/58 L Pulse Oximetry 90 L 91 L 91 L 12/14/17 14:45 12/14/17 15:00 12/14/17 15:09 Temperature Pulse Rate 109 H 107 H 106 H Respiratory Rate 13 12 20 Blood Pressure 102/51 L 108/55 L Pulse Oximetry 92 L 91 L 12/14/17 15:15 12/14/17 15:30 12/14/17 15:40 Temperature Pulse Rate 105 H 104 H 102 H Respiratory Rate 11 L 12 13 Blood Pressure 90/52 L 103/54 L 99/52 L Pulse Oximetry 92 L 91 L 92 L 12/14/17 15:45 12/14/17 16:00 12/14/17 16:15 Temperature Pulse Rate 102 H 107 H 105 H Respiratory Rate 15 26 H 134 H Blood Pressure 98/52 L 102/56 L 99/54 L Pulse Oximetry 90 L 90 L 90 L Intake & Output 12/13/17 12/14/17 12/14/17 18:59 06:59 18:59 Intake Total 1422 / 1422 510 / 510 200 / 200 Output Total 3000 / 3000 0 / 0 Balance -1578 / -1578 510 / 510 200 / 200 Weight 71.1 kg Intake: IV 1362 / 1362 500 / 500 200 / 200 Versed Inj 50 mg In 50 ml @ 2 62 / 62 MG/HR 2 mls/hr IV.CONT TITRATE PRN Rx#:[id number] NS Inj 1,000 ML @ 42 mls/hr IV. 1000 / 1000 CONT .[id number] [facility] Rx#:[id number] Flexbumin 25% Inj 100 ML @ 60 100 / 100 mls/hr IV.SIG WITH DIALYSIS PRN Rx#:[id number] Azactam Inj 500 MG In NS Inj 50 50 / 50 50 / 50 100 / 100 ML @ 100 mls/hr IV.SIG Q8H [facility] Rx#:[id number] Vancomycin Inj 1,000 MG In NS 250 / 250 Inj 250 ML @ 250 mls/hr IV.SIG ONCE ONE Rx#:[id number] fentaNYL 10 mcg/mL Premix Drip 50 / 50 2,500 mcg In 250 ml @ 25 MCG/HR 2.5 mls/hr IV.SIG TITRATE PRN Rx#:[id number] Flagyl 500 MG Inj 100 ML @ 100 100 / 100 200 / 200 100 / 100 mls/hr IV.SIG Q8H [facility] Rx#: [id number] Oral 0 / 0 Tube Feeding 10 / 10 Water Bolus Amount 60 / 60 Output: Urine 0 / 0 Stool 0 / 0 Urine/Stool Mix 0 / 0 Hemodialysis Amount 3000 / 3000 Other: # Voids 0 Date of Last Bowel Movement 12/10/17 12/10/17 12/10/17 # Bowel Movements 0 # Incontinent Bowel Movements 0 - Constitutional average body habitus, obtunded - Routine HEENT Exam Head: Present: normocephalic, atraumatic ENT: Present: mucous membranes dry. Absent: dentition normal Comments: disconjugated gaze - Routine Neck Exam Present: supple, full ROM. Absent: JVD - Routine Respiratory Exam Present: rales, respiratory distress, rhonchi (extensive). Absent: decreased breath sounds (markedly decreased on R base, ) - Routine Cardiovascular Exam Present: RRR, S1, S2. Absent: murmur, gallop, rubs - Routine Abdominal Exam Present: soft, normoactive bowel sounds, ostomy - Routine Extremities Exam Present: normal capillary refill. Absent: cyanosis, clubbing, edema - Routine Skin Exam Present: intact, dry. Absent: cyanosis, rash - Routine Neurological Exam obtunded, withdrawles 4 extremeties to noxious stimuli not following commnds not tracking not making eye contact eyes closed - Routine Psychiatric Exam Present: unable to assess Results - Labs CBC & Chem 7: 12/14/17 03:30 12/14/17 03:30 Labs: Laboratory Results - last 24 hr 12/13/17 12/13/17 12/14/17 15:45 21:27 03:30 WBC 17.3 H RBC 3.56 L Hgb 9.9 L Hct 31.6 L MCV 88.7 MCH 27.7 MCHC 31.3 L RDW 18.9 H Plt Count 227 MPV 9.2 Sodium Potassium Chloride Carbon Dioxide Anion Gap BUN Creatinine Estimated GFR POC Glucose 286 H Random Glucose Calcium Total Bilirubin AST ALT Alkaline Phosphatase Total Protein Albumin Nasal Screen MRSA (PCR) Not detected 12/14/17 12/14/17 12/14/17 03:30 10:24 12:47 WBC RBC Hgb Hct MCV MCH MCHC RDW Plt Count MPV Sodium 145 Potassium 4.0 Chloride 103 Carbon Dioxide 26.0 Anion Gap 16 H BUN 52 H Creatinine 7.80 H Estimated GFR 7 L POC Glucose 361 H 306 H Random Glucose 303 H Calcium 8.3 L Total Bilirubin 0.5 AST 73 H ALT 45 Alkaline Phosphatase 82 Total Protein 5.7 L Albumin 2.6 L Nasal Screen MRSA (PCR) - Imaging Chest X-Ray 12/01/17 11:12 CONCLUSION: 1. No focal or acute intrathoracic disease. 2. Right-sided central line in place. Head CT 12/01/17 11:12 CONCLUSION: 1. Mild cerebral atrophy. 2. No acute infarct, acute hemorrhage, midline shift or extra-axial fluid collections. 3. Small fluid level within the left maxillary sinus. Head MRI 12/02/17 00:00 CONCLUSION: 1. No acute findings. 2. Atrophy and minimal white matter disease. Hand X-Ray 12/04/17 00:00 CONCLUSION: Unremarkable study. Forearm X-Ray 12/04/17 18:49 CONCLUSION: Unremarkable study. Shoulder X-Ray 12/04/17 18:49 CONCLUSION: No definite fracture is identified for technique. Catheter Placement 12/06/17 00:00 CONCLUSION: 1. Uncomplicated line placement as above. Catheter Placement 12/08/17 00:00 CONCLUSION: 1. Uncomplicated line replacement and upsize. Abdomen X-Ray 12/08/17 04:58 CONCLUSION: Nasogastric tube distal tip is at the GE junction. Suggest further advancement stomach. Chest X-Ray 12/12/17 00:00 CONCLUSION: Underinflated examination with atelectasis at the lung bases. Otherwise, no acute finding is identified given the technique. Chest X-Ray 12/12/17 18:00 CONCLUSION: Interval placement of left internal jugular central venous line with no visualized pneumothorax on the supine study. Abdomen/Pelvis CT 12/13/17 00:00 CONCLUSION: 1. Percutaneous gastrostomy tube present without abnormal fluid collection or free air identified. 2. 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 There is evidence for chronic pancreatitis. Cannot exclude an obstructing mass in the pancreatic head. Recommend further evaluation with MRCP. 3. 3 cm fat-containing umbilical hernia. 4. Focal small airspace disease right posterior costophrenic angle. Cholangiopancreatography MRI 12/13/17 00:00 CONCLUSION: 1. Dilatation of the pancreatic duct ranging from 2 cm in the head of pancreas to 1.6 images in the mid body with a chain of lakes pseudocyst appearance. 2. Findings would be consistent with a chronic pancreatitis. 3. If there is a focal mass present it would be at the ampulla. This can be followed by MR or endoscopic ultrasound. 4. Trace ascites 5. No other recent cross-sectional imaging studies of the pancreas. These would be most helpful given the appearance. Assessment and Plan - Plan Anoxic encephalopathy worsening leukocytosis Hypotension sepsis Probably R side aspiration PNA ESRD, on HD chk CXR cont current abx fu blood clx chk lactic acid lucía RN
--- NOTE | 2017-12-14 19:10 | XR ---
EXAM DATE: 12/14/2017 6:46 PM EDT AGE/SEX: 67 years / Male INDICATIONS: Cough and congestion. Status post interval extubation. CLINICAL DATA: This is the patient's initial encounter. Patient reports that signs and symptoms have been present for 1 day and indicates a pain score of Nonresponsive. MEDICAL/SURGICAL HISTORY: . Diabetes. Gastroesophageal reflux disease. Chronic obstructive pulm onary disease. Dialysis. PAD. None. COMPARISON: [facility] [place], CHEST 1V SINGLE AP, 12/12/2017. . FINDINGS: A single AP erect portable view of the chest was obtained. The endotracheal tube has been removed. Th e double lumen right internal jugular central venous line remains. The left internal jugular line rem ains as well. The heart size is within normal limits with no confluent infiltrates or effusions. The bony thorax remains intact.. CONCLUSION: 1. Interval extubation. 2. No evidence of acute pneumonia. Electronically signed by: Wing Escamilla MD 12/14/2017 7:09 PM EDT
[2017-12-15] MEDS: Haloperidol Inj 5 MG/ML Ampul IV.PUSH PRN ×2 (02:45→07:08)
[2017-12-15 03:46] LABS: Hematocrit 30.7 % (39.0-51.0); Hemoglobin 9.4 gm/dL (13.0-17.0); Mean Corpuscular HGB Conc 30.5 % (32.0-36.0); Mean Corpuscular Hemoglobin 27.5 pg (27.0-34.0); Mean Corpuscular Volume 90.2 fL (80.0-100.0); Mean Platelet Volume 9.2 fL (7.0-11.0); Platelet Count 196 th/mm3 (150-450); Red Cell Distribution Width 18.7 % (11.6-17.2); White Blood Count 19.8 th/mm3 (4.0-11.0)
[2017-12-15] MEDS: Chlorhexidine Gluconate 2% 1 Pack (2 Cloths) TOPICAL SCH (04:00)
[2017-12-15] MEDS: Oral Hygiene Kit OROPHARYNG SCH ×3 (04:00→17:51)
[2017-12-15 04:08] LABS: Alanine Aminotransferase 42 U/L (12-78); Albumin 2.2 g/dL (3.4-5.0); Alkaline Phosphatase 87 U/L (45-117); Anion Gap 16 meq/L (5-15); Aspartate Aminotransferase 52 U/L (15-37); Blood Urea Nitrogen 58 mg/dL (7-18); Calcium 7.8 mg/dL (8.5-10.1); Carbon Dioxide 23.2 meq/L (21.0-32.0); Chloride 109 meq/L (98-107); Glomerular Filtration Rate 6 mL/min (>89); Glucose,Random 292 mg/dL (74-106); Magnesium 2.2 mg/dL (1.5-2.5); Potassium 4.1 meq/L (3.5-5.1); Sodium 148 meq/L (136-145); Total Protein 5.5 g/dL (6.4-8.2); Vancomycin,Random 27.6 Comment
[2017-12-15 04:31] LABS: ABG Base Excess -5.6 mmol/L (-2-2); ABG PCO2 47 mmHg (38-42); ABG PO2 86 mmHG (61-120)
[2017-12-15] MEDS: AZTREONAM IV.SIG SCH ×3 (05:02→20:40)
[2017-12-15] MEDS: SODIUM CHLOR 0.9% IV.SIG SCH ×3 (05:02→20:40)
[2017-12-15] MEDS: Levothyroxine 50 MCG Tablet PO SCH (05:03)
[2017-12-15] MEDS ORDERED: Midazolam Inj 5 MG/ML 1 ML Vial ONE ×2 (07:08→12:45)
[2017-12-15] MEDS ORDERED: Etomidate Inj 40 MG/20 ML Vial IV.PUSH ONE (07:08)
--- NOTE | 2017-12-15 07:50 | XR ---
EXAM DATE: 12/15/2017 7:44 AM EDT AGE/SEX: 67 years / Male INDICATIONS: Post intubation CLINICAL DATA: This is the patient's subsequent encounter. Patient reports that signs and symptoms h ave been present for 4 - 6 days and indicates a pain score of Nonresponsive. MEDICAL/SURGICAL HISTORY: . Diabetes. Gastroesophageal reflux disease. Chronic obstructive pulm onary disease. Dialysis. PAD None. COMPARISON: [facility], CHEST 1V SINGLE AP, 12/14/2017. . FINDINGS: Endotracheal tube is present with tip in good position several centimeters above the bailey. Left nec k central line and right neck Vas-Cath are stable. There is persistent mild bibasilar infiltrate. Car diac contours are grossly unchanged. CONCLUSION: Satisfactory ET tube positioning Electronically signed by: Luis Morris MD 12/15/2017 7:48 AM EDT
--- NOTE | 2017-12-15 07:53 | P.PNCC ---
Subjective Subjective Remarks/Hospital Course: 67-year-old male patient with history of CAD, multiple stent placement, COPD, end-stage renal disease, type 2 diabetes, who presented to the emergency room on 12/01/17 after being found to be unresponsive with a glucose of 36. Patient was admitted to hospitalist service and despite correction of hypoglycemia remained agitated and encephalopathic. GI was consulted for PEG tube placement for nutrition as the patient had pulled out NG tube several times. Initially the PEG tube placement was started as an LMA procedure. Apparently there was large amount of regurgitation and possible aspiration. He was endotracheally intubated during the procedure by anesthesiologist. Patient remained hemodynamically unstable and was started on Jonas-Synephrine infusion. Apparently per anesthesia patient had evidence of gastritis and duodenitis with stigmata of bleeding. Also there was a question of bowel ischemia on endoscopy. Due to hemodynamic instability requiring Jonas-Synephrine, and possible aspiration patient was left intubated for stabilization and critical care medicine was consulted. I evaluated the patient in the PACU. He remains on Jonas-Synephrine hypotensive with map hardly 50. I have instructed the RN to give 500 ML normal saline bolus , 25 g of IV albumin and also increase Jonas-Synephrine to target map above 65. Patient appears to have intermittent irregular rhythm which appears like atrial fibrillation. EKG and lab work is pending at this time. Blood and urine culture and sputum culture ordered, currently on vancomycin, add Azactam for gram-negative coverage. Clinically there is no evidence gastric perforation related to PEG placement, check CT abdomen pelvis to rule out gastric perforation SUBJ 12/13: Patient remains intubated sedated with Versed and fentanyl. Currently on Jonas-Synephrine at 40 mcg/min. CT abdomen pelvis did not show any evidence of perforation however showed massive dilation of pancreatic duct up to 2 cm. Cannot rule out mass. MRCP ordered, check CA 19-9 12/14: Intubated off sedation moving all extremities tracking but not following commands. Patient has baseline encephalopathy prior to intubation. MRCP yesterday showed Dilatation of the pancreatic duct 2 cm in the head of pancreas to 1.6 images in the mid body with a [place] pseudocyst appearance. Findings would be consistent with a chronic pancreatitis. Per radiologist If there is a focal mass present it would be at the ampulla. May need ERCP, GI following 12/15: Patient was extubated yesterday however mentation continued to gradually worsen unable to protect airway. On my evaluation today a.m. patient was tachypneic clearly not protecting airway. I proceeded with endotracheal intubation and placed on mechanical ventilation. Large amounts of secretions suctioned out from the oropharynx and glottic opening. WBC count continued to increase 19.6 today. Appreciate ID and neurology input. Discussed with Dr. Ruby even though infectious etiology unlikely for mental status change, will proceed with a lumbar puncture with routine studies and her previous studies. I agreed to Dr. Ruby's opinion that his encephalopathy is most likely from prolonged hypoglycemia Objective Vital Signs / I&O: Vital Signs 12/14/17 08:00 12/14/17 08:15 12/14/17 08:30 Temperature 98.9 F Pulse Rate 77 91 H 94 H Respiratory Rate 14 27 H 147 H Blood Pressure 113/57 L 117/59 L 141/70 H Pulse Oximetry 99 100 92 L 12/14/17 08:45 12/14/17 09:00 12/14/17 09:15 Temperature Pulse Rate 97 H 106 H 110 H Respiratory Rate 10 L 22 20 Blood Pressure 132/63 176/84 H 157/72 H Pulse Oximetry 86 L 95 12/14/17 09:30 12/14/17 09:35 12/14/17 09:45 Temperature Pulse Rate 115 H 113 H Respiratory Rate 18 17 Blood Pressure 129/54 L 126/61 Pulse Oximetry 88 L 92 L 90 L 12/14/17 10:00 12/14/17 10:15 12/14/17 10:30 Temperature Pulse Rate 108 H 111 H 108 H Respiratory Rate 15 27 H 32 H Blood Pressure 104/58 L 111/55 L 110/64 Pulse Oximetry 90 L 88 L 90 L 12/14/17 10:45 12/14/17 11:00 12/14/17 11:15 Temperature Pulse Rate 101 H 102 H 102 H Respiratory Rate 13 150 H 12 Blood Pressure 115/55 L 115/58 L 109/58 L Pulse Oximetry 91 L 91 L 90 L 12/14/17 11:30 12/14/17 11:45 12/14/17 12:00 Temperature Pulse Rate 102 H 101 H 100 H Respiratory Rate 11 L 12 13 Blood Pressure 111/56 L 119/57 L 124/57 L Pulse Oximetry 90 L 90 L 90 L 12/14/17 12:15 12/14/17 12:33 12/14/17 12:45 Temperature Pulse Rate 99 H 105 H 101 H Respiratory Rate 12 23 14 Blood Pressure 131/58 L 112/68 112/60 Pulse Oximetry 90 L 88 L 91 L 12/14/17 13:00 12/14/17 13:15 12/14/17 13:30 Temperature Pulse Rate 103 H 101 H 104 H Respiratory Rate 89 H 14 18 Blood Pressure 93/54 L 93/55 L 95/53 L Pulse Oximetry 92 L 92 L 90 L 12/14/17 13:45 12/14/17 14:00 12/14/17 14:05 Temperature Pulse Rate 109 H 109 H 109 H Respiratory Rate 19 19 18 Blood Pressure 94/53 L 94/51 L 108/50 L Pulse Oximetry 89 L 91 L 90 L 12/14/17 14:15 12/14/17 14:30 12/14/17 14:45 Temperature Pulse Rate 108 H 109 H 109 H Respiratory Rate 19 17 13 Blood Pressure 108/57 L 134/58 L 102/51 L Pulse Oximetry 91 L 91 L 92 L 12/14/17 15:00 12/14/17 15:09 12/14/17 15:15 Temperature Pulse Rate 107 H 106 H 105 H Respiratory Rate 12 20 11 L Blood Pressure 108/55 L 90/52 L Pulse Oximetry 91 L 92 L 12/14/17 15:30 12/14/17 15:40 12/14/17 15:45 Temperature Pulse Rate 104 H 102 H 102 H Respiratory Rate 12 13 15 Blood Pressure 103/54 L 99/52 L 98/52 L Pulse Oximetry 91 L 92 L 90 L 12/14/17 16:00 12/14/17 16:15 12/14/17 20:00 Temperature 98.2 F Pulse Rate 107 H 105 H 97 H Respiratory Rate 26 H 134 H 15 Blood Pressure 102/56 L 99/54 L 114/58 L Pulse Oximetry 90 L 90 L 94 L 12/14/17 21:01 12/15/17 00:00 12/15/17 03:55 Temperature 98.3 F Pulse Rate 98 H 111 H 102 H Respiratory Rate 20 22 20 Blood Pressure 131/68 Pulse Oximetry 95 95 12/15/17 04:00 12/15/17 07:30 Temperature 98.9 F Pulse Rate 106 H Respiratory Rate 24 16 Blood Pressure 141/80 H Pulse Oximetry 96 100 Intake & Output 12/14/17 12/15/17 12/15/17 18:59 06:59 18:59 Intake Total 560 / 560 481 / 481 Output Total 0 / 0 0 / 0 Balance 560 / 560 481 / 481 Weight 74.3 kg Intake: IV 200 / 200 300 / 300 Azactam Inj 500 MG In NS Inj 50 100 / 100 100 / 100 ML @ 100 mls/hr IV.SIG Q8H KRUNAL Rx#:[id number] Flagyl 500 MG Inj 100 ML @ 100 100 / 100 200 / 200 mls/hr IV.SIG Q8H KRUNAL Rx#: [id number] Tube Feeding 240 / 240 81 / 81 Water Bolus Amount 120 / 120 100 / 100 Output: Urine 0 / 0 0 / 0 Other: Date of Last Bowel Movement 12/10/17 12/15/17 # Bowel Movements 1 Result Diagrams: 12/15/17 03:25 12/15/17 03:25 Objective Remarks: - Constitutional Lying in bed tachypneic encephalopathy in moderate to severe distress HEENT: -Pupils equal, conjunctiva pale, neck supple - Routine Respiratory Exam Air entry equal bilaterally with significant bilateral wheezes and basilar crackles - Routine Cardiovascular Exam Sinus rhythm, intermittent PAC, hypotensive not requiring any pressors at this time Receiving 500 mL fluid bolus prior to intubation - Routine Abdominal Exam soft, nontender. New PEG tube site without evidence of bleeding - Routine Extremities Exam No pedal edema. - Routine Neurological Exam Patient is encephalopathy moves all extremities, thrashing about currently not protecting airway. He does not follow any commands. Intermittently appears to track Assessment and Plan - Assessment and Plan Plan: ASSESSMENT: Acute respiratory failure, recurrent Severe encephalopathy ? Hypoglycemic, anoxic Aspiration pneumonia Severe sepsis Hypotension multifactorial Upper GI bleed Tachyarrhythmia Leukocytosis Dilated pancreatic duct, elevated CA 19-9 (88.5) Radiological evidence of chronic pancreatitis s/p PEG tube placement Hypoglycemia now resolved History of coronary artery disease End-stage renal disease PLAN: NEURO: -Postintubation restart Versed for sedation and ventilator synchrony, start daily sedation location after MRCP -Workup for encephalopathy essentially negative MRI was negative for acute findings. -Encephalopathy most likely secondary to prolonged hypoglycemia and possible anoxia -Discussed with Dr. Ruby will proceed with LP if INR less than 1.5 RESP: -Reintubated today 12/15/2017 for lack of airway protection and worsening hypoxia -PRVC/AC, Ventilator bundle -DuoNeb every 6 hours scheduled and as needed -Repeat sputum culture CV: -Jonas-Synephrine to keep map above 65 -s/p 500 mL normal saline bolus prior to intubation -Hold all antihypertensive including Procardia XL, lisinopril, carvedilol -F/u cardiac enzymes, Check lactic acid GI: -N.p.o., and IV Protonix 40 mg q12 -CT abdomen pelvis showed massive pancreatic duct dilation and chronic pancreatitis, confirmed on MRCP -Ampullary mass cannot be ruled out. Patient may need an ERCP, but at this time remains unstable for any invasive procedures -CA-19-9 88.5. Will discuss with GI : -ESRD on hemodialysis per nephrology ID: -Continue vancomycin, Azactam for gram-negative coverage and Flagyl for anaerobic coverage -F/U Blood urine and sputum cultures-negative to date -Leukocytosis and hypotension persistent, ID following -LP today HEME: -Monitor CBC, coags -Transfuse to keep hemoglobin more than 8 due to hypotension ENDO: -Sliding scale insulin if needed PROPH: -Bilateral lower extremity SCDs. Eliquis on hold due to GI bleed, and INR >2 -IV Protonix 40 mg every 12 hours LINES: -Utilize peripheral IVs, [facility] central line placed 12/12/17 CC time 45 min Patient is critically ill with hypotension, leukocytosis status post PEG tube placement. Now with recurrent respiratory failure and worsening encephalopathy. Continue broad-spectrum antibiotics. LP today if INR less than 1.5
--- NOTE | 2017-12-15 07:56 | P.PCN ---
Date of procedure: 12/15/17 Pre-op diagnosis: Hypoxemic respiratory failure Post-op diagnosis: same Procedure: Endotracheal intubation Patient is in hypoxemic respiratory failure, unable to protect airway due to encephalopathy. Rapid sequence intubation was initiated. Patient was appropriately positioned and was administered etomidate 15 mg IV, Versed 5 mg IV , rocuronium 50 mg IV. I entered the oropharynx with direct laryngoscopy MAC 4 blade and obtained a grade 2 view. Patient was intubated with an 8.0 ET tube on single attempt. ET tube placement confirmed by directly visualizing the tube passing through the vocal cords, air entry equal bilaterally and, end-tidal CO2 color change. Patient tolerated procedure well. Postprocedure chest x-ray is pending at this time Anesthesia: RUTH ANN Surgeon: Sandra Smith Estimated blood loss (mL): 0 Pathology: none sent Condition: critical Disposition: ICU
[2017-12-15] MEDS: Lipase/Protease/Amylase 24/76/120 DR Capsule PO SCH ×4 (08:38→20:41)
[2017-12-15] MEDS: Vitamin B Complex/Vit C/Folic Tablet PO SCH (08:38)
[2017-12-15] MEDS: Chlorhexidine 0.12% Oral Kit 15 ML UDC OROPHARYNG SCH ×2 (08:38→20:43)
[2017-12-15] MEDS: Pantoprazole Inj 40 MG Vial IV.PUSH SCH ×2 (08:38→20:41)
[2017-12-15] MEDS: Hypromellose 0.3% Opth Gel 10 GM Bottle EACH EYE SCH ×2 (08:39→20:42)
[2017-12-15 08:46] LABS: ABG Base Excess -8.5 mmol/L (-2-2); ABG PCO2 44 mmHg (38-42); ABG PO2 131 mmHG (61-120)
[2017-12-15] MEDS: Insulin NovoLOG Aspart Correctional Sugar Inj SQ SCH ×5 (09:09→20:42)
--- NOTE | 2017-12-15 09:15 | P.PNGI ---
Subjective Interval history: Pt reintubated yesterday, currently sedated. traffic engineering technician at bedside. HD nurse at bedside. <Daysi Bennett - Last Filed: 12/15/17 09:07> Physical Exam Vital signs: Vital Signs 12/14/17 09:15 12/14/17 09:30 12/14/17 09:35 Temperature Pulse Rate 110 H 115 H Respiratory Rate 20 18 Blood Pressure 157/72 H 129/54 L Pulse Oximetry 95 88 L 92 L 12/14/17 09:45 12/14/17 10:00 12/14/17 10:15 Temperature Pulse Rate 113 H 108 H 111 H Respiratory Rate 17 15 27 H Blood Pressure 126/61 104/58 L 111/55 L Pulse Oximetry 90 L 90 L 88 L 12/14/17 10:30 12/14/17 10:45 12/14/17 11:00 Temperature Pulse Rate 108 H 101 H 102 H Respiratory Rate 32 H 13 150 H Blood Pressure 110/64 115/55 L 115/58 L Pulse Oximetry 90 L 91 L 91 L 12/14/17 11:15 12/14/17 11:30 12/14/17 11:45 Temperature Pulse Rate 102 H 102 H 101 H Respiratory Rate 12 11 L 12 Blood Pressure 109/58 L 111/56 L 119/57 L Pulse Oximetry 90 L 90 L 90 L 12/14/17 12:00 12/14/17 12:15 12/14/17 12:33 Temperature Pulse Rate 100 H 99 H 105 H Respiratory Rate 13 12 23 Blood Pressure 124/57 L 131/58 L 112/68 Pulse Oximetry 90 L 90 L 88 L 12/14/17 12:45 12/14/17 13:00 12/14/17 13:15 Temperature Pulse Rate 101 H 103 H 101 H Respiratory Rate 14 89 H 14 Blood Pressure 112/60 93/54 L 93/55 L Pulse Oximetry 91 L 92 L 92 L 12/14/17 13:30 12/14/17 13:45 12/14/17 14:00 Temperature Pulse Rate 104 H 109 H 109 H Respiratory Rate 18 19 19 Blood Pressure 95/53 L 94/53 L 94/51 L Pulse Oximetry 90 L 89 L 91 L 12/14/17 14:05 12/14/17 14:15 12/14/17 14:30 Temperature Pulse Rate 109 H 108 H 109 H Respiratory Rate 18 19 17 Blood Pressure 108/50 L 108/57 L 134/58 L Pulse Oximetry 90 L 91 L 91 L 12/14/17 14:45 12/14/17 15:00 12/14/17 15:09 Temperature Pulse Rate 109 H 107 H 106 H Respiratory Rate 13 12 20 Blood Pressure 102/51 L 108/55 L Pulse Oximetry 92 L 91 L 12/14/17 15:15 12/14/17 15:30 12/14/17 15:40 Temperature Pulse Rate 105 H 104 H 102 H Respiratory Rate 11 L 12 13 Blood Pressure 90/52 L 103/54 L 99/52 L Pulse Oximetry 92 L 91 L 92 L 12/14/17 15:45 12/14/17 16:00 12/14/17 16:15 Temperature Pulse Rate 102 H 107 H 105 H Respiratory Rate 15 26 H 134 H Blood Pressure 98/52 L 102/56 L 99/54 L Pulse Oximetry 90 L 90 L 90 L 12/14/17 20:00 12/14/17 21:01 12/15/17 00:00 Temperature 98.2 F 98.3 F Pulse Rate 97 H 98 H 111 H Respiratory Rate 15 20 22 Blood Pressure 114/58 L 131/68 Pulse Oximetry 94 L 95 95 12/15/17 03:55 12/15/17 04:00 12/15/17 07:30 Temperature 98.9 F Pulse Rate 102 H 106 H Respiratory Rate 20 24 16 Blood Pressure 141/80 H Pulse Oximetry 96 100 Intake & Output 12/14/17 12/15/17 12/15/17 18:59 06:59 18:59 Intake Total 560 / 560 481 / 481 Output Total 0 / 0 0 / 0 Balance 560 / 560 481 / 481 Weight 74.3 kg Intake: IV 200 / 200 300 / 300 Azactam Inj 500 MG In NS Inj 50 100 / 100 100 / 100 ML @ 100 mls/hr IV.SIG Q8H KRUNAL Rx#:[id number] Flagyl 500 MG Inj 100 ML @ 100 100 / 100 200 / 200 mls/hr IV.SIG Q8H KRUNAL Rx#: [id number] Tube Feeding 240 / 240 81 / 81 Water Bolus Amount 120 / 120 100 / 100 Output: Urine 0 / 0 0 / 0 Other: Date of Last Bowel Movement 12/10/17 12/15/17 # Bowel Movements 1 - Constitutional no acute distress - Routine HEENT Exam Head: Present: normocephalic, atraumatic - Routine Respiratory Exam Present: patient mechanically ventilated - Routine Abdominal Exam Present: soft, normoactive bowel sounds. Absent: distended - Routine Skin Exam Present: dry, warm - Urinary Catheter Management Straight Cath placed during this visit: yes Reason for continuing: Not indwelling catheter Insertion date: 12/01/17 Insertion time: 13:46 <Daysi Bennett - Last Filed: 12/15/17 09:07> Vital signs: Vital Signs 12/14/17 11:30 12/14/17 11:45 12/14/17 12:00 Temperature Pulse Rate 102 H 101 H 100 H Respiratory Rate 11 L 12 13 Blood Pressure 111/56 L 119/57 L 124/57 L Pulse Oximetry 90 L 90 L 90 L 12/14/17 12:15 12/14/17 12:33 12/14/17 12:45 Temperature Pulse Rate 99 H 105 H 101 H Respiratory Rate 12 23 14 Blood Pressure 131/58 L 112/68 112/60 Pulse Oximetry 90 L 88 L 91 L 12/14/17 13:00 12/14/17 13:15 12/14/17 13:30 Temperature Pulse Rate 103 H 101 H 104 H Respiratory Rate 89 H 14 18 Blood Pressure 93/54 L 93/55 L 95/53 L Pulse Oximetry 92 L 92 L 90 L 12/14/17 13:45 12/14/17 14:00 12/14/17 14:05 Temperature Pulse Rate 109 H 109 H 109 H Respiratory Rate 19 19 18 Blood Pressure 94/53 L 94/51 L 108/50 L Pulse Oximetry 89 L 91 L 90 L 12/14/17 14:15 12/14/17 14:30 12/14/17 14:45 Temperature Pulse Rate 108 H 109 H 109 H Respiratory Rate 19 17 13 Blood Pressure 108/57 L 134/58 L 102/51 L Pulse Oximetry 91 L 91 L 92 L 12/14/17 15:00 12/14/17 15:09 12/14/17 15:15 Temperature Pulse Rate 107 H 106 H 105 H Respiratory Rate 12 20 11 L Blood Pressure 108/55 L 90/52 L Pulse Oximetry 91 L 92 L 12/14/17 15:30 12/14/17 15:40 12/14/17 15:45 Temperature Pulse Rate 104 H 102 H 102 H Respiratory Rate 12 13 15 Blood Pressure 103/54 L 99/52 L 98/52 L Pulse Oximetry 91 L 92 L 90 L 12/14/17 16:00 12/14/17 16:15 12/14/17 20:00 Temperature 98.2 F Pulse Rate 107 H 105 H 97 H Respiratory Rate 26 H 134 H 15 Blood Pressure 102/56 L 99/54 L 114/58 L Pulse Oximetry 90 L 90 L 94 L 12/14/17 21:01 12/15/17 00:00 12/15/17 03:55 Temperature 98.3 F Pulse Rate 98 H 111 H 102 H Respiratory Rate 20 22 20 Blood Pressure 131/68 Pulse Oximetry 95 95 12/15/17 04:00 12/15/17 07:00 12/15/17 07:30 Temperature 98.9 F 98 F Pulse Rate 106 H 118 H Respiratory Rate 24 12 16 Blood Pressure 141/80 H 112/61 Pulse Oximetry 96 96 100 12/15/17 08:00 12/15/17 09:00 12/15/17 11:11 Temperature 98.4 F Pulse Rate 121 H 109 H Respiratory Rate 12 19 18 Blood Pressure 139/75 Pulse Oximetry 98 100 Intake & Output 12/14/17 12/15/17 12/15/17 18:59 06:59 18:59 Intake Total 560 / 560 481 / 481 Output Total 0 / 0 0 / 0 Balance 560 / 560 481 / 481 Weight 74.3 kg Intake: IV 200 / 200 300 / 300 Azactam Inj 500 MG In NS Inj 50 100 / 100 100 / 100 ML @ 100 mls/hr IV.SIG Q8H KRUNAL Rx#:[id number] Flagyl 500 MG Inj 100 ML @ 100 100 / 100 200 / 200 mls/hr IV.SIG Q8H KRUNAL Rx#: [id number] Tube Feeding 240 / 240 81 / 81 Water Bolus Amount 120 / 120 100 / 100 Output: Urine 0 / 0 0 / 0 Other: Date of Last Bowel Movement 12/10/17 12/15/17 12/15/17 # Bowel Movements 1 - Urinary Catheter Management Straight Cath placed during this visit: no <Varinder Serrano A - Last Filed: 12/15/17 11:26> Results - Labs CBC & Chem 7: 12/15/17 03:25 12/15/17 03:25 Laboratory Results - last 24 hr 12/12/17 12/14/17 12/14/17 15:29 10:24 12:47 WBC RBC Hgb Hct MCV MCH MCHC RDW Plt Count MPV Puncture Site Patient Temperature O2 Saturation ABG pH ABG pCO2 ABG pO2 ABG HCO3 ABG O2 Content ABG Base Excess ABG Methemoglobin Jostin Test Hemoglobin Carboxyhemoglobin O2 Delivery Device Liter Flow Vent Setting Inspired O2 Critical Value Sodium Potassium Chloride Carbon Dioxide Anion Gap BUN Creatinine Estimated GFR POC Glucose 361 H 306 H Random Glucose Lactic Acid Calcium Magnesium Total Bilirubin AST ALT Alkaline Phosphatase Total Protein Albumin Random Vancomycin MTS Gel Crossmatch See Detail 12/14/17 12/14/17 12/15/17 18:58 20:51 00:48 WBC RBC Hgb Hct MCV MCH MCHC RDW Plt Count MPV Puncture Site Patient Temperature O2 Saturation ABG pH ABG pCO2 ABG pO2 ABG HCO3 ABG O2 Content ABG Base Excess ABG Methemoglobin Jostin Test Hemoglobin Carboxyhemoglobin O2 Delivery Device Liter Flow Vent Setting Inspired O2 Critical Value Sodium Potassium Chloride Carbon Dioxide Anion Gap BUN Creatinine Estimated GFR POC Glucose 175 H 191 H Random Glucose Lactic Acid 0.8 Calcium Magnesium Total Bilirubin AST ALT Alkaline Phosphatase Total Protein Albumin Random Vancomycin MTS Gel Crossmatch 12/15/17 12/15/17 12/15/17 03:25 03:25 04:14 WBC 19.8 H RBC 3.40 L Hgb 9.4 L Hct 30.7 L MCV 90.2 MCH 27.5 MCHC 30.5 L RDW 18.7 H Plt Count 196 MPV 9.2 Puncture Site Art line Patient Temperature 98.6 O2 Saturation 92 ABG pH 7.26 L* ABG pCO2 47 H ABG pO2 86 ABG HCO3 20 L ABG O2 Content 13.0 ABG Base Excess -5.6 L ABG Methemoglobin 2.1 H Jostin Test Hemoglobin 10.0 L Carboxyhemoglobin 0.6 O2 Delivery Device Nasal cannula Liter Flow 4.00 Vent Setting Inspired O2 Critical Value Yes Sodium 148 H Potassium 4.1 Chloride 109 H Carbon Dioxide 23.2 Anion Gap 16 H BUN 58 H Creatinine 9.45 H Estimated GFR 6 L POC Glucose Random Glucose 292 H Lactic Acid Calcium 7.8 L Magnesium 2.2 Total Bilirubin 0.5 AST 52 H ALT 42 Alkaline Phosphatase 87 Total Protein 5.5 L Albumin 2.2 L Random Vancomycin 27.6 MTS Gel Crossmatch 12/15/17 08:30 WBC RBC Hgb Hct MCV MCH MCHC RDW Plt Count MPV Puncture Site Right brachial Patient Temperature 98.6 O2 Saturation 95 ABG pH 7.23 L* ABG pCO2 44 H ABG pO2 131 H ABG HCO3 18 L ABG O2 Content 12.4 ABG Base Excess -8.5 L ABG Methemoglobin 2.2 H Jostin Test Present Hemoglobin 9.1 L Carboxyhemoglobin 0.6 O2 Delivery Device Ventilator Liter Flow Vent Setting Prvc16/550/1.0/+5 Inspired O2 40 Critical Value Yes Sodium Potassium Chloride Carbon Dioxide Anion Gap BUN Creatinine Estimated GFR POC Glucose Random Glucose Lactic Acid Calcium Magnesium Total Bilirubin AST ALT Alkaline Phosphatase Total Protein Albumin Random Vancomycin MTS Gel Crossmatch Microbiology 12/13/17 18:00 Sputum - Endotracheal Gram Stain - Final 12/13/17 18:00 Sputum - Endotracheal Sputum Culture - Preliminary Moderate growth normal respiratory char at 24 hours 12/12/17 19:27 Blood - Peripheral Aerobic Blood Culture - Preliminary No growth in 2 days 12/12/17 19:27 Blood - Peripheral Anaerobic Blood Culture - Preliminary No growth in 2 days 12/12/17 19:22 Blood - Peripheral Aerobic Blood Culture - Preliminary No growth in 2 days 12/12/17 19:22 Blood - Peripheral Anaerobic Blood Culture - Preliminary No growth in 2 days - Imaging Impressions Chest X-Ray 12/14/17 17:39 CONCLUSION: 1. Interval extubation. 2. No evidence of acute pneumonia. Chest X-Ray 12/15/17 00:00 CONCLUSION: Satisfactory ET tube positioning <Daysi Bennett - Last Filed: 12/15/17 09:07> - Labs CBC & Chem 7: 12/15/17 03:25 12/15/17 03:25 Laboratory Results - last 24 hr 12/12/17 12/14/17 12/14/17 15:29 12:47 18:58 WBC RBC Hgb Hct MCV MCH MCHC RDW Plt Count MPV PT INR Puncture Site Patient Temperature O2 Saturation ABG pH ABG pCO2 ABG pO2 ABG HCO3 ABG O2 Content ABG Base Excess ABG Methemoglobin Jostin Test Hemoglobin Carboxyhemoglobin O2 Delivery Device Liter Flow Vent Setting Inspired O2 Critical Value Sodium Potassium Chloride Carbon Dioxide Anion Gap BUN Creatinine Estimated GFR POC Glucose 306 H 175 H Random Glucose Lactic Acid Calcium Magnesium Total Bilirubin AST ALT Alkaline Phosphatase Ammonia Total Protein Albumin TSH Random Vancomycin MTS Gel Crossmatch See Detail Blood Bank Comment 12/14/17 12/15/17 12/15/17 20:51 00:48 03:25 WBC RBC Hgb Hct MCV MCH MCHC RDW Plt Count MPV PT INR Puncture Site Patient Temperature O2 Saturation ABG pH ABG pCO2 ABG pO2 ABG HCO3 ABG O2 Content ABG Base Excess ABG Methemoglobin Jostin Test Hemoglobin Carboxyhemoglobin O2 Delivery Device Liter Flow Vent Setting Inspired O2 Critical Value Sodium 148 H Potassium 4.1 Chloride 109 H Carbon Dioxide 23.2 Anion Gap 16 H BUN 58 H Creatinine 9.45 H Estimated GFR 6 L POC Glucose 191 H Random Glucose 292 H Lactic Acid 0.8 Calcium 7.8 L Magnesium 2.2 Total Bilirubin 0.5 AST 52 H ALT 42 Alkaline Phosphatase 87 Ammonia Total Protein 5.5 L Albumin 2.2 L TSH Random Vancomycin 27.6 MTS Gel Crossmatch Blood Bank Comment 12/15/17 12/15/17 12/15/17 03:25 04:14 08:30 WBC 19.8 H RBC 3.40 L Hgb 9.4 L Hct 30.7 L MCV 90.2 MCH 27.5 MCHC 30.5 L RDW 18.7 H Plt Count 196 MPV 9.2 PT INR Puncture Site Art line Right brachial Patient Temperature 98.6 98.6 O2 Saturation 92 95 ABG pH 7.26 L* 7.23 L* ABG pCO2 47 H 44 H ABG pO2 86 131 H ABG HCO3 20 L 18 L ABG O2 Content 13.0 12.4 ABG Base Excess -5.6 L -8.5 L ABG Methemoglobin 2.1 H 2.2 H Jostin Test Present Hemoglobin 10.0 L 9.1 L Carboxyhemoglobin 0.6 0.6 O2 Delivery Device Nasal cannula Ventilator Liter Flow 4.00 Vent Setting Prvc16/550/1.0/+5 Inspired O2 40 Critical Value Yes Yes Sodium Potassium Chloride Carbon Dioxide Anion Gap BUN Creatinine Estimated GFR POC Glucose Random Glucose Lactic Acid Calcium Magnesium Total Bilirubin AST ALT Alkaline Phosphatase Ammonia Total Protein Albumin TSH Random Vancomycin MTS Gel Crossmatch Blood Bank Comment 12/15/17 12/15/17 12/15/17 08:54 09:30 09:30 WBC RBC Hgb Hct MCV MCH MCHC RDW Plt Count MPV PT 15.4 H INR 1.5 Puncture Site Patient Temperature O2 Saturation ABG pH ABG pCO2 ABG pO2 ABG HCO3 ABG O2 Content ABG Base Excess ABG Methemoglobin Jostin Test Hemoglobin Carboxyhemoglobin O2 Delivery Device Liter Flow Vent Setting Inspired O2 Critical Value Sodium Potassium Chloride Carbon Dioxide Anion Gap BUN Creatinine Estimated GFR POC Glucose 321 H Random Glucose Lactic Acid Calcium Magnesium Total Bilirubin AST ALT Alkaline Phosphatase Ammonia Total Protein Albumin TSH 1.240 Random Vancomycin MTS Gel Crossmatch Blood Bank Comment 12/15/17 12/15/17 12/15/17 09:30 10:00 10:51 WBC RBC Hgb Hct MCV MCH MCHC RDW Plt Count MPV PT INR Puncture Site Patient Temperature O2 Saturation ABG pH ABG pCO2 ABG pO2 ABG HCO3 ABG O2 Content ABG Base Excess ABG Methemoglobin Jostin Test Hemoglobin Carboxyhemoglobin O2 Delivery Device Liter Flow Vent Setting Inspired O2 Critical Value Sodium Potassium Chloride Carbon Dioxide Anion Gap BUN Creatinine Estimated GFR POC Glucose Random Glucose Lactic Acid 1.0 Calcium Magnesium Total Bilirubin AST ALT Alkaline Phosphatase Ammonia 11 Total Protein Albumin TSH Random Vancomycin MTS Gel Crossmatch Blood Bank Comment Microbiology 12/12/17 19:27 Blood - Peripheral Aerobic Blood Culture - Preliminary No growth in 3 days 12/12/17 19:27 Blood - Peripheral Anaerobic Blood Culture - Preliminary No growth in 3 days 12/12/17 19:22 Blood - Peripheral Aerobic Blood Culture - Preliminary No growth in 3 days 12/12/17 19:22 Blood - Peripheral Anaerobic Blood Culture - Preliminary No growth in 3 days 12/13/17 18:00 Sputum - Endotracheal Gram Stain - Final 12/13/17 18:00 Sputum - Endotracheal Sputum Culture - Preliminary Moderate growth normal respiratory char at 24 hours - Imaging Impressions Chest X-Ray 12/14/17 17:39 CONCLUSION: 1. Interval extubation. 2. No evidence of acute pneumonia. Chest X-Ray 12/15/17 00:00 CONCLUSION: Satisfactory ET tube positioning <Varinder Serrano - Last Filed: 12/15/17 11:26> Assessment and Plan (1) Nutritional deficiency Status: Acute Code(s): E63.9 - Nutritional deficiency, unspecified - Plan ASSESSMENT AND PLAN: - Encephalopathy- PEG tube placement for continued encephalopathy despite correction of hypoglycemia on arrival. S/P EGD with PEG on 12/12. [facility] recommended Nepro at 55 mL/hr for 22 hours (Synthroid). According to RN pt was tolerating TF, currently turned off for extubation this morning. Hypotensive after GI procedure, CT rule out gastric perforation. - Pancreatic ductal dilatation with elevated CA 19-9, chronic pancreatitis vs mass (cannot be excluded) MRCP --> Dilatation of the pancreatic duct ranging from 2 cm in the head of pancreas to 1.6 images in the mid body with a [place] pseudocyst appearance. Findings would be consistent with a chronic pancreatitis. If there is a focal mass present it would be at the ampulla. Trace ascites. No other recent cross-sectional imaging studies of the pancreas. These would be most helpful given the appearance. No previous hospitalizations. Unable to obtain history given pts current mental status. Discussed with radiology, if further imaging recommending CT abdomen with pancreatic protocol. Pt will need dialysis after procedure. Could also consider EUS, however pt is too unstable for this at this time, will monitor and consider EUS on Tuesday if stable when Dr. Orosco will be covering. Discussed with pillow agent, Dr. Smith (12/15) Pt was reintubated yesterday. Palliative care following, family does not want further work up of pancreatic findings. At this time our service will sign off, if family desires further work up regarding pancreatic findings then EUS would be recommended. Continue to monitor H/H because of ulcers found during EGD. Continue TF as recommended per dry charge process attendant. Plan Family does not want further pancreatic work up Continue to monitor H/H Continue TF per dry charge process attendant Our service will sign off, reconsult as needed Pt has been seen and examined by myself and Dr. Serrano and this note is written on his behalf <Daysi Bennett - Last Filed: 12/15/17 09:07> (1) Nutritional deficiency Status: Acute Code(s): E63.9 - Nutritional deficiency, unspecified - Attending Attestation No active bleeding over the last 48 hours. Needs workup for dilated pancreatic duct when more stable and ulcers healing. Please notify us if needed again. <Varinder Serrano - Last Filed: 12/15/17 11:26>
[2017-12-15] MEDS ORDERED: Sodium Bicarbonate 8.4% Inj 50 MEQ/50 ML Syringe IV.PUSH ONE (09:17)
[2017-12-15 09:59] LABS: INR 1.5 Ratio; Prothrombin Time 15.4 sec (9.8-11.6)
[2017-12-15] MEDS: Albumin Human 25% Inj 100 ML IV.SIG PRN (10:30)
--- NOTE | 2017-12-15 11:16 | P.PNNP ---
Subjective Interval history: Patient is re intubated on ventilator doing poorly seen during dialysis Vas- Cath is malfunctioning Physical Exam Vital signs: Vital Signs 12/14/17 11:15 12/14/17 11:30 12/14/17 11:45 Temperature Pulse Rate 102 H 102 H 101 H Respiratory Rate 12 11 L 12 Blood Pressure 109/58 L 111/56 L 119/57 L Pulse Oximetry 90 L 90 L 90 L 12/14/17 12:00 12/14/17 12:15 12/14/17 12:33 Temperature Pulse Rate 100 H 99 H 105 H Respiratory Rate 13 12 23 Blood Pressure 124/57 L 131/58 L 112/68 Pulse Oximetry 90 L 90 L 88 L 12/14/17 12:45 12/14/17 13:00 12/14/17 13:15 Temperature Pulse Rate 101 H 103 H 101 H Respiratory Rate 14 89 H 14 Blood Pressure 112/60 93/54 L 93/55 L Pulse Oximetry 91 L 92 L 92 L 12/14/17 13:30 12/14/17 13:45 12/14/17 14:00 Temperature Pulse Rate 104 H 109 H 109 H Respiratory Rate 18 19 19 Blood Pressure 95/53 L 94/53 L 94/51 L Pulse Oximetry 90 L 89 L 91 L 12/14/17 14:05 12/14/17 14:15 12/14/17 14:30 Temperature Pulse Rate 109 H 108 H 109 H Respiratory Rate 18 19 17 Blood Pressure 108/50 L 108/57 L 134/58 L Pulse Oximetry 90 L 91 L 91 L 12/14/17 14:45 12/14/17 15:00 12/14/17 15:09 Temperature Pulse Rate 109 H 107 H 106 H Respiratory Rate 13 12 20 Blood Pressure 102/51 L 108/55 L Pulse Oximetry 92 L 91 L 12/14/17 15:15 12/14/17 15:30 12/14/17 15:40 Temperature Pulse Rate 105 H 104 H 102 H Respiratory Rate 11 L 12 13 Blood Pressure 90/52 L 103/54 L 99/52 L Pulse Oximetry 92 L 91 L 92 L 12/14/17 15:45 12/14/17 16:00 12/14/17 16:15 Temperature Pulse Rate 102 H 107 H 105 H Respiratory Rate 15 26 H 134 H Blood Pressure 98/52 L 102/56 L 99/54 L Pulse Oximetry 90 L 90 L 90 L 12/14/17 20:00 12/14/17 21:01 12/15/17 00:00 Temperature 98.2 F 98.3 F Pulse Rate 97 H 98 H 111 H Respiratory Rate 15 20 22 Blood Pressure 114/58 L 131/68 Pulse Oximetry 94 L 95 95 12/15/17 03:55 12/15/17 04:00 12/15/17 07:00 Temperature 98.9 F 98 F Pulse Rate 102 H 106 H 118 H Respiratory Rate 20 24 12 Blood Pressure 141/80 H 112/61 Pulse Oximetry 96 96 12/15/17 07:30 12/15/17 08:00 12/15/17 09:00 Temperature 98.4 F Pulse Rate 121 H 109 H Respiratory Rate 16 12 19 Blood Pressure 139/75 Pulse Oximetry 100 98 12/15/17 11:11 Temperature Pulse Rate Respiratory Rate 18 Blood Pressure Pulse Oximetry 100 Intake & Output 12/14/17 12/15/17 12/15/17 18:59 06:59 18:59 Intake Total 560 / 560 481 / 481 Output Total 0 / 0 0 / 0 Balance 560 / 560 481 / 481 Weight 74.3 kg Intake: IV 200 / 200 300 / 300 Azactam Inj 500 MG In NS Inj 50 100 / 100 100 / 100 ML @ 100 mls/hr IV.SIG Q8H KRUNAL Rx#:[id number] Flagyl 500 MG Inj 100 ML @ 100 100 / 100 200 / 200 mls/hr IV.SIG Q8H KRUNAL Rx#: [id number] Tube Feeding 240 / 240 81 / 81 Water Bolus Amount 120 / 120 100 / 100 Output: Urine 0 / 0 0 / 0 Other: Date of Last Bowel Movement 12/10/17 12/15/17 12/15/17 # Bowel Movements 1 Narrative: - Constitutional Intubated sedated hypotensive critically ill - Routine Respiratory Exam CTA bilaterally, no wheezes or crackles - Routine Cardiovascular Exam Sinus rhythm, intermittently tachycardic, hypotensive currently on 80 mcg/min of Jonas-Synephrine - Routine Abdominal Exam soft, nontender. New PEG tube site without evidence of bleeding - Routine Extremities Exam No pedal edema. - Routine Neurological Exam Patient is intubated do not follow commands - Urinary Catheter Management Straight Cath placed during this visit: yes Reason for continuing: Not indwelling catheter Insertion date: 12/01/17 Insertion time: 13:46 Assessment and Plan - Assessment (1) Altered mental status Code(s): R41.82 - Altered mental status, unspecified Status: Acute Qualifiers: Altered mental status type: unspecified Qualified Code(s): R41.82 - Altered mental status, unspecified (2) Hypoglycemia Code(s): E16.2 - Hypoglycemia, unspecified Status: Acute (3) Sepsis Code(s): A41.9 - Sepsis, unspecified organism Status: Acute Qualifiers: Sepsis type: sepsis due to unspecified organism Qualified Code(s): A41.9 - Sepsis, unspecified organism (4) ESRD (end stage renal disease) on dialysis Code(s): N18.6 - End stage renal disease; Z99.2 - Dependence on renal dialysis Status: Acute - Plan Patient now on mechanical ventilation there is a possibility of aspiration pneumonia, sepsis, hypotension, condition critical on vasopressors and ventilator Suspect AMS secondary to hypoglycemic event Hemodialysis continue hemodialysis on Tuesday and Tuesday vascath in place not functioning well seen during hemodialysis UF of 1.5 L low blood pressure Patient is on ventilator again Continue aggressive care Prognosis is poor
--- NOTE | 2017-12-15 13:12 | P.PCN ---
Date of procedure: 12/15/17 Pre-op diagnosis: Sepsis, AMS Post-op diagnosis: same Procedure: Procedure - Lumbar Puncture Indication - R/O meningitis Anesthesia - local 1% lidocaine Informed consent was obtained from the patient's daughter. The area was prepped and draped in the usual sterile fashion. Using landmarks, a 22 guage spinal needle was inserted in the L4-L5 innerspace. The stylet was removed and the opening pressure was deferred. 6 cc of clear fluid was collected and sent for routine studies. CSF was also sent for HSV and EBV PCR. The patient tolerated the procedure well. There was no blood loss or hematoma. Anesthesia: local Surgeon: Sandra Smith Estimated blood loss (mL): 0 Pathology: other (CSF studies) Condition: critical Disposition: ICU
[2017-12-15 14:13] LABS: Total Protein,CSF 50.7 mg/dL (15.0-45.0)
[2017-12-15 14:35] LABS: Neutrophils,CSF 0 %; RBC on Tube 4 17 /mm3
[2017-12-15 15:03] LABS: ABG Base Excess 1.6 mmol/L (-2-2); ABG PCO2 41 mmHg (38-42); ABG PO2 135 mmHG (61-120)
[2017-12-15] MEDS: Sod Chloride 0.9% Inj 1,000 ML IV.CONT SCH (15:58)
[2017-12-15] MEDS ORDERED: dilTIAZem Inj 125 MG in Sodium Chlor 0.9% Inj 100 ML IV.CONT PRN (17:23)
--- NOTE | 2017-12-15 18:20 | P.PCN ---
Date of procedure: 12/12/17 Procedure: THANK YOU FOR THE REFERRAL Indication; dysphagia, anemia Procedure Performed; upper endoscopy with biopsy, bleeding control, injection of epinephrine, cauterization, PEG tube placement After informing the patient about procedure and possible complications consent was signed. history and physical were updated. Patient was taken to the procedure room and placed in position. Time out was completed. Adequate sedation was performed by anesthesia provider. Upper Endoscopy, the scope was placed in the mouth advanced under video guide to the second portion of the duodenum, there was significant amount of bleeding from duodenal ulcer which was actively bleeding, the scope withdrawal back and patient was intubated by anesthesia to protect his airway then the scope was placed in the mouth again advanced under video guidance to the duodenum the area was cleaned using therapeutic scope dual channel to suction clots and the ulcer was identified and injected with 6 cc of epinephrine and cauterized with gold probe with complete control of the ulcer, biopsy from the duodenum was done , the scope brought back to the stomach the area for the PEG tube was identified in the left upper quadrant sterilized with Betadine injected with lidocaine and a small incision was performed then the catheter was advanced through the abdominal wall with a guidewire retrieved by snare and 20 [place] [employer] PEG tube placed without any immediate complication , verification of the PEG tube was done by endoscopy then the scope was withdrawal to the stomach and retro-flexion was performed, the scope was withdrawal to the esophagus then out of the mouth without any immediate complication Findings; Esophagus: Normal Stomach gastritis, PEG tube was placed in the left upper quadrant without any difficulty Duodenum bleeding ulcer in the antrum which was controlled by injection of epinephrine and cauterization of the ulcer with gold probe Recommendations; 1- Supportive care 2- ok to transfer to recovery area then transferred to ICU 3-n.p.o. 4-continue PPI 5- EGD as needed
--- NOTE | 2017-12-15 18:23 | P.PNGI ---
Subjective Interval history: This note was done for visit on 12/12/2017 Patient was laying in bed, a little bit lethargic, does not seem to be in acute distress, had mild drop in his hemoglobin Physical Exam Vital signs: Vital Signs 12/14/17 20:00 12/14/17 21:01 12/15/17 00:00 Temperature 98.2 F 98.3 F Pulse Rate 97 H 98 H 111 H Respiratory Rate 15 20 22 Blood Pressure 114/58 L 131/68 Pulse Oximetry 94 L 95 95 12/15/17 03:55 12/15/17 04:00 12/15/17 07:00 Temperature 98.9 F 98 F Pulse Rate 102 H 106 H 118 H Respiratory Rate 20 24 12 Blood Pressure 141/80 H 112/61 Pulse Oximetry 96 96 12/15/17 07:30 12/15/17 08:00 12/15/17 09:00 Temperature 98.4 F Pulse Rate 121 H 109 H Respiratory Rate 16 12 19 Blood Pressure 139/75 Pulse Oximetry 100 98 12/15/17 11:11 12/15/17 12:00 12/15/17 14:00 Temperature 98.2 F Pulse Rate 88 83 Respiratory Rate 18 12 Blood Pressure 106/56 L Pulse Oximetry 100 99 12/15/17 16:00 12/15/17 17:44 Temperature 98.7 F Pulse Rate 96 H Respiratory Rate 12 18 Blood Pressure 137/71 Pulse Oximetry 99 100 Intake & Output 12/14/17 12/15/17 12/15/17 18:59 06:59 18:59 Intake Total 560 / 560 1481 / 1481 100 / 100 Output Total 0 / 0 0 / 0 1999 Balance 560 / 560 1481 / 1481 -1900 / -1900 Weight 74.3 kg Intake: IV 200 / 200 1300 / 1300 100 / 100 NS Inj 1,000 ML @ 42 mls/hr IV. 1000 / 1000 CONT .[id number] [facility] Rx#:[id number] Flexbumin 25% Inj 100 ML @ 60 100 / 100 mls/hr IV.SIG WITH DIALYSIS PRN Rx#:[id number] Azactam Inj 500 MG In NS Inj 50 100 / 100 100 / 100 ML @ 100 mls/hr IV.SIG Q8H [facility] Rx#:[id number] Flagyl 500 MG Inj 100 ML @ 100 100 / 100 200 / 200 mls/hr IV.SIG Q8H [facility] Rx#: [id number] Tube Feeding 240 / 240 81 / 81 Water Bolus Amount 120 / 120 100 / 100 Output: Urine 0 / 0 0 / 0 Hemodialysis Amount 1999 Other: Date of Last Bowel Movement 12/10/17 12/15/17 12/15/17 # Bowel Movements 1 - Constitutional no acute distress - Routine HEENT Exam Head: Present: normocephalic ENT: Present: mucous membranes moist - Routine Neck Exam Present: supple, full ROM, normal carotid upstroke - Routine Respiratory Exam Present: decreased breath sounds - Routine Cardiovascular Exam Present: RRR, S1, S2 - Routine Abdominal Exam Present: soft, normoactive bowel sounds - Urinary Catheter Management Straight Cath placed during this visit: yes Reason for continuing: Not indwelling catheter Insertion date: 12/01/17 Insertion time: 13:46 Results - Labs CBC & Chem 7: 12/15/17 03:25 12/15/17 03:25 Laboratory Results - last 24 hr 12/12/17 12/14/17 12/14/17 15:29 18:58 20:51 WBC RBC Hgb Hct MCV MCH MCHC RDW Plt Count MPV PT INR Puncture Site Patient Temperature O2 Saturation ABG pH ABG pCO2 ABG pO2 ABG HCO3 ABG O2 Content ABG Base Excess ABG Methemoglobin Jostin Test Hemoglobin Carboxyhemoglobin O2 Delivery Device Liter Flow Vent Setting Inspired O2 Critical Value Sodium Potassium Chloride Carbon Dioxide Anion Gap BUN Creatinine Estimated GFR POC Glucose 175 H 191 H Random Glucose Lactic Acid Calcium Magnesium Total Bilirubin AST ALT Alkaline Phosphatase Ammonia Total Protein Albumin TSH CSF Volume (1) CSF Supernat Color (1) CSF Gross Blood (1) CSF Volume (2) CSF Supernat Color (2) CSF Gross Blood (2) CSF Volume (3) CSF Supernat Color (3) CSF Gross Blood (3) CSF Volume (4) CSF Supernat Color (4) CSF Gross Blood (4) CSF WBC (4) CSF RBC (4) CSF Neutrophils % CSF Histiocytes CSF Glucose CSF Lactic Acid CSF Total Protein CSF Albumin CSF IgG Serum IgG Serum Albumin CSF IgG Index CSF IgG Synthesis Rate CSF Myelin Basic Protein Ser Oligoclonal Bands CSF Oligoclonal Bands CSF Olig Protein Interp Random Vancomycin MTS Gel Crossmatch See Detail Blood Bank Comment 12/15/17 12/15/17 12/15/17 00:48 03:25 03:25 WBC 19.8 H RBC 3.40 L Hgb 9.4 L Hct 30.7 L MCV 90.2 MCH 27.5 MCHC 30.5 L RDW 18.7 H Plt Count 196 MPV 9.2 PT INR Puncture Site Patient Temperature O2 Saturation ABG pH ABG pCO2 ABG pO2 ABG HCO3 ABG O2 Content ABG Base Excess ABG Methemoglobin Jostin Test Hemoglobin Carboxyhemoglobin O2 Delivery Device Liter Flow Vent Setting Inspired O2 Critical Value Sodium 148 H Potassium 4.1 Chloride 109 H Carbon Dioxide 23.2 Anion Gap 16 H BUN 58 H Creatinine 9.45 H Estimated GFR 6 L POC Glucose Random Glucose 292 H Lactic Acid 0.8 Calcium 7.8 L Magnesium 2.2 Total Bilirubin 0.5 AST 52 H ALT 42 Alkaline Phosphatase 87 Ammonia Total Protein 5.5 L Albumin 2.2 L TSH CSF Volume (1) CSF Supernat Color (1) CSF Gross Blood (1) CSF Volume (2) CSF Supernat Color (2) CSF Gross Blood (2) CSF Volume (3) CSF Supernat Color (3) CSF Gross Blood (3) CSF Volume (4) CSF Supernat Color (4) CSF Gross Blood (4) CSF WBC (4) CSF RBC (4) CSF Neutrophils % CSF Histiocytes CSF Glucose CSF Lactic Acid CSF Total Protein CSF Albumin CSF IgG Serum IgG Serum Albumin CSF IgG Index CSF IgG Synthesis Rate CSF Myelin Basic Protein Ser Oligoclonal Bands CSF Oligoclonal Bands CSF Olig Protein Interp Random Vancomycin 27.6 MTS Gel Crossmatch Blood Bank Comment 12/15/17 12/15/17 12/15/17 04:14 08:30 08:54 WBC RBC Hgb Hct MCV MCH MCHC RDW Plt Count MPV PT INR Puncture Site Art line Right brachial Patient Temperature 98.6 98.6 O2 Saturation 92 95 ABG pH 7.26 L* 7.23 L* ABG pCO2 47 H 44 H ABG pO2 86 131 H ABG HCO3 20 L 18 L ABG O2 Content 13.0 12.4 ABG Base Excess -5.6 L -8.5 L ABG Methemoglobin 2.1 H 2.2 H Jostin Test Present Hemoglobin 10.0 L 9.1 L Carboxyhemoglobin 0.6 0.6 O2 Delivery Device Nasal cannula Ventilator Liter Flow 4.00 Vent Setting Prvc16/550/1.0/+5 Inspired O2 40 Critical Value Yes Yes Sodium Potassium Chloride Carbon Dioxide Anion Gap BUN Creatinine Estimated GFR POC Glucose 321 H Random Glucose Lactic Acid Calcium Magnesium Total Bilirubin AST ALT Alkaline Phosphatase Ammonia Total Protein Albumin TSH CSF Volume (1) CSF Supernat Color (1) CSF Gross Blood (1) CSF Volume (2) CSF Supernat Color (2) CSF Gross Blood (2) CSF Volume (3) CSF Supernat Color (3) CSF Gross Blood (3) CSF Volume (4) CSF Supernat Color (4) CSF Gross Blood (4) CSF WBC (4) CSF RBC (4) CSF Neutrophils % CSF Histiocytes CSF Glucose CSF Lactic Acid CSF Total Protein CSF Albumin CSF IgG Serum IgG Serum Albumin CSF IgG Index CSF IgG Synthesis Rate CSF Myelin Basic Protein Ser Oligoclonal Bands CSF Oligoclonal Bands CSF Olig Protein Interp Random Vancomycin whistleBox Blood Bank Comment 12/15/17 12/15/17 12/15/17 09:30 09:30 09:30 WBC RBC Hgb Hct MCV MCH MCHC RDW Plt Count MPV PT 15.4 H INR 1.5 Puncture Site Patient Temperature O2 Saturation ABG pH ABG pCO2 ABG pO2 ABG HCO3 ABG O2 Content ABG Base Excess ABG Methemoglobin Jostin Test Hemoglobin Carboxyhemoglobin O2 Delivery Device Liter Flow Vent Setting Inspired O2 Critical Value Sodium Potassium Chloride Carbon Dioxide Anion Gap BUN Creatinine Estimated GFR POC Glucose Random Glucose Lactic Acid 1.0 Calcium Magnesium Total Bilirubin AST ALT Alkaline Phosphatase Ammonia Total Protein Albumin TSH 1.240 CSF Volume (1) CSF Supernat Color (1) CSF Gross Blood (1) CSF Volume (2) CSF Supernat Color (2) CSF Gross Blood (2) CSF Volume (3) CSF Supernat Color (3) CSF Gross Blood (3) CSF Volume (4) CSF Supernat Color (4) CSF Gross Blood (4) CSF WBC (4) CSF RBC (4) CSF Neutrophils % CSF Histiocytes CSF Glucose CSF Lactic Acid CSF Total Protein CSF Albumin CSF IgG Serum IgG Serum Albumin CSF IgG Index CSF IgG Synthesis Rate CSF Myelin Basic Protein Ser Oligoclonal Bands CSF Oligoclonal Bands CSF Olig Protein Interp Random Vancomycin [employer]Box Blood Bank Comment 12/15/17 12/15/17 12/15/17 10:00 10:51 13:10 WBC RBC Hgb Hct MCV MCH MCHC RDW Plt Count MPV PT INR Puncture Site Patient Temperature O2 Saturation ABG pH ABG pCO2 ABG pO2 ABG HCO3 ABG O2 Content ABG Base Excess ABG Methemoglobin Jostin Test Hemoglobin Carboxyhemoglobin O2 Delivery Device Liter Flow Vent Setting Inspired O2 Critical Value Sodium Potassium Chloride Carbon Dioxide Anion Gap BUN Creatinine Estimated GFR POC Glucose Random Glucose Lactic Acid Calcium Magnesium Total Bilirubin AST ALT Alkaline Phosphatase Ammonia 11 Total Protein Albumin TSH CSF Volume (1) CSF Supernat Color (1) CSF Gross Blood (1) CSF Volume (2) CSF Supernat Color (2) CSF Gross Blood (2) CSF Volume (3) CSF Supernat Color (3) CSF Gross Blood (3) CSF Volume (4) CSF Supernat Color (4) CSF Gross Blood (4) CSF WBC (4) CSF RBC (4) CSF Neutrophils % CSF Histiocytes CSF Glucose CSF Lactic Acid CSF Total Protein CSF Albumin Cancelled CSF IgG Cancelled Serum IgG Cancelled Serum Albumin Cancelled CSF IgG Index Cancelled CSF IgG Synthesis Rate Cancelled CSF Myelin Basic Protein Cancelled Ser Oligoclonal Bands CSF Oligoclonal Bands Cancelled CSF Olig Protein Interp Random Vancomycin [employer] Blood Bank Comment 12/15/17 12/15/17 12/15/17 13:10 13:10 13:10 WBC RBC Hgb Hct MCV MCH MCHC RDW Plt Count MPV PT INR Puncture Site Patient Temperature O2 Saturation ABG pH ABG pCO2 ABG pO2 ABG HCO3 ABG O2 Content ABG Base Excess ABG Methemoglobin Jostin Test Hemoglobin Carboxyhemoglobin O2 Delivery Device Liter Flow Vent Setting Inspired O2 Critical Value Sodium Potassium Chloride Carbon Dioxide Anion Gap BUN Creatinine Estimated GFR POC Glucose Random Glucose Lactic Acid Calcium Magnesium Total Bilirubin AST ALT Alkaline Phosphatase Ammonia Total Protein Albumin TSH CSF Volume (1) CSF Supernat Color (1) CSF Gross Blood (1) CSF Volume (2) CSF Supernat Color (2) CSF Gross Blood (2) CSF Volume (3) CSF Supernat Color (3) CSF Gross Blood (3) CSF Volume (4) CSF Supernat Color (4) CSF Gross Blood (4) CSF WBC (4) CSF RBC (4) CSF Neutrophils % CSF Histiocytes CSF Glucose Cancelled CSF Lactic Acid Cancelled CSF Total Protein CSF Albumin CSF IgG Serum IgG Serum Albumin CSF IgG Index CSF IgG Synthesis Rate CSF Myelin Basic Protein Ser Oligoclonal Bands Cancelled CSF Oligoclonal Bands Cancelled CSF Olig Protein Interp Cancelled Random Vancomycin [employer]Box Blood Bank Comment 12/15/17 12/15/17 12/15/17 13:10 13:10 14:45 WBC RBC Hgb Hct MCV MCH MCHC RDW Plt Count MPV PT INR Puncture Site Left femoral Patient Temperature 98.6 O2 Saturation 96 ABG pH 7.41 ABG pCO2 41 ABG pO2 135 H ABG HCO3 26 ABG O2 Content 11.2 L ABG Base Excess 1.6 ABG Methemoglobin 2.0 Jostin Test Present Hemoglobin 8.1 L Carboxyhemoglobin 0.7 O2 Delivery Device Ventilator Liter Flow Vent Setting Prvc18/550/1.0/+5 Inspired O2 40 Critical Value No Sodium Potassium Chloride Carbon Dioxide Anion Gap BUN Creatinine Estimated GFR POC Glucose Random Glucose Lactic Acid Calcium Magnesium Total Bilirubin AST ALT Alkaline Phosphatase Ammonia Total Protein Albumin TSH CSF Volume (1) 3.0 CSF Supernat Color (1) Clear CSF Gross Blood (1) 2+ A CSF Volume (2) 2.5 CSF Supernat Color (2) Clear CSF Gross Blood (2) 1+ A CSF Volume (3) 3.0 CSF Supernat Color (3) Clear CSF Gross Blood (3) 0 CSF Volume (4) 2.3 CSF Supernat Color (4) Clear CSF Gross Blood (4) 0 CSF WBC (4) 5 CSF RBC (4) 17 H CSF Neutrophils % 0 CSF Histiocytes 100 CSF Glucose 180 H CSF Lactic Acid 2.2 CSF Total Protein 50.7 H CSF Albumin CSF IgG Serum IgG Serum Albumin CSF IgG Index CSF IgG Synthesis Rate CSF Myelin Basic Protein Ser Oligoclonal Bands CSF Oligoclonal Bands CSF Olig Protein Interp Random Vancomycin MTS Gel Crossmatch Blood Bank Comment 12/15/17 12/15/17 15:11 16:18 WBC RBC Hgb Hct MCV MCH MCHC RDW Plt Count MPV PT INR Puncture Site Patient Temperature O2 Saturation ABG pH ABG pCO2 ABG pO2 ABG HCO3 ABG O2 Content ABG Base Excess ABG Methemoglobin Jostin Test Hemoglobin Carboxyhemoglobin O2 Delivery Device Liter Flow Vent Setting Inspired O2 Critical Value Sodium Potassium Chloride Carbon Dioxide Anion Gap BUN Creatinine Estimated GFR POC Glucose 162 H 174 H Random Glucose Lactic Acid Calcium Magnesium Total Bilirubin AST ALT Alkaline Phosphatase Ammonia Total Protein Albumin TSH CSF Volume (1) CSF Supernat Color (1) CSF Gross Blood (1) CSF Volume (2) CSF Supernat Color (2) CSF Gross Blood (2) CSF Volume (3) CSF Supernat Color (3) CSF Gross Blood (3) CSF Volume (4) CSF Supernat Color (4) CSF Gross Blood (4) CSF WBC (4) CSF RBC (4) CSF Neutrophils % CSF Histiocytes CSF Glucose CSF Lactic Acid CSF Total Protein CSF Albumin CSF IgG Serum IgG Serum Albumin CSF IgG Index CSF IgG Synthesis Rate CSF Myelin Basic Protein Ser Oligoclonal Bands CSF Oligoclonal Bands CSF Olig Protein Interp Random Vancomycin MTS Gel Crossmatch Blood Bank Comment Microbiology 12/15/17 13:10 Lumbar Puncture Gram Stain - Final 12/13/17 18:00 Sputum - Endotracheal Gram Stain - Final 12/13/17 18:00 Sputum - Endotracheal Sputum Culture - Preliminary gram negative rods 12/12/17 19:27 Blood - Peripheral Aerobic Blood Culture - Preliminary No growth in 3 days 12/12/17 19:27 Blood - Peripheral Anaerobic Blood Culture - Preliminary No growth in 3 days 12/12/17 19:22 Blood - Peripheral Aerobic Blood Culture - Preliminary No growth in 3 days 12/12/17 19:22 Blood - Peripheral Anaerobic Blood Culture - Preliminary No growth in 3 days - Imaging Impressions Chest X-Ray 12/14/17 17:39 CONCLUSION: 1. Interval extubation. 2. No evidence of acute pneumonia. Chest X-Ray 12/15/17 00:00 CONCLUSION: Satisfactory ET tube positioning Assessment and Plan (1) Nutritional deficiency Status: Acute Code(s): E63.9 - Nutritional deficiency, unspecified - Plan ASSESSMENT AND PLAN: -Patient has dysphagia, was supposed to have PEG tube placement, also has significant anemia he had an upper endoscopy today which showed large ulcer that was treated and PEG tube was placed Findings; Esophagus: Normal Stomach gastritis, PEG tube was placed in the left upper quadrant without any difficulty Duodenum bleeding ulcer in the antrum which was controlled by injection of epinephrine and cauterization of the ulcer with gold probe Recommendations; 1- Supportive care 2- ok to transfer to recovery area then transferred to ICU 3-n.p.o. 4-continue PPI 5- EGD as needed
[2017-12-15] MEDS ORDERED: Cathflo Activase Inj 2 MG Vial I-CATHETER ONE ×2 (18:30)
--- NOTE | 2017-12-15 19:56 | P.PNID ---
Subjective Remarks: yday extubated, but ws not protecting airways now reintubated on pressors + large amount of oral secretions no fever, WBC up to 19K Antibiotics: aztreonam flagyl vanco Allergies/Adverse Reactions: Allergies Penicillins Allergy (Mild, Verified 12/01/17 17:09) rash Objective Vital Signs 12/14/17 20:00 12/14/17 21:01 12/15/17 00:00 Temperature 98.2 F 98.3 F Pulse Rate 97 H 98 H 111 H Respiratory Rate 15 20 22 Blood Pressure 114/58 L 131/68 Pulse Oximetry 94 L 95 95 12/15/17 03:55 12/15/17 04:00 12/15/17 07:00 Temperature 98.9 F 98 F Pulse Rate 102 H 106 H 118 H Respiratory Rate 20 24 12 Blood Pressure 141/80 H 112/61 Pulse Oximetry 96 96 12/15/17 07:30 12/15/17 08:00 12/15/17 09:00 Temperature 98.4 F Pulse Rate 121 H 109 H Respiratory Rate 16 12 19 Blood Pressure 139/75 Pulse Oximetry 100 98 12/15/17 11:11 12/15/17 12:00 12/15/17 14:00 Temperature 98.2 F Pulse Rate 88 83 Respiratory Rate 18 12 Blood Pressure 106/56 L Pulse Oximetry 100 99 12/15/17 16:00 12/15/17 17:44 12/15/17 18:00 Temperature 98.7 F Pulse Rate 96 H 106 H Respiratory Rate 12 18 Blood Pressure 137/71 Pulse Oximetry 99 100 Intake & Output 12/15/17 12/15/17 12/16/17 06:59 18:59 06:59 Intake Total 1481 / 1481 250 / 250 Output Total 0 / 0 1999 Balance 1481 / 1481 -1750 / -1750 Weight 74.3 kg Intake: IV 1300 / 1300 100 / 100 NS Inj 1,000 ML @ 42 mls/hr IV. 1000 / 1000 CONT .[id number] [facility] Rx#:[id number] Flexbumin 25% Inj 100 ML @ 60 100 / 100 mls/hr IV.SIG WITH DIALYSIS PRN Rx#:[id number] Azactam Inj 500 MG In NS Inj 50 100 / 100 ML @ 100 mls/hr IV.SIG Q8H [facility] Rx#:[id number] Flagyl 500 MG Inj 100 ML @ 100 200 / 200 mls/hr IV.SIG Q8H [facility] Rx#: [id number] Tube Feeding 81 / 81 Water Bolus Amount 100 / 100 150 / 150 Output: Urine 0 / 0 Hemodialysis Amount 1999 Other: Date of Last Bowel Movement 12/15/17 12/15/17 # Bowel Movements 1 1 12/15/17 13:10 Lumbar Puncture Gram Stain - Final 12/15/17 13:10 Lumbar Puncture CSF Culture - Pending 12/15/17 13:10 Cerebral Spinal Fluid - Lumbar Puncture Fungal Smear - Pending 12/15/17 13:10 Cerebral Spinal Fluid - Lumbar Puncture Fungal Culture - Pending 12/15/17 13:10 Cerebral Spinal Fluid - Lumbar Puncture Acid Fast Bacilli Smear - Pending 12/15/17 13:10 Cerebral Spinal Fluid - Lumbar Puncture Mycobacterial Culture - Pending 12/13/17 18:00 Sputum - Endotracheal Gram Stain - Final 12/13/17 18:00 Sputum - Endotracheal Sputum Culture - Preliminary gram negative rods 12/12/17 19:27 Blood - Peripheral Aerobic Blood Culture - Preliminary No growth in 3 days 12/12/17 19:27 Blood - Peripheral Anaerobic Blood Culture - Preliminary No growth in 3 days 12/12/17 19:22 Blood - Peripheral Aerobic Blood Culture - Preliminary No growth in 3 days 12/12/17 19:22 Blood - Peripheral Anaerobic Blood Culture - Preliminary No growth in 3 days Lab - Hematology Results 12/14/17 12/15/17 03:30 03:25 WBC 17.3 H 19.8 H RBC 3.56 L 3.40 L Hgb 9.9 L 9.4 L Hct 31.6 L 30.7 L MCV 88.7 90.2 MCH 27.7 27.5 MCHC 31.3 L 30.5 L RDW 18.9 H 18.7 H Plt Count 227 196 MPV 9.2 9.2 Lab - Chemistry Results 12/13/17 12/14/17 12/14/17 21:27 03:30 10:24 Sodium 145 Potassium 4.0 Chloride 103 Carbon Dioxide 26.0 Anion Gap 16 H BUN 52 H Creatinine 7.80 H Estimated GFR 7 L POC Glucose 286 H 361 H Random Glucose 303 H Lactic Acid Calcium 8.3 L Magnesium Total Bilirubin 0.5 AST 73 H ALT 45 Alkaline Phosphatase 82 Ammonia Total Protein 5.7 L Albumin 2.6 L TSH 12/14/17 12/14/17 12/14/17 12:47 18:58 20:51 Sodium Potassium Chloride Carbon Dioxide Anion Gap BUN Creatinine Estimated GFR POC Glucose 306 H 175 H 191 H Random Glucose Lactic Acid Calcium Magnesium Total Bilirubin AST ALT Alkaline Phosphatase Ammonia Total Protein Albumin TSH 12/15/17 12/15/17 12/15/17 00:48 03:25 08:54 Sodium 148 H Potassium 4.1 Chloride 109 H Carbon Dioxide 23.2 Anion Gap 16 H BUN 58 H Creatinine 9.45 H Estimated GFR 6 L POC Glucose 321 H Random Glucose 292 H Lactic Acid 0.8 Calcium 7.8 L Magnesium 2.2 Total Bilirubin 0.5 AST 52 H ALT 42 Alkaline Phosphatase 87 Ammonia Total Protein 5.5 L Albumin 2.2 L TSH 12/15/17 12/15/17 12/15/17 09:30 09:30 10:00 Sodium Potassium Chloride Carbon Dioxide Anion Gap BUN Creatinine Estimated GFR POC Glucose Random Glucose Lactic Acid 1.0 Calcium Magnesium Total Bilirubin AST ALT Alkaline Phosphatase Ammonia 11 Total Protein Albumin TSH 1.240 12/15/17 12/15/17 15:11 16:18 Sodium Potassium Chloride Carbon Dioxide Anion Gap BUN Creatinine Estimated GFR POC Glucose 162 H 174 H Random Glucose Lactic Acid Calcium Magnesium Total Bilirubin AST ALT Alkaline Phosphatase Ammonia Total Protein Albumin TSH Imaging: ITS Impressions Head CT 12/01/17 11:12 CONCLUSION: 1. Mild cerebral atrophy. 2. No acute infarct, acute hemorrhage, midline shift or extra-axial fluid collections. 3. Small fluid level within the left maxillary sinus. Head MRI 12/02/17 00:00 CONCLUSION: 1. No acute findings. 2. Atrophy and minimal white matter disease. Hand X-Ray 12/04/17 00:00 CONCLUSION: Unremarkable study. Forearm X-Ray 12/04/17 18:49 CONCLUSION: Unremarkable study. Shoulder X-Ray 12/04/17 18:49 CONCLUSION: No definite fracture is identified for technique. Catheter Placement 12/08/17 00:00 CONCLUSION: 1. Uncomplicated line replacement and upsize. Abdomen X-Ray 12/08/17 04:58 CONCLUSION: Nasogastric tube distal tip is at the GE junction. Suggest further advancement stomach. Abdomen/Pelvis CT 12/13/17 00:00 CONCLUSION: 1. Percutaneous gastrostomy tube present without abnormal fluid collection or free air identified. 2. 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 There is evidence for chronic pancreatitis. Cannot exclude an obstructing mass in the pancreatic head. Recommend further evaluation with MRCP. 3. 3 cm fat-containing umbilical hernia. 4. Focal small airspace disease right posterior costophrenic angle. Cholangiopancreatography MRI 12/13/17 00:00 CONCLUSION: 1. Dilatation of the pancreatic duct ranging from 2 cm in the head of pancreas to 1.6 images in the mid body with a [place] pseudocyst appearance. 2. Findings would be consistent with a chronic pancreatitis. 3. If there is a focal mass present it would be at the ampulla. This can be followed by MR or endoscopic ultrasound. 4. Trace ascites 5. No other recent cross-sectional imaging studies of the pancreas. These would be most helpful given the appearance. Chest X-Ray 12/15/17 00:00 CONCLUSION: Satisfactory ET tube positioning Physical Exam: GENERAL: NAD, on vent SKIN: Warm and dry. HEAD: Atraumatic. Normocephalic. EYES: Pupils equal and round. No scleral icterus. No injection or drainage. ENT: No nasal bleeding or discharge. Mucous membranes pink and moist. orally intubated NECK: Trachea midline. No JVD. CARDIOVASCULAR: Regular rate and rhythm. RESPIRATORY: No accessory muscle use. Clear to auscultation. Breath sounds equal bilaterally. GASTROINTESTINAL: Abdomen soft, non-tender, nondistended. Hepatic and splenic margins not palpable. MUSCULOSKELETAL: Extremities without clubbing, cyanosis, or edema. No obvious deformities. NEUROLOGICAL: unresponsive PSYCHIATRIC: unable to assess Assessment and Plan - Plan Anoxic encephalopathy worsening leukocytosis Hypotension sepsis Probably R side aspiration PNA ESRD, on HD cont current abx fu blood clx fu sputum clx lucía RN
--- NOTE | 2017-12-15 20:02 | MG ---
cc: Yolanda Munguia MD EEG NUMBER: [id number]. REFERRING PHYSICIAN: Tung CLINICAL HISTORY: Room 500 with photic only, no sedation. Intubated. MRI shows atrophy, admitted with change in mental status. Glucose of 36. Missed dialysis appointment, acting disoriented. DESCRIPTION OF RECORD: Quite a bit of muscle artifact seen, but overall background rhythm of 4 to 4.5 Hz at times x2-3 Hz, variable. EKG is artifactual, cannot be interpreted. Photic stimulation without any significant driving response. IMPRESSION: Abnormal electroencephalogram due to moderate slowing of background, likely consistent with what looks like an encephalopathic process without any epileptiform features in this recording. Clinical correlation. Yolanda Munguia MD DF/ct , 07:21 PM , 07:25 PM
[2017-12-15] MEDS: Metoprolol Inj 5 MG/5 ML Vial IV.PUSH PRN (20:51)
[2017-12-16] MEDS: Oral Hygiene Kit OROPHARYNG SCH ×4 (03:25→19:27)
[2017-12-16] MEDS: Chlorhexidine Gluconate 2% 1 Pack (2 Cloths) TOPICAL SCH (03:26)
[2017-12-16] MEDS: SODIUM CHLOR 0.9% IV.SIG SCH ×3 (05:08→22:52)
[2017-12-16] MEDS: Levothyroxine 50 MCG Tablet PO SCH (05:08)
[2017-12-16] MEDS: AZTREONAM IV.SIG SCH ×3 (05:08→22:52)
[2017-12-16] MEDS: Phenylephrine Inj 160 MG in Sodium Chlor 0.9% Inj 484 ML IV.CONT PRN (05:08)
[2017-12-16] MEDS: Insulin NovoLOG Aspart Correctional Sugar Inj SQ SCH ×4 (07:57→22:24)
[2017-12-16] MEDS: Pantoprazole Inj 40 MG Vial IV.PUSH SCH ×2 (07:57→20:44)
[2017-12-16] MEDS: Vitamin B Complex/Vit C/Folic Tablet PO SCH (08:06)
[2017-12-16] MEDS: Chlorhexidine 0.12% Oral Kit 15 ML UDC OROPHARYNG SCH ×2 (08:06→20:44)
[2017-12-16] MEDS: Lipase/Protease/Amylase 24/76/120 DR Capsule PO SCH ×4 (08:06→20:46)
[2017-12-16] MEDS ORDERED: Haloperidol Inj 5 MG/ML Ampul IV.PUSH PRN (08:17)
--- NOTE | 2017-12-16 08:20 | P.PNCC ---
Subjective Subjective Remarks/Hospital Course: 67-year-old male patient with history of CAD, multiple stent placement, COPD, end-stage renal disease, type 2 diabetes, who presented to the emergency room on 12/01/17 after being found to be unresponsive with a glucose of 36. Patient was admitted to hospitalist service and despite correction of hypoglycemia remained agitated and encephalopathic. GI was consulted for PEG tube placement for nutrition as the patient had pulled out NG tube several times. Initially the PEG tube placement was started as an LMA procedure. Apparently there was large amount of regurgitation and possible aspiration. He was endotracheally intubated during the procedure by anesthesiologist. Patient remained hemodynamically unstable and was started on Jonas-Synephrine infusion. Apparently per anesthesia patient had evidence of gastritis and duodenitis with stigmata of bleeding. Also there was a question of bowel ischemia on endoscopy. Due to hemodynamic instability requiring Jonas-Synephrine, and possible aspiration patient was left intubated for stabilization and critical care medicine was consulted. I evaluated the patient in the PACU. He remains on Jonas-Synephrine hypotensive with map hardly 50. I have instructed the RN to give 500 ML normal saline bolus , 25 g of IV albumin and also increase Jonas-Synephrine to target map above 65. Patient appears to have intermittent irregular rhythm which appears like atrial fibrillation. EKG and lab work is pending at this time. Blood and urine culture and sputum culture ordered, currently on vancomycin, add Azactam for gram-negative coverage. Clinically there is no evidence gastric perforation related to PEG placement, check CT abdomen pelvis to rule out gastric perforation SUBJ 12/13: Patient remains intubated sedated with Versed and fentanyl. Currently on Jonas-Synephrine at 40 mcg/min. CT abdomen pelvis did not show any evidence of perforation however showed massive dilation of pancreatic duct up to 2 cm. Cannot rule out mass. MRCP ordered, check CA 19-9 12/14: Intubated off sedation moving all extremities tracking but not following commands. Patient has baseline encephalopathy prior to intubation. MRCP yesterday showed Dilatation of the pancreatic duct 2 cm in the head of pancreas to 1.6 images in the mid body with a [place] pseudocyst appearance. Findings would be consistent with a chronic pancreatitis. Per radiologist If there is a focal mass present it would be at the ampulla. May need ERCP, GI following 12/15: Patient was extubated yesterday however mentation continued to gradually worsen unable to protect airway. On my evaluation today a.m. patient was tachypneic clearly not protecting airway. I proceeded with endotracheal intubation and placed on mechanical ventilation. Large amounts of secretions suctioned out from the oropharynx and glottic opening. WBC count continued to increase 19.6 today. Appreciate ID and neurology input. Discussed with Dr. Ruby even though infectious etiology unlikely for mental status change, will proceed with a lumbar puncture with routine studies and her previous studies. I agreed to Dr. Ruby's opinion that his encephalopathy is most likely from prolonged hypoglycemia 12/16: remains encephalopathic. re-intubated yesterday. will need trach to move forward. LP not consistent with acute bacterial meningoencephalitis. sputum from 12/13 growing burkholderia, started levaquin. Objective Vital Signs / I&O: Vital Signs 12/15/17 09:00 12/15/17 11:11 12/15/17 12:00 Temperature 36.8 C Pulse Rate 109 H 88 Respiratory Rate 19 18 12 Blood Pressure 106/56 L Pulse Oximetry 100 99 12/15/17 14:00 12/15/17 16:00 12/15/17 17:44 Temperature 37.1 C Pulse Rate 83 96 H Respiratory Rate 12 18 Blood Pressure 137/71 Pulse Oximetry 99 100 12/15/17 18:00 12/15/17 19:15 12/15/17 20:00 Temperature 37.1 C Pulse Rate 106 H 141 H Respiratory Rate 18 18 Blood Pressure 103/70 Pulse Oximetry 100 100 12/15/17 21:17 12/15/17 22:00 12/15/17 22:20 Temperature Pulse Rate 91 H 81 Respiratory Rate 18 18 Blood Pressure Pulse Oximetry 100 12/16/17 00:00 12/16/17 01:15 12/16/17 02:00 Temperature 36.9 C Pulse Rate 91 H 86 Respiratory Rate 18 18 Blood Pressure 105/59 L Pulse Oximetry 98 100 12/16/17 03:44 12/16/17 04:00 12/16/17 04:05 Temperature 37.3 C Pulse Rate 91 H 86 Respiratory Rate 18 18 17 Blood Pressure 101/56 L Pulse Oximetry 100 100 12/16/17 04:30 12/16/17 06:00 12/16/17 08:06 Temperature Pulse Rate 92 H 81 Respiratory Rate 19 18 Blood Pressure Pulse Oximetry 100 100 Intake & Output 12/15/17 12/16/17 12/16/17 18:59 06:59 18:59 Intake Total 250 / 250 1147 / 1147 Output Total 1999 0 / 0 Balance -1750 / -1750 1147 / 1147 Weight 77.1 kg Intake: IV 100 / 100 950 / 950 Neosynephrine Inj 160 MG In NS 500 / 500 Inj 484 ML @ 40 MCG/MIN 7.5 mls /hr IV.CONT TITRATE PRN Rx#: [id number] Flexbumin 25% Inj 100 ML @ 60 100 / 100 mls/hr IV.SIG WITH DIALYSIS PRN Rx#:[id number] Azactam Inj 500 MG In NS Inj 50 150 / 150 ML @ 100 mls/hr IV.SIG Q8H KRUNAL Rx#:[id number] Flagyl 500 MG Inj 100 ML @ 100 300 / 300 mls/hr IV.SIG Q8H KRUNAL Rx#: [id number] Tube Feeding 97 / 97 Water Bolus Amount 150 / 150 100 / 100 Output: Urine 0 / 0 Hemodialysis Amount 1999 Other: Date of Last Bowel Movement 12/15/17 12/15/17 # Bowel Movements 1 1 Result Diagrams: 12/16/17 08:37 12/16/17 08:37 Objective Remarks: GENERAL: Middle-age male who appears much older than stated age, lying in bed, intubated, critically ill HEENT: Normocephalic. Atraumatic. Pupils equal, round, reactive, conjugate. Mucous membranes are moist NECK: Trachea is midline. There is no JVD. CHEST: Equal chest rise. PRVC mode of ventilation. CARDIOVASCULAR: Normal rate, regular rhythm. Back in sinus rhythm at a rate of 78. Diltiazem at 5 mg/h. Phenylephrine 60 mcg/min. ABDOMEN: Soft, nontender, nondistended. No guarding. MUSCULOSKELETAL: Pulses 2+. No peripheral edema. NEUROLOGICAL: RASS -3/-4. Does not follow commands. Weakly withdraws 4. Assessment and Plan - Assessment and Plan Plan: ASSESSMENT: Acute respiratory failure, recurrent Severe encephalopathy ? Hypoglycemic, anoxic HCAP Aspiration pneumonia Septic Shock Hypotension multifactorial Upper GI bleed Tachyarrhythmia Leukocytosis Dilated pancreatic duct, elevated CA 19-9 (88.5) Radiological evidence of chronic pancreatitis s/p PEG tube placement Hypoglycemia now resolved History of coronary artery disease End-stage renal disease atrial fibrillation with rapid ventricular response PLAN: NEURO: -fentanyl for sedation. -Workup for encephalopathy essentially negative MRI was negative for acute findings. -Encephalopathy most likely secondary to prolonged hypoglycemia and possible anoxia -LP not consistent with acute bacterial meningoencephalitis. f/u serology testing. RESP: -Reintubated 12/15/2017 for lack of airway protection and worsening hypoxia -PRVC/AC, Ventilator bundle -DuoNeb every 6 hours scheduled and as needed -Repeat sputum culture - will need trach to progress. CV: -Jonas-Synephrine to keep map above 65 -add midodrine to wean off phenylephrine - add po diltiazem to get off drip. -Hold all antihypertensive including Procardia XL, lisinopril, carvedilol GI: -N.p.o., and IV Protonix 40 mg q12 -CT abdomen pelvis showed massive pancreatic duct dilation and chronic pancreatitis, confirmed on MRCP -Ampullary mass cannot be ruled out. Patient may need an ERCP, but at this time remains unstable for any invasive procedures -CA-19-9 88.5. : -ESRD on hemodialysis per nephrology ID: -Continue vancomycin, Azactam for gram-negative coverage and Flagyl for anaerobic coverage - add levaquin for bukholderia species. -F/U Blood urine and sputum cultures-negative to date -Leukocytosis and hypotension persistent, ID following HEME: -Monitor CBC, coags -Transfuse to keep hemoglobin more than 8 due to hypotension ENDO: -Sliding scale insulin if needed PROPH: -Bilateral lower extremity SCDs. Eliquis on hold due to GI bleed, and INR >2 -IV Protonix 40 mg every 12 hours LINES: -Utilize peripheral IVs, LIJ central line placed 12/12/17 CC time 51 min Patient is critically ill with hypotension, leukocytosis status post PEG tube placement. Now with recurrent respiratory failure and worsening encephalopathy. Continue broad-spectrum antibiotics.
[2017-12-16 08:52] LABS: Hematocrit 26.9 % (39.0-51.0); Hemoglobin 8.3 gm/dL (13.0-17.0); Mean Corpuscular Hemoglobin 27.9 pg (27.0-34.0); Mean Corpuscular Volume 90.7 fL (80.0-100.0); Mean Platelet Volume 9.2 fL (7.0-11.0); Platelet Count 190 th/mm3 (150-450); Red Blood Count 2.96 mil/mm3 (4.50-5.90); Red Cell Distribution Width 19.3 % (11.6-17.2); White Blood Count 16.2 th/mm3 (4.0-11.0)
[2017-12-16] MEDS: Hypromellose 0.3% Opth Gel 10 GM Bottle EACH EYE SCH ×2 (09:00→20:46)
[2017-12-16] MEDS: dilTIAZem 60 MG Tablet PO SCH ×3 (09:00→20:45)
[2017-12-16 09:01] LABS: Mean Corpuscular HGB Conc 30.8 % (32.0-36.0)
[2017-12-16] MEDS ORDERED: *Heparin 10,000 UNITS/10 ML Vial Periprocedural ONLY ONE (09:21)
[2017-12-16 09:33] LABS: Eosinophils 6 % (0-4); Lymphocytes 7 % (9-44); Metamyelocytes 2 % (0-1); Monocytes 4 % (0-8)
[2017-12-16 09:34] LABS: Platelet Estimate Normal (Normal)
[2017-12-16 09:44] LABS: Alanine Aminotransferase 26 U/L (12-78); Albumin 2.4 g/dL (3.4-5.0); Alkaline Phosphatase 80 U/L (45-117); Anion Gap 16 meq/L (5-15); Aspartate Aminotransferase 29 U/L (15-37); Blood Urea Nitrogen 44 mg/dL (7-18); Calcium 7.8 mg/dL (8.5-10.1); Carbon Dioxide 22.9 meq/L (21.0-32.0); Chloride 107 meq/L (98-107); Glomerular Filtration Rate 7 mL/min (>89); Glucose,Random 260 mg/dL (74-106); Magnesium 1.8 mg/dL (1.5-2.5); Phosphorus 4.7 mg/dL (2.5-4.9); Potassium 3.5 meq/L (3.5-5.1); Sodium 146 meq/L (136-145); Total Protein 5.2 g/dL (6.4-8.2)
--- NOTE | 2017-12-16 10:35 | P.RAD ---
Post Procedure Progress Note - Pre Procedure Diagnosis (1) ESRD (end stage renal disease) on dialysis - Post Procedure Diagnosis (1) ESRD (end stage renal disease) on dialysis - Procedure Information Procedure Date: 12/16/17 Supervising Radiologist: Vinnie Vuong Jr, MD Estimated blood loss (mL): 0 Anesthesia: Other - Plan of Activity Patient to Unit: Critical Care Patient Condition: Fair See PACS Report for procedural detail/treatment. [facility] Radiology Procedures - Additional Detail Findings: Original Vascath without flow. Fibrin sheath stripping performed with angioplasty. Replaced with new Vascath. Good flow thru catheter. Plan: Routine dialysis cath care.
[2017-12-16] MEDS: fentaNYL 10 mcg/mL Premix Drip 2,500 MCG/250 ML BAG IV.SIG PRN (11:47)
--- NOTE | 2017-12-16 12:32 | IR ---
EXAM DATE: 12/16/2017 11:17 AM EDT AGE/SEX: 67 years / Male INDICATIONS: Patient presents with Sepsis in need of a Temporary dialysis catheter exchange. CLINICAL DATA: This is the patient's initial encounter. Patient reports that signs and symptoms have been present for 1 day and indicates a pain score of Nonresponsive. MEDICAL/SURGICAL HISTORY: Chronic obstructive pulmonary disease. Diabetes mellitus type II. Ch ronic kidney disease, End of stage renal disease, Peripheral artery disease. . COMPARISON: [facility] [place], DIALYS[facility], 12/08/2017. . FLUORO TIME (min): 0.47 IMAGE SERIES: 2 ACCESS SITE: Right internal jugular vein SEDATION TIME (min): 20 MEDICATION(S): 1.5 midazolam (Versed) IV DEVICE(S): 14 Ethiopian double lumen 20cm Schon catheter . . PROCEDURE : 1. Fluoroscopic guided venipuncture. 2. Central line placement. 3. Fibrin sheath stripping. The risks, benefits and alternatives to the procedure were explained and verbal and written consent w as obtained. The site was prepped in sterile fashion. Full sterile technique was used, including ca p, mask, sterile gloves and gown and a large sterile sheet. Hand hygiene and 2% chlorhexidine prep w as utilized per protocol for cutaneous antisepsis with appropriate dry time for site. The skin and subcutaneous tissues were infiltrated with local anesthetic solution. Aspiration on the existing Vas-Cath shows no blood return involving either lumen. The catheter was freed from the skin and removed over a wire. A 6 mm x 40 mm balloon was inflated within the SVC and passed into the right atrium to strip away the fibrin sheath. A new Vas-Cath was passed over the wire and positioned with the tip at the cavoatrial junction. Good flow rate noted within the new Vas-Cath. This was sutured in place. The patient tolerated the procedure well and there were no complications. CONCLUSION: 1. Uncomplicated line placement as above. Fibrin sheath stripping was also performed. Electronically signed by: Vinnie Vuong MD 12/16/2017 12:31 PM EDT
[2017-12-16] MEDS ORDERED: fentaNYL Citrate Inj 100 MCG/2 ML Ampul ONE (13:13)
[2017-12-16] MEDS ORDERED: Propofol Inj 500 MG/50 ML Vial ONE (13:13)
--- NOTE | 2017-12-16 14:25 | ECG ---
Date Performed: 12/15/2017 Time Performed: 16:40:47 PTAGE: 67 years EKG: ATRIAL FIBRILLATION WITH RAPID VENTRICULAR RESPONSE ANTEROSEPTAL MYOCARDIAL INFARCTION , OH OBABLY OLD ST DEVIATION AND MODERATE T-WAVE ABNORMALITY, CONSIDER LATERAL ISCHEMIA INFERIOR ISCHEMIA CONSIDER HIGH LATERAL TX, AGE UNDETERMINED ABNORMAL ECG PREVIOUS TRACING : 12/12/2017 17.17 DOCTOR: Brad Parmar Interpretating Date/Time 12/16/2017 14:23:10
--- NOTE | 2017-12-16 14:50 | P.PNPAL ---
Reason for Visit Reason for visit: a. To assist with evaluation and management of symptoms including: confusion/ agitation, pain, dyspnea b. To assist medical decision maker(s) with: better understanding of current medical conditions; weighing benefits/burdens of medical treatment options; making medical treatment decisions. Subjective Subjective/Interval History: Pt in bed, intubated on vent. 12/15 was tachypneic, unable to protect airway. On phenylephrine gtt. WBC trending up. Had LP, CSF no growth 24h. ID following, feel he has aspiration PNA. Gram neg rods in sputum. Does not appear to be in any pain. Unresponsive. Has fentanyl gtt. Neurology on case, EEG showed abnormal function, moderate slowing. Neuro feels encephalopathy likely 2/2/ reanl failure and hypoglycemia. Family/Friend Interactions: Spoke with daughter Tommy on phone. Family working together, continue to express aggressive goals. They wish to proceed with tracheostomy. They are discussing code status further, awaiting callback. Objective Vital Signs: Vital Signs 12/15/17 16:00 12/15/17 17:44 12/15/17 18:00 Temperature 98.7 F Pulse Rate 96 H 106 H Respiratory Rate 12 18 Blood Pressure 137/71 Pulse Oximetry 99 100 12/15/17 19:15 12/15/17 20:00 12/15/17 21:17 Temperature 98.7 F Pulse Rate 141 H 91 H Respiratory Rate 18 18 18 Blood Pressure 103/70 Pulse Oximetry 100 100 12/15/17 22:00 12/15/17 22:20 12/16/17 00:00 Temperature 98.5 F Pulse Rate 81 91 H Respiratory Rate 18 18 Blood Pressure 105/59 L Pulse Oximetry 100 98 12/16/17 01:15 12/16/17 02:00 12/16/17 03:44 Temperature Pulse Rate 86 91 H Respiratory Rate 18 18 Blood Pressure Pulse Oximetry 100 12/16/17 04:00 12/16/17 04:05 12/16/17 04:30 Temperature 99.2 F Pulse Rate 86 Respiratory Rate 18 17 19 Blood Pressure 101/56 L Pulse Oximetry 100 100 100 12/16/17 06:00 12/16/17 08:00 12/16/17 08:06 Temperature 100.1 F H Pulse Rate 92 H 70 81 Respiratory Rate 18 18 Blood Pressure 104/59 L Pulse Oximetry 100 100 12/16/17 10:00 12/16/17 11:12 Temperature Pulse Rate 69 Respiratory Rate Blood Pressure Pulse Oximetry 100 Intake & Output 12/15/17 12/16/17 12/16/17 18:59 06:59 18:59 Intake Total 250 / 250 1147 / 1147 Output Total 1999 0 / 0 Balance -1750 / -1750 1147 / 1147 Weight 77.1 kg Intake: IV 100 / 100 950 / 950 Neosynephrine Inj 160 MG In NS 500 / 500 Inj 484 ML @ 40 MCG/MIN 7.5 mls /hr IV.CONT TITRATE PRN Rx#: [id number] Flexbumin 25% Inj 100 ML @ 60 100 / 100 mls/hr IV.SIG WITH DIALYSIS PRN Rx#:[id number] Azactam Inj 500 MG In NS Inj 50 150 / 150 ML @ 100 mls/hr IV.SIG Q8H SARA Rx#:[id number] Flagyl 500 MG Inj 100 ML @ 100 300 / 300 mls/hr IV.SIG Q8H SARA Rx#: [id number] Tube Feeding 97 / 97 Water Bolus Amount 150 / 150 100 / 100 Output: Urine 0 / 0 Hemodialysis Amount 1999 Other: Date of Last Bowel Movement 12/15/17 12/15/17 12/15/17 # Bowel Movements 1 1 Physical Exam: SKIN: No jaundice, rashes, or lesions. Skin temperature appropriate. Not diaphoretic. HEAD: Atraumatic. Normocephalic. EYES: PERRL. No scleral icterus. No injection or drainage. Fundi not examined. ENT: no discharge from nose. +OETT CARDIOVASCULAR: RRR without murmurs, gallops, or rubs. No JVD. RESPIRATORY/CHEST: Symmetric, unlabored respirations. Clear to auscultation. Breath sounds equal bilaterally. intubated on vent GASTROINTESTINAL: Abdomen soft, non-tender, nondistended. No hepato-splenomegaly , or palpable masses. No guarding. Bowel sounds faint +PEG tube with scant dried blood on dressing MUSCULOSKELETAL: Extremities without clubbing, cyanosis, or edema. No mottling or clubbing. NEUROLOGICAL: sedated on vent, unresponsive Diagnostic Tests Laboratory: Laboratory Results - last 72 hr 12/12/17 12/13/17 12/13/17 15:29 15:45 17:05 WBC RBC Hgb Hct MCV MCH MCHC RDW Plt Count MPV Prelim Diff (Auto) WBC Differential Seg Neuts % (Manual) Band Neuts % (Manual) Lymphocytes % (Manual) Monocytes % (Manual) Eosinophils % (Manual) Metamyelocytes % (Man) Abs Neuts (Manual) Differential Comment Platelet Estimate Platelet Morphology PT INR Puncture Site Patient Temperature O2 Saturation ABG pH ABG pCO2 ABG pO2 ABG HCO3 ABG O2 Content ABG Base Excess ABG Methemoglobin Jostin Test Hemoglobin Carboxyhemoglobin O2 Delivery Device Liter Flow Vent Setting Inspired O2 Critical Value Sodium Potassium Chloride Carbon Dioxide Anion Gap BUN Creatinine Estimated GFR POC Glucose 284 H Random Glucose Lactic Acid Calcium Phosphorus Magnesium Total Bilirubin AST ALT Alkaline Phosphatase Ammonia Total Protein Albumin TSH CSF Volume (1) CSF Supernat Color (1) CSF Gross Blood (1) CSF Volume (2) CSF Supernat Color (2) CSF Gross Blood (2) CSF Volume (3) CSF Supernat Color (3) CSF Gross Blood (3) CSF Volume (4) CSF Supernat Color (4) CSF Gross Blood (4) CSF WBC (4) CSF RBC (4) CSF Neutrophils % CSF Histiocytes CSF Glucose CSF Lactic Acid CSF Total Protein CSF Albumin CSF IgG Serum IgG Serum Albumin CSF IgG Index CSF IgG Synthesis Rate CSF Myelin Basic Protein Ser Oligoclonal Bands CSF Oligoclonal Bands CSF Olig Protein Interp CSF Herpes I DNA (PCR) CSF Herpes II DNA (PCR) Nasal Screen MRSA (PCR) Not detected Random Vancomycin MTS Gel Crossmatch See Detail Blood Bank Comment 12/13/17 12/14/17 12/14/17 21:27 03:30 03:30 WBC 17.3 H RBC 3.56 L Hgb 9.9 L Hct 31.6 L MCV 88.7 MCH 27.7 MCHC 31.3 L RDW 18.9 H Plt Count 227 MPV 9.2 Prelim Diff (Auto) WBC Differential Seg Neuts % (Manual) Band Neuts % (Manual) Lymphocytes % (Manual) Monocytes % (Manual) Eosinophils % (Manual) Metamyelocytes % (Man) Abs Neuts (Manual) Differential Comment Platelet Estimate Platelet Morphology PT INR Puncture Site Patient Temperature O2 Saturation ABG pH ABG pCO2 ABG pO2 ABG HCO3 ABG O2 Content ABG Base Excess ABG Methemoglobin Jostin Test Hemoglobin Carboxyhemoglobin O2 Delivery Device Liter Flow Vent Setting Inspired O2 Critical Value Sodium 145 Potassium 4.0 Chloride 103 Carbon Dioxide 26.0 Anion Gap 16 H BUN 52 H Creatinine 7.80 H Estimated GFR 7 L POC Glucose 286 H Random Glucose 303 H Lactic Acid Calcium 8.3 L Phosphorus Magnesium Total Bilirubin 0.5 AST 73 H ALT 45 Alkaline Phosphatase 82 Ammonia Total Protein 5.7 L Albumin 2.6 L TSH CSF Volume (1) CSF Supernat Color (1) CSF Gross Blood (1) CSF Volume (2) CSF Supernat Color (2) CSF Gross Blood (2) CSF Volume (3) CSF Supernat Color (3) CSF Gross Blood (3) CSF Volume (4) CSF Supernat Color (4) CSF Gross Blood (4) CSF WBC (4) CSF RBC (4) CSF Neutrophils % CSF Histiocytes CSF Glucose CSF Lactic Acid CSF Total Protein CSF Albumin CSF IgG Serum IgG Serum Albumin CSF IgG Index CSF IgG Synthesis Rate CSF Myelin Basic Protein Ser Oligoclonal Bands CSF Oligoclonal Bands CSF Olig Protein Interp CSF Herpes I DNA (PCR) CSF Herpes II DNA (PCR) Nasal Screen MRSA (PCR) Random Vancomycin MTS Gel Crossmatch Blood Bank Comment 12/14/17 12/14/17 12/14/17 10:24 12:47 18:58 WBC RBC Hgb Hct MCV MCH MCHC RDW Plt Count MPV Prelim Diff (Auto) WBC Differential Seg Neuts % (Manual) Band Neuts % (Manual) Lymphocytes % (Manual) Monocytes % (Manual) Eosinophils % (Manual) Metamyelocytes % (Man) Abs Neuts (Manual) Differential Comment Platelet Estimate Platelet Morphology PT INR Puncture Site Patient Temperature O2 Saturation ABG pH ABG pCO2 ABG pO2 ABG HCO3 ABG O2 Content ABG Base Excess ABG Methemoglobin Jostin Test Hemoglobin Carboxyhemoglobin O2 Delivery Device Liter Flow Vent Setting Inspired O2 Critical Value Sodium Potassium Chloride Carbon Dioxide Anion Gap BUN Creatinine Estimated GFR POC Glucose 361 H 306 H 175 H Random Glucose Lactic Acid Calcium Phosphorus Magnesium Total Bilirubin AST ALT Alkaline Phosphatase Ammonia Total Protein Albumin TSH CSF Volume (1) CSF Supernat Color (1) CSF Gross Blood (1) CSF Volume (2) CSF Supernat Color (2) CSF Gross Blood (2) CSF Volume (3) CSF Supernat Color (3) CSF Gross Blood (3) CSF Volume (4) CSF Supernat Color (4) CSF Gross Blood (4) CSF WBC (4) CSF RBC (4) CSF Neutrophils % CSF Histiocytes CSF Glucose CSF Lactic Acid CSF Total Protein CSF Albumin CSF IgG Serum IgG Serum Albumin CSF IgG Index CSF IgG Synthesis Rate CSF Myelin Basic Protein Ser Oligoclonal Bands CSF Oligoclonal Bands CSF Olig Protein Interp CSF Herpes I DNA (PCR) CSF Herpes II DNA (PCR) Nasal Screen MRSA (PCR) Random Vancomycin MTS Gel Crossmatch Blood Bank Comment 12/14/17 12/15/17 12/15/17 20:51 00:48 03:25 WBC RBC Hgb Hct MCV MCH MCHC RDW Plt Count MPV Prelim Diff (Auto) WBC Differential Seg Neuts % (Manual) Band Neuts % (Manual) Lymphocytes % (Manual) Monocytes % (Manual) Eosinophils % (Manual) Metamyelocytes % (Man) Abs Neuts (Manual) Differential Comment Platelet Estimate Platelet Morphology PT INR Puncture Site Patient Temperature O2 Saturation ABG pH ABG pCO2 ABG pO2 ABG HCO3 ABG O2 Content ABG Base Excess ABG Methemoglobin Jostin Test Hemoglobin Carboxyhemoglobin O2 Delivery Device Liter Flow Vent Setting Inspired O2 Critical Value Sodium 148 H Potassium 4.1 Chloride 109 H Carbon Dioxide 23.2 Anion Gap 16 H BUN 58 H Creatinine 9.45 H Estimated GFR 6 L POC Glucose 191 H Random Glucose 292 H Lactic Acid 0.8 Calcium 7.8 L Phosphorus Magnesium 2.2 Total Bilirubin 0.5 AST 52 H ALT 42 Alkaline Phosphatase 87 Ammonia Total Protein 5.5 L Albumin 2.2 L TSH CSF Volume (1) CSF Supernat Color (1) CSF Gross Blood (1) CSF Volume (2) CSF Supernat Color (2) CSF Gross Blood (2) CSF Volume (3) CSF Supernat Color (3) CSF Gross Blood (3) CSF Volume (4) CSF Supernat Color (4) CSF Gross Blood (4) CSF WBC (4) CSF RBC (4) CSF Neutrophils % CSF Histiocytes CSF Glucose CSF Lactic Acid CSF Total Protein CSF Albumin CSF IgG Serum IgG Serum Albumin CSF IgG Index CSF IgG Synthesis Rate CSF Myelin Basic Protein Ser Oligoclonal Bands CSF Oligoclonal Bands CSF Olig Protein Interp CSF Herpes I DNA (PCR) CSF Herpes II DNA (PCR) Nasal Screen MRSA (PCR) Random Vancomycin 27.6 MTS Gel Crossmatch Blood Bank Comment 12/15/17 12/15/17 12/15/17 03:25 04:14 08:30 WBC 19.8 H RBC 3.40 L Hgb 9.4 L Hct 30.7 L MCV 90.2 MCH 27.5 MCHC 30.5 L RDW 18.7 H Plt Count 196 MPV 9.2 Prelim Diff (Auto) WBC Differential Seg Neuts % (Manual) Band Neuts % (Manual) Lymphocytes % (Manual) Monocytes % (Manual) Eosinophils % (Manual) Metamyelocytes % (Man) Abs Neuts (Manual) Differential Comment Platelet Estimate Platelet Morphology PT INR Puncture Site Art line Right brachial Patient Temperature 98.6 98.6 O2 Saturation 92 95 ABG pH 7.26 L* 7.23 L* ABG pCO2 47 H 44 H ABG pO2 86 131 H ABG HCO3 20 L 18 L ABG O2 Content 13.0 12.4 ABG Base Excess -5.6 L -8.5 L ABG Methemoglobin 2.1 H 2.2 H Jostin Test Present Hemoglobin 10.0 L 9.1 L Carboxyhemoglobin 0.6 0.6 O2 Delivery Device Nasal cannula Ventilator Liter Flow 4.00 Vent Setting Prvc16/550/1.0/+5 Inspired O2 40 Critical Value Yes Yes Sodium Potassium Chloride Carbon Dioxide Anion Gap BUN Creatinine Estimated GFR POC Glucose Random Glucose Lactic Acid Calcium Phosphorus Magnesium Total Bilirubin AST ALT Alkaline Phosphatase Ammonia Total Protein Albumin TSH CSF Volume (1) CSF Supernat Color (1) CSF Gross Blood (1) CSF Volume (2) CSF Supernat Color (2) CSF Gross Blood (2) CSF Volume (3) CSF Supernat Color (3) CSF Gross Blood (3) CSF Volume (4) CSF Supernat Color (4) CSF Gross Blood (4) CSF WBC (4) CSF RBC (4) CSF Neutrophils % CSF Histiocytes CSF Glucose CSF Lactic Acid CSF Total Protein CSF Albumin CSF IgG Serum IgG Serum Albumin CSF IgG Index CSF IgG Synthesis Rate CSF Myelin Basic Protein Ser Oligoclonal Bands CSF Oligoclonal Bands CSF Olig Protein Interp CSF Herpes I DNA (PCR) CSF Herpes II DNA (PCR) Nasal Screen MRSA (PCR) Random Vancomycin MTS Gel Crossmatch Blood Bank Comment 12/15/17 12/15/17 12/15/17 08:54 09:30 09:30 WBC RBC Hgb Hct MCV MCH MCHC RDW Plt Count MPV Prelim Diff (Auto) WBC Differential Seg Neuts % (Manual) Band Neuts % (Manual) Lymphocytes % (Manual) Monocytes % (Manual) Eosinophils % (Manual) Metamyelocytes % (Man) Abs Neuts (Manual) Differential Comment Platelet Estimate Platelet Morphology PT 15.4 H INR 1.5 Puncture Site Patient Temperature O2 Saturation ABG pH ABG pCO2 ABG pO2 ABG HCO3 ABG O2 Content ABG Base Excess ABG Methemoglobin Jostin Test Hemoglobin Carboxyhemoglobin O2 Delivery Device Liter Flow Vent Setting Inspired O2 Critical Value Sodium Potassium Chloride Carbon Dioxide Anion Gap BUN Creatinine Estimated GFR POC Glucose 321 H Random Glucose Lactic Acid Calcium Phosphorus Magnesium Total Bilirubin AST ALT Alkaline Phosphatase Ammonia Total Protein Albumin TSH 1.240 CSF Volume (1) CSF Supernat Color (1) CSF Gross Blood (1) CSF Volume (2) CSF Supernat Color (2) CSF Gross Blood (2) CSF Volume (3) CSF Supernat Color (3) CSF Gross Blood (3) CSF Volume (4) CSF Supernat Color (4) CSF Gross Blood (4) CSF WBC (4) CSF RBC (4) CSF Neutrophils % CSF Histiocytes CSF Glucose CSF Lactic Acid CSF Total Protein CSF Albumin CSF IgG Serum IgG Serum Albumin CSF IgG Index CSF IgG Synthesis Rate CSF Myelin Basic Protein Ser Oligoclonal Bands CSF Oligoclonal Bands CSF Olig Protein Interp CSF Herpes I DNA (PCR) CSF Herpes II DNA (PCR) Nasal Screen MRSA (PCR) Random Vancomycin MTS Gel Crossmatch Blood Bank Comment 12/15/17 12/15/17 12/15/17 09:30 10:00 10:51 WBC RBC Hgb Hct MCV MCH MCHC RDW Plt Count MPV Prelim Diff (Auto) WBC Differential Seg Neuts % (Manual) Band Neuts % (Manual) Lymphocytes % (Manual) Monocytes % (Manual) Eosinophils % (Manual) Metamyelocytes % (Man) Abs Neuts (Manual) Differential Comment Platelet Estimate Platelet Morphology PT INR Puncture Site Patient Temperature O2 Saturation ABG pH ABG pCO2 ABG pO2 ABG HCO3 ABG O2 Content ABG Base Excess ABG Methemoglobin Jostin Test Hemoglobin Carboxyhemoglobin O2 Delivery Device Liter Flow Vent Setting Inspired O2 Critical Value Sodium Potassium Chloride Carbon Dioxide Anion Gap BUN Creatinine Estimated GFR POC Glucose Random Glucose Lactic Acid 1.0 Calcium Phosphorus Magnesium Total Bilirubin AST ALT Alkaline Phosphatase Ammonia 11 Total Protein Albumin TSH CSF Volume (1) CSF Supernat Color (1) CSF Gross Blood (1) CSF Volume (2) CSF Supernat Color (2) CSF Gross Blood (2) CSF Volume (3) CSF Supernat Color (3) CSF Gross Blood (3) CSF Volume (4) CSF Supernat Color (4) CSF Gross Blood (4) CSF WBC (4) CSF RBC (4) CSF Neutrophils % CSF Histiocytes CSF Glucose CSF Lactic Acid CSF Total Protein CSF Albumin CSF IgG Serum IgG Serum Albumin CSF IgG Index CSF IgG Synthesis Rate CSF Myelin Basic Protein Ser Oligoclonal Bands CSF Oligoclonal Bands CSF Olig Protein Interp CSF Herpes I DNA (PCR) CSF Herpes II DNA (PCR) Nasal Screen MRSA (PCR) Random Vancomycin [employer] Gel Crossmatch Blood Bank Comment 12/15/17 12/15/17 12/15/17 13:10 13:10 13:10 WBC RBC Hgb Hct MCV MCH MCHC RDW Plt Count MPV Prelim Diff (Auto) WBC Differential Seg Neuts % (Manual) Band Neuts % (Manual) Lymphocytes % (Manual) Monocytes % (Manual) Eosinophils % (Manual) Metamyelocytes % (Man) Abs Neuts (Manual) Differential Comment Platelet Estimate Platelet Morphology PT INR Puncture Site Patient Temperature O2 Saturation ABG pH ABG pCO2 ABG pO2 ABG HCO3 ABG O2 Content ABG Base Excess ABG Methemoglobin Jostin Test Hemoglobin Carboxyhemoglobin O2 Delivery Device Liter Flow Vent Setting Inspired O2 Critical Value Sodium Potassium Chloride Carbon Dioxide Anion Gap BUN Creatinine Estimated GFR POC Glucose Random Glucose Lactic Acid Calcium Phosphorus Magnesium Total Bilirubin AST ALT Alkaline Phosphatase Ammonia Total Protein Albumin TSH CSF Volume (1) CSF Supernat Color (1) CSF Gross Blood (1) CSF Volume (2) CSF Supernat Color (2) CSF Gross Blood (2) CSF Volume (3) CSF Supernat Color (3) CSF Gross Blood (3) CSF Volume (4) CSF Supernat Color (4) CSF Gross Blood (4) CSF WBC (4) CSF RBC (4) CSF Neutrophils % CSF Histiocytes CSF Glucose Cancelled CSF Lactic Acid CSF Total Protein CSF Albumin Cancelled CSF IgG Cancelled Serum IgG Cancelled Serum Albumin Cancelled CSF IgG Index Cancelled CSF IgG Synthesis Rate Cancelled CSF Myelin Basic Protein Cancelled Ser Oligoclonal Bands CSF Oligoclonal Bands Cancelled CSF Olig Protein Interp CSF Herpes I DNA (PCR) Negative CSF Herpes II DNA (PCR) Negative Nasal Screen MRSA (PCR) Random Vancomycin [employer] Gel [employer] Blood Bank Comment 12/15/17 12/15/17 12/15/17 13:10 13:10 13:10 WBC RBC Hgb Hct MCV MCH MCHC RDW Plt Count MPV Prelim Diff (Auto) WBC Differential Seg Neuts % (Manual) Band Neuts % (Manual) Lymphocytes % (Manual) Monocytes % (Manual) Eosinophils % (Manual) Metamyelocytes % (Man) Abs Neuts (Manual) Differential Comment Platelet Estimate Platelet Morphology PT INR Puncture Site Patient Temperature O2 Saturation ABG pH ABG pCO2 ABG pO2 ABG HCO3 ABG O2 Content ABG Base Excess ABG Methemoglobin Jostin Test Hemoglobin Carboxyhemoglobin O2 Delivery Device Liter Flow Vent Setting Inspired O2 Critical Value Sodium Potassium Chloride Carbon Dioxide Anion Gap BUN Creatinine Estimated GFR POC Glucose Random Glucose Lactic Acid Calcium Phosphorus Magnesium Total Bilirubin AST ALT Alkaline Phosphatase Ammonia Total Protein Albumin TSH CSF Volume (1) CSF Supernat Color (1) CSF Gross Blood (1) CSF Volume (2) CSF Supernat Color (2) CSF Gross Blood (2) CSF Volume (3) CSF Supernat Color (3) CSF Gross Blood (3) CSF Volume (4) CSF Supernat Color (4) CSF Gross Blood (4) CSF WBC (4) CSF RBC (4) CSF Neutrophils % CSF Histiocytes CSF Glucose 180 H CSF Lactic Acid Cancelled 2.2 CSF Total Protein 50.7 H CSF Albumin CSF IgG Serum IgG Serum Albumin CSF IgG Index CSF IgG Synthesis Rate CSF Myelin Basic Protein Ser Oligoclonal Bands Cancelled CSF Oligoclonal Bands Cancelled CSF Olig Protein Interp Cancelled CSF Herpes I DNA (PCR) CSF Herpes II DNA (PCR) Nasal Screen MRSA (PCR) Random Vancomycin MTS Gel Crossmatch Blood Bank Comment 12/15/17 12/15/17 12/15/17 13:10 14:45 15:11 WBC RBC Hgb Hct MCV MCH MCHC RDW Plt Count MPV Prelim Diff (Auto) WBC Differential Seg Neuts % (Manual) Band Neuts % (Manual) Lymphocytes % (Manual) Monocytes % (Manual) Eosinophils % (Manual) Metamyelocytes % (Man) Abs Neuts (Manual) Differential Comment Platelet Estimate Platelet Morphology PT INR Puncture Site Left femoral Patient Temperature 98.6 O2 Saturation 96 ABG pH 7.41 ABG pCO2 41 ABG pO2 135 H ABG HCO3 26 ABG O2 Content 11.2 L ABG Base Excess 1.6 ABG Methemoglobin 2.0 Jostin Test Present Hemoglobin 8.1 L Carboxyhemoglobin 0.7 O2 Delivery Device Ventilator Liter Flow Vent Setting Prvc18/550/1.0/+5 Inspired O2 40 Critical Value No Sodium Potassium Chloride Carbon Dioxide Anion Gap BUN Creatinine Estimated GFR POC Glucose 162 H Random Glucose Lactic Acid Calcium Phosphorus Magnesium Total Bilirubin AST ALT Alkaline Phosphatase Ammonia Total Protein Albumin TSH CSF Volume (1) 3.0 CSF Supernat Color (1) Clear CSF Gross Blood (1) 2+ A CSF Volume (2) 2.5 CSF Supernat Color (2) Clear CSF Gross Blood (2) 1+ A CSF Volume (3) 3.0 CSF Supernat Color (3) Clear CSF Gross Blood (3) 0 CSF Volume (4) 2.3 CSF Supernat Color (4) Clear CSF Gross Blood (4) 0 CSF WBC (4) 5 CSF RBC (4) 17 H CSF Neutrophils % 0 CSF Histiocytes 100 CSF Glucose CSF Lactic Acid CSF Total Protein CSF Albumin CSF IgG Serum IgG Serum Albumin CSF IgG Index CSF IgG Synthesis Rate CSF Myelin Basic Protein Ser Oligoclonal Bands CSF Oligoclonal Bands CSF Olig Protein Interp CSF Herpes I DNA (PCR) CSF Herpes II DNA (PCR) Nasal Screen MRSA (PCR) Random Vancomycin MTS Gel Crossmatch Blood Bank Comment 12/15/17 12/15/17 12/16/17 16:18 20:28 07:50 WBC RBC Hgb Hct MCV MCH MCHC RDW Plt Count MPV Prelim Diff (Auto) WBC Differential Seg Neuts % (Manual) Band Neuts % (Manual) Lymphocytes % (Manual) Monocytes % (Manual) Eosinophils % (Manual) Metamyelocytes % (Man) Abs Neuts (Manual) Differential Comment Platelet Estimate Platelet Morphology PT INR Puncture Site Patient Temperature O2 Saturation ABG pH ABG pCO2 ABG pO2 ABG HCO3 ABG O2 Content ABG Base Excess ABG Methemoglobin Jostin Test Hemoglobin Carboxyhemoglobin O2 Delivery Device Liter Flow Vent Setting Inspired O2 Critical Value Sodium Potassium Chloride Carbon Dioxide Anion Gap BUN Creatinine Estimated GFR POC Glucose 174 H 139 H 234 H Random Glucose Lactic Acid Calcium Phosphorus Magnesium Total Bilirubin AST ALT Alkaline Phosphatase Ammonia Total Protein Albumin TSH CSF Volume (1) CSF Supernat Color (1) CSF Gross Blood (1) CSF Volume (2) CSF Supernat Color (2) CSF Gross Blood (2) CSF Volume (3) CSF Supernat Color (3) CSF Gross Blood (3) CSF Volume (4) CSF Supernat Color (4) CSF Gross Blood (4) CSF WBC (4) CSF RBC (4) CSF Neutrophils % CSF Histiocytes CSF Glucose CSF Lactic Acid CSF Total Protein CSF Albumin CSF IgG Serum IgG Serum Albumin CSF IgG Index CSF IgG Synthesis Rate CSF Myelin Basic Protein Ser Oligoclonal Bands CSF Oligoclonal Bands CSF Olig Protein Interp CSF Herpes I DNA (PCR) CSF Herpes II DNA (PCR) Nasal Screen MRSA (PCR) Random Vancomycin MTS Gel Crossmatch Blood Bank Comment 12/16/17 12/16/17 12/16/17 08:37 08:37 11:55 WBC 16.2 H RBC 2.96 L Hgb 8.3 L Hct 26.9 L MCV 90.7 MCH 27.9 MCHC 30.8 L RDW 19.3 H Plt Count 190 MPV 9.2 Prelim Diff (Auto) Manual diff required WBC Differential Manual diff final Seg Neuts % (Manual) 77 H Band Neuts % (Manual) 4 Lymphocytes % (Manual) 7 L Monocytes % (Manual) 4 Eosinophils % (Manual) 6 H Metamyelocytes % (Man) 2 H Abs Neuts (Manual) 13.4 H Differential Comment . Platelet Estimate Normal Platelet Morphology Enlarged H PT INR Puncture Site Patient Temperature O2 Saturation ABG pH ABG pCO2 ABG pO2 ABG HCO3 ABG O2 Content ABG Base Excess ABG Methemoglobin Jostin Test Hemoglobin Carboxyhemoglobin O2 Delivery Device Liter Flow Vent Setting Inspired O2 Critical Value Sodium 146 H Potassium 3.5 Chloride 107 Carbon Dioxide 22.9 Anion Gap 16 H BUN 44 H Creatinine 7.65 H Estimated GFR 7 L POC Glucose 196 H Random Glucose 260 H Lactic Acid Calcium 7.8 L Phosphorus 4.7 Magnesium 1.8 Total Bilirubin 0.5 AST 29 ALT 26 Alkaline Phosphatase 80 Ammonia Total Protein 5.2 L Albumin 2.4 L TSH CSF Volume (1) CSF Supernat Color (1) CSF Gross Blood (1) CSF Volume (2) CSF Supernat Color (2) CSF Gross Blood (2) CSF Volume (3) CSF Supernat Color (3) CSF Gross Blood (3) CSF Volume (4) CSF Supernat Color (4) CSF Gross Blood (4) CSF WBC (4) CSF RBC (4) CSF Neutrophils % CSF Histiocytes CSF Glucose CSF Lactic Acid CSF Total Protein CSF Albumin CSF IgG Serum IgG Serum Albumin CSF IgG Index CSF IgG Synthesis Rate CSF Myelin Basic Protein Ser Oligoclonal Bands CSF Oligoclonal Bands CSF Olig Protein Interp CSF Herpes I DNA (PCR) CSF Herpes II DNA (PCR) Nasal Screen MRSA (PCR) Random Vancomycin MTS Gel Crossmatch Blood Bank Comment Result Diagrams: 12/16/17 08:37 12/16/17 08:37 Microbiology: Microbiology 12/13/17 18:00 Gram Stain - Final Sputum - Endotracheal Sputum Culture - Final Burkholderia cepacia 12/15/17 13:10 Acid Fast Bacilli Smear - Final Cerebral Spinal Fluid - Lumbar Puncture No acid fast bacilli seen 12/12/17 19:27 Aerobic Blood Culture - Preliminary Blood - Peripheral No growth in 4 days Anaerobic Blood Culture - Preliminary No growth in 4 days 12/12/17 19:22 Aerobic Blood Culture - Preliminary Blood - Peripheral No growth in 4 days Anaerobic Blood Culture - Preliminary No growth in 4 days 12/15/17 13:10 Fungal Smear - Final Cerebral Spinal Fluid - Lumbar Puncture No fungal elements seen 12/15/17 13:10 Gram Stain - Final Lumbar Puncture CSF Culture - Preliminary No growth in 24 hours Imaging: ITS Impressions Head CT 12/01/17 11:12 CONCLUSION: 1. Mild cerebral atrophy. 2. No acute infarct, acute hemorrhage, midline shift or extra-axial fluid collections. 3. Small fluid level within the left maxillary sinus. Head MRI 12/02/17 00:00 CONCLUSION: 1. No acute findings. 2. Atrophy and minimal white matter disease. Hand X-Ray 12/04/17 00:00 CONCLUSION: Unremarkable study. Forearm X-Ray 12/04/17 18:49 CONCLUSION: Unremarkable study. Shoulder X-Ray 12/04/17 18:49 CONCLUSION: No definite fracture is identified for technique. Abdomen X-Ray 12/08/17 04:58 CONCLUSION: Nasogastric tube distal tip is at the GE junction. Suggest further advancement stomach. Abdomen/Pelvis CT 12/13/17 00:00 CONCLUSION: 1. Percutaneous gastrostomy tube present without abnormal fluid collection or free air identified. 2. 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 There is evidence for chronic pancreatitis. Cannot exclude an obstructing mass in the pancreatic head. Recommend further evaluation with MRCP. 3. 3 cm fat-containing umbilical hernia. 4. Focal small airspace disease right posterior costophrenic angle. Cholangiopancreatography MRI 12/13/17 00:00 CONCLUSION: 1. Dilatation of the pancreatic duct ranging from 2 cm in the head of pancreas to 1.6 images in the mid body with a [place] pseudocyst appearance. 2. Findings would be consistent with a chronic pancreatitis. 3. If there is a focal mass present it would be at the ampulla. This can be followed by MR or endoscopic ultrasound. 4. Trace ascites 5. No other recent cross-sectional imaging studies of the pancreas. These would be most helpful given the appearance. Chest X-Ray 12/15/17 00:00 CONCLUSION: Satisfactory ET tube positioning Catheter Placement 12/16/17 00:00 CONCLUSION: 1. Uncomplicated line placement as above. Fibrin sheath stripping was also performed. Procedures: 12/06 right IJ dialysis cath placed 12/12 intubated, central line placement 12/14 extubated 12/15 reintubated 12/16 vascath replaced Assessment and Plan - Disease Oriented Problem List (1) ESRD (end stage renal disease) on dialysis (2) Altered mental status (3) Hypoglycemia (4) Diabetes Pertinent Non-Medical Issues: Psychosocial: Not . Has 3 children. Spiritual: pending Legal: Pt is not capacitated to make medical decisions. He is not . In the absence of designated HCS, medical decision making falls to the majority of his 3 adult children. Ethical issues impacting care: none Important Contacts: Daughter Tommy Tierney [phone] Son Rich Power [phone] - opted out of decision making Daughter Yvette Garcia [phone] Prognosis: This is a 67 y/o male with hx CAD s/p stent placement, CKD, COPD, ESRD, PAD, DM2 , who presented with AMS after being found down. Reportedly pt had blood glucose 36. Cause of his continued encephalopathy is unclear, possibly d/t hypoglycemia, and it is unclear if he will return to his baseline. He was having to be restrained for dialysis. Pulled out multiple NG tubes and had PEG placed 12/12. Imaging suggestive possible mass pancreas, this is being worked up. Aspirated during procedure, became hypotensive, was intubated and now is on vent. With or without feeding tube he is at continued risk for aspiration. Given his comorbidities and the complications he suffered already, his prognosis is poor and he remains at risk for further complications and setbacks. Prognosis worse if indeed he does have a pancreatic malignancy. Without dialysis his prognosis is terminal. Code Status: Full Code Plan: - LEGAL DECISON MAKER -patient not currently capacitated to make medical decisions. In the absence of a spouse, or designated healthcare surrogate, medical decision making would fall majority of his 3 adult children. Hector has opted out so decision making falls to pt's 2 daughters. Family is working together and including pt's brother in decision making. - CODE STATUS- full code - GOALS -Family working together, continue to express aggressive goals. They wish to proceed with tracheostomy. They are discussing code status further, awaiting callback. - SYMPTOMS - * agitation - unclear etiology. ?hypoglycemia related brain injury? pt found down, blood glucose 36. reintubated, no sign agitation on my eval, not responsive. neuro on case, EEG abnormal with moderate slowing, encephalopathy likelly 2/2 hypoglycemia, renal failure. sedation per [facility]. no further recs * pain - multifactorial - mult lines, recent procedure to replace HD catheter, s /p PEG tube placement. no sign discomfort, unresponsive. has fentanyl gtt. no further recs at this time. * dyspnea - aspirated during PEG tube placement and was intubated. reintubated this morning. pending tracheostomy. prob aspiration PNA. has PRN and sara duonebs. on phenylephrine gtt. No further recs. - d/w CCM - Palliative care will continue to follow during hospital course as condition evolves, to assist patient/decision-maker with understanding of medical conditions, weighing benefits/burdens of treatment options, for clarification of goals of treatment. Additionally will assist with any symptoms of palliative concern Attestation Attestation: To help prompt me to consider important information that might be impacting today's encounter and assessment, information from prior notes written by myself or my colleagues may have been "brought forward" into today's note. My signature on this note, however, is an attestation that I personally performed the exam, history, and/or decision-making noted today, and, unless otherwise indicated, the interactions with patient, family, and staff as well as the review of records all occurred today. I also attest that the listed assessment and stated plan reflect my best clinical judgment today based on the combination of historical information, prior notes, and today's exam/ interactions. When time spent is documented, it refers only to time spent today by the signer, or if indicated, combined time spent today by collaborating physician/nurse practitioner.
--- NOTE | 2017-12-16 15:40 | P.PNNP ---
Subjective Interval history: Patient remains unresponsive on ventilator Physical Exam Vital signs: Vital Signs 12/15/17 16:00 12/15/17 17:44 12/15/17 18:00 Temperature 98.7 F Pulse Rate 96 H 106 H Respiratory Rate 12 18 Blood Pressure 137/71 Pulse Oximetry 99 100 12/15/17 19:15 12/15/17 20:00 12/15/17 21:17 Temperature 98.7 F Pulse Rate 141 H 91 H Respiratory Rate 18 18 18 Blood Pressure 103/70 Pulse Oximetry 100 100 12/15/17 22:00 12/15/17 22:20 12/16/17 00:00 Temperature 98.5 F Pulse Rate 81 91 H Respiratory Rate 18 18 Blood Pressure 105/59 L Pulse Oximetry 100 98 12/16/17 01:15 12/16/17 02:00 12/16/17 03:44 Temperature Pulse Rate 86 91 H Respiratory Rate 18 18 Blood Pressure Pulse Oximetry 100 12/16/17 04:00 12/16/17 04:05 12/16/17 04:30 Temperature 99.2 F Pulse Rate 86 Respiratory Rate 18 17 19 Blood Pressure 101/56 L Pulse Oximetry 100 100 100 12/16/17 06:00 12/16/17 08:00 12/16/17 08:06 Temperature 100.1 F H Pulse Rate 92 H 70 81 Respiratory Rate 18 18 Blood Pressure 104/59 L Pulse Oximetry 100 100 12/16/17 10:00 12/16/17 11:12 12/16/17 15:33 Temperature Pulse Rate 69 73 Respiratory Rate 16 Blood Pressure Pulse Oximetry 100 98 Intake & Output 12/15/17 12/16/17 12/16/17 18:59 06:59 18:59 Intake Total 250 / 250 1147 / 1147 Output Total 1999 0 / 0 Balance -1750 / -1750 1147 / 1147 Weight 77.1 kg Intake: IV 100 / 100 950 / 950 Neosynephrine Inj 160 MG In NS 500 / 500 Inj 484 ML @ 40 MCG/MIN 7.5 mls /hr IV.CONT TITRATE PRN Rx#: [id number] Flexbumin 25% Inj 100 ML @ 60 100 / 100 mls/hr IV.SIG WITH DIALYSIS PRN Rx#:[id number] Azactam Inj 500 MG In NS Inj 50 150 / 150 ML @ 100 mls/hr IV.SIG Q8H [facility] Rx#:[id number] Flagyl 500 MG Inj 100 ML @ 100 300 / 300 mls/hr IV.SIG Q8H KRUNAL Rx#: [id number] Tube Feeding 97 / 97 Water Bolus Amount 150 / 150 100 / 100 Output: Urine 0 / 0 Hemodialysis Amount 1999 Other: Date of Last Bowel Movement 12/15/17 12/15/17 12/15/17 # Bowel Movements 1 1 Narrative: - Constitutional Intubated sedated hypotensive critically ill - Routine Respiratory Exam CTA bilaterally, no wheezes or crackles - Routine Cardiovascular Exam Sinus rhythm, intermittently tachycardic, hypotensive currently on 80 mcg/min of Jonas-Synephrine - Routine Abdominal Exam soft, nontender. New PEG tube site without evidence of bleeding - Routine Extremities Exam No pedal edema. - Routine Neurological Exam Patient is intubated do not follow commands - Urinary Catheter Management Straight Cath placed during this visit: yes Reason for continuing: Not indwelling catheter Insertion date: 12/01/17 Insertion time: 13:46 Assessment and Plan - Assessment (1) Altered mental status Code(s): R41.82 - Altered mental status, unspecified Status: Acute Qualifiers: Altered mental status type: unspecified Qualified Code(s): R41.82 - Altered mental status, unspecified (2) Hypoglycemia Code(s): E16.2 - Hypoglycemia, unspecified Status: Acute (3) Sepsis Code(s): A41.9 - Sepsis, unspecified organism Status: Acute Qualifiers: Sepsis type: sepsis due to unspecified organism Qualified Code(s): A41.9 - Sepsis, unspecified organism (4) ESRD (end stage renal disease) on dialysis Code(s): N18.6 - End stage renal disease; Z99.2 - Dependence on renal dialysis Status: Acute - Plan Patient now on mechanical ventilation there is a possibility of aspiration pneumonia, sepsis, hypotension, condition critical on vasopressors and ventilator Suspect AMS secondary to hypoglycemic event/another event on the floor possible aspiration pneumonia Hemodialysis continue hemodialysis on Tuesday and Tuesday [facility] exchange will follow tomorrow as hemodialysis scheduled in a.m. Patient is on ventilator again Continue aggressive care Prognosis is poor
--- NOTE | 2017-12-16 18:12 | P.PNNEU ---
Subjective Subjective Comments: no new neuro sx. Active Medications: Active Medications Acetaminophen (Tylenol) 650 mg PO UNSCH PRN PRN Reason: SEE LABEL COMMENTS Albuterol (Duoneb Neb (Cici)) 1 ampul NEB Q6HR NEB [facility] Last Admin: 12/16/17 15:32 Dose: 1 ampul Albuterol (Albuterol Neb (Prn)) 2.5 mg NEB Q2HR NEB PRN PRN Reason: DYSPNEA Lipase/Protease/Amylase (Ian Enrique 24/76/120) 1 cap PO QID [facility] Last Admin: 12/16/17 12:08 Dose: 1 cap Apixaban (Eliquis) 5 mg PO BID [facility] Last Admin: 12/05/17 09:14 Dose: 5 mg Artificial Tears (Genteal Severe Dry Eye Relief 0.3% Opth Gel) 1 drops EACH EYE BID [facility] Last Admin: 12/16/17 09:00 Dose: 1 drops Atorvastatin Calcium (Lipitor) 40 mg PO HS [facility] Last Admin: 12/15/17 20:41 Dose: 40 mg Carvedilol (Coreg) 25 mg PO BID [facility] Last Admin: 12/12/17 08:01 Dose: Not Given Chlorhexidine Gluconate (Peridex 0.12% Oral Kit) 15 ml OROPHARYNG BID@0800, 2000 [facility] Last Admin: 12/16/17 08:06 Dose: 15 ml Chlorhexidine Gluconate (Chlorhexidine 2% Cloth) 3 pack TOPICAL DAILY@0400 [facility] Stop: 12/19/17 03:59 Last Admin: 12/16/17 03:26 Dose: 3 pack Chlorhexidine Gluconate (Chlorhexidine 2% Cloth) 3 pack TOPICAL DAILY@0400 PRN PRN Reason: Extra cloth needed Stop: 12/19/17 03:59 Dextrose (D50w Vial) 50 ml IV.PUSH UNSCH PRN PRN Reason: PER HYPOGLYCEMIA PROTOCOL Diltiazem HCl (Cardizem) 60 mg PO Q6H [facility] Last Admin: 12/16/17 09:00 Dose: 60 mg Diphenhydramine HCl (Benadryl) 25 mg PO UNSCH PRN PRN Reason: SEE LABEL COMMENTS Diphenhydramine HCl (Benadryl Inj) 25 mg IV.PUSH Q8H PRN PRN Reason: itching Last Admin: 12/12/17 10:49 Dose: 25 mg Gelatin (Gelfoam 12 Mm/7 Mm Topical) 1 foam TOPICAL PRN PRN PRN Reason: help stop bleeding from site Gentamicin Sulfate (Gentamicin Inj) 20 mg OTHER WITH DIALYSIS PRN PRN Reason: Dwell Gentamycin Lock Last Admin: 12/15/17 12:00 Dose: 20 mg Glucagon (Glucagon Inj) 1 mg OTHER PRN PRN PRN Reason: for Hypoglycemia Protocol Haloperidol Lactate (Haldol Inj) 5 mg IV.PUSH Q1H PRN PRN Reason: AGITATION Heparin Sodium (Porcine) (Heparin Inj) 8,000 units OTHER WITH DIALYSIS PRN PRN Reason: for machine prime Last Admin: 12/01/17 19:31 Dose: 2,000 units Heparin Sodium (Porcine) (Heparin Inj) 0 units OTHER WITH DIALYSIS PRN PRN Reason: Dwell Heparin to Fill Catheter Last Admin: 12/13/17 11:43 Dose: 1,500 units Albumin Human (Flexbumin 25% Inj) 100 mls @ 60 mls/hr IV.SIG WITH DIALYSIS PRN PRN Reason: hypotension / volume replace Last Infusion: 12/15/17 10:50 Dose: Infused Sodium Chloride (Ns Inj) 1,000 mls @ 0 mls/hr OTHER .Q0M PRN PRN Reason: for prime and rinse back Sodium Chloride (Ns Inj) 1,000 mls @ 200 mls/hr OTHER .Q5H PRN PRN Reason: for dialyzer flush PRN Sodium Chloride (Ns Inj) 200 mls @ 0 mls/hr IV.CONT .Q0M PRN PRN Reason: hypotension / volume replace Vancomycin HCl 1,000 mg/ (Sodium Chloride) 250 mls @ 250 mls/hr IV.SIG WITH DIALYSIS [facility] Phenylephrine HCl 160 mg/ (Sodium Chloride) 500 mls @ 7.5 mls/hr IV.CONT TITRATE PRN; Protocol PRN Reason: See protol Last Titration: 12/16/17 16:36 Dose: 20 mcg/min, 3.75 mls/hr Metronidazole/Sodium Chloride (Flagyl 500 Mg Inj) 100 mls @ 100 mls/hr IV.SIG Q8H [facility] Last Admin: 12/16/17 12:06 Dose: 100 mls/hr Aztreonam 500 mg/ Sodium (Chloride) 50 mls @ 100 mls/hr IV.SIG Q8H [facility] Last Admin: 12/16/17 12:08 Dose: 100 mls/hr Fentanyl (Fentanyl 10 Mcg/Ml Premix Drip) 2,500 mcg in 250 mls @ 2.5 mls/hr IV.SIG TITRATE PRN; Protocol PRN Reason: Per Protocol Last Admin: 12/16/17 11:47 Dose: 100 mcg/hr, 10 mls/hr Levofloxacin/Dextrose (Levaquin 750 Mg Premix Inj) 150 mls @ 100 mls/hr IV.SIG Q24H [facility] Insulin Aspart (Novolog Insulin Correctional Sugar Inj) 0 unit SQ ACHS [facility]; Protocol Last Admin: 12/16/17 12:06 Dose: 1 unit Levothyroxine Sodium (Synthroid) 50 mcg PO DAILY@0600 [facility] Last Admin: 12/16/17 05:08 Dose: 50 mcg Lisinopril (Prinivil) 10 mg PO DAILY [facility] Last Admin: 12/12/17 08:01 Dose: Not Given Mannitol (Mannitol Inj) 12.5 gm IV.PUSH UNSCH PRN PRN Reason: hypotension / volume replace Metoprolol Tartrate (Lopressor Inj) 5 mg IV.PUSH Q6H PRN PRN Reason: SBP > 160;DBP > 100;HR > 60 Last Admin: 12/15/17 20:51 Dose: 5 mg Midodrine (Proamatine) 10 mg PO Q8H [facility] Last Admin: 12/16/17 09:00 Dose: 10 mg Nitroglycerin (Nitrostat Sl) 0.4 mg SL Q5M PRN PRN Reason: CHEST PAIN Ondansetron HCl (Zofran Inj) 4 mg IV.PUSH UNSCH PRN PRN Reason: NAUSEA OR VOMITING Pantoprazole Sodium (Protonix Inj) 40 mg IV.PUSH Q12H [facility] Last Admin: 12/16/17 07:57 Dose: 40 mg Fluticasone- Umeclidin-Vilanter [ Trelegy Ellipta] 1 Inh 1 each INH DAILY [facility] Pharmacy Profile Note (Vancomycin Consult Pharmacy) 1 each OTHER PRN PRN PRN Reason: Pharmacy to dose Quetiapine Fumarate (Seroquel) 25 mg PO HS [facility] Last Admin: 12/12/17 00:53 Dose: Not Given Sodium Chloride (Ns Flush) 2 ml IV.FLUSH BID [facility] Last Admin: 12/16/17 09:00 Dose: 2 ml Sodium Chloride (Ns Flush) 2 ml IV.FLUSH UNSCH PRN PRN Reason: FLUSH AFTER USING IV ACCESS Last Admin: 12/07/17 03:36 Dose: 2 ml Sodium Chloride (Ns Flush) 5 ml IV.FLUSH UNSCH PRN PRN Reason: flush each lumen during HD Vitamin B Complex/Vit C/Folic Acid (Nephrocaps) 1 tab PO DAILY [facility] Last Admin: 12/16/17 08:06 Dose: 1 tab Allergies/Adverse Reactions: Allergies Allergy/AdvReac Type Severity Reaction Status Date / Time Penicillins Allergy Mild rash Verified 12/01/17 17:09 Physical Exam Vital signs: Vital Signs 12/15/17 19:15 12/15/17 20:00 12/15/17 21:17 Temperature 98.7 F Pulse Rate 141 H 91 H Respiratory Rate 18 18 18 Blood Pressure 103/70 Pulse Oximetry 100 100 12/15/17 22:00 12/15/17 22:20 12/16/17 00:00 Temperature 98.5 F Pulse Rate 81 91 H Respiratory Rate 18 18 Blood Pressure 105/59 L Pulse Oximetry 100 98 12/16/17 01:15 12/16/17 02:00 12/16/17 03:44 Temperature Pulse Rate 86 91 H Respiratory Rate 18 18 Blood Pressure Pulse Oximetry 100 12/16/17 04:00 12/16/17 04:05 12/16/17 04:30 Temperature 99.2 F Pulse Rate 86 Respiratory Rate 18 17 19 Blood Pressure 101/56 L Pulse Oximetry 100 100 100 12/16/17 06:00 12/16/17 08:00 12/16/17 08:06 Temperature 100.1 F H Pulse Rate 92 H 70 81 Respiratory Rate 18 18 Blood Pressure 104/59 L Pulse Oximetry 100 100 12/16/17 10:00 12/16/17 11:12 12/16/17 12:00 Temperature 100.0 F H Pulse Rate 69 70 Respiratory Rate 18 Blood Pressure 120/60 Pulse Oximetry 100 100 12/16/17 14:00 12/16/17 15:33 12/16/17 16:00 Temperature 100.1 F H Pulse Rate 68 73 70 Respiratory Rate 16 18 Blood Pressure 103/55 L Pulse Oximetry 98 100 12/16/17 18:00 Temperature Pulse Rate 71 Respiratory Rate Blood Pressure Pulse Oximetry Intake & Output 12/15/17 12/16/17 12/16/17 18:59 06:59 18:59 Intake Total 250 / 250 1147 / 1147 Output Total 1999 0 / 0 Balance -1750 / -1750 1147 / 1147 Weight 77.1 kg Intake: IV 100 / 100 950 / 950 Neosynephrine Inj 160 MG In NS 500 / 500 Inj 484 ML @ 40 MCG/MIN 7.5 mls /hr IV.CONT TITRATE PRN Rx#: [id number] Flexbumin 25% Inj 100 ML @ 60 100 / 100 mls/hr IV.SIG WITH DIALYSIS PRN Rx#:[id number] Azactam Inj 500 MG In NS Inj 50 150 / 150 ML @ 100 mls/hr IV.SIG Q8H [facility] Rx#:[id number] Flagyl 500 MG Inj 100 ML @ 100 300 / 300 mls/hr IV.SIG Q8H [facility] Rx#: [id number] Tube Feeding 97 / 97 Water Bolus Amount 150 / 150 100 / 100 Output: Urine 0 / 0 Hemodialysis Amount 1999 Other: Date of Last Bowel Movement 12/15/17 12/15/17 12/15/17 # Bowel Movements 1 1 - Routine Neurological Exam nonresponsive PERRL MOTOR--no spontaneous limb movement - Urinary Catheter Management Straight Cath placed during this visit: yes Reason for continuing: Not indwelling catheter Insertion date: 12/01/17 Insertion time: 13:46 Objective Laboratory Results - last 24 hr 12/15/17 12/15/17 12/16/17 13:10 20:28 07:50 WBC RBC Hgb Hct MCV MCH MCHC RDW Plt Count MPV Prelim Diff (Auto) WBC Differential Seg Neuts % (Manual) Band Neuts % (Manual) Lymphocytes % (Manual) Monocytes % (Manual) Eosinophils % (Manual) Metamyelocytes % (Man) Abs Neuts (Manual) Differential Comment Platelet Estimate Platelet Morphology Sodium Potassium Chloride Carbon Dioxide Anion Gap BUN Creatinine Estimated GFR POC Glucose 139 H 234 H Random Glucose Calcium Phosphorus Magnesium Total Bilirubin AST ALT Alkaline Phosphatase Total Protein Albumin CSF Herpes I DNA (PCR) Negative CSF Herpes II DNA (PCR) Negative 12/16/17 12/16/17 12/16/17 08:37 08:37 11:55 WBC 16.2 H RBC 2.96 L Hgb 8.3 L Hct 26.9 L MCV 90.7 MCH 27.9 MCHC 30.8 L RDW 19.3 H Plt Count 190 MPV 9.2 Prelim Diff (Auto) Manual diff required WBC Differential Manual diff final Seg Neuts % (Manual) 77 H Band Neuts % (Manual) 4 Lymphocytes % (Manual) 7 L Monocytes % (Manual) 4 Eosinophils % (Manual) 6 H Metamyelocytes % (Man) 2 H Abs Neuts (Manual) 13.4 H Differential Comment . Platelet Estimate Normal Platelet Morphology Enlarged H Sodium 146 H Potassium 3.5 Chloride 107 Carbon Dioxide 22.9 Anion Gap 16 H BUN 44 H Creatinine 7.65 H Estimated GFR 7 L POC Glucose 196 H Random Glucose 260 H Calcium 7.8 L Phosphorus 4.7 Magnesium 1.8 Total Bilirubin 0.5 AST 29 ALT 26 Alkaline Phosphatase 80 Total Protein 5.2 L Albumin 2.4 L CSF Herpes I DNA (PCR) CSF Herpes II DNA (PCR) 12/16/17 17:07 WBC RBC Hgb Hct MCV MCH MCHC RDW Plt Count MPV Prelim Diff (Auto) WBC Differential Seg Neuts % (Manual) Band Neuts % (Manual) Lymphocytes % (Manual) Monocytes % (Manual) Eosinophils % (Manual) Metamyelocytes % (Man) Abs Neuts (Manual) Differential Comment Platelet Estimate Platelet Morphology Sodium Potassium Chloride Carbon Dioxide Anion Gap BUN Creatinine Estimated GFR POC Glucose 181 H Random Glucose Calcium Phosphorus Magnesium Total Bilirubin AST ALT Alkaline Phosphatase Total Protein Albumin CSF Herpes I DNA (PCR) CSF Herpes II DNA (PCR) Microbiology 12/13/17 18:00 Gram Stain - Final Sputum - Endotracheal Sputum Culture - Final Burkholderia cepacia 12/15/17 13:10 Acid Fast Bacilli Smear - Final Cerebral Spinal Fluid - Lumbar Puncture No acid fast bacilli seen 12/12/17 19:27 Aerobic Blood Culture - Preliminary Blood - Peripheral No growth in 4 days Anaerobic Blood Culture - Preliminary No growth in 4 days 12/12/17 19:22 Aerobic Blood Culture - Preliminary Blood - Peripheral No growth in 4 days Anaerobic Blood Culture - Preliminary No growth in 4 days 12/15/17 13:10 Fungal Smear - Final Cerebral Spinal Fluid - Lumbar Puncture No fungal elements seen 12/15/17 13:10 Gram Stain - Final Lumbar Puncture CSF Culture - Preliminary No growth in 24 hours Review/Management - Diagnosis (1) Altered mental status Code(s): R41.82 - Altered mental status, unspecified Status: Acute Current Visit: Yes - Review/Management Plan: encephalopathy--probably from renal failure and possible prolonged hypoglycemia prior to admission (glc 36). CSF negative so far (1) Altered mental status Qualifiers: Altered mental status type: unspecified Qualified Code(s): R41.82 - Altered mental status, unspecified
[2017-12-17] MEDS: Oral Hygiene Kit OROPHARYNG SCH ×4 (00:52→17:45)
[2017-12-17 01:20] LABS: Enterovirus (PCR)Source CSF; Enterovirus RNA Qual (PCR) Negative (Negative)
[2017-12-17] MEDS: Chlorhexidine Gluconate 2% 1 Pack (2 Cloths) TOPICAL SCH (03:55)
[2017-12-17] MEDS: dilTIAZem 60 MG Tablet PO SCH ×4 (03:55→21:27)
[2017-12-17] MEDS: SODIUM CHLOR 0.9% IV.SIG SCH (04:01)
[2017-12-17] MEDS: AZTREONAM IV.SIG SCH (04:01)
--- NOTE | 2017-12-17 05:00 | XR ---
EXAM DATE: 12/17/2017 4:21 AM EDT AGE/SEX: 67 years / Male INDICATIONS: Shortness of breath, possible pulmonary disease. CLINICAL DATA: This is the patient's subsequent encounter. Patient reports that signs and symptoms h ave been present for 1 week and indicates a pain score of Nonresponsive. MEDICAL/SURGICAL HISTORY: Diabetes. Gastroesophageal reflux disease. Chronic obstructive pulm onary disease. None. COMPARISON: [facility] [place]ST 1V SINGLE AP, 12/15/2017. . FINDINGS: A single portable frontal view the chest omits portions of the left lung base. Endotracheal tube tip within the right mainstem bronchus origin. Left-sided central line noted. Right basilar atelectasis. Minimal left basilar atelectasis. No large infiltrate or effusion. Heart is normal in size. No pneumo thorax. Right-sided dialysis catheter. CONCLUSION: Tip of the endotracheal tube within the right mainstem bronchus. I spoke to nurse Deidre who is caring for the patient. Suggest retracting it 2 cm. Mild bibasilar atelectasis. Electronically signed by: Vinnie Vuong MD 12/17/2017 4:58 AM EDT
[2017-12-17] MEDS: Levothyroxine 50 MCG Tablet PO SCH (06:10)
[2017-12-17] MEDS: fentaNYL 10 mcg/mL Premix Drip 2,500 MCG/250 ML BAG IV.SIG PRN (06:10)
[2017-12-17 06:16] LABS: Hematocrit 26.5 % (39.0-51.0); Hemoglobin 8.2 gm/dL (13.0-17.0); Mean Corpuscular Hemoglobin 28.1 pg (27.0-34.0); Mean Corpuscular Volume 90.6 fL (80.0-100.0); Mean Platelet Volume 8.8 fL (7.0-11.0); Platelet Count 244 th/mm3 (150-450); Red Blood Count 2.92 mil/mm3 (4.50-5.90); Red Cell Distribution Width 19.3 % (11.6-17.2); White Blood Count 16.5 th/mm3 (4.0-11.0)
[2017-12-17 06:25] LABS: INR 1.9 Ratio; Prothrombin Time 18.9 sec (9.8-11.6)
[2017-12-17 06:25] LABS: ABG Base Excess -3.4 mmol/L (-2-2); ABG PCO2 48 mmHg (38-42); ABG PO2 68 mmHG (61-120)
[2017-12-17 06:51] LABS: Calcium 8.1 mg/dL (8.5-10.1); Carbon Dioxide 25.7 meq/L (21.0-32.0); Magnesium 2.1 mg/dL (1.5-2.5); Phosphorus 5.8 mg/dL (2.5-4.9); Potassium 4.1 meq/L (3.5-5.1); Vancomycin,Random 22.8 Comment
[2017-12-17] MEDS: Insulin NovoLOG Aspart Correctional Sugar Inj SQ SCH ×4 (08:14→21:16)
[2017-12-17] MEDS: Chlorhexidine 0.12% Oral Kit 15 ML UDC OROPHARYNG SCH ×2 (08:14→20:27)
[2017-12-17] MEDS: Pantoprazole Inj 40 MG Vial IV.PUSH SCH ×2 (08:15→20:30)
[2017-12-17] MEDS: Lipase/Protease/Amylase 24/76/120 DR Capsule PO SCH ×4 (08:15→21:27)
[2017-12-17] MEDS: Vitamin B Complex/Vit C/Folic Tablet PO SCH (08:16)
[2017-12-17] MEDS: Hypromellose 0.3% Opth Gel 10 GM Bottle EACH EYE SCH ×2 (08:24→21:27)
[2017-12-17] MEDS ORDERED: Midazolam Inj 5 MG/ML 1 ML Vial IV.PUSH ONE (09:34)
[2017-12-17] MEDS ORDERED: Midazolam Inj 5 MG/ML 1 ML Vial ONE (09:36)
--- NOTE | 2017-12-17 10:22 | P.PCN ---
Procedure: Diagnosis: Hypoxemic respiratory failure Procedure: Therapeutic flexible bronchoscopy Narrative: Timeout performed, patient suitably identified. Patient chronically intubated in the orotracheal route and on mechanical ventilation. Usual ICU monitoring devices are in place. Through the ventilator circuit with an elbow placed for sealed sidehole access the bronchoscope was delivered into the main trachea. The trachea and major stem bronchi were clean and free of irritation. The segmental and subsegmental bronchi contained thick sputum on both sides.. The endotracheal tube and bronchoscope were withdrawn then to the level of the cricoid which time visualization was provided while the percutaneous tracheostomy was placed by a separate team. Immediately upon insertion of the percutaneous tracheostomy the bronchoscope was delivered through the new tube and verified that the tube was within the main trachea and safely above the bailey. The inner cannula was then inserted and the ventilator circuit was reconnected to the new tracheostomy tube. Good return of air was visualized by ventilator waveforms. Chest wall movement was good. Oxygen saturation was maintained at greater than 96% throughout the procedure.
--- NOTE | 2017-12-17 10:51 | P.PNNP ---
Subjective Interval history: Patient now with Tracheostomy, sedated, on the vent. Physical Exam Vital signs: Vital Signs 12/16/17 11:12 12/16/17 12:00 12/16/17 14:00 Temperature 100.0 F H Pulse Rate 70 68 Respiratory Rate 18 Blood Pressure 120/60 Pulse Oximetry 100 100 12/16/17 15:33 12/16/17 16:00 12/16/17 18:00 Temperature 100.1 F H Pulse Rate 73 70 71 Respiratory Rate 16 18 Blood Pressure 103/55 L Pulse Oximetry 98 100 12/16/17 19:10 12/16/17 19:15 12/16/17 19:30 Temperature Pulse Rate 80 75 Respiratory Rate 16 36 H 19 Blood Pressure 118/62 105/58 L Pulse Oximetry 95 92 L 94 L 12/16/17 19:45 12/16/17 20:00 12/16/17 20:15 Temperature 100.2 F H Pulse Rate 73 75 70 Respiratory Rate 39 H 34 H 16 Blood Pressure 102/57 L 104/58 L 102/56 L Pulse Oximetry 94 L 94 L 96 12/16/17 20:30 12/16/17 20:40 12/16/17 20:45 Temperature Pulse Rate 78 79 78 Respiratory Rate 17 17 16 Blood Pressure 118/62 113/61 Pulse Oximetry 94 L 95 12/16/17 21:00 12/16/17 21:15 12/16/17 21:30 Temperature Pulse Rate 72 72 71 Respiratory Rate 16 16 16 Blood Pressure 102/55 L 103/56 L 104/59 L Pulse Oximetry 95 96 97 12/16/17 21:45 12/16/17 22:00 12/16/17 22:15 Temperature Pulse Rate 68 67 66 Respiratory Rate 16 16 16 Blood Pressure 106/56 L 108/58 L 108/58 L Pulse Oximetry 97 98 96 12/16/17 22:30 12/16/17 22:45 12/16/17 23:00 Temperature Pulse Rate 68 70 67 Respiratory Rate 16 16 16 Blood Pressure 100/57 L 102/58 L 99/56 L Pulse Oximetry 97 97 98 12/16/17 23:15 12/16/17 23:20 12/16/17 23:30 Temperature Pulse Rate 74 86 Respiratory Rate 16 16 27 H Blood Pressure 107/59 L 123/66 Pulse Oximetry 95 98 89 L 12/16/17 23:45 12/17/17 00:00 12/17/17 00:15 Temperature 99.8 F H Pulse Rate 83 80 85 Respiratory Rate 20 18 17 Blood Pressure 129/61 120/65 118/61 Pulse Oximetry 95 97 94 L 12/17/17 00:30 12/17/17 00:45 12/17/17 01:00 Temperature Pulse Rate 84 83 86 Respiratory Rate 53 H 50 H Blood Pressure 106/58 L 110/61 107/62 Pulse Oximetry 95 95 95 12/17/17 01:15 12/17/17 01:30 12/17/17 01:45 Temperature Pulse Rate 83 78 75 Respiratory Rate 15 16 16 Blood Pressure 113/59 L 91/55 L 94/55 L Pulse Oximetry 100 96 95 12/17/17 02:00 12/17/17 02:15 12/17/17 02:30 Temperature Pulse Rate 73 71 68 Respiratory Rate 16 16 16 Blood Pressure 96/55 L 98/56 L 100/59 L Pulse Oximetry 96 96 97 12/17/17 02:45 12/17/17 03:00 12/17/17 03:15 Temperature Pulse Rate 77 80 78 Respiratory Rate 19 16 19 Blood Pressure 105/66 113/65 102/56 L Pulse Oximetry 97 92 L 94 L 12/17/17 03:30 12/17/17 03:45 12/17/17 04:00 Temperature 100.2 F H Pulse Rate 76 76 79 Respiratory Rate 18 20 16 Blood Pressure 97/56 L 113/78 100/57 L Pulse Oximetry 96 96 96 12/17/17 04:15 12/17/17 04:30 12/17/17 04:37 Temperature Pulse Rate 81 87 Respiratory Rate 31 H 71 H 19 Blood Pressure 110/57 L 117/62 Pulse Oximetry 94 L 97 96 12/17/17 04:45 12/17/17 05:00 12/17/17 05:15 Temperature Pulse Rate 76 86 79 Respiratory Rate 17 18 27 H Blood Pressure 96/51 L 117/58 L 103/58 L Pulse Oximetry 96 93 L 95 12/17/17 05:55 12/17/17 06:00 12/17/17 06:15 Temperature Pulse Rate 87 84 80 Respiratory Rate 14 15 12 Blood Pressure 119/64 114/58 L 117/64 Pulse Oximetry 90 L 94 L 97 12/17/17 06:30 12/17/17 06:45 12/17/17 07:00 Temperature Pulse Rate 77 74 71 Respiratory Rate 21 17 18 Blood Pressure 103/51 L 104/59 L 103/56 L Pulse Oximetry 98 97 97 12/17/17 07:15 12/17/17 07:30 12/17/17 07:32 Temperature Pulse Rate 66 77 Respiratory Rate 18 18 18 Blood Pressure 101/56 L 109/60 Pulse Oximetry 98 95 95 12/17/17 07:45 12/17/17 08:00 12/17/17 08:15 Temperature 100.5 F H Pulse Rate 78 83 80 Respiratory Rate 86 H 17 129 H Blood Pressure 118/60 119/61 110/55 L Pulse Oximetry 95 94 L 97 12/17/17 08:30 12/17/17 08:45 12/17/17 10:17 Temperature Pulse Rate 83 76 Respiratory Rate 20 20 Blood Pressure 111/59 L 112/54 L Pulse Oximetry 97 100 100 Intake & Output 12/16/17 12/17/17 12/17/17 18:59 06:59 18:59 Intake Total 461 / 461 2675 / 2675 Output Total 0 / 0 0 / 0 Balance 461 / 461 2675 / 2675 Weight 77.1 kg Intake: IV 2674 / 267 Azactam Inj 500 MG In NS Inj 50 150 / 150 ML @ 100 mls/hr IV.SIG Q8H [facility] Rx#:[id number] Levaquin 750 mg Premix Inj 150 150 / 150 ML @ 100 mls/hr IV.SIG ONCE ONE Rx#:[id number] fentaNYL 10 mcg/mL Premix Drip 250 / 250 2,500 mcg In 250 ml @ 25 MCG/HR 2.5 mls/hr IV.SIG TITRATE PRN Rx#:[id number] Flagyl 500 MG Inj 100 ML @ 100 300 / 300 mls/hr IV.SIG Q8H [facility] Rx#: [id number] Oral 0 / 0 Tube Feeding 111 / 111 Water Bolus Amount 350 / 350 Output: Urine 0 / 0 0 / 0 Other: Date of Last Bowel Movement 12/15/17 12/15/17 12/15/17 # Bowel Movements 0 Narrative: - Constitutional Withe Trach. and o the vent., sedated hypotensive critically ill - Routine Respiratory Exam CTA bilaterally, no wheezes or crackles - Routine Cardiovascular Exam Sinus rhythm, intermittently tachycardic, hypotensive currently on 80 mcg/min of Jonas-Synephrine - Routine Abdominal Exam soft, nontender. New PEG tube site without evidence of bleeding - Routine Extremities Exam No pedal edema. - Routine Neurological Exam Patient is sedated, on the vent. - Urinary Catheter Management Straight Cath placed during this visit: yes Reason for continuing: Not indwelling catheter Insertion date: 12/01/17 Insertion time: 13:46 Assessment and Plan - Assessment (1) Altered mental status Code(s): R41.82 - Altered mental status, unspecified Status: Acute Qualifiers: Altered mental status type: unspecified Qualified Code(s): R41.82 - Altered mental status, unspecified (2) Hypoglycemia Code(s): E16.2 - Hypoglycemia, unspecified Status: Acute (3) Sepsis Code(s): A41.9 - Sepsis, unspecified organism Status: Acute Qualifiers: Sepsis type: sepsis due to unspecified organism Qualified Code(s): A41.9 - Sepsis, unspecified organism (4) ESRD (end stage renal disease) on dialysis Code(s): N18.6 - End stage renal disease; Z99.2 - Dependence on renal dialysis Status: Acute - Plan Patient now on mechanical ventilation there is a possibility of aspiration pneumonia, sepsis, hypotension, condition critical on vasopressors and ventilator Suspect AMS secondary to hypoglycemic event/another event on the floor possible aspiration pneumonia Hemodialysis continue hemodialysis on Tuesday and Tuesday Patient is on ventilator again Continue aggressive care Now post Trach. Creatinine remain elevated. HD today, remove fluid as tolerated.
--- NOTE | 2017-12-17 11:13 | XR ---
EXAM DATE: 12/17/2017 11:10 AM EDT AGE/SEX: 67 years / Male INDICATIONS: Post tracheostomy. CLINICAL DATA: This is the patient's subsequent encounter. Patient reports that signs and symptoms h ave been present for 2 days and indicates a pain score of Nonresponsive. MEDICAL/SURGICAL HISTORY: Diabetes. Gastroesophageal reflux disease. Chronic obstructive pulm onary disease. None. COMPARISON: [facility] – [place], CHEST 1V SINGLE AP, 12/17/2017. . FINDINGS: There are bilateral effusions suspected and patchy consolidation in the left lower lobe and right med ial lung base. Right jugular line tip overlies expected location of the SVC. Tracheostomy tube is now identified. A left jugular line tip overlies the SVC. Left eighth posterior rib fracture again seen. CONCLUSION: Tracheostomy tube and central lines as above. Electronically signed by: Anatoly Villegas MD 12/17/2017 11:12 AM EDT
--- NOTE | 2017-12-17 11:18 | P.PNCC ---
Subjective Subjective Remarks/Hospital Course: 67-year-old male patient with history of CAD, multiple stent placement, COPD, end-stage renal disease, type 2 diabetes, who presented to the emergency room on 12/01/17 after being found to be unresponsive with a glucose of 36. Patient was admitted to hospitalist service and despite correction of hypoglycemia remained agitated and encephalopathic. GI was consulted for PEG tube placement for nutrition as the patient had pulled out NG tube several times. Initially the PEG tube placement was started as an LMA procedure. Apparently there was large amount of regurgitation and possible aspiration. He was endotracheally intubated during the procedure by anesthesiologist. Patient remained hemodynamically unstable and was started on Jonas-Synephrine infusion. Apparently per anesthesia patient had evidence of gastritis and duodenitis with stigmata of bleeding. Also there was a question of bowel ischemia on endoscopy. Due to hemodynamic instability requiring Jonas-Synephrine, and possible aspiration patient was left intubated for stabilization and critical care medicine was consulted. I evaluated the patient in the PACU. He remains on Jonas-Synephrine hypotensive with map hardly 50. I have instructed the RN to give 500 ML normal saline bolus , 25 g of IV albumin and also increase Jonas-Synephrine to target map above 65. Patient appears to have intermittent irregular rhythm which appears like atrial fibrillation. EKG and lab work is pending at this time. Blood and urine culture and sputum culture ordered, currently on vancomycin, add Azactam for gram-negative coverage. Clinically there is no evidence gastric perforation related to PEG placement, check CT abdomen pelvis to rule out gastric perforation SUBJ 12/13: Patient remains intubated sedated with Versed and fentanyl. Currently on Jonas-Synephrine at 40 mcg/min. CT abdomen pelvis did not show any evidence of perforation however showed massive dilation of pancreatic duct up to 2 cm. Cannot rule out mass. MRCP ordered, check CA 19-9 12/14: Intubated off sedation moving all extremities tracking but not following commands. Patient has baseline encephalopathy prior to intubation. MRCP yesterday showed Dilatation of the pancreatic duct 2 cm in the head of pancreas to 1.6 images in the mid body with a [place] pseudocyst appearance. Findings would be consistent with a chronic pancreatitis. Per radiologist If there is a focal mass present it would be at the ampulla. May need ERCP, GI following 12/15: Patient was extubated yesterday however mentation continued to gradually worsen unable to protect airway. On my evaluation today a.m. patient was tachypneic clearly not protecting airway. I proceeded with endotracheal intubation and placed on mechanical ventilation. Large amounts of secretions suctioned out from the oropharynx and glottic opening. WBC count continued to increase 19.6 today. Appreciate ID and neurology input. Discussed with Dr. Ruby even though infectious etiology unlikely for mental status change, will proceed with a lumbar puncture with routine studies and her previous studies. I agreed to Dr. Ruby's opinion that his encephalopathy is most likely from prolonged hypoglycemia 12/16: remains encephalopathic. re-intubated yesterday. will need trach to move forward. LP not consistent with acute bacterial meningoencephalitis. sputum from 12/13 growing burkholderia, started levaquin. 12/17: almost off phenylephrine. plan for trach today. likely can come off pressors when sedation is weaned. Objective Vital Signs / I&O: Vital Signs 12/16/17 12:00 12/16/17 14:00 12/16/17 15:33 Temperature 37.8 C H Pulse Rate 70 68 73 Respiratory Rate 18 16 Blood Pressure 120/60 Pulse Oximetry 100 98 12/16/17 16:00 12/16/17 18:00 12/16/17 19:10 Temperature 37.8 C H Pulse Rate 70 71 Respiratory Rate 18 16 Blood Pressure 103/55 L Pulse Oximetry 100 95 12/16/17 19:15 12/16/17 19:30 12/16/17 19:45 Temperature Pulse Rate 80 75 73 Respiratory Rate 36 H 19 39 H Blood Pressure 118/62 105/58 L 102/57 L Pulse Oximetry 92 L 94 L 94 L 12/16/17 20:00 12/16/17 20:15 12/16/17 20:30 Temperature 37.9 C H Pulse Rate 75 70 78 Respiratory Rate 34 H 16 17 Blood Pressure 104/58 L 102/56 L 118/62 Pulse Oximetry 94 L 96 94 L 12/16/17 20:40 12/16/17 20:45 12/16/17 21:00 Temperature Pulse Rate 79 78 72 Respiratory Rate 17 16 16 Blood Pressure 113/61 102/55 L Pulse Oximetry 95 95 12/16/17 21:15 12/16/17 21:30 12/16/17 21:45 Temperature Pulse Rate 72 71 68 Respiratory Rate 16 16 16 Blood Pressure 103/56 L 104/59 L 106/56 L Pulse Oximetry 96 97 97 12/16/17 22:00 12/16/17 22:15 12/16/17 22:30 Temperature Pulse Rate 67 66 68 Respiratory Rate 16 16 16 Blood Pressure 108/58 L 108/58 L 100/57 L Pulse Oximetry 98 96 97 12/16/17 22:45 12/16/17 23:00 12/16/17 23:15 Temperature Pulse Rate 70 67 74 Respiratory Rate 16 16 16 Blood Pressure 102/58 L 99/56 L 107/59 L Pulse Oximetry 97 98 95 12/16/17 23:20 12/16/17 23:30 12/16/17 23:45 Temperature Pulse Rate 86 83 Respiratory Rate 16 27 H 20 Blood Pressure 123/66 129/61 Pulse Oximetry 98 89 L 95 12/17/17 00:00 12/17/17 00:15 12/17/17 00:30 Temperature 37.7 C H Pulse Rate 80 85 84 Respiratory Rate 18 17 Blood Pressure 120/65 118/61 106/58 L Pulse Oximetry 97 94 L 95 12/17/17 00:45 12/17/17 01:00 12/17/17 01:15 Temperature Pulse Rate 83 86 83 Respiratory Rate 53 H 50 H 15 Blood Pressure 110/61 107/62 113/59 L Pulse Oximetry 95 95 100 12/17/17 01:30 12/17/17 01:45 12/17/17 02:00 Temperature Pulse Rate 78 75 73 Respiratory Rate 16 16 16 Blood Pressure 91/55 L 94/55 L 96/55 L Pulse Oximetry 96 95 96 12/17/17 02:15 12/17/17 02:30 12/17/17 02:45 Temperature Pulse Rate 71 68 77 Respiratory Rate 16 16 19 Blood Pressure 98/56 L 100/59 L 105/66 Pulse Oximetry 96 97 97 12/17/17 03:00 12/17/17 03:15 12/17/17 03:30 Temperature Pulse Rate 80 78 76 Respiratory Rate 16 19 18 Blood Pressure 113/65 102/56 L 97/56 L Pulse Oximetry 92 L 94 L 96 12/17/17 03:45 12/17/17 04:00 12/17/17 04:15 Temperature 37.9 C H Pulse Rate 76 79 81 Respiratory Rate 20 16 31 H Blood Pressure 113/78 100/57 L 110/57 L Pulse Oximetry 96 96 94 L 12/17/17 04:30 12/17/17 04:37 12/17/17 04:45 Temperature Pulse Rate 87 76 Respiratory Rate 71 H 19 17 Blood Pressure 117/62 96/51 L Pulse Oximetry 97 96 96 12/17/17 05:00 12/17/17 05:15 12/17/17 05:55 Temperature Pulse Rate 86 79 87 Respiratory Rate 18 27 H 14 Blood Pressure 117/58 L 103/58 L 119/64 Pulse Oximetry 93 L 95 90 L 12/17/17 06:00 12/17/17 06:15 12/17/17 06:30 Temperature Pulse Rate 84 80 77 Respiratory Rate 15 12 21 Blood Pressure 114/58 L 117/64 103/51 L Pulse Oximetry 94 L 97 98 12/17/17 06:45 12/17/17 07:00 12/17/17 07:15 Temperature Pulse Rate 74 71 66 Respiratory Rate 17 18 18 Blood Pressure 104/59 L 103/56 L 101/56 L Pulse Oximetry 97 97 98 12/17/17 07:30 12/17/17 07:32 12/17/17 07:45 Temperature Pulse Rate 77 78 Respiratory Rate 18 18 86 H Blood Pressure 109/60 118/60 Pulse Oximetry 95 95 95 12/17/17 08:00 12/17/17 08:15 12/17/17 08:30 Temperature 38.1 C H Pulse Rate 83 80 83 Respiratory Rate 17 129 H 20 Blood Pressure 119/61 110/55 L 111/59 L Pulse Oximetry 94 L 97 97 12/17/17 08:45 12/17/17 10:17 Temperature Pulse Rate 76 Respiratory Rate 20 Blood Pressure 112/54 L Pulse Oximetry 100 100 Intake & Output 12/16/17 12/17/17 12/17/17 18:59 06:59 18:59 Intake Total 461 / 461 5 / 5 Output Total 0 / 0 0 / 0 Balance 461 / 462674 / 267 Weight 77.1 kg Intake: IV 2674 Azactam Inj 500 MG In NS Inj 50 150 / 150 ML @ 100 mls/hr IV.SIG Q8H [facility] Rx#:[id number] Levaquin 750 mg Premix Inj 150 150 / 150 ML @ 100 mls/hr IV.SIG ONCE ONE Rx#:[id number] fentaNYL 10 mcg/mL Premix Drip 250 / 250 2,500 mcg In 250 ml @ 25 MCG/HR 2.5 mls/hr IV.SIG TITRATE PRN Rx#:[id number] Flagyl 500 MG Inj 100 ML @ 100 300 / 300 mls/hr IV.SIG Q8H [facility] Rx#: [id number] Oral 0 / 0 Tube Feeding 111 / 111 Water Bolus Amount 350 / 350 Output: Urine 0 / 0 0 / 0 Other: Date of Last Bowel Movement 12/15/17 12/15/17 12/15/17 # Bowel Movements 0 Result Diagrams: 12/17/17 06:00 12/17/17 06:00 Objective Remarks: GENERAL: Middle-age male who appears much older than stated age, lying in bed, intubated, critically ill HEENT: Normocephalic. Atraumatic. Pupils equal, round, reactive, conjugate. Mucous membranes are moist NECK: Trachea is midline. There is no JVD. CHEST: Equal chest rise. PRVC mode of ventilation. CARDIOVASCULAR: Normal rate, regular rhythm. sinus rhythm. phenylephrine at 10 mcg/min. ABDOMEN: Soft, nontender, nondistended. No guarding. MUSCULOSKELETAL: Pulses 2+. No peripheral edema. NEUROLOGICAL: RASS -3/-4. Does not follow commands. Weakly withdraws 4. Assessment and Plan - Assessment and Plan Plan: ASSESSMENT: Acute respiratory failure, recurrent Severe encephalopathy ? Hypoglycemic, anoxic HCAP Aspiration pneumonia Septic Shock Hypotension multifactorial Upper GI bleed Tachyarrhythmia Leukocytosis Dilated pancreatic duct, elevated CA 19-9 (88.5) Radiological evidence of chronic pancreatitis s/p PEG tube placement Hypoglycemia now resolved History of coronary artery disease End-stage renal disease atrial fibrillation with rapid ventricular response PLAN: NEURO: -fentanyl for sedation. -Workup for encephalopathy essentially negative MRI was negative for acute findings. -Encephalopathy most likely secondary to prolonged hypoglycemia and possible anoxia -LP not consistent with acute bacterial meningoencephalitis. f/u serology testing. RESP: -Reintubated 12/15/2017 for lack of airway protection and worsening hypoxia -PRVC/AC, Ventilator bundle -DuoNeb every 6 hours scheduled and as needed -Repeat sputum culture - trach today by Dr. Irvin/Bib. CV: -Jonas-Synephrine to keep map above 65 -add midodrine to wean off phenylephrine - add po diltiazem to get off drip. -Hold all antihypertensive including Procardia XL, lisinopril, carvedilol GI: -N.p.o., and IV Protonix 40 mg q12 -CT abdomen pelvis showed massive pancreatic duct dilation and chronic pancreatitis, confirmed on MRCP -Ampullary mass cannot be ruled out. Patient may need an ERCP, but at this time remains unstable for any invasive procedures -CA-19-9 88.5. : -ESRD on hemodialysis per nephrology ID: -Continue vancomycin, Azactam for gram-negative coverage and Flagyl for anaerobic coverage - levaquin for bukholderia species. -F/U Blood urine and sputum cultures-negative to date -Leukocytosis and hypotension persistent, ID following HEME: -Monitor CBC, coags -Transfuse to keep hemoglobin more than 8 due to hypotension ENDO: -Sliding scale insulin if needed PROPH: -Bilateral lower extremity SCDs. Eliquis on hold due to GI bleed, and INR >2 -IV Protonix 40 mg every 12 hours LINES: -Utilize peripheral IVs, LIJ central line placed 12/12/17 Patient is critically ill with hypotension, leukocytosis status post PEG tube placement. Now with recurrent respiratory failure and worsening encephalopathy. Continue broad-spectrum antibiotics. will need placement in LTAC.
--- NOTE | 2017-12-17 11:20 | P.PCN ---
Date of procedure: 12/17/17 Pre-op diagnosis: Chronic respiratory failure Post-op diagnosis: same Procedure: Percutaneous Dilation Tracheostomy Tube Placement Diagnosis: Chronic respiratory failure Indications: Chronic respiratory failure requiring tracheostomy Anesthesia: Versed 5 mg IV, fentanyl IV Neuromuscular Blockade: Rocuronium 100 mg's IV Anesthesia was provided by the bedside RN Description of the Procedure: The patient was sedated and paralyzed. The patient was positioned in the supine position with a chest roll. The patient's neck was slightly extended. Landmarks were palpated and the anatomy of the anterior neck was deemed normal. A time out procedure was performed. The patient was placed on a volume control mode of ventilation, on 100% FiO2. The patient was prepped and draped sterilely. A bronchoscope was inserted into the endotracheal tube for endoscopic guidance (see separate bronchoscopy procedure note). After negative aspiration, 1% lidocaine with 1:100k epinephrine was injected subcutaneously in the midline neck using a 21g needle for local anesthesia. An approximately 2cm skin incision was made using a #15 blade. The cricoid cartilage, thyroid tissue , and tracheal rings were palpated in the midline. Under direct bronchoscopic guidance, the cuff of the endotracheal tube was deflated and the endotracheal tube was retracted to a level above the level of the skin incision. At this point, a 15g introducer needle/catheter was advanced midline under negative aspiration with saline filled syringe until bubbles were seen and the needle and catheter were visualized in the lumen of the trachea. The needle was withdrawn leaving the catheter in place. A 0.052 in diameter J-shaped guidewire was advanced through the catheter into the lumen of the trachea, under direct bronchoscopic visualization. Using a modified Seldinger technique , a 14 Fr, 4.5 cm introducer dilator was used, followed by a Blue Rhino Percutaneous Tracheostomy Dilator, and finally a 28 Fr tracheostomy loading catheter with 8.0 Cuffed Shiley tracheostomy tube. The loading catheter and guidewire were removed and the tracheostomy tube was confirmed in the lumen of the trachea with bronchoscopy, end-tidal CO2, and returning volumes on the ventilator. The tracheostomy was sewn to the skin with interrupted 2.0 Prolene sutures, and a tracheostomy tie was applied to the skin. There were no immediate complications. There was minimal EBL. A chest x-ray has been ordered. Operator Lights: Dr. Jerrod Bib I personally performed the procedure.
--- NOTE | 2017-12-17 13:02 | P.PNID ---
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 no fever, WBC 16K Large amount of secretions Antibiotics: aztreonam flagyl vanco levaquine Lines: R IJ VAscath Allergies/Adverse Reactions: Allergies Penicillins Allergy (Mild, Verified 12/01/17 17:09) rash Objective Vital Signs 12/16/17 14:00 12/16/17 15:33 12/16/17 16:00 Temperature 100.1 F H Pulse Rate 68 73 70 Respiratory Rate 16 18 Blood Pressure 103/55 L Pulse Oximetry 98 100 12/16/17 18:00 12/16/17 19:10 12/16/17 19:15 Temperature Pulse Rate 71 80 Respiratory Rate 16 36 H Blood Pressure 118/62 Pulse Oximetry 95 92 L 12/16/17 19:30 12/16/17 19:45 12/16/17 20:00 Temperature 100.2 F H Pulse Rate 75 73 75 Respiratory Rate 19 39 H 34 H Blood Pressure 105/58 L 102/57 L 104/58 L Pulse Oximetry 94 L 94 L 94 L 12/16/17 20:15 12/16/17 20:30 12/16/17 20:40 Temperature Pulse Rate 70 78 79 Respiratory Rate 16 17 17 Blood Pressure 102/56 L 118/62 Pulse Oximetry 96 94 L 12/16/17 20:45 12/16/17 21:00 12/16/17 21:15 Temperature Pulse Rate 78 72 72 Respiratory Rate 16 16 16 Blood Pressure 113/61 102/55 L 103/56 L Pulse Oximetry 95 95 96 12/16/17 21:30 12/16/17 21:45 12/16/17 22:00 Temperature Pulse Rate 71 68 67 Respiratory Rate 16 16 16 Blood Pressure 104/59 L 106/56 L 108/58 L Pulse Oximetry 97 97 98 12/16/17 22:15 12/16/17 22:30 12/16/17 22:45 Temperature Pulse Rate 66 68 70 Respiratory Rate 16 16 16 Blood Pressure 108/58 L 100/57 L 102/58 L Pulse Oximetry 96 97 97 12/16/17 23:00 12/16/17 23:15 12/16/17 23:20 Temperature Pulse Rate 67 74 Respiratory Rate 16 16 16 Blood Pressure 99/56 L 107/59 L Pulse Oximetry 98 95 98 12/16/17 23:30 12/16/17 23:45 12/17/17 00:00 Temperature 99.8 F H Pulse Rate 86 83 80 Respiratory Rate 27 H 20 18 Blood Pressure 123/66 129/61 120/65 Pulse Oximetry 89 L 95 97 12/17/17 00:15 12/17/17 00:30 12/17/17 00:45 Temperature Pulse Rate 85 84 83 Respiratory Rate 17 53 H Blood Pressure 118/61 106/58 L 110/61 Pulse Oximetry 94 L 95 95 12/17/17 01:00 12/17/17 01:15 12/17/17 01:30 Temperature Pulse Rate 86 83 78 Respiratory Rate 50 H 15 16 Blood Pressure 107/62 113/59 L 91/55 L Pulse Oximetry 95 100 96 12/17/17 01:45 12/17/17 02:00 12/17/17 02:15 Temperature Pulse Rate 75 73 71 Respiratory Rate 16 16 16 Blood Pressure 94/55 L 96/55 L 98/56 L Pulse Oximetry 95 96 96 12/17/17 02:30 12/17/17 02:45 12/17/17 03:00 Temperature Pulse Rate 68 77 80 Respiratory Rate 16 19 16 Blood Pressure 100/59 L 105/66 113/65 Pulse Oximetry 97 97 92 L 12/17/17 03:15 12/17/17 03:30 12/17/17 03:45 Temperature Pulse Rate 78 76 76 Respiratory Rate 19 18 20 Blood Pressure 102/56 L 97/56 L 113/78 Pulse Oximetry 94 L 96 96 12/17/17 04:00 12/17/17 04:15 12/17/17 04:30 Temperature 100.2 F H Pulse Rate 79 81 87 Respiratory Rate 16 31 H 71 H Blood Pressure 100/57 L 110/57 L 117/62 Pulse Oximetry 96 94 L 97 12/17/17 04:37 12/17/17 04:45 12/17/17 05:00 Temperature Pulse Rate 76 86 Respiratory Rate 19 17 18 Blood Pressure 96/51 L 117/58 L Pulse Oximetry 96 96 93 L 12/17/17 05:15 12/17/17 05:55 12/17/17 06:00 Temperature Pulse Rate 79 87 84 Respiratory Rate 27 H 14 15 Blood Pressure 103/58 L 119/64 114/58 L Pulse Oximetry 95 90 L 94 L 12/17/17 06:15 12/17/17 06:30 12/17/17 06:45 Temperature Pulse Rate 80 77 74 Respiratory Rate 12 21 17 Blood Pressure 117/64 103/51 L 104/59 L Pulse Oximetry 97 98 97 12/17/17 07:00 12/17/17 07:15 12/17/17 07:30 Temperature Pulse Rate 71 66 77 Respiratory Rate 18 18 18 Blood Pressure 103/56 L 101/56 L 109/60 Pulse Oximetry 97 98 95 12/17/17 07:32 12/17/17 07:45 12/17/17 08:00 Temperature 100.5 F H Pulse Rate 78 83 Respiratory Rate 18 86 H 17 Blood Pressure 118/60 119/61 Pulse Oximetry 95 95 100 12/17/17 08:15 12/17/17 08:30 12/17/17 08:45 Temperature Pulse Rate 80 83 76 Respiratory Rate 129 H 20 20 Blood Pressure 110/55 L 111/59 L 112/54 L Pulse Oximetry 97 97 100 12/17/17 10:00 12/17/17 10:17 12/17/17 11:59 Temperature Pulse Rate 60 Respiratory Rate 20 Blood Pressure Pulse Oximetry 100 99 Intake & Output 12/16/17 12/17/17 12/17/17 18:59 06:59 18:59 Intake Total 461 / 461 2675 / 2675 Output Total 0 / 0 0 / 0 Balance 461 / 461 2675 / 2675 Weight 77.1 kg Intake: IV 2674 / 2675 Azactam Inj 500 MG In NS Inj 50 150 / 150 ML @ 100 mls/hr IV.SIG Q8H KRUNAL Rx#:[id number] Levaquin 750 mg Premix Inj 150 150 / 150 ML @ 100 mls/hr IV.SIG ONCE ONE Rx#:[id number] fentaNYL 10 mcg/mL Premix Drip 250 / 250 2,500 mcg In 250 ml @ 25 MCG/HR 2.5 mls/hr IV.SIG TITRATE PRN Rx#:[id number] Flagyl 500 MG Inj 100 ML @ 100 300 / 300 mls/hr IV.SIG Q8H KRUNAL Rx#: [id number] Oral 0 / 0 Tube Feeding 111 / 111 Water Bolus Amount 350 / 350 Output: Urine 0 / 0 0 / 0 Other: Date of Last Bowel Movement 12/15/17 12/15/17 12/15/17 # Bowel Movements 0 12/12/17 19:27 Blood - Peripheral Aerobic Blood Culture - Final No growth in 5 days 12/12/17 19:27 Blood - Peripheral Anaerobic Blood Culture - Final No growth in 5 days 12/12/17 19:22 Blood - Peripheral Aerobic Blood Culture - Final No growth in 5 days 12/12/17 19:22 Blood - Peripheral Anaerobic Blood Culture - Final No growth in 5 days 12/15/17 13:10 Lumbar Puncture Gram Stain - Final 12/15/17 13:10 Lumbar Puncture CSF Culture - Preliminary No growth in 48 hours 12/13/17 18:00 Sputum - Endotracheal Gram Stain - Final 12/13/17 18:00 Sputum - Endotracheal Sputum Culture - Final Burkholderia cepacia 12/15/17 13:10 Cerebral Spinal Fluid - Lumbar Puncture Acid Fast Bacilli Smear - Final No acid fast bacilli seen 12/15/17 13:10 Cerebral Spinal Fluid - Lumbar Puncture Mycobacterial Culture - Pending 12/15/17 13:10 Cerebral Spinal Fluid - Lumbar Puncture Fungal Smear - Final No fungal elements seen 12/15/17 13:10 Cerebral Spinal Fluid - Lumbar Puncture Fungal Culture - Pending Lab - Hematology Results 12/16/17 12/17/17 08:37 06:00 WBC 16.2 H 16.5 H RBC 2.96 L 2.92 L Hgb 8.3 L 8.2 L Hct 26.9 L 26.5 L MCV 90.7 90.6 MCH 27.9 28.1 MCHC 30.8 L 31.0 L RDW 19.3 H 19.3 H Plt Count 190 244 MPV 9.2 8.8 Prelim Diff (Auto) Manual diff required WBC Differential Manual diff final Seg Neuts % (Manual) 77 H Band Neuts % (Manual) 4 Lymphocytes % (Manual) 7 L Monocytes % (Manual) 4 Eosinophils % (Manual) 6 H Metamyelocytes % (Man) 2 H Abs Neuts (Manual) 13.4 H Differential Comment . Platelet Estimate Normal Platelet Morphology Enlarged H Lab - Chemistry Results 12/15/17 12/15/17 12/15/17 15:11 16:18 20:28 Sodium Potassium Chloride Carbon Dioxide Anion Gap BUN Creatinine Estimated GFR POC Glucose 162 H 174 H 139 H Random Glucose Calcium Phosphorus Magnesium Total Bilirubin AST ALT Alkaline Phosphatase Total Protein Albumin 12/16/17 12/16/17 12/16/17 07:50 08:37 11:55 Sodium 146 H Potassium 3.5 Chloride 107 Carbon Dioxide 22.9 Anion Gap 16 H BUN 44 H Creatinine 7.65 H Estimated GFR 7 L POC Glucose 234 H 196 H Random Glucose 260 H Calcium 7.8 L Phosphorus 4.7 Magnesium 1.8 Total Bilirubin 0.5 AST 29 ALT 26 Alkaline Phosphatase 80 Total Protein 5.2 L Albumin 2.4 L 12/16/17 12/16/17 12/17/17 17:07 22:24 06:00 Sodium 146 H Potassium 4.1 Chloride 105 Carbon Dioxide 25.7 Anion Gap 15 BUN 55 H Creatinine 9.16 H Estimated GFR 6 L POC Glucose 181 H 159 H Random Glucose 237 H Calcium 8.1 L Phosphorus 5.8 H D Magnesium 2.1 Total Bilirubin AST ALT Alkaline Phosphatase Total Protein Albumin 12/17/17 08:09 Sodium Potassium Chloride Carbon Dioxide Anion Gap BUN Creatinine Estimated GFR POC Glucose 216 H Random Glucose Calcium Phosphorus Magnesium Total Bilirubin AST ALT Alkaline Phosphatase Total Protein Albumin Imaging: ITS Impressions Head CT 12/01/17 11:12 CONCLUSION: 1. Mild cerebral atrophy. 2. No acute infarct, acute hemorrhage, midline shift or extra-axial fluid collections. 3. Small fluid level within the left maxillary sinus. Head MRI 12/02/17 00:00 CONCLUSION: 1. No acute findings. 2. Atrophy and minimal white matter disease. Hand X-Ray 12/04/17 00:00 CONCLUSION: Unremarkable study. Forearm X-Ray 12/04/17 18:49 CONCLUSION: Unremarkable study. Shoulder X-Ray 12/04/17 18:49 CONCLUSION: No definite fracture is identified for technique. Abdomen X-Ray 12/08/17 04:58 CONCLUSION: Nasogastric tube distal tip is at the GE junction. Suggest further advancement stomach. Abdomen/Pelvis CT 12/13/17 00:00 CONCLUSION: 1. Percutaneous gastrostomy tube present without abnormal fluid collection or free air identified. 2. 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 There is evidence for chronic pancreatitis. Cannot exclude an obstructing mass in the pancreatic head. Recommend further evaluation with MRCP. 3. 3 cm fat-containing umbilical hernia. 4. Focal small airspace disease right posterior costophrenic angle. Cholangiopancreatography MRI 12/13/17 00:00 CONCLUSION: 1. Dilatation of the pancreatic duct ranging from 2 cm in the head of pancreas to 1.6 images in the mid body with a chain of lakes pseudocyst appearance. 2. Findings would be consistent with a chronic pancreatitis. 3. If there is a focal mass present it would be at the ampulla. This can be followed by MR or endoscopic ultrasound. 4. Trace ascites 5. No other recent cross-sectional imaging studies of the pancreas. These would be most helpful given the appearance. Catheter Placement 12/16/17 00:00 CONCLUSION: 1. Uncomplicated line placement as above. Fibrin sheath stripping was also performed. Chest X-Ray 12/17/17 10:17 CONCLUSION: Tracheostomy tube and central lines as above. Physical Exam: GENERAL: NAD, on vent sedated SKIN: Warm and dry. No rash HEAD: Atraumatic. Normocephalic. EYES: Pupils equal and round. No scleral icterus. No injection or drainage. ENT: No nasal bleeding or discharge. Mucous membranes pink and moist. NECK: Trach in place No JVD. CARDIOVASCULAR: Regular rate and rhythm. No murmurs RESPIRATORY: No accessory muscle use. scattered rhonchi to auscultation. Breath sounds decreased bilaterally. GASTROINTESTINAL: Abdomen soft, non-tender, nondistended. MUSCULOSKELETAL: Extremities without clubbing, cyanosis, or edema. No obvious deformities. NEUROLOGICAL: sedated PSYCHIATRIC: unable to assess Assessment and Plan - Plan Anoxic encephalopathy leukocytosis: slightly better Hypotension sepsis PNA, growing B. cepacia ESRD, on HD, will change current abx to levaquine, ceftazidime, abx to be renally adjusted lucía GRAVES
[2017-12-17] MEDS: Heparin 10,000 UNITS/10 ML Vial (for IV use) OTHER PRN (14:37)
[2017-12-17] MEDS: Albumin Human 25% Inj 100 ML IV.SIG PRN ×2 (14:40→14:54)
[2017-12-18] MEDS: Oral Hygiene Kit OROPHARYNG SCH ×4 (00:05→15:08)
[2017-12-18] MEDS: Chlorhexidine Gluconate 2% 1 Pack (2 Cloths) TOPICAL SCH (03:13)
[2017-12-18] MEDS: dilTIAZem 60 MG Tablet PO SCH ×4 (03:25→21:27)
[2017-12-18 04:15] LABS: Hematocrit 24.8 % (39.0-51.0); Hemoglobin 7.5 gm/dL (13.0-17.0); Mean Corpuscular Hemoglobin 27.5 pg (27.0-34.0); Mean Corpuscular Volume 91.3 fL (80.0-100.0); Mean Platelet Volume 8.7 fL (7.0-11.0); Platelet Count 228 th/mm3 (150-450); Red Blood Count 2.71 mil/mm3 (4.50-5.90); Red Cell Distribution Width 19.1 % (11.6-17.2); White Blood Count 13.4 th/mm3 (4.0-11.0)
[2017-12-18 04:29] LABS: Mean Corpuscular HGB Conc 30.2 % (32.0-36.0)
[2017-12-18 04:32] LABS: INR 2.2 Ratio
[2017-12-18 04:50] LABS: Calcium 8.1 mg/dL (8.5-10.1); Carbon Dioxide 25.1 meq/L (21.0-32.0); Phosphorus 4.7 mg/dL (2.5-4.9); Potassium 3.7 meq/L (3.5-5.1)
[2017-12-18 05:06] LABS: ABG Base Excess -2.4 mmol/L (-2-2); ABG PCO2 50 mmHg (38-42); ABG PO2 75 mmHG (61-120)
[2017-12-18] MEDS: Levothyroxine 50 MCG Tablet PO SCH (05:29)
[2017-12-18] MEDS: fentaNYL 10 mcg/mL Premix Drip 2,500 MCG/250 ML BAG IV.SIG PRN (06:36)
--- NOTE | 2017-12-18 08:21 | P.PNCC ---
Subjective Subjective Remarks/Hospital Course: 67-year-old male patient with history of CAD, multiple stent placement, COPD, end-stage renal disease, type 2 diabetes, who presented to the emergency room on 12/01/17 after being found to be unresponsive with a glucose of 36. Patient was admitted to hospitalist service and despite correction of hypoglycemia remained agitated and encephalopathic. GI was consulted for PEG tube placement for nutrition as the patient had pulled out NG tube several times. Initially the PEG tube placement was started as an LMA procedure. Apparently there was large amount of regurgitation and possible aspiration. He was endotracheally intubated during the procedure by anesthesiologist. Patient remained hemodynamically unstable and was started on Jonas-Synephrine infusion. Apparently per anesthesia patient had evidence of gastritis and duodenitis with stigmata of bleeding. Also there was a question of bowel ischemia on endoscopy. Due to hemodynamic instability requiring Jonas-Synephrine, and possible aspiration patient was left intubated for stabilization and critical care medicine was consulted. I evaluated the patient in the PACU. He remains on Jonas-Synephrine hypotensive with map hardly 50. I have instructed the RN to give 500 ML normal saline bolus , 25 g of IV albumin and also increase Jonas-Synephrine to target map above 65. Patient appears to have intermittent irregular rhythm which appears like atrial fibrillation. EKG and lab work is pending at this time. Blood and urine culture and sputum culture ordered, currently on vancomycin, add Azactam for gram-negative coverage. Clinically there is no evidence gastric perforation related to PEG placement, check CT abdomen pelvis to rule out gastric perforation SUBJ 12/13: Patient remains intubated sedated with Versed and fentanyl. Currently on Jonas-Synephrine at 40 mcg/min. CT abdomen pelvis did not show any evidence of perforation however showed massive dilation of pancreatic duct up to 2 cm. Cannot rule out mass. MRCP ordered, check CA 19-9 12/14: Intubated off sedation moving all extremities tracking but not following commands. Patient has baseline encephalopathy prior to intubation. MRCP yesterday showed Dilatation of the pancreatic duct 2 cm in the head of pancreas to 1.6 images in the mid body with a chain of lakes pseudocyst appearance. Findings would be consistent with a chronic pancreatitis. Per radiologist If there is a focal mass present it would be at the ampulla. May need ERCP, GI following 12/15: Patient was extubated yesterday however mentation continued to gradually worsen unable to protect airway. On my evaluation today a.m. patient was tachypneic clearly not protecting airway. I proceeded with endotracheal intubation and placed on mechanical ventilation. Large amounts of secretions suctioned out from the oropharynx and glottic opening. WBC count continued to increase 19.6 today. Appreciate ID and neurology input. Discussed with Dr. Ruby even though infectious etiology unlikely for mental status change, will proceed with a lumbar puncture with routine studies and her previous studies. I agreed to Dr. Ruby's opinion that his encephalopathy is most likely from prolonged hypoglycemia 12/16: remains encephalopathic. re-intubated yesterday. will need trach to move forward. LP not consistent with acute bacterial meningoencephalitis. sputum from 12/13 growing burkholderia, started levaquin. 12/17: almost off phenylephrine. plan for trach today. likely can come off pressors when sedation is weaned. 12/18: off vasopressors. s/p trach yesterday. more awake, but persistently encephalopathic. Objective Vital Signs / I&O: Vital Signs 12/17/17 08:15 12/17/17 08:30 12/17/17 08:45 Temperature Pulse Rate 80 83 76 Respiratory Rate 129 H 20 20 Blood Pressure 110/55 L 111/59 L 112/54 L Pulse Oximetry 97 97 100 12/17/17 09:42 12/17/17 09:45 12/17/17 09:48 Temperature Pulse Rate 64 62 61 Respiratory Rate 117 H 64 H 57 H Blood Pressure 88/49 L 86/47 L 88/52 L Pulse Oximetry 99 99 99 12/17/17 09:51 12/17/17 09:54 12/17/17 09:57 Temperature Pulse Rate 61 60 59 L Respiratory Rate 33 H 22 31 H Blood Pressure 93/50 L 97/55 L 99/57 L Pulse Oximetry 98 98 100 12/17/17 10:00 12/17/17 10:03 12/17/17 10:06 Temperature Pulse Rate 60 72 63 Respiratory Rate 31 H 70 H 23 Blood Pressure 101/58 L 126/61 124/57 L Pulse Oximetry 100 100 100 12/17/17 10:09 12/17/17 10:12 12/17/17 10:15 Temperature Pulse Rate 61 61 58 L Respiratory Rate 20 20 20 Blood Pressure 113/59 L 113/55 L 110/59 L Pulse Oximetry 100 100 100 12/17/17 10:17 12/17/17 10:30 12/17/17 10:45 Temperature Pulse Rate 54 L 58 L Respiratory Rate 20 20 Blood Pressure 112/59 L 121/64 Pulse Oximetry 100 100 100 12/17/17 11:00 12/17/17 11:15 12/17/17 11:30 Temperature Pulse Rate 52 L 52 L 53 L Respiratory Rate 20 20 155 H Blood Pressure 118/63 118/63 117/63 Pulse Oximetry 100 100 100 12/17/17 11:45 12/17/17 11:59 12/17/17 12:00 Temperature 37.1 C Pulse Rate 53 L 54 L Respiratory Rate 117 H 20 119 H Blood Pressure 115/62 119/65 Pulse Oximetry 100 99 100 12/17/17 12:15 12/17/17 12:30 12/17/17 12:45 Temperature Pulse Rate 53 L 53 L 54 L Respiratory Rate 47 H 21 20 Blood Pressure 122/66 124/66 126/69 Pulse Oximetry 100 100 100 12/17/17 13:00 12/17/17 13:15 12/17/17 13:30 Temperature Pulse Rate 56 L 60 53 L Respiratory Rate 20 20 20 Blood Pressure 132/70 131/67 90/55 L Pulse Oximetry 100 100 100 12/17/17 13:45 12/17/17 14:00 12/17/17 14:15 Temperature Pulse Rate 59 L 58 L 56 L Respiratory Rate 20 20 20 Blood Pressure 101/55 L 105/60 99/55 L Pulse Oximetry 99 100 99 12/17/17 14:30 12/17/17 14:45 12/17/17 15:00 Temperature Pulse Rate 60 66 54 L Respiratory Rate 20 20 20 Blood Pressure 113/58 L 87/53 L 98/55 L Pulse Oximetry 100 94 L 96 12/17/17 15:15 12/17/17 15:30 12/17/17 15:45 Temperature Pulse Rate 56 L 76 61 Respiratory Rate 20 20 20 Blood Pressure 114/57 L 114/61 116/61 Pulse Oximetry 96 93 L 97 12/17/17 16:00 12/17/17 16:09 12/17/17 16:15 Temperature 37.2 C Pulse Rate 62 60 Respiratory Rate 20 20 20 Blood Pressure 115/60 109/58 L Pulse Oximetry 97 95 97 12/17/17 16:30 12/17/17 16:45 12/17/17 17:00 Temperature Pulse Rate 71 74 62 Respiratory Rate 20 18 20 Blood Pressure 141/67 H 127/60 106/55 L Pulse Oximetry 97 95 97 12/17/17 17:16 12/17/17 17:30 12/17/17 17:45 Temperature Pulse Rate 77 79 78 Respiratory Rate 20 20 20 Blood Pressure 106/60 128/60 132/65 Pulse Oximetry 96 93 L 98 12/17/17 18:00 12/17/17 18:15 12/17/17 18:30 Temperature Pulse Rate 66 71 69 Respiratory Rate 20 20 20 Blood Pressure 118/56 L 116/59 L 115/63 Pulse Oximetry 98 97 97 12/17/17 18:45 12/17/17 19:00 12/17/17 19:15 Temperature Pulse Rate 70 75 79 Respiratory Rate 20 20 20 Blood Pressure 116/60 113/68 120/67 Pulse Oximetry 97 87 L 84 L 12/17/17 19:30 12/17/17 19:45 12/17/17 20:00 Temperature 37.4 C Pulse Rate 75 77 76 Respiratory Rate 20 20 20 Blood Pressure 121/65 123/63 130/68 Pulse Oximetry 88 L 88 L 94 L 12/17/17 20:15 12/17/17 20:20 12/17/17 20:30 Temperature Pulse Rate 84 80 79 Respiratory Rate 20 20 20 Blood Pressure 142/62 H 133/66 Pulse Oximetry 87 L 92 L 93 L 12/17/17 20:45 12/17/17 21:00 12/17/17 21:15 Temperature Pulse Rate 81 86 85 Respiratory Rate 20 20 20 Blood Pressure 123/57 L 124/61 124/61 Pulse Oximetry 93 L 95 95 12/17/17 21:30 12/17/17 21:45 12/17/17 22:00 Temperature Pulse Rate 90 87 88 Respiratory Rate 20 19 20 Blood Pressure 129/67 127/68 132/65 Pulse Oximetry 88 L 93 L 92 L 12/17/17 22:15 12/17/17 22:30 12/17/17 22:45 Temperature Pulse Rate 75 77 82 Respiratory Rate 20 20 20 Blood Pressure 104/59 L 108/56 L 124/66 Pulse Oximetry 97 97 96 12/17/17 23:00 12/17/17 23:15 12/17/17 23:27 Temperature Pulse Rate 73 73 Respiratory Rate 20 20 20 Blood Pressure 107/56 L 108/59 L Pulse Oximetry 99 99 95 12/17/17 23:30 12/17/17 23:45 12/18/17 00:00 Temperature 38.1 C H Pulse Rate 84 79 78 Respiratory Rate 48 H 40 H 20 Blood Pressure 121/60 111/56 L 114/56 L Pulse Oximetry 94 L 97 96 12/18/17 00:15 12/18/17 00:30 12/18/17 00:45 Temperature Pulse Rate 80 79 75 Respiratory Rate 20 20 20 Blood Pressure 113/59 L 114/56 L 108/56 L Pulse Oximetry 96 97 97 12/18/17 01:00 12/18/17 01:15 12/18/17 01:30 Temperature Pulse Rate 79 84 81 Respiratory Rate 20 21 28 H Blood Pressure 107/57 L 96/51 L 91/55 L Pulse Oximetry 97 100 99 12/18/17 01:45 12/18/17 02:00 12/18/17 02:15 Temperature Pulse Rate 86 78 79 Respiratory Rate 24 20 23 Blood Pressure 106/50 L 100/52 L 99/53 L Pulse Oximetry 98 97 97 12/18/17 02:30 12/18/17 02:45 12/18/17 03:00 Temperature Pulse Rate 78 78 70 Respiratory Rate 24 20 21 Blood Pressure 104/59 L 103/60 108/60 Pulse Oximetry 98 99 100 12/18/17 03:15 12/18/17 03:30 12/18/17 03:45 Temperature Pulse Rate 75 76 75 Respiratory Rate 20 20 20 Blood Pressure 111/76 112/55 L 103/56 L Pulse Oximetry 97 98 97 12/18/17 04:00 12/18/17 04:15 12/18/17 04:32 Temperature 36.8 C Pulse Rate 76 78 Respiratory Rate 20 20 20 Blood Pressure 112/58 L 122/61 Pulse Oximetry 96 96 97 12/18/17 06:00 Temperature Pulse Rate 70 Respiratory Rate Blood Pressure Pulse Oximetry Intake & Output 12/17/17 12/18/17 12/18/17 18:59 06:59 18:59 Intake Total 547 / 547 646 / 646 Output Total 1700 / 1700 Balance -1153 / -1153 646 / 646 Weight 77.1 kg Intake: IV 300 / 300 250 / 250 Flexbumin 25% Inj 100 ML @ 60 200 / 200 mls/hr IV.SIG WITH DIALYSIS PRN Rx#:[id number] Tazicef Inj 1,000 MG In NS Inj 100 / 100 100 ML @ 200 mls/hr IV.SIG Q24H KRUNAL Rx#:[id number] fentaNYL 10 mcg/mL Premix Drip 250 / 250 2,500 mcg In 250 ml @ 25 MCG/HR 2.5 mls/hr IV.SIG TITRATE PRN Rx#:[id number] Oral 0 / 0 Tube Feeding 7 / 7 216 / 216 Tube Irrigant 180 / 180 180 / 180 Other 60 / 60 Output: Hemodialysis Amount 1700 / 1700 Other: Other Intake Source Saline Solution Date of Last Bowel Movement 12/15/17 12/18/17 # Bowel Movements 1 Result Diagrams: 12/18/17 04:00 12/18/17 04:00 Objective Remarks: GENERAL: Middle-age male who appears much older than stated age, lying in bed, trached, critically ill HEENT: Normocephalic. Atraumatic. Pupils equal, round, reactive, conjugate. Mucous membranes are moist NECK: Trachea is midline. There is no JVD. fresh 8.[address], no bleeding around site. CHEST: Equal chest rise. PRVC mode of ventilation. CARDIOVASCULAR: Normal rate, regular rhythm. sinus rhythm. ABDOMEN: Soft, nontender, nondistended. No guarding. MUSCULOSKELETAL: Pulses 2+. No peripheral edema. NEUROLOGICAL: RASS -3/-4. Does not follow commands. Weakly withdraws 4. Assessment and Plan - Assessment and Plan Plan: ASSESSMENT: Acute respiratory failure, recurrent Severe encephalopathy ? Hypoglycemic, anoxic HCAP Aspiration pneumonia Septic Shock Hypotension multifactorial Upper GI bleed Tachyarrhythmia Leukocytosis Dilated pancreatic duct, elevated CA 19-9 (88.5) Radiological evidence of chronic pancreatitis s/p PEG tube placement Hypoglycemia now resolved History of coronary artery disease End-stage renal disease atrial fibrillation with rapid ventricular response: now back in sinus rhythm PLAN: NEURO: -d/c fentanyl - start scheduled oxycodone for background pain control - haldol for prn agitation. -Workup for encephalopathy essentially negative MRI was negative for acute findings. -Encephalopathy most likely secondary to prolonged hypoglycemia and possible anoxia -LP not consistent with acute bacterial meningoencephalitis. f/u serology testing. RESP: -Reintubated 12/15/2017 for lack of airway protection and worsening hypoxia - s/p trach 12/[address] Irvin/Bib for chronic resp failure -DuoNeb every 6 hours scheduled and as needed - needs to be OOB to stretcher chair daily PT consults CV: - midodrine - po diltiazem -Hold all antihypertensive including Procardia XL, lisinopril, carvedilol GI: -tube feeds, and IV Protonix 40 mg q12 -CT abdomen pelvis showed massive pancreatic duct dilation and chronic pancreatitis, confirmed on MRCP -Ampullary mass cannot be ruled out. Patient may need an ERCP, but at this time remains unstable for any invasive procedures -CA-19-9 88.5. : -ESRD on hemodialysis per nephrology ID: -Continue vancomycin, Azactam for gram-negative coverage and Flagyl for anaerobic coverage - levaquin for bukholderia species. -F/U Blood urine and sputum cultures-negative to date -Leukocytosis and hypotension persistent, ID following HEME: -Monitor CBC, coags -Transfuse to keep hemoglobin more than 8 due to hypotension ENDO: -Sliding scale insulin if needed PROPH: -Bilateral lower extremity SCDs. Eliquis on hold due to GI bleed, and INR >2 -IV Protonix 40 mg every 12 hours LINES: -Utilize peripheral IVs, [facility] central line placed 12/12/17: d/c CVL today. OVERALL IMPRESSION: s/p trach/peg. encephalopathy may be chronic or permanent. needs aggressive rehab efforts. LTAC appropriate.
[2017-12-18] MEDS: Lipase/Protease/Amylase 24/76/120 DR Capsule PO SCH ×4 (09:31→21:27)
[2017-12-18] MEDS: Vitamin B Complex/Vit C/Folic Tablet PO SCH (09:31)
[2017-12-18] MEDS: Hypromellose 0.3% Opth Gel 10 GM Bottle EACH EYE SCH ×2 (09:31→21:27)
[2017-12-18] MEDS: Pantoprazole Inj 40 MG Vial IV.PUSH SCH ×2 (09:32→21:26)
[2017-12-18] MEDS: Chlorhexidine 0.12% Oral Kit 15 ML UDC OROPHARYNG SCH ×2 (09:32→21:25)
[2017-12-18] MEDS: Insulin NovoLOG Aspart Correctional Sugar Inj SQ SCH ×4 (09:37→21:27)
--- NOTE | 2017-12-18 16:48 | P.PNNP ---
Subjective Interval history: Patient seen in the afternoon, remain on the vent. Physical Exam Vital signs: Vital Signs 12/17/17 17:00 12/17/17 17:16 12/17/17 17:30 Temperature Pulse Rate 62 77 79 Respiratory Rate 20 20 20 Blood Pressure 106/55 L 106/60 128/60 Pulse Oximetry 97 96 93 L 12/17/17 17:45 12/17/17 18:00 12/17/17 18:15 Temperature Pulse Rate 78 66 71 Respiratory Rate 20 20 20 Blood Pressure 132/65 118/56 L 116/59 L Pulse Oximetry 98 98 97 12/17/17 18:30 12/17/17 18:45 12/17/17 19:00 Temperature Pulse Rate 69 70 75 Respiratory Rate 20 20 20 Blood Pressure 115/63 116/60 113/68 Pulse Oximetry 97 97 87 L 12/17/17 19:15 12/17/17 19:30 12/17/17 19:45 Temperature Pulse Rate 79 75 77 Respiratory Rate 20 20 20 Blood Pressure 120/67 121/65 123/63 Pulse Oximetry 84 L 88 L 88 L 12/17/17 20:00 12/17/17 20:15 12/17/17 20:20 Temperature 99.3 F Pulse Rate 76 84 80 Respiratory Rate 20 20 20 Blood Pressure 130/68 142/62 H Pulse Oximetry 94 L 87 L 92 L 12/17/17 20:30 12/17/17 20:45 12/17/17 21:00 Temperature Pulse Rate 79 81 86 Respiratory Rate 20 20 20 Blood Pressure 133/66 123/57 L 124/61 Pulse Oximetry 93 L 93 L 95 12/17/17 21:15 12/17/17 21:30 12/17/17 21:45 Temperature Pulse Rate 85 90 87 Respiratory Rate 20 20 19 Blood Pressure 124/61 129/67 127/68 Pulse Oximetry 95 88 L 93 L 12/17/17 22:00 12/17/17 22:15 12/17/17 22:30 Temperature Pulse Rate 88 75 77 Respiratory Rate 20 20 20 Blood Pressure 132/65 104/59 L 108/56 L Pulse Oximetry 92 L 97 97 12/17/17 22:45 12/17/17 23:00 12/17/17 23:15 Temperature Pulse Rate 82 73 73 Respiratory Rate 20 20 20 Blood Pressure 124/66 107/56 L 108/59 L Pulse Oximetry 96 99 99 12/17/17 23:27 12/17/17 23:30 12/17/17 23:45 Temperature Pulse Rate 84 79 Respiratory Rate 20 48 H 40 H Blood Pressure 121/60 111/56 L Pulse Oximetry 95 94 L 97 12/18/17 00:00 12/18/17 00:15 12/18/17 00:30 Temperature 100.5 F H Pulse Rate 78 80 79 Respiratory Rate 20 20 20 Blood Pressure 114/56 L 113/59 L 114/56 L Pulse Oximetry 96 96 97 12/18/17 00:45 12/18/17 01:00 12/18/17 01:15 Temperature Pulse Rate 75 79 84 Respiratory Rate 20 20 21 Blood Pressure 108/56 L 107/57 L 96/51 L Pulse Oximetry 97 97 100 12/18/17 01:30 12/18/17 01:45 12/18/17 02:00 Temperature Pulse Rate 81 86 78 Respiratory Rate 28 H 24 20 Blood Pressure 91/55 L 106/50 L 100/52 L Pulse Oximetry 99 98 97 12/18/17 02:15 12/18/17 02:30 12/18/17 02:45 Temperature Pulse Rate 79 78 78 Respiratory Rate 23 24 20 Blood Pressure 99/53 L 104/59 L 103/60 Pulse Oximetry 97 98 99 12/18/17 03:00 12/18/17 03:15 12/18/17 03:30 Temperature Pulse Rate 70 75 76 Respiratory Rate 21 20 20 Blood Pressure 108/60 111/76 112/55 L Pulse Oximetry 100 97 98 12/18/17 03:45 12/18/17 04:00 12/18/17 04:15 Temperature 98.3 F Pulse Rate 75 76 78 Respiratory Rate 20 20 20 Blood Pressure 103/56 L 112/58 L 122/61 Pulse Oximetry 97 96 96 12/18/17 04:32 12/18/17 06:00 12/18/17 08:00 Temperature 98.6 F Pulse Rate 70 73 Respiratory Rate 20 33 H Blood Pressure 121/58 L Pulse Oximetry 97 97 12/18/17 08:38 12/18/17 10:00 12/18/17 11:09 Temperature Pulse Rate 92 H Respiratory Rate 13 18 Blood Pressure Pulse Oximetry 98 96 12/18/17 12:00 12/18/17 14:00 12/18/17 15:29 Temperature 98.9 F Pulse Rate 77 67 Respiratory Rate 19 17 Blood Pressure 119/68 Pulse Oximetry 95 95 Intake & Output 12/17/17 12/18/17 12/18/17 18:59 06:59 18:59 Intake Total 547 / 547 646 / 646 100 / 100 Output Total 1700 / 1700 Balance -1153 / -1153 646 / 646 100 / 100 Weight 77.1 kg Intake: IV 300 / 300 250 / 250 100 / 100 Flexbumin 25% Inj 100 ML @ 60 200 / 200 mls/hr IV.SIG WITH DIALYSIS PRN Rx#:[id number] Tazicef Inj 1,000 MG In NS Inj 100 / 100 100 / 100 100 ML @ 200 mls/hr IV.SIG Q24H KRUNAL Rx#:[id number] fentaNYL 10 mcg/mL Premix Drip 250 / 250 2,500 mcg In 250 ml @ 25 MCG/HR 2.5 mls/hr IV.SIG TITRATE PRN Rx#:[id number] Oral 0 / 0 Tube Feeding / 216 / 216 Tube Irrigant 180 / 180 180 / 180 Other 60 / 60 Output: Hemodialysis Amount 1700 / 1700 Other: Other Intake Source Saline Solution Date of Last Bowel Movement 12/15/17 12/18/17 12/15/17 # Bowel Movements 1 Narrative: - Constitutional Withe Trach. and o the vent., sedated hypotensive critically ill - Routine Respiratory Exam CTA bilaterally, no wheezes or crackles - Routine Cardiovascular Exam Sinus rhythm, intermittently tachycardic, hypotensive currently on 80 mcg/min of Jonas-Synephrine - Routine Abdominal Exam soft, nontender. New PEG tube site without evidence of bleeding - Routine Extremities Exam No pedal edema. - Routine Neurological Exam Patient is sedated, on the vent. - Urinary Catheter Management Straight Cath placed during this visit: yes Reason for continuing: Not indwelling catheter Insertion date: 12/01/17 Insertion time: 13:46 Assessment and Plan - Assessment (1) Altered mental status Code(s): R41.82 - Altered mental status, unspecified Status: Acute Qualifiers: Altered mental status type: unspecified Qualified Code(s): R41.82 - Altered mental status, unspecified (2) Hypoglycemia Code(s): E16.2 - Hypoglycemia, unspecified Status: Acute (3) Sepsis Code(s): A41.9 - Sepsis, unspecified organism Status: Acute Qualifiers: Sepsis type: sepsis due to unspecified organism Qualified Code(s): A41.9 - Sepsis, unspecified organism (4) ESRD (end stage renal disease) on dialysis Code(s): N18.6 - End stage renal disease; Z99.2 - Dependence on renal dialysis Status: Acute - Plan Patient now on mechanical ventilation there is a possibility of aspiration pneumonia, sepsis, hypotension, condition critical on vasopressors and ventilator Suspect AMS secondary to hypoglycemic event/another event on the floor possible aspiration pneumonia Hemodialysis continue hemodialysis on Tuesday and Tuesday Patient is on ventilator again Continue aggressive care Now post Trach. Creatinine remain elevated. HD done yesterday. Will continue HD as needed. Watch for renal recovery.
[2017-12-18] MEDS: Levofloxacin 500 mg Premix Inj 500 MG/100 ML PIGGYBACK IV.SIG SCH (21:25)
[2017-12-19] MEDS: Oral Hygiene Kit OROPHARYNG SCH ×4 (00:11→16:16)
[2017-12-19] MEDS: dilTIAZem 60 MG Tablet PO SCH ×4 (03:11→20:08)
[2017-12-19 04:40] LABS: ABG PCO2 55 mmHg (38-42); ABG PO2 93 mmHG (61-120)
[2017-12-19] MEDS: Levothyroxine 50 MCG Tablet PO SCH (05:30)
[2017-12-19 06:12] LABS: Hematocrit 26.5 % (39.0-51.0); Hemoglobin 8.2 gm/dL (13.0-17.0); Mean Corpuscular Hemoglobin 27.9 pg (27.0-34.0); Mean Corpuscular Volume 90.2 fL (80.0-100.0); Platelet Count 268 th/mm3 (150-450); Red Blood Count 2.93 mil/mm3 (4.50-5.90); Red Cell Distribution Width 19.1 % (11.6-17.2); White Blood Count 15.1 th/mm3 (4.0-11.0)
[2017-12-19 06:16] LABS: Mean Corpuscular HGB Conc 30.9 % (32.0-36.0)
[2017-12-19 06:22] LABS: INR 1.7 Ratio
[2017-12-19 06:48] LABS: Calcium 8.6 mg/dL (8.5-10.1); Carbon Dioxide 28.2 meq/L (21.0-32.0); Magnesium 2.2 mg/dL (1.5-2.5); Phosphorus 4.4 mg/dL (2.5-4.9); Potassium 3.6 meq/L (3.5-5.1)
[2017-12-19] MEDS: Insulin NovoLOG Aspart Correctional Sugar Inj SQ SCH ×4 (08:00→20:33)
[2017-12-19] MEDS: Pantoprazole Inj 40 MG Vial IV.PUSH SCH ×2 (08:09→20:08)
[2017-12-19] MEDS: Lipase/Protease/Amylase 24/76/120 DR Capsule PO SCH ×4 (08:10→20:08)
[2017-12-19] MEDS: Hypromellose 0.3% Opth Gel 10 GM Bottle EACH EYE SCH (08:10)
[2017-12-19] MEDS: Vitamin B Complex/Vit C/Folic Tablet PO SCH (08:11)
[2017-12-19] MEDS: Chlorhexidine 0.12% Oral Kit 15 ML UDC OROPHARYNG SCH ×2 (08:12→20:07)
--- NOTE | 2017-12-19 10:21 | P.PNCC ---
Subjective Subjective Remarks/Hospital Course: 67-year-old male patient with history of CAD, multiple stent placement, COPD, end-stage renal disease, type 2 diabetes, who presented to the emergency room on 12/01/17 after being found to be unresponsive with a glucose of 36. Patient was admitted to hospitalist service and despite correction of hypoglycemia remained agitated and encephalopathic. GI was consulted for PEG tube placement for nutrition as the patient had pulled out NG tube several times. Initially the PEG tube placement was started as an LMA procedure. Apparently there was large amount of regurgitation and possible aspiration. He was endotracheally intubated during the procedure by anesthesiologist. Patient remained hemodynamically unstable and was started on Jonas-Synephrine infusion. Apparently per anesthesia patient had evidence of gastritis and duodenitis with stigmata of bleeding. Also there was a question of bowel ischemia on endoscopy. Due to hemodynamic instability requiring Jonas-Synephrine, and possible aspiration patient was left intubated for stabilization and critical care medicine was consulted. I evaluated the patient in the PACU. He remains on Jonas-Synephrine hypotensive with map hardly 50. I have instructed the RN to give 500 ML normal saline bolus , 25 g of IV albumin and also increase Jonas-Synephrine to target map above 65. Patient appears to have intermittent irregular rhythm which appears like atrial fibrillation. EKG and lab work is pending at this time. Blood and urine culture and sputum culture ordered, currently on vancomycin, add Azactam for gram-negative coverage. Clinically there is no evidence gastric perforation related to PEG placement, check CT abdomen pelvis to rule out gastric perforation SUBJ 12/13: Patient remains intubated sedated with Versed and fentanyl. Currently on Jonas-Synephrine at 40 mcg/min. CT abdomen pelvis did not show any evidence of perforation however showed massive dilation of pancreatic duct up to 2 cm. Cannot rule out mass. MRCP ordered, check CA 19-9 12/14: Intubated off sedation moving all extremities tracking but not following commands. Patient has baseline encephalopathy prior to intubation. MRCP yesterday showed Dilatation of the pancreatic duct 2 cm in the head of pancreas to 1.6 images in the mid body with a [place] pseudocyst appearance. Findings would be consistent with a chronic pancreatitis. Per radiologist If there is a focal mass present it would be at the ampulla. May need ERCP, GI following 12/15: Patient was extubated yesterday however mentation continued to gradually worsen unable to protect airway. On my evaluation today a.m. patient was tachypneic clearly not protecting airway. I proceeded with endotracheal intubation and placed on mechanical ventilation. Large amounts of secretions suctioned out from the oropharynx and glottic opening. WBC count continued to increase 19.6 today. Appreciate ID and neurology input. Discussed with Dr. Ruby even though infectious etiology unlikely for mental status change, will proceed with a lumbar puncture with routine studies and her previous studies. I agreed to Dr. Ruby's opinion that his encephalopathy is most likely from prolonged hypoglycemia 12/16: remains encephalopathic. re-intubated yesterday. will need trach to move forward. LP not consistent with acute bacterial meningoencephalitis. sputum from 12/13 growing burkholderia, started levaquin. 12/17: almost off phenylephrine. plan for trach today. likely can come off pressors when sedation is weaned. 12/18: off vasopressors. s/p trach yesterday. more awake, but persistently encephalopathic. 12/19: off sedation. continues to be very agitated. weaning from mechanical ventilation. no changes in mentation. Objective Vital Signs / I&O: Vital Signs 12/18/17 11:09 12/18/17 12:00 12/18/17 14:00 Temperature 37.2 C Pulse Rate 77 67 Respiratory Rate 18 19 13 Blood Pressure 119/68 134/66 Pulse Oximetry 96 95 96 12/18/17 14:15 12/18/17 14:30 12/18/17 14:45 Temperature Pulse Rate 68 77 69 Respiratory Rate 13 13 14 Blood Pressure 134/69 138/68 137/67 Pulse Oximetry 97 96 96 12/18/17 15:00 12/18/17 15:15 12/18/17 15:29 Temperature Pulse Rate 75 78 Respiratory Rate 18 20 17 Blood Pressure 154/74 H 148/70 H Pulse Oximetry 95 95 12/18/17 15:31 12/18/17 15:45 12/18/17 16:00 Temperature 36.8 C Pulse Rate 83 76 70 Respiratory Rate 17 6 L 0 L Blood Pressure 147/70 H 130/61 126/60 Pulse Oximetry 97 94 L 95 12/18/17 16:15 12/18/17 16:30 12/18/17 16:45 Temperature Pulse Rate 67 68 66 Respiratory Rate 3 L 13 77 H Blood Pressure 123/61 114/59 L 116/59 L Pulse Oximetry 93 L 92 L 93 L 12/18/17 17:00 12/18/17 17:15 12/18/17 17:30 Temperature Pulse Rate 79 76 76 Respiratory Rate 24 13 14 Blood Pressure 128/66 137/67 134/67 Pulse Oximetry 92 L 96 95 12/18/17 17:45 12/18/17 18:00 12/18/17 18:15 Temperature Pulse Rate 75 76 74 Respiratory Rate 12 13 14 Blood Pressure 132/65 131/65 121/62 Pulse Oximetry 97 96 94 L 12/18/17 18:30 12/18/17 18:45 12/18/17 19:00 Temperature Pulse Rate 71 70 69 Respiratory Rate 12 13 12 Blood Pressure 121/66 121/66 122/67 Pulse Oximetry 95 95 96 12/18/17 19:15 12/18/17 19:29 12/18/17 19:30 Temperature Pulse Rate 73 78 80 Respiratory Rate 14 15 17 Blood Pressure 124/65 140/71 Pulse Oximetry 94 L 95 95 12/18/17 19:45 12/18/17 20:00 12/18/17 20:15 Temperature 37.5 C Pulse Rate 78 76 77 Respiratory Rate 16 13 13 Blood Pressure 135/64 130/64 132/70 Pulse Oximetry 97 96 95 12/18/17 20:30 12/18/17 20:45 12/18/17 21:00 Temperature Pulse Rate 74 71 70 Respiratory Rate 14 13 15 Blood Pressure 117/62 116/63 114/59 L Pulse Oximetry 95 95 95 12/18/17 21:15 12/18/17 21:30 12/18/17 21:45 Temperature Pulse Rate 70 72 84 Respiratory Rate 13 16 15 Blood Pressure 114/62 118/63 124/64 Pulse Oximetry 94 L 93 L 94 L 12/18/17 22:00 12/18/17 22:15 12/18/17 22:30 Temperature Pulse Rate 82 81 82 Respiratory Rate 16 15 23 Blood Pressure 123/62 127/65 121/61 Pulse Oximetry 91 L 94 L 94 L 12/18/17 22:45 12/18/17 23:00 12/18/17 23:15 Temperature Pulse Rate 80 78 74 Respiratory Rate 19 17 17 Blood Pressure 114/59 L 107/55 L 105/56 L Pulse Oximetry 95 95 91 L 12/18/17 23:30 12/18/17 23:39 12/18/17 23:45 Temperature Pulse Rate 72 83 Respiratory Rate 16 15 28 H Blood Pressure 105/58 L 135/70 Pulse Oximetry 91 L 92 L 97 12/19/17 00:00 12/19/17 00:15 12/19/17 00:30 Temperature 37.7 C H Pulse Rate 80 80 84 Respiratory Rate 17 23 19 Blood Pressure 129/62 125/61 127/63 Pulse Oximetry 95 93 L 98 12/19/17 00:45 12/19/17 01:00 12/19/17 01:15 Temperature Pulse Rate 87 83 83 Respiratory Rate 18 17 19 Blood Pressure 140/70 143/68 H 139/67 Pulse Oximetry 97 97 97 12/19/17 01:30 12/19/17 01:45 12/19/17 02:00 Temperature Pulse Rate 82 81 82 Respiratory Rate 19 17 18 Blood Pressure 138/68 139/70 130/64 Pulse Oximetry 97 97 97 12/19/17 02:15 12/19/17 02:30 12/19/17 02:45 Temperature Pulse Rate 87 81 82 Respiratory Rate 22 17 16 Blood Pressure 145/70 H 131/60 134/65 Pulse Oximetry 99 97 98 12/19/17 03:00 12/19/17 03:15 12/19/17 03:30 Temperature Pulse Rate 81 81 84 Respiratory Rate 20 19 17 Blood Pressure 134/65 133/65 149/68 H Pulse Oximetry 97 98 98 12/19/17 03:45 12/19/17 03:47 12/19/17 04:00 Temperature Pulse Rate 81 80 Respiratory Rate 16 16 17 Blood Pressure 132/62 133/65 Pulse Oximetry 97 98 97 12/19/17 04:15 12/19/17 04:25 12/19/17 06:00 Temperature 37.7 C H Pulse Rate 80 85 Respiratory Rate 16 Blood Pressure 129/62 Pulse Oximetry 97 12/19/17 07:11 12/19/17 08:00 Temperature Pulse Rate 86 Respiratory Rate 16 Blood Pressure Pulse Oximetry 99 Intake & Output 12/18/17 12/19/17 12/19/17 18:59 06:59 18:59 Intake Total 482 / 482 1421 / 1421 Balance 482 / 482 1421 / 1421 Weight 77.1 kg Intake: IV 100 / 100 722 / 722 Levaquin 500 mg Premix Inj 500 100 / 100 mg In 100 ml @ 100 mls/hr IV. SIG Q48H KRUNAL Rx#:[id number] Tazicef Inj 1,000 MG In NS Inj 100 / 100 100 ML @ 200 mls/hr IV.SIG Q24H KRUNAL Rx#:[id number] Oral 0 / 0 Tube Feeding 382 / 382 519 / 519 Tube Irrigant 180 / 180 Other: # Voids 1 # Incontinent Voids 2 Date of Last Bowel Movement 12/18/17 12/19/17 12/19/17 # Bowel Movements 1 1 Result Diagrams: 12/19/17 04:00 12/19/17 04:00 Objective Remarks: GENERAL: Middle-age male who appears much older than stated age, lying in bed, trached, critically ill HEENT: Normocephalic. Atraumatic. Pupils equal, round, reactive, conjugate. Mucous membranes are moist NECK: Trachea is midline. There is no JVD. fresh 8.[address], no bleeding around site. CHEST: Equal chest rise. PRVC mode of ventilation. CARDIOVASCULAR: Normal rate, regular rhythm. sinus rhythm. ABDOMEN: Soft, nontender, nondistended. No guarding. MUSCULOSKELETAL: Pulses 2+. No peripheral edema. NEUROLOGICAL: RASS -1. CAM+. GCS 9 ([id number]). Does not follow commands. withdraws to pain. Assessment and Plan - Assessment and Plan Plan: ASSESSMENT: Acute respiratory failure, recurrent Severe encephalopathy ? Hypoglycemic, anoxic HCAP Aspiration pneumonia Septic Shock Hypotension multifactorial Upper GI bleed Tachyarrhythmia Leukocytosis Dilated pancreatic duct, elevated CA 19-9 (88.5) Radiological evidence of chronic pancreatitis s/p PEG tube placement Hypoglycemia now resolved History of coronary artery disease End-stage renal disease atrial fibrillation with rapid ventricular response: now back in sinus rhythm PLAN: NEURO: - scheduled oxycodone for background pain control - haldol for prn agitation. -Workup for encephalopathy essentially negative MRI was negative for acute findings. -Encephalopathy most likely secondary to prolonged hypoglycemia and possible anoxia -LP not consistent with acute bacterial meningoencephalitis. f/u serology testing. RESP: -Reintubated 12/15/2017 for lack of airway protection and worsening hypoxia - s/p trach 12/[address] Irvin/Bib for chronic resp failure -DuoNeb every 6 hours scheduled and as needed - needs to be OOB to stretcher chair daily PT consults CV: - midodrine - po diltiazem -Hold all antihypertensive including Procardia XL, lisinopril, carvedilol GI: -tube feeds, and IV Protonix 40 mg q12 -CT abdomen pelvis showed massive pancreatic duct dilation and chronic pancreatitis, confirmed on MRCP -Ampullary mass cannot be ruled out. Patient may need an ERCP, but at this time remains unstable for any invasive procedures -CA-19-9 88.5. : -ESRD on hemodialysis per nephrology ID: -Continue vancomycin, Azactam for gram-negative coverage and Flagyl for anaerobic coverage - levaquin for bukholderia species. -F/U Blood urine and sputum cultures-negative to date -Leukocytosis and hypotension persistent, ID following HEME: -Monitor CBC, coags -Transfuse to keep hemoglobin more than 8 due to hypotension ENDO: -Sliding scale insulin if needed PROPH: -Bilateral lower extremity SCDs. Eliquis on hold due to GI bleed, and INR >2 -IV Protonix 40 mg every 12 hours LINES: -Utilize peripheral IVs OVERALL IMPRESSION: s/p trach/peg. encephalopathy may be chronic or permanent. needs aggressive rehab efforts. LTAC appropriate.
--- NOTE | 2017-12-19 16:45 | P.PNPAL ---
Reason for Visit Reason for visit: a. To assist with evaluation and management of symptoms including: confusion/ agitation, pain, dyspnea b. To assist medical decision maker(s) with: better understanding of current medical conditions; weighing benefits/burdens of medical treatment options; making medical treatment decisions. Subjective Subjective/Interval History: Pt in stretcher chair, rouses to exam but becomes mildly agitated, pulling at restraints. No meaningful interaction. Does not track. WBC 15.1. Sputum growing burkholderia. CSF no growth 72h. lung sounds coarse. No sign pain, no grimacing. Referral to [facility] pending. Family/Friend Interactions: Spoke with Tommy. Provided medical update, answered all questions to best of my ability. Discussed possible placement at [facility]. Objective Vital Signs: Vital Signs 12/18/17 16:45 12/18/17 17:00 12/18/17 17:15 Temperature Pulse Rate 66 79 76 Respiratory Rate 77 H 24 13 Blood Pressure 116/59 L 128/66 137/67 Pulse Oximetry 93 L 92 L 96 12/18/17 17:30 12/18/17 17:45 12/18/17 18:00 Temperature Pulse Rate 76 75 76 Respiratory Rate 14 12 13 Blood Pressure 134/67 132/65 131/65 Pulse Oximetry 95 97 96 12/18/17 18:15 12/18/17 18:30 12/18/17 18:45 Temperature Pulse Rate 74 71 70 Respiratory Rate 14 12 13 Blood Pressure 121/62 121/66 121/66 Pulse Oximetry 94 L 95 95 12/18/17 19:00 12/18/17 19:15 12/18/17 19:29 Temperature Pulse Rate 69 73 78 Respiratory Rate 12 14 15 Blood Pressure 122/67 124/65 Pulse Oximetry 96 94 L 95 12/18/17 19:30 12/18/17 19:45 12/18/17 20:00 Temperature 99.5 F Pulse Rate 80 78 76 Respiratory Rate 17 16 13 Blood Pressure 140/71 135/64 130/64 Pulse Oximetry 95 97 96 12/18/17 20:15 12/18/17 20:30 12/18/17 20:45 Temperature Pulse Rate 77 74 71 Respiratory Rate 13 14 13 Blood Pressure 132/70 117/62 116/63 Pulse Oximetry 95 95 95 12/18/17 21:00 12/18/17 21:15 12/18/17 21:30 Temperature Pulse Rate 70 70 72 Respiratory Rate 15 13 16 Blood Pressure 114/59 L 114/62 118/63 Pulse Oximetry 95 94 L 93 L 12/18/17 21:45 12/18/17 22:00 12/18/17 22:15 Temperature Pulse Rate 84 82 81 Respiratory Rate 15 16 15 Blood Pressure 124/64 123/62 127/65 Pulse Oximetry 94 L 91 L 94 L 12/18/17 22:30 12/18/17 22:45 12/18/17 23:00 Temperature Pulse Rate 82 80 78 Respiratory Rate 23 19 17 Blood Pressure 121/61 114/59 L 107/55 L Pulse Oximetry 94 L 95 95 12/18/17 23:15 12/18/17 23:30 12/18/17 23:39 Temperature Pulse Rate 74 72 Respiratory Rate 17 16 15 Blood Pressure 105/56 L 105/58 L Pulse Oximetry 91 L 91 L 92 L 12/18/17 23:45 12/19/17 00:00 12/19/17 00:15 Temperature 99.9 F H Pulse Rate 83 80 80 Respiratory Rate 28 H 17 23 Blood Pressure 135/70 129/62 125/61 Pulse Oximetry 97 95 93 L 12/19/17 00:30 12/19/17 00:45 12/19/17 01:00 Temperature Pulse Rate 84 87 83 Respiratory Rate 19 18 17 Blood Pressure 127/63 140/70 143/68 H Pulse Oximetry 98 97 97 12/19/17 01:15 12/19/17 01:30 12/19/17 01:45 Temperature Pulse Rate 83 82 81 Respiratory Rate 19 19 17 Blood Pressure 139/67 138/68 139/70 Pulse Oximetry 97 97 97 12/19/17 02:00 12/19/17 02:15 12/19/17 02:30 Temperature Pulse Rate 82 87 81 Respiratory Rate 18 22 17 Blood Pressure 130/64 145/70 H 131/60 Pulse Oximetry 97 99 97 12/19/17 02:45 12/19/17 03:00 12/19/17 03:15 Temperature Pulse Rate 82 81 81 Respiratory Rate 16 20 19 Blood Pressure 134/65 134/65 133/65 Pulse Oximetry 98 97 98 12/19/17 03:30 12/19/17 03:45 12/19/17 03:47 Temperature Pulse Rate 84 81 Respiratory Rate 17 16 16 Blood Pressure 149/68 H 132/62 Pulse Oximetry 98 97 98 12/19/17 04:00 12/19/17 04:15 12/19/17 04:25 Temperature 99.9 F H Pulse Rate 80 80 Respiratory Rate 17 16 Blood Pressure 133/65 129/62 Pulse Oximetry 97 97 12/19/17 06:00 12/19/17 07:11 12/19/17 08:00 Temperature 98.9 F Pulse Rate 85 82 Respiratory Rate 16 14 Blood Pressure 147/70 H Pulse Oximetry 99 97 12/19/17 10:00 12/19/17 11:16 12/19/17 12:00 Temperature 98.3 F Pulse Rate 71 69 Respiratory Rate 18 14 Blood Pressure 112/59 L Pulse Oximetry 97 100 12/19/17 14:00 12/19/17 15:27 Temperature Pulse Rate 72 Respiratory Rate 13 Blood Pressure Pulse Oximetry 100 Intake & Output 12/18/17 12/19/17 12/19/17 18:59 06:59 18:59 Intake Total 482 / 482 1421 / 1421 Balance 482 / 482 1421 / 1421 Weight 77.1 kg Intake: IV 100 / 100 722 / 722 Levaquin 500 mg Premix Inj 500 100 / 100 mg In 100 ml @ 100 mls/hr IV. SIG Q48H SARA Rx#:[id number] Tazicef Inj 1,000 MG In NS Inj 100 / 100 100 ML @ 200 mls/hr IV.SIG Q24H SARA Rx#:[id number] Oral 0 / 0 Tube Feeding 382 / 382 519 / 519 Tube Irrigant 180 / 180 Other: # Voids 1 # Incontinent Voids 2 Date of Last Bowel Movement 12/18/17 12/19/17 12/19/17 # Bowel Movements 1 1 Physical Exam: SKIN: scabs RLE. right neck excoriated, dry and scaly. HEAD: Atraumatic. Normocephalic. EYES: squints to penlight. No scleral icterus. eyes glassy. ENT: no discharge from nose. +tracheostomy CARDIOVASCULAR: RRR without murmurs, gallops, or rubs. No JVD. RESPIRATORY/CHEST: lung sounds coarse GASTROINTESTINAL: Abdomen soft, non-tender, nondistended. No hepato-splenomegaly , or palpable masses. No guarding. Bowel sounds faint +PEG tube with scant dried blood on dressing MUSCULOSKELETAL: Extremities without clubbing, cyanosis, or edema. No mottling or clubbing. NEUROLOGICAL: does not follow commands, no meaningful interaction, mild agitation when roused, does not track Diagnostic Tests Laboratory: Laboratory Results - last 72 hr 12/15/17 12/16/17 12/16/17 13:10 17:07 22:24 WBC RBC Hgb Hct MCV MCH MCHC RDW Plt Count MPV PT INR Puncture Site Patient Temperature O2 Saturation ABG pH ABG pCO2 ABG pO2 ABG HCO3 ABG O2 Content ABG Base Excess ABG Methemoglobin Jostin Test Hemoglobin Carboxyhemoglobin O2 Delivery Device Vent Setting Inspired O2 Critical Value Sodium Potassium Chloride Carbon Dioxide Anion Gap BUN Creatinine Estimated GFR POC Glucose 181 H 159 H Random Glucose Calcium Phosphorus Magnesium Random Vancomycin Enterovirus Source Csf Enterovirus RNA (PCR) Negative 12/17/17 12/17/17 12/17/17 05:28 06:00 06:00 WBC 16.5 H RBC 2.92 L Hgb 8.2 L Hct 26.5 L MCV 90.6 MCH 28.1 MCHC 31.0 L RDW 19.3 H Plt Count 244 MPV 8.8 PT 18.9 H INR 1.9 Puncture Site Right radial Patient Temperature 98.6 O2 Saturation 89 L* ABG pH 7.29 L* ABG pCO2 48 H ABG pO2 68 ABG HCO3 22 ABG O2 Content 10.7 L ABG Base Excess -3.4 L ABG Methemoglobin 2.0 Jostin Test Present Hemoglobin 8.5 L Carboxyhemoglobin 0.7 O2 Delivery Device Ventilator Vent Setting Prvc16/500/1.0/+5 Inspired O2 35 Critical Value Yes Sodium Potassium Chloride Carbon Dioxide Anion Gap BUN Creatinine Estimated GFR POC Glucose Random Glucose Calcium Phosphorus Magnesium Random Vancomycin Enterovirus Source Enterovirus RNA (PCR) 12/17/17 12/17/17 12/17/17 06:00 08:09 13:03 WBC RBC Hgb Hct MCV MCH MCHC RDW Plt Count MPV PT INR Puncture Site Patient Temperature O2 Saturation ABG pH ABG pCO2 ABG pO2 ABG HCO3 ABG O2 Content ABG Base Excess ABG Methemoglobin Jostin Test Hemoglobin Carboxyhemoglobin O2 Delivery Device Vent Setting Inspired O2 Critical Value Sodium 146 H Potassium 4.1 Chloride 105 Carbon Dioxide 25.7 Anion Gap 15 BUN 55 H Creatinine 9.16 H Estimated GFR 6 L POC Glucose 216 H 194 H Random Glucose 237 H Calcium 8.1 L Phosphorus 5.8 H D Magnesium 2.1 Random Vancomycin 22.8 Enterovirus Source Enterovirus RNA (PCR) 12/17/17 12/17/17 12/18/17 16:34 20:36 04:00 WBC 13.4 H RBC 2.71 L Hgb 7.5 L Hct 24.8 L MCV 91.3 MCH 27.5 MCHC 30.2 L RDW 19.1 H Plt Count 228 MPV 8.7 PT INR Puncture Site Patient Temperature O2 Saturation ABG pH ABG pCO2 ABG pO2 ABG HCO3 ABG O2 Content ABG Base Excess ABG Methemoglobin Jostin Test Hemoglobin Carboxyhemoglobin O2 Delivery Device Vent Setting Inspired O2 Critical Value Sodium Potassium Chloride Carbon Dioxide Anion Gap BUN Creatinine Estimated GFR POC Glucose 137 H 174 H Random Glucose Calcium Phosphorus Magnesium Random Vancomycin Enterovirus Source Enterovirus RNA (PCR) 12/18/17 12/18/17 12/18/17 04:00 04:00 04:50 WBC RBC Hgb Hct MCV MCH MCHC RDW Plt Count MPV PT 22.0 H INR 2.2 Puncture Site Right brachial Patient Temperature 98.6 O2 Saturation 90 ABG pH 7.29 L* ABG pCO2 50 H ABG pO2 75 ABG HCO3 23 ABG O2 Content 9.8 L ABG Base Excess -2.4 L ABG Methemoglobin 2.0 Jostin Test Hemoglobin 7.7 L* Carboxyhemoglobin 0.7 O2 Delivery Device Ventilator Vent Setting 20/550/it1.0/5peep Inspired O2 40 Critical Value Yes Sodium 143 Potassium 3.7 Chloride 103 Carbon Dioxide 25.1 Anion Gap 15 BUN 35 H Creatinine 6.56 H Estimated GFR 9 L POC Glucose Random Glucose 258 H Calcium 8.1 L Phosphorus 4.7 D Magnesium 2.0 Random Vancomycin Enterovirus Source Enterovirus RNA (PCR) 12/18/17 12/18/17 12/18/17 09:34 12:28 17:02 WBC RBC Hgb Hct MCV MCH MCHC RDW Plt Count MPV PT INR Puncture Site Patient Temperature O2 Saturation ABG pH ABG pCO2 ABG pO2 ABG HCO3 ABG O2 Content ABG Base Excess ABG Methemoglobin Jostin Test Hemoglobin Carboxyhemoglobin O2 Delivery Device Vent Setting Inspired O2 Critical Value Sodium Potassium Chloride Carbon Dioxide Anion Gap BUN Creatinine Estimated GFR POC Glucose 326 H 256 H 231 H Random Glucose Calcium Phosphorus Magnesium Random Vancomycin Enterovirus Source Enterovirus RNA (PCR) 12/18/17 12/19/17 12/19/17 21:05 04:00 04:00 WBC 15.1 H RBC 2.93 L Hgb 8.2 L Hct 26.5 L MCV 90.2 MCH 27.9 MCHC 30.9 L RDW 19.1 H Plt Count 268 MPV 9.0 PT 17.0 H INR 1.7 Puncture Site Patient Temperature O2 Saturation ABG pH ABG pCO2 ABG pO2 ABG HCO3 ABG O2 Content ABG Base Excess ABG Methemoglobin Jostin Test Hemoglobin Carboxyhemoglobin O2 Delivery Device Vent Setting Inspired O2 Critical Value Sodium Potassium Chloride Carbon Dioxide Anion Gap BUN Creatinine Estimated GFR POC Glucose 263 H Random Glucose Calcium Phosphorus Magnesium Random Vancomycin Enterovirus Source Enterovirus RNA (PCR) 12/19/17 12/19/17 12/19/17 04:00 04:25 07:59 WBC RBC Hgb Hct MCV MCH MCHC RDW Plt Count MPV PT INR Puncture Site Right brachial Patient Temperature 98.6 O2 Saturation 93 ABG pH 7.29 L* ABG pCO2 55 H* ABG pO2 93 ABG HCO3 26 ABG O2 Content 11.8 L ABG Base Excess 0.0 ABG Methemoglobin 1.8 Jostin Test Hemoglobin 8.8 L Carboxyhemoglobin 0.6 O2 Delivery Device Ventilator Vent Setting Cpap 8ps/5peep Inspired O2 40 Critical Value Yes Sodium 143 Potassium 3.6 Chloride 101 Carbon Dioxide 28.2 Anion Gap 14 BUN 48 H Creatinine 8.12 H Estimated GFR 7 L POC Glucose 379 H Random Glucose 323 H Calcium 8.6 Phosphorus 4.4 Magnesium 2.2 Random Vancomycin Enterovirus Source Enterovirus RNA (PCR) 12/19/17 12/19/17 13:02 16:10 WBC RBC Hgb Hct MCV MCH MCHC RDW Plt Count MPV PT INR Puncture Site Patient Temperature O2 Saturation ABG pH ABG pCO2 ABG pO2 ABG HCO3 ABG O2 Content ABG Base Excess ABG Methemoglobin Jostin Test Hemoglobin Carboxyhemoglobin O2 Delivery Device Vent Setting Inspired O2 Critical Value Sodium Potassium Chloride Carbon Dioxide Anion Gap BUN Creatinine Estimated GFR POC Glucose 309 H 242 H Random Glucose Calcium Phosphorus Magnesium Random Vancomycin Enterovirus Source Enterovirus RNA (PCR) Result Diagrams: 12/19/17 04:00 12/19/17 04:00 Microbiology: Microbiology 12/15/17 13:10 Gram Stain - Final Lumbar Puncture CSF Culture - Final No growth in 72 hours 12/12/17 19:27 Aerobic Blood Culture - Final Blood - Peripheral No growth in 5 days Anaerobic Blood Culture - Final No growth in 5 days 12/12/17 19:22 Aerobic Blood Culture - Final Blood - Peripheral No growth in 5 days Anaerobic Blood Culture - Final No growth in 5 days Imaging: ITS Impressions Head CT 12/01/17 11:12 CONCLUSION: 1. Mild cerebral atrophy. 2. No acute infarct, acute hemorrhage, midline shift or extra-axial fluid collections. 3. Small fluid level within the left maxillary sinus. Head MRI 12/02/17 00:00 CONCLUSION: 1. No acute findings. 2. Atrophy and minimal white matter disease. Hand X-Ray 12/04/17 00:00 CONCLUSION: Unremarkable study. Forearm X-Ray 12/04/17 18:49 CONCLUSION: Unremarkable study. Shoulder X-Ray 12/04/17 18:49 CONCLUSION: No definite fracture is identified for technique. Abdomen X-Ray 12/08/17 04:58 CONCLUSION: Nasogastric tube distal tip is at the GE junction. Suggest further advancement stomach. Abdomen/Pelvis CT 12/13/17 00:00 CONCLUSION: 1. Percutaneous gastrostomy tube present without abnormal fluid collection or free air identified. 2. 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 There is evidence for chronic pancreatitis. Cannot exclude an obstructing mass in the pancreatic head. Recommend further evaluation with MRCP. 3. 3 cm fat-containing umbilical hernia. 4. Focal small airspace disease right posterior costophrenic angle. Cholangiopancreatography MRI 12/13/17 00:00 CONCLUSION: 1. Dilatation of the pancreatic duct ranging from 2 cm in the head of pancreas to 1.6 images in the mid body with a [place] pseudocyst appearance. 2. Findings would be consistent with a chronic pancreatitis. 3. If there is a focal mass present it would be at the ampulla. This can be followed by MR or endoscopic ultrasound. 4. Trace ascites 5. No other recent cross-sectional imaging studies of the pancreas. These would be most helpful given the appearance. Catheter Placement 12/16/17 00:00 CONCLUSION: 1. Uncomplicated line placement as above. Fibrin sheath stripping was also performed. Chest X-Ray 12/17/17 10:17 CONCLUSION: Tracheostomy tube and central lines as above. Procedures: 12/06 right IJ dialysis cath placed 12/12 intubated, central line placement 12/14 extubated 12/15 reintubated 12/16 vascath replaced 12/17 trach Assessment and Plan - Disease Oriented Problem List (1) ESRD (end stage renal disease) on dialysis (2) Altered mental status (3) Hypoglycemia (4) Diabetes - Symptom Scale (1) Pain 0-10 Scale: Unable to quantify (2) Agitation 0-10 Scale: Unable to quantify (3) Dyspnea 0-10 Scale: Unable to quantify Pertinent Non-Medical Issues: Psychosocial: Not . Has 3 children. Spiritual: pending Legal: Pt is not capacitated to make medical decisions. He is not . In the absence of designated HCS, medical decision making falls to the majority of his 3 adult children. Ethical issues impacting care: none Important Contacts: Daughter Tommy Tierney [phone] Son Rich Power [phone] - opted out of decision making Daughter Yvette Garcia [phone] Prognosis: This is a 67 y/o male with hx CAD s/p stent placement, CKD, COPD, ESRD, PAD, DM2 , who presented with AMS after being found down. Reportedly pt had blood glucose 36. Cause of his continued encephalopathy is unclear, possibly d/t hypoglycemia, and it is unclear if he will return to his baseline. He was having to be restrained for dialysis. Pulled out multiple NG tubes and had PEG placed 12/12. Imaging suggestive possible mass pancreas, this is being worked up. Aspirated during procedure, became hypotensive, was intubated and now is on vent. With or without feeding tube he is at continued risk for aspiration. Given his comorbidities and the complications he suffered already, his prognosis is poor and he remains at risk for further complications and setbacks. Prognosis worse if indeed he does have a pancreatic malignancy. Without dialysis his prognosis is terminal. Code Status: Full Code Plan: - LEGAL DECISON MAKER -patient not currently capacitated to make medical decisions. In the absence of a spouse, or designated healthcare surrogate, medical decision making would fall majority of his 3 adult children. Hector has opted out so decision making falls to pt's 2 daughters. Family is working together and including pt's brother in decision making. - CODE STATUS- full code - GOALS -Family working together, continue to express aggressive goals. - SYMPTOMS - * agitation - unclear etiology. ?hypoglycemia related brain injury? pt found down, blood glucose 36. reintubated, now with trach, mild agitation when roused , otherwise is nearly obtunded. neuro on case. has PRN haldol, not given recently. sedation per [facility]. no further recs * pain - multifactorial - mult lines, recent procedure to replace HD catheter, s /p PEG tube placement. no sign pain on my eval. has oxycodone 10mg PO q4h sara. no further recs at this time. * dyspnea - aspirated during PEG tube placement and was intubated. prob aspiration PNA. lung sounds coarse. now with trach, vent weaning underway. referral to [facility]. has PRN and sara duonebs. No further recs. - d/w CCM - Palliative care will continue to follow during hospital course as condition evolves, to assist patient/decision-maker with understanding of medical conditions, weighing benefits/burdens of treatment options, for clarification of goals of treatment. Additionally will assist with any symptoms of palliative concern Attestation Attestation: To help prompt me to consider important information that might be impacting today's encounter and assessment, information from prior notes written by myself or my colleagues may have been "brought forward" into today's note. My signature on this note, however, is an attestation that I personally performed the exam, history, and/or decision-making noted today, and, unless otherwise indicated, the interactions with patient, family, and staff as well as the review of records all occurred today. I also attest that the listed assessment and stated plan reflect my best clinical judgment today based on the combination of historical information, prior notes, and today's exam/ interactions. When time spent is documented, it refers only to time spent today by the signer, or if indicated, combined time spent today by collaborating physician/nurse practitioner.
--- NOTE | 2017-12-19 17:52 | P.PNNP ---
Physical Exam Vital signs: Vital Signs 12/18/17 18:00 12/18/17 18:15 12/18/17 18:30 Temperature Pulse Rate 76 74 71 Respiratory Rate 13 14 12 Blood Pressure 131/65 121/62 121/66 Pulse Oximetry 96 94 L 95 12/18/17 18:45 12/18/17 19:00 12/18/17 19:15 Temperature Pulse Rate 70 69 73 Respiratory Rate 13 12 14 Blood Pressure 121/66 122/67 124/65 Pulse Oximetry 95 96 94 L 12/18/17 19:29 12/18/17 19:30 12/18/17 19:45 Temperature Pulse Rate 78 80 78 Respiratory Rate 15 17 16 Blood Pressure 140/71 135/64 Pulse Oximetry 95 95 97 12/18/17 20:00 12/18/17 20:15 12/18/17 20:30 Temperature 99.5 F Pulse Rate 76 77 74 Respiratory Rate 13 13 14 Blood Pressure 130/64 132/70 117/62 Pulse Oximetry 96 95 95 12/18/17 20:45 12/18/17 21:00 12/18/17 21:15 Temperature Pulse Rate 71 70 70 Respiratory Rate 13 15 13 Blood Pressure 116/63 114/59 L 114/62 Pulse Oximetry 95 95 94 L 12/18/17 21:30 12/18/17 21:45 12/18/17 22:00 Temperature Pulse Rate 72 84 82 Respiratory Rate 16 15 16 Blood Pressure 118/63 124/64 123/62 Pulse Oximetry 93 L 94 L 91 L 12/18/17 22:15 12/18/17 22:30 12/18/17 22:45 Temperature Pulse Rate 81 82 80 Respiratory Rate 15 23 19 Blood Pressure 127/65 121/61 114/59 L Pulse Oximetry 94 L 94 L 95 12/18/17 23:00 12/18/17 23:15 12/18/17 23:30 Temperature Pulse Rate 78 74 72 Respiratory Rate 17 17 16 Blood Pressure 107/55 L 105/56 L 105/58 L Pulse Oximetry 95 91 L 91 L 12/18/17 23:39 12/18/17 23:45 12/19/17 00:00 Temperature 99.9 F H Pulse Rate 83 80 Respiratory Rate 15 28 H 17 Blood Pressure 135/70 129/62 Pulse Oximetry 92 L 97 95 12/19/17 00:15 12/19/17 00:30 12/19/17 00:45 Temperature Pulse Rate 80 84 87 Respiratory Rate 23 19 18 Blood Pressure 125/61 127/63 140/70 Pulse Oximetry 93 L 98 97 12/19/17 01:00 12/19/17 01:15 12/19/17 01:30 Temperature Pulse Rate 83 83 82 Respiratory Rate 17 19 19 Blood Pressure 143/68 H 139/67 138/68 Pulse Oximetry 97 97 97 12/19/17 01:45 12/19/17 02:00 12/19/17 02:15 Temperature Pulse Rate 81 82 87 Respiratory Rate 17 18 22 Blood Pressure 139/70 130/64 145/70 H Pulse Oximetry 97 97 99 12/19/17 02:30 12/19/17 02:45 12/19/17 03:00 Temperature Pulse Rate 81 82 81 Respiratory Rate 17 16 20 Blood Pressure 131/60 134/65 134/65 Pulse Oximetry 97 98 97 12/19/17 03:15 12/19/17 03:30 12/19/17 03:45 Temperature Pulse Rate 81 84 81 Respiratory Rate 19 17 16 Blood Pressure 133/65 149/68 H 132/62 Pulse Oximetry 98 98 97 12/19/17 03:47 12/19/17 04:00 12/19/17 04:15 Temperature Pulse Rate 80 80 Respiratory Rate 16 17 16 Blood Pressure 133/65 129/62 Pulse Oximetry 98 97 97 12/19/17 04:25 12/19/17 06:00 12/19/17 07:11 Temperature 99.9 F H Pulse Rate 85 Respiratory Rate 16 Blood Pressure Pulse Oximetry 99 12/19/17 08:00 12/19/17 10:00 12/19/17 11:16 Temperature 98.9 F Pulse Rate 82 71 Respiratory Rate 14 18 Blood Pressure 147/70 H Pulse Oximetry 97 97 12/19/17 12:00 12/19/17 14:00 12/19/17 15:27 Temperature 98.3 F Pulse Rate 69 72 Respiratory Rate 14 13 Blood Pressure 112/59 L Pulse Oximetry 100 100 12/19/17 16:00 Temperature 99 F Pulse Rate 68 Respiratory Rate 14 Blood Pressure 108/58 L Pulse Oximetry 100 Intake & Output 12/18/17 12/19/17 12/19/17 18:59 06:59 18:59 Intake Total 482 / 482 1421 / 1421 Balance 482 / 482 1421 / 1421 Weight 77.1 kg Intake: IV 100 / 100 722 / 722 Levaquin 500 mg Premix Inj 500 100 / 100 mg In 100 ml @ 100 mls/hr IV. SIG Q48H KRUNAL Rx#:[id number] Tazicef Inj 1,000 MG In NS Inj 100 / 100 100 ML @ 200 mls/hr IV.SIG Q24H KRUNAL Rx#:[id number] Oral 0 / 0 Tube Feeding 382 / 382 519 / 519 Tube Irrigant 180 / 180 Other: # Voids 1 # Incontinent Voids 2 Date of Last Bowel Movement 12/18/17 12/19/17 12/19/17 # Bowel Movements 1 1 Narrative: - Constitutional Withe Trach. and o the vent., sedated hypotensive critically ill - Routine Respiratory Exam CTA bilaterally, no wheezes or crackles - Routine Cardiovascular Exam Sinus rhythm, intermittently tachycardic, hypotensive currently on 80 mcg/min of Jonas-Synephrine - Routine Abdominal Exam soft, nontender. New PEG tube site without evidence of bleeding - Routine Extremities Exam No pedal edema. - Routine Neurological Exam Patient is sedated, on the vent. - Urinary Catheter Management Straight Cath placed during this visit: yes Reason for continuing: Not indwelling catheter Insertion date: 12/01/17 Insertion time: 13:46 Assessment and Plan - Assessment (1) Altered mental status Code(s): R41.82 - Altered mental status, unspecified Status: Acute Qualifiers: Altered mental status type: unspecified Qualified Code(s): R41.82 - Altered mental status, unspecified (2) Hypoglycemia Code(s): E16.2 - Hypoglycemia, unspecified Status: Acute (3) Sepsis Code(s): A41.9 - Sepsis, unspecified organism Status: Acute Qualifiers: Sepsis type: sepsis due to unspecified organism Qualified Code(s): A41.9 - Sepsis, unspecified organism (4) ESRD (end stage renal disease) on dialysis Code(s): N18.6 - End stage renal disease; Z99.2 - Dependence on renal dialysis Status: Acute - Plan Patient now on mechanical ventilation there is a possibility of aspiration pneumonia, sepsis, hypotension, condition critical on vasopressors and ventilator Suspect AMS secondary to hypoglycemic event/another event on the floor possible aspiration pneumonia Hemodialysis continue hemodialysis on Tuesday and Tuesday Patient is on ventilator again Continue aggressive care Now post Trach.
--- NOTE | 2017-12-19 18:02 | P.PNID ---
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 clx no fever, WBC still high @ 15K Antibiotics: ceftaz levaquine Lines: R IJ VAscath Allergies/Adverse Reactions: Allergies Penicillins Allergy (Mild, Verified 12/01/17 17:09) rash Objective Vital Signs 12/18/17 18:15 12/18/17 18:30 12/18/17 18:45 Temperature Pulse Rate 74 71 70 Respiratory Rate 14 12 13 Blood Pressure 121/62 121/66 121/66 Pulse Oximetry 94 L 95 95 12/18/17 19:00 12/18/17 19:15 12/18/17 19:29 Temperature Pulse Rate 69 73 78 Respiratory Rate 12 14 15 Blood Pressure 122/67 124/65 Pulse Oximetry 96 94 L 95 12/18/17 19:30 12/18/17 19:45 12/18/17 20:00 Temperature 99.5 F Pulse Rate 80 78 76 Respiratory Rate 17 16 13 Blood Pressure 140/71 135/64 130/64 Pulse Oximetry 95 97 96 12/18/17 20:15 12/18/17 20:30 12/18/17 20:45 Temperature Pulse Rate 77 74 71 Respiratory Rate 13 14 13 Blood Pressure 132/70 117/62 116/63 Pulse Oximetry 95 95 95 12/18/17 21:00 12/18/17 21:15 12/18/17 21:30 Temperature Pulse Rate 70 70 72 Respiratory Rate 15 13 16 Blood Pressure 114/59 L 114/62 118/63 Pulse Oximetry 95 94 L 93 L 12/18/17 21:45 12/18/17 22:00 12/18/17 22:15 Temperature Pulse Rate 84 82 81 Respiratory Rate 15 16 15 Blood Pressure 124/64 123/62 127/65 Pulse Oximetry 94 L 91 L 94 L 12/18/17 22:30 12/18/17 22:45 12/18/17 23:00 Temperature Pulse Rate 82 80 78 Respiratory Rate 23 19 17 Blood Pressure 121/61 114/59 L 107/55 L Pulse Oximetry 94 L 95 95 12/18/17 23:15 12/18/17 23:30 12/18/17 23:39 Temperature Pulse Rate 74 72 Respiratory Rate 17 16 15 Blood Pressure 105/56 L 105/58 L Pulse Oximetry 91 L 91 L 92 L 12/18/17 23:45 12/19/17 00:00 12/19/17 00:15 Temperature 99.9 F H Pulse Rate 83 80 80 Respiratory Rate 28 H 17 23 Blood Pressure 135/70 129/62 125/61 Pulse Oximetry 97 95 93 L 12/19/17 00:30 12/19/17 00:45 12/19/17 01:00 Temperature Pulse Rate 84 87 83 Respiratory Rate 19 18 17 Blood Pressure 127/63 140/70 143/68 H Pulse Oximetry 98 97 97 12/19/17 01:15 12/19/17 01:30 12/19/17 01:45 Temperature Pulse Rate 83 82 81 Respiratory Rate 19 19 17 Blood Pressure 139/67 138/68 139/70 Pulse Oximetry 97 97 97 12/19/17 02:00 12/19/17 02:15 12/19/17 02:30 Temperature Pulse Rate 82 87 81 Respiratory Rate 18 22 17 Blood Pressure 130/64 145/70 H 131/60 Pulse Oximetry 97 99 97 12/19/17 02:45 12/19/17 03:00 12/19/17 03:15 Temperature Pulse Rate 82 81 81 Respiratory Rate 16 20 19 Blood Pressure 134/65 134/65 133/65 Pulse Oximetry 98 97 98 12/19/17 03:30 12/19/17 03:45 12/19/17 03:47 Temperature Pulse Rate 84 81 Respiratory Rate 17 16 16 Blood Pressure 149/68 H 132/62 Pulse Oximetry 98 97 98 12/19/17 04:00 12/19/17 04:15 12/19/17 04:25 Temperature 99.9 F H Pulse Rate 80 80 Respiratory Rate 17 16 Blood Pressure 133/65 129/62 Pulse Oximetry 97 97 12/19/17 06:00 12/19/17 07:11 12/19/17 08:00 Temperature 98.9 F Pulse Rate 85 82 Respiratory Rate 16 14 Blood Pressure 147/70 H Pulse Oximetry 99 97 12/19/17 10:00 12/19/17 11:16 12/19/17 12:00 Temperature 98.3 F Pulse Rate 71 69 Respiratory Rate 18 14 Blood Pressure 112/59 L Pulse Oximetry 97 100 12/19/17 14:00 12/19/17 15:27 12/19/17 16:00 Temperature 99 F Pulse Rate 72 68 Respiratory Rate 13 14 Blood Pressure 108/58 L Pulse Oximetry 100 100 Intake & Output 12/18/17 12/19/17 12/19/17 18:59 06:59 18:59 Intake Total 482 / 482 1421 / 1421 Balance 482 / 482 1421 / 1421 Weight 77.1 kg Intake: IV 100 / 100 722 / 722 Levaquin 500 mg Premix Inj 500 100 / 100 mg In 100 ml @ 100 mls/hr IV. SIG Q48H KRUNAL Rx#:[id number] Tazicef Inj 1,000 MG In NS Inj 100 / 100 100 ML @ 200 mls/hr IV.SIG Q24H KRUNAL Rx#:[id number] Oral 0 / 0 Tube Feeding 382 / 382 519 / 519 Tube Irrigant 180 / 180 Other: # Voids 1 # Incontinent Voids 2 Date of Last Bowel Movement 12/18/17 12/19/17 12/19/17 # Bowel Movements 1 1 12/15/17 13:10 Lumbar Puncture Gram Stain - Final 12/15/17 13:10 Lumbar Puncture CSF Culture - Final No growth in 72 hours 12/12/17 19:27 Blood - Peripheral Aerobic Blood Culture - Final No growth in 5 days 12/12/17 19:27 Blood - Peripheral Anaerobic Blood Culture - Final No growth in 5 days 12/12/17 19:22 Blood - Peripheral Aerobic Blood Culture - Final No growth in 5 days 12/12/17 19:22 Blood - Peripheral Anaerobic Blood Culture - Final No growth in 5 days Lab - Hematology Results 12/18/17 12/19/17 04:00 04:00 WBC 13.4 H 15.1 H RBC 2.71 L 2.93 L Hgb 7.5 L 8.2 L Hct 24.8 L 26.5 L MCV 91.3 90.2 MCH 27.5 27.9 MCHC 30.2 L 30.9 L RDW 19.1 H 19.1 H Plt Count 228 268 MPV 8.7 9.0 Lab - Chemistry Results 12/17/17 12/18/17 12/18/17 20:36 04:00 09:34 Sodium 143 Potassium 3.7 Chloride 103 Carbon Dioxide 25.1 Anion Gap 15 BUN 35 H Creatinine 6.56 H Estimated GFR 9 L POC Glucose 174 H 326 H Random Glucose 258 H Calcium 8.1 L Phosphorus 4.7 D Magnesium 2.0 12/18/17 12/18/17 12/18/17 12:28 17:02 21:05 Sodium Potassium Chloride Carbon Dioxide Anion Gap BUN Creatinine Estimated GFR POC Glucose 256 H 231 H 263 H Random Glucose Calcium Phosphorus Magnesium 12/19/17 12/19/17 12/19/17 04:00 07:59 13:02 Sodium 143 Potassium 3.6 Chloride 101 Carbon Dioxide 28.2 Anion Gap 14 BUN 48 H Creatinine 8.12 H Estimated GFR 7 L POC Glucose 379 H 309 H Random Glucose 323 H Calcium 8.6 Phosphorus 4.4 Magnesium 2.2 12/19/17 16:10 Sodium Potassium Chloride Carbon Dioxide Anion Gap BUN Creatinine Estimated GFR POC Glucose 242 H Random Glucose Calcium Phosphorus Magnesium Imaging: ITS Impressions Head CT 12/01/17 11:12 CONCLUSION: 1. Mild cerebral atrophy. 2. No acute infarct, acute hemorrhage, midline shift or extra-axial fluid collections. 3. Small fluid level within the left maxillary sinus. Head MRI 12/02/17 00:00 CONCLUSION: 1. No acute findings. 2. Atrophy and minimal white matter disease. Hand X-Ray 12/04/17 00:00 CONCLUSION: Unremarkable study. Forearm X-Ray 12/04/17 18:49 CONCLUSION: Unremarkable study. Shoulder X-Ray 12/04/17 18:49 CONCLUSION: No definite fracture is identified for technique. Abdomen X-Ray 12/08/17 04:58 CONCLUSION: Nasogastric tube distal tip is at the GE junction. Suggest further advancement stomach. Abdomen/Pelvis CT 12/13/17 00:00 CONCLUSION: 1. Percutaneous gastrostomy tube present without abnormal fluid collection or free air identified. 2. 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 There is evidence for chronic pancreatitis. Cannot exclude an obstructing mass in the pancreatic head. Recommend further evaluation with MRCP. 3. 3 cm fat-containing umbilical hernia. 4. Focal small airspace disease right posterior costophrenic angle. Cholangiopancreatography MRI 12/13/17 00:00 CONCLUSION: 1. Dilatation of the pancreatic duct ranging from 2 cm in the head of pancreas to 1.6 images in the mid body with a chain of lakes pseudocyst appearance. 2. Findings would be consistent with a chronic pancreatitis. 3. If there is a focal mass present it would be at the ampulla. This can be followed by MR or endoscopic ultrasound. 4. Trace ascites 5. No other recent cross-sectional imaging studies of the pancreas. These would be most helpful given the appearance. Catheter Placement 12/16/17 00:00 CONCLUSION: 1. Uncomplicated line placement as above. Fibrin sheath stripping was also performed. Chest X-Ray 12/17/17 10:17 CONCLUSION: Tracheostomy tube and central lines as above. Physical Exam: GENERAL: NAD, on vent OOB in chair SKIN: Warm and dry. No rash HEAD: Atraumatic. Normocephalic. EYES: Pupils equal and round. No scleral icterus. No injection or drainage. ENT: No nasal bleeding or discharge. Mucous membranes pink and moist. NECK: Trach in place No JVD. CARDIOVASCULAR: Regular rate and rhythm. No murmurs RESPIRATORY: No accessory muscle use. scattered rhonchi to auscultation. Breath sounds decreased bilaterally. GASTROINTESTINAL: Abdomen soft, non-tender, nondistended. MUSCULOSKELETAL: Extremities without clubbing, cyanosis, or edema. No obvious deformities. NEUROLOGICAL: letahrgic, but arousable. Not following comamnds, moving BUE PSYCHIATRIC: unable to assess Assessment and Plan - Plan Anoxic encephalopathy CSF reviewew: borderline WBC, protein slightly up, clx NGTD Hypotension sepsis PNA, B. cepacia ESRD, on HD, persistetnt leukocytosis cont levaquine, ceftazidime, CXR in am CBC in am
[2017-12-19] MEDS: Carboxymethylcellulose 0.5% Opth Drops 15 ML Bottle EACH EYE SCH (20:33)
[2017-12-20] MEDS: Oral Hygiene Kit OROPHARYNG SCH ×5 (00:58→23:47)
[2017-12-20] MEDS: dilTIAZem 60 MG Tablet PO SCH ×4 (03:57→20:04)
[2017-12-20] MEDS: Carboxymethylcellulose 0.5% Opth Drops 15 ML Bottle EACH EYE SCH ×4 (03:57→20:03)
[2017-12-20] MEDS: Levothyroxine 50 MCG Tablet PO SCH (05:04)
[2017-12-20 05:50] LABS: Hematocrit 26.3 % (39.0-51.0); Hemoglobin 8.1 gm/dL (13.0-17.0); Mean Corpuscular Hemoglobin 27.8 pg (27.0-34.0); Mean Platelet Volume 9.2 fL (7.0-11.0); Platelet Count 268 th/mm3 (150-450); Red Blood Count 2.92 mil/mm3 (4.50-5.90); Red Cell Distribution Width 18.5 % (11.6-17.2); White Blood Count 15.7 th/mm3 (4.0-11.0)
--- NOTE | 2017-12-20 05:52 | XR ---
EXAM DATE: 12/20/2017 5:16 AM EDT AGE/SEX: 67 years / Male INDICATIONS: Short of breath. CLINICAL DATA: This is the patient's subsequent encounter. Patient reports that signs and symptoms h ave been present for 4 - 6 days and indicates a pain score of 0/10. MEDICAL/SURGICAL HISTORY: Gastroesophageal reflux disease. Chronic obstructive pulmonary disea se. Diabetes. None. COMPARISON: C, CHEST 1V SINGLE AP, 12/17/2017. . FINDINGS: Tracheostomy and right neck dialysis catheter are stable in good position. Mild bibasilar pleural-par enchymal opacities persist, not significant changed. Accounting for rotation, cardiac contours are gr ossly stable. CONCLUSION: No significant change. Electronically signed by: Luis Morris MD 12/20/2017 5:50 AM EDT
[2017-12-20 05:53] LABS: INR 1.5 Ratio; Prothrombin Time 14.9 sec (9.8-11.6)
[2017-12-20 05:54] LABS: Mean Corpuscular HGB Conc 30.9 % (32.0-36.0)
[2017-12-20 06:18] LABS: Calcium 8.6 mg/dL (8.5-10.1); Carbon Dioxide 24.3 meq/L (21.0-32.0); Magnesium 2.2 mg/dL (1.5-2.5); Phosphorus 4.6 mg/dL (2.5-4.9); Potassium 3.7 meq/L (3.5-5.1)
[2017-12-20 07:13] LABS: Eosinophils 7 % (0-4); Lymphocytes 11 % (9-44); Metamyelocytes 1 % (0-1); Monocytes 6 % (0-8); Myelocytes 2 % (0-0)
[2017-12-20 07:14] LABS: Platelet Estimate Normal (Normal); Platelet Morphology Normal (Normal)
--- NOTE | 2017-12-20 07:15 | P.PNCC ---
Subjective Subjective Remarks/Hospital Course: 67-year-old male patient with history of CAD, multiple stent placement, COPD, end-stage renal disease, type 2 diabetes, who presented to the emergency room on 12/01/17 after being found to be unresponsive with a glucose of 36. Patient was admitted to hospitalist service and despite correction of hypoglycemia remained agitated and encephalopathic. GI was consulted for PEG tube placement for nutrition as the patient had pulled out NG tube several times. Initially the PEG tube placement was started as an LMA procedure. Apparently there was large amount of regurgitation and possible aspiration. He was endotracheally intubated during the procedure by anesthesiologist. Patient remained hemodynamically unstable and was started on Jonas-Synephrine infusion. Apparently per anesthesia patient had evidence of gastritis and duodenitis with stigmata of bleeding. Also there was a question of bowel ischemia on endoscopy. Due to hemodynamic instability requiring Jonas-Synephrine, and possible aspiration patient was left intubated for stabilization and critical care medicine was consulted. I evaluated the patient in the PACU. He remains on Jonas-Synephrine hypotensive with map hardly 50. I have instructed the RN to give 500 ML normal saline bolus , 25 g of IV albumin and also increase Jonas-Synephrine to target map above 65. Patient appears to have intermittent irregular rhythm which appears like atrial fibrillation. EKG and lab work is pending at this time. Blood and urine culture and sputum culture ordered, currently on vancomycin, add Azactam for gram-negative coverage. Clinically there is no evidence gastric perforation related to PEG placement, check CT abdomen pelvis to rule out gastric perforation SUBJ 12/13: Patient remains intubated sedated with Versed and fentanyl. Currently on Jonas-Synephrine at 40 mcg/min. CT abdomen pelvis did not show any evidence of perforation however showed massive dilation of pancreatic duct up to 2 cm. Cannot rule out mass. MRCP ordered, check CA 19-9 12/14: Intubated off sedation moving all extremities tracking but not following commands. Patient has baseline encephalopathy prior to intubation. MRCP yesterday showed Dilatation of the pancreatic duct 2 cm in the head of pancreas to 1.6 images in the mid body with a chain of lakes pseudocyst appearance. Findings would be consistent with a chronic pancreatitis. Per radiologist If there is a focal mass present it would be at the ampulla. May need ERCP, GI following 12/15: Patient was extubated yesterday however mentation continued to gradually worsen unable to protect airway. On my evaluation today a.m. patient was tachypneic clearly not protecting airway. I proceeded with endotracheal intubation and placed on mechanical ventilation. Large amounts of secretions suctioned out from the oropharynx and glottic opening. WBC count continued to increase 19.6 today. Appreciate ID and neurology input. Discussed with Dr. Ruby even though infectious etiology unlikely for mental status change, will proceed with a lumbar puncture with routine studies and her previous studies. I agreed to Dr. Ruby's opinion that his encephalopathy is most likely from prolonged hypoglycemia 12/16: remains encephalopathic. re-intubated yesterday. will need trach to move forward. LP not consistent with acute bacterial meningoencephalitis. sputum from 12/13 growing burkholderia, started levaquin. 12/17: almost off phenylephrine. plan for trach today. likely can come off pressors when sedation is weaned. 12/18: off vasopressors. s/p trach yesterday. more awake, but persistently encephalopathic. 12/19: off sedation. continues to be very agitated. weaning from mechanical ventilation. no changes in mentation. 12/20: continues off sedation. very slow weaning efforts. encephalopathy remains. OOB to chair yesterday. Objective Vital Signs / I&O: Vital Signs 12/19/17 08:00 12/19/17 10:00 12/19/17 11:16 Temperature 37.2 C Pulse Rate 82 71 Respiratory Rate 14 18 Blood Pressure 147/70 H Pulse Oximetry 97 97 12/19/17 12:00 12/19/17 14:00 12/19/17 15:00 Temperature 36.8 C 37.2 C Pulse Rate 69 72 81 Respiratory Rate 14 16 Blood Pressure 112/59 L 110/56 L Pulse Oximetry 100 100 12/19/17 15:16 12/19/17 15:27 12/19/17 15:31 Temperature Pulse Rate 82 83 Respiratory Rate 17 13 18 Blood Pressure 117/54 L 127/59 L Pulse Oximetry 100 100 100 12/19/17 15:45 12/19/17 16:00 12/19/17 16:15 Temperature 37.2 C Pulse Rate 83 83 83 Respiratory Rate 19 19 24 Blood Pressure 120/64 128/66 131/64 Pulse Oximetry 100 100 100 12/19/17 16:30 12/19/17 16:46 12/19/17 17:00 Temperature Pulse Rate 83 84 76 Respiratory Rate 22 20 16 Blood Pressure 133/64 116/62 117/59 L Pulse Oximetry 100 100 100 12/19/17 17:15 12/19/17 17:30 12/19/17 17:45 Temperature Pulse Rate 70 68 66 Respiratory Rate 15 14 13 Blood Pressure 108/58 L 104/56 L 104/55 L Pulse Oximetry 100 100 100 12/19/17 18:00 12/19/17 18:15 12/19/17 18:30 Temperature Pulse Rate 65 66 73 Respiratory Rate 13 14 13 Blood Pressure 105/58 L 111/55 L 128/60 Pulse Oximetry 100 100 100 12/19/17 18:45 12/19/17 19:00 12/19/17 19:15 Temperature Pulse Rate 66 66 72 Respiratory Rate 15 11 L 14 Blood Pressure 111/53 L 127/59 L 129/59 L Pulse Oximetry 100 100 12/19/17 19:30 12/19/17 19:35 12/19/17 19:45 Temperature Pulse Rate 68 68 Respiratory Rate 13 13 14 Blood Pressure 111/56 L 112/57 L Pulse Oximetry 100 100 100 12/19/17 20:00 12/19/17 20:15 12/19/17 20:30 Temperature Pulse Rate 74 74 69 Respiratory Rate 16 18 14 Blood Pressure 114/59 L 114/59 L 109/56 L Pulse Oximetry 100 100 100 12/19/17 20:45 12/19/17 21:00 12/19/17 21:15 Temperature Pulse Rate 75 67 73 Respiratory Rate 14 15 15 Blood Pressure 111/59 L 110/59 L 125/66 Pulse Oximetry 100 100 100 12/19/17 21:30 12/19/17 21:45 12/19/17 22:00 Temperature Pulse Rate 66 74 74 Respiratory Rate 14 11 L 19 Blood Pressure 111/55 L 126/65 120/61 Pulse Oximetry 100 100 100 12/19/17 22:15 12/19/17 22:30 12/19/17 22:45 Temperature Pulse Rate 77 73 72 Respiratory Rate 16 13 13 Blood Pressure 119/66 119/72 111/63 Pulse Oximetry 100 100 100 12/19/17 23:00 12/19/17 23:15 12/19/17 23:30 Temperature Pulse Rate 68 68 75 Respiratory Rate 14 13 14 Blood Pressure 110/57 L 108/58 L 115/63 Pulse Oximetry 100 100 100 12/19/17 23:45 12/20/17 00:00 12/20/17 00:01 Temperature 37.8 C H Pulse Rate 71 82 83 Respiratory Rate 14 23 21 Blood Pressure 110/56 L 135/101 H Pulse Oximetry 100 100 100 12/20/17 00:15 12/20/17 00:30 12/20/17 00:45 Temperature Pulse Rate 75 77 79 Respiratory Rate 17 15 16 Blood Pressure 116/66 113/59 L 124/66 Pulse Oximetry 100 100 100 12/20/17 00:46 12/20/17 01:00 12/20/17 01:15 Temperature Pulse Rate 79 81 81 Respiratory Rate 15 19 17 Blood Pressure 128/68 111/60 Pulse Oximetry 100 100 100 12/20/17 01:30 12/20/17 01:45 12/20/17 02:00 Temperature Pulse Rate 86 80 80 Respiratory Rate 50 H 17 18 Blood Pressure 124/62 110/55 L 114/58 L Pulse Oximetry 100 100 100 12/20/17 02:15 12/20/17 02:30 12/20/17 02:45 Temperature Pulse Rate 80 81 83 Respiratory Rate 17 33 H 24 Blood Pressure 111/56 L 110/58 L 124/64 Pulse Oximetry 100 100 100 12/20/17 03:00 12/20/17 03:15 12/20/17 03:30 Temperature Pulse Rate 82 83 85 Respiratory Rate 17 19 39 H Blood Pressure 121/62 131/63 122/68 Pulse Oximetry 100 100 85 L 12/20/17 03:45 12/20/17 04:00 12/20/17 04:08 Temperature 38.2 C H Pulse Rate 83 83 Respiratory Rate 111 H 22 18 Blood Pressure 114/60 113/60 Pulse Oximetry 97 98 96 12/20/17 04:15 12/20/17 04:30 12/20/17 05:55 Temperature Pulse Rate 78 80 Respiratory Rate 19 18 Blood Pressure 106/56 L 106/57 L Pulse Oximetry 100 100 96 12/20/17 06:00 Temperature Pulse Rate 74 Respiratory Rate Blood Pressure Pulse Oximetry Intake & Output 09/17/18 09/18/18 09/18/18 18:59 06:59 18:59 Intake Total 1156 / 1156 105 / 105 Balance 1156 / 1156 105 / 105 Weight 81.3 kg Intake: IV 100 / 100 Tazicef Inj 1,000 MG In NS Inj 100 / 100 100 ML @ 200 mls/hr IV.SIG Q24H KRUNAL Rx#:[id number] Tube Feeding 756 / 756 55 / 55 Tube Irrigant 50 / 50 Water Bolus Amount 300 / 300 Other: # Incontinent Voids 1 Date of Last Bowel Movement 12/19/17 12/19/17 # Bowel Movements 2 2 Result Diagrams: 12/20/17 03:51 12/20/17 03:51 Objective Remarks: GENERAL: Middle-age male who appears much older than stated age, lying in bed, trached, critically ill HEENT: Normocephalic. Atraumatic. Pupils equal, round, reactive, conjugate. Mucous membranes are moist NECK: Trachea is midline. There is no JVD. fresh 8.[address], no bleeding around site. CHEST: Equal chest rise. PRVC mode of ventilation. CARDIOVASCULAR: Normal rate, regular rhythm. sinus rhythm. ABDOMEN: Soft, nontender, nondistended. No guarding. MUSCULOSKELETAL: Pulses 2+. No peripheral edema. NEUROLOGICAL: RASS -1. CAM+. GCS 9 ([id number]). Does not follow commands. withdraws to pain. Assessment and Plan - Assessment and Plan Plan: ASSESSMENT: Acute respiratory failure, recurrent Severe encephalopathy ? Hypoglycemic, anoxic HCAP Aspiration pneumonia Septic Shock Hypotension multifactorial Upper GI bleed Tachyarrhythmia Leukocytosis Dilated pancreatic duct, elevated CA 19-9 (88.5) Radiological evidence of chronic pancreatitis s/p PEG tube placement Hypoglycemia now resolved History of coronary artery disease End-stage renal disease atrial fibrillation with rapid ventricular response: now back in sinus rhythm PLAN: NEURO: - scheduled oxycodone for background pain control - haldol for prn agitation. -Workup for encephalopathy essentially negative MRI was negative for acute findings. -Encephalopathy most likely secondary to prolonged hypoglycemia and possible anoxia -LP not consistent with acute bacterial meningoencephalitis. f/u serology testing. RESP: -Reintubated 12/15/2017 for lack of airway protection and worsening hypoxia - s/p trach 12/[address] Irvin/Bib for chronic resp failure -DuoNeb every 6 hours scheduled and as needed - needs to be OOB to stretcher chair daily PT consults CV: - midodrine - po diltiazem -Hold all antihypertensive including Procardia XL, lisinopril, carvedilol GI: -tube feeds, and IV Protonix 40 mg q12 -CT abdomen pelvis showed massive pancreatic duct dilation and chronic pancreatitis, confirmed on MRCP -Ampullary mass cannot be ruled out. Patient may need an ERCP, but at this time remains unstable for any invasive procedures -CA-19-9 88.5. : -ESRD on hemodialysis per nephrology ID: -Continue vancomycin, Azactam for gram-negative coverage and Flagyl for anaerobic coverage - levaquin for bukholderia species. -F/U Blood urine and sputum cultures-negative to date -Leukocytosis and hypotension persistent, ID following HEME: -Monitor CBC, coags -Transfuse to keep hemoglobin more than 8 due to hypotension ENDO: -Sliding scale insulin if needed PROPH: -Bilateral lower extremity SCDs. Eliquis on hold due to GI bleed, and INR >2 -IV Protonix 40 mg every 12 hours LINES: -Utilize peripheral IVs OVERALL IMPRESSION: s/p trach/peg. encephalopathy may be chronic or permanent. needs aggressive rehab efforts. LTAC appropriate.
[2017-12-20] MEDS: Pantoprazole Inj 40 MG Vial IV.PUSH SCH ×2 (07:56→20:04)
[2017-12-20] MEDS: Vitamin B Complex/Vit C/Folic Tablet PO SCH (08:00)
[2017-12-20] MEDS: Lipase/Protease/Amylase 24/76/120 DR Capsule PO SCH ×4 (08:00→20:04)
[2017-12-20] MEDS: Insulin NovoLOG Aspart Correctional Sugar Inj SQ SCH ×4 (08:02→20:05)
[2017-12-20] MEDS: Chlorhexidine 0.12% Oral Kit 15 ML UDC OROPHARYNG SCH ×2 (08:02→20:03)
[2017-12-20] MEDS: Heparin 10,000 UNITS/10 ML Vial (for IV use) OTHER PRN (08:42)
--- NOTE | 2017-12-20 11:49 | P.PNNP ---
Subjective Interval history: Status post right tracheostomy Physical Exam Vital signs: Vital Signs 12/19/17 12:00 12/19/17 14:00 12/19/17 15:00 Temperature 98.3 F 98.9 F Pulse Rate 69 72 81 Respiratory Rate 14 16 Blood Pressure 112/59 L 110/56 L Pulse Oximetry 100 100 12/19/17 15:16 12/19/17 15:27 12/19/17 15:31 Temperature Pulse Rate 82 83 Respiratory Rate 17 13 18 Blood Pressure 117/54 L 127/59 L Pulse Oximetry 100 100 100 12/19/17 15:45 12/19/17 16:00 12/19/17 16:15 Temperature 99 F Pulse Rate 83 83 83 Respiratory Rate 19 19 24 Blood Pressure 120/64 128/66 131/64 Pulse Oximetry 100 100 100 12/19/17 16:30 12/19/17 16:46 12/19/17 17:00 Temperature Pulse Rate 83 84 76 Respiratory Rate 22 20 16 Blood Pressure 133/64 116/62 117/59 L Pulse Oximetry 100 100 100 12/19/17 17:15 12/19/17 17:30 12/19/17 17:45 Temperature Pulse Rate 70 68 66 Respiratory Rate 15 14 13 Blood Pressure 108/58 L 104/56 L 104/55 L Pulse Oximetry 100 100 100 12/19/17 18:00 12/19/17 18:15 12/19/17 18:30 Temperature Pulse Rate 65 66 73 Respiratory Rate 13 14 13 Blood Pressure 105/58 L 111/55 L 128/60 Pulse Oximetry 100 100 100 12/19/17 18:45 12/19/17 19:00 12/19/17 19:15 Temperature Pulse Rate 66 66 72 Respiratory Rate 15 11 L 14 Blood Pressure 111/53 L 127/59 L 129/59 L Pulse Oximetry 100 100 12/19/17 19:30 12/19/17 19:35 12/19/17 19:45 Temperature Pulse Rate 68 68 Respiratory Rate 13 13 14 Blood Pressure 111/56 L 112/57 L Pulse Oximetry 100 100 100 12/19/17 20:00 12/19/17 20:15 12/19/17 20:30 Temperature Pulse Rate 74 74 69 Respiratory Rate 16 18 14 Blood Pressure 114/59 L 114/59 L 109/56 L Pulse Oximetry 100 100 100 12/19/17 20:45 12/19/17 21:00 12/19/17 21:15 Temperature Pulse Rate 75 67 73 Respiratory Rate 14 15 15 Blood Pressure 111/59 L 110/59 L 125/66 Pulse Oximetry 100 100 100 12/19/17 21:30 12/19/17 21:45 12/19/17 22:00 Temperature Pulse Rate 66 74 74 Respiratory Rate 14 11 L 19 Blood Pressure 111/55 L 126/65 120/61 Pulse Oximetry 100 100 100 12/19/17 22:15 12/19/17 22:30 12/19/17 22:45 Temperature Pulse Rate 77 73 72 Respiratory Rate 16 13 13 Blood Pressure 119/66 119/72 111/63 Pulse Oximetry 100 100 100 12/19/17 23:00 12/19/17 23:15 12/19/17 23:30 Temperature Pulse Rate 68 68 75 Respiratory Rate 14 13 14 Blood Pressure 110/57 L 108/58 L 115/63 Pulse Oximetry 100 100 100 12/19/17 23:45 12/20/17 00:00 12/20/17 00:01 Temperature 100.1 F H Pulse Rate 71 82 83 Respiratory Rate 14 23 21 Blood Pressure 110/56 L 135/101 H Pulse Oximetry 100 100 100 12/20/17 00:15 12/20/17 00:30 12/20/17 00:45 Temperature Pulse Rate 75 77 79 Respiratory Rate 17 15 16 Blood Pressure 116/66 113/59 L 124/66 Pulse Oximetry 100 100 100 12/20/17 00:46 12/20/17 01:00 12/20/17 01:15 Temperature Pulse Rate 79 81 81 Respiratory Rate 15 19 17 Blood Pressure 128/68 111/60 Pulse Oximetry 100 100 100 12/20/17 01:30 12/20/17 01:45 12/20/17 02:00 Temperature Pulse Rate 86 80 80 Respiratory Rate 50 H 17 18 Blood Pressure 124/62 110/55 L 114/58 L Pulse Oximetry 100 100 100 12/20/17 02:15 12/20/17 02:30 12/20/17 02:45 Temperature Pulse Rate 80 81 83 Respiratory Rate 17 33 H 24 Blood Pressure 111/56 L 110/58 L 124/64 Pulse Oximetry 100 100 100 12/20/17 03:00 12/20/17 03:15 12/20/17 03:30 Temperature Pulse Rate 82 83 85 Respiratory Rate 17 19 39 H Blood Pressure 121/62 131/63 122/68 Pulse Oximetry 100 100 85 L 12/20/17 03:45 12/20/17 04:00 12/20/17 04:08 Temperature 100.7 F H Pulse Rate 83 83 Respiratory Rate 111 H 22 18 Blood Pressure 114/60 113/60 Pulse Oximetry 97 98 96 12/20/17 04:15 12/20/17 04:30 12/20/17 05:55 Temperature Pulse Rate 78 80 Respiratory Rate 19 18 Blood Pressure 106/56 L 106/57 L Pulse Oximetry 100 100 96 12/20/17 06:00 12/20/17 07:25 12/20/17 08:00 Temperature Pulse Rate 74 71 Respiratory Rate 13 16 Blood Pressure 102/55 L Pulse Oximetry 100 100 12/20/17 10:00 12/20/17 11:33 Temperature Pulse Rate 69 Respiratory Rate 12 Blood Pressure Pulse Oximetry 100 Intake & Output 12/19/17 12/20/17 12/20/17 18:59 06:59 18:59 Intake Total 1156 / 1156 105 / 105 Output Total 4300 / 4300 Balance 1156 / 1156 105 / 105 -4300 / -4300 Weight 81.3 kg Intake: IV 100 / 100 Tazicef Inj 1,000 MG In NS Inj 100 / 100 100 ML @ 200 mls/hr IV.SIG Q24H KRUNAL Rx#:[id number] Tube Feeding 756 / 756 55 / 55 Tube Irrigant 50 / 50 Water Bolus Amount 300 / 300 Output: Hemodialysis Amount 4300 / 4300 Other: # Incontinent Voids 1 Date of Last Bowel Movement 12/19/17 12/19/17 12/20/17 # Bowel Movements 2 2 Narrative: - Constitutional Withe Trach. and o the vent., sedated hypotensive critically ill - Routine Respiratory Exam CTA bilaterally, no wheezes or crackles - Routine Cardiovascular Exam Sinus rhythm, intermittently tachycardic, hypotensive currently on 80 mcg/min of Jonas-Synephrine - Routine Abdominal Exam soft, nontender. New PEG tube site without evidence of bleeding - Routine Extremities Exam No pedal edema. - Routine Neurological Exam Patient is sedated, on the vent. - Urinary Catheter Management Straight Cath placed during this visit: yes Reason for continuing: Not indwelling catheter Insertion date: 12/01/17 Insertion time: 13:46 Assessment and Plan - Assessment (1) Altered mental status Code(s): R41.82 - Altered mental status, unspecified Status: Acute Qualifiers: Altered mental status type: unspecified Qualified Code(s): R41.82 - Altered mental status, unspecified (2) Hypoglycemia Code(s): E16.2 - Hypoglycemia, unspecified Status: Acute (3) Sepsis Code(s): A41.9 - Sepsis, unspecified organism Status: Acute Qualifiers: Sepsis type: sepsis due to unspecified organism Qualified Code(s): A41.9 - Sepsis, unspecified organism (4) ESRD (end stage renal disease) on dialysis Code(s): N18.6 - End stage renal disease; Z99.2 - Dependence on renal dialysis Status: Acute - Plan Patient now on mechanical ventilation there is a possibility of aspiration pneumonia, sepsis, hypotension, condition critical on vasopressors and ventilator Suspect AMS secondary to hypoglycemic event/another event on the floor possible aspiration pneumonia Hemodialysis continue hemodialysis on Tuesday and Tuesday Patient is on ventilator again Continue aggressive care Now post Trach. Hemodialysis4.3 L removed
--- NOTE | 2017-12-20 14:42 | P.DIET ---
Nutritional Evaluation Type of nutrition evaluation: follow-up Nutrition screening: [facility] [place] ( TF recommendation 12/07) Objective - Diagnosis AMS, CKD, sepsis - Objective Body Mass Index: 25.9 % IBW: 108 (IBW = 154#) Body Weight Used for Calculations: Actual (75.5 kg) Energy Needs - Lower Range (kCal/kg): 28 Energy Needs - Upper Range (kCal/kg): 32 Lower Limit kCal/kg (kCals): 2,115 Upper Limit kCal/kg (kCals): 2,416 Lower Limit Protein Factor (Grams per Kg): 1.2 Upper Limit Protein Factor (Grams per Kg): 1.5 Lower Protein Needs (Protein): 91 Upper Protein Needs (Protein): 113 Dietitian Reviewed in Medical Record: Current diet, Curent medications, Intake & Output, Labs, Medical history, Tube feeding Diet Order: NPO Objective Comments: Meds include synthroid 12/12 intubated, PEG placed 12/14 extubated 12/15 re-intubated 12/17 trach Assessment Assessment: Pt is at high nutrition risk d/t dx, dependence on dialysis and need for TFing. PEG was placed but pt has not been able to attain goal rate TF. To meet nutritional needs with TFing, recommend Nepro @ 55 mls/hr x 22 hrs to provide 2178 kcals, 98 gms protein and 880 mls of free water. TF run time will be 22 hours because the pt is on synthroid and the TF must be held one hour before and after this med is given. Labs, wts and clinical course reviewed: wt changes noted. Recommendations: Nepro @ 55 mls/hr x 22 hrs (d/t synthroid) Dietitian to Monitor: Lab values, Intake & Output, Tube feeding tolerance, Weight change, PO Intake, Diet advancement, Swallow recommendations, Medical course
[2017-12-20] MEDS: Levofloxacin 500 mg Premix Inj 500 MG/100 ML PIGGYBACK IV.SIG SCH (20:03)
[2017-12-21] MEDS: dilTIAZem 60 MG Tablet PO SCH ×4 (03:47→20:07)
[2017-12-21] MEDS: Carboxymethylcellulose 0.5% Opth Drops 15 ML Bottle EACH EYE SCH ×4 (03:47→20:09)
[2017-12-21] MEDS: Oral Hygiene Kit OROPHARYNG SCH ×3 (03:47→18:01)
[2017-12-21 04:00] LABS: Hematocrit 23.9 % (39.0-51.0); Hemoglobin 7.5 gm/dL (13.0-17.0); Mean Corpuscular HGB Conc 31.3 % (32.0-36.0); Mean Corpuscular Hemoglobin 28.3 pg (27.0-34.0); Mean Corpuscular Volume 90.3 fL (80.0-100.0); Mean Platelet Volume 9.4 fL (7.0-11.0); Platelet Count 236 th/mm3 (150-450); Red Blood Count 2.64 mil/mm3 (4.50-5.90); Red Cell Distribution Width 18.9 % (11.6-17.2); White Blood Count 12.6 th/mm3 (4.0-11.0)
[2017-12-21 04:12] LABS: INR 1.5 Ratio; Prothrombin Time 15.4 sec (9.8-11.6)
[2017-12-21 04:31] LABS: Calcium 8.3 mg/dL (8.5-10.1); Carbon Dioxide 27.3 meq/L (21.0-32.0); Magnesium 1.9 mg/dL (1.5-2.5); Phosphorus 2.7 mg/dL (2.5-4.9); Potassium 3.5 meq/L (3.5-5.1)
[2017-12-21] MEDS: Levothyroxine 50 MCG Tablet PO SCH (05:02)
--- NOTE | 2017-12-21 06:09 | P.PNCC ---
Subjective Subjective Remarks/Hospital Course: 67-year-old male patient with history of CAD, multiple stent placement, COPD, end-stage renal disease, type 2 diabetes, who presented to the emergency room on 12/01/17 after being found to be unresponsive with a glucose of 36. Patient was admitted to hospitalist service and despite correction of hypoglycemia remained agitated and encephalopathic. GI was consulted for PEG tube placement for nutrition as the patient had pulled out NG tube several times. Initially the PEG tube placement was started as an LMA procedure. Apparently there was large amount of regurgitation and possible aspiration. He was endotracheally intubated during the procedure by anesthesiologist. Patient remained hemodynamically unstable and was started on Jonas-Synephrine infusion. Apparently per anesthesia patient had evidence of gastritis and duodenitis with stigmata of bleeding. Also there was a question of bowel ischemia on endoscopy. Due to hemodynamic instability requiring Jonas-Synephrine, and possible aspiration patient was left intubated for stabilization and critical care medicine was consulted. I evaluated the patient in the PACU. He remains on Jonas-Synephrine hypotensive with map hardly 50. I have instructed the RN to give 500 ML normal saline bolus , 25 g of IV albumin and also increase Jonas-Synephrine to target map above 65. Patient appears to have intermittent irregular rhythm which appears like atrial fibrillation. EKG and lab work is pending at this time. Blood and urine culture and sputum culture ordered, currently on vancomycin, add Azactam for gram-negative coverage. Clinically there is no evidence gastric perforation related to PEG placement, check CT abdomen pelvis to rule out gastric perforation SUBJ 12/13: Patient remains intubated sedated with Versed and fentanyl. Currently on Jonas-Synephrine at 40 mcg/min. CT abdomen pelvis did not show any evidence of perforation however showed massive dilation of pancreatic duct up to 2 cm. Cannot rule out mass. MRCP ordered, check CA 19-9 12/14: Intubated off sedation moving all extremities tracking but not following commands. Patient has baseline encephalopathy prior to intubation. MRCP yesterday showed Dilatation of the pancreatic duct 2 cm in the head of pancreas to 1.6 images in the mid body with a [place] pseudocyst appearance. Findings would be consistent with a chronic pancreatitis. Per radiologist If there is a focal mass present it would be at the ampulla. May need ERCP, GI following 12/15: Patient was extubated yesterday however mentation continued to gradually worsen unable to protect airway. On my evaluation today a.m. patient was tachypneic clearly not protecting airway. I proceeded with endotracheal intubation and placed on mechanical ventilation. Large amounts of secretions suctioned out from the oropharynx and glottic opening. WBC count continued to increase 19.6 today. Appreciate ID and neurology input. Discussed with Dr. Ruby even though infectious etiology unlikely for mental status change, will proceed with a lumbar puncture with routine studies and her previous studies. I agreed to Dr. Ruby's opinion that his encephalopathy is most likely from prolonged hypoglycemia 12/16: remains encephalopathic. re-intubated yesterday. will need trach to move forward. LP not consistent with acute bacterial meningoencephalitis. sputum from 12/13 growing burkholderia, started levaquin. 12/17: almost off phenylephrine. plan for trach today. likely can come off pressors when sedation is weaned. 12/18: off vasopressors. s/p trach yesterday. more awake, but persistently encephalopathic. 12/19: off sedation. continues to be very agitated. weaning from mechanical ventilation. no changes in mentation. 12/20: continues off sedation. very slow weaning efforts. encephalopathy remains. OOB to chair yesterday. 12/21: continues to fail any weaning attempts. very deconditioned. difficult to wean. went from 12-10 of PS today, but gets tachypneic after only a few hours. neuro exam slightly better and less agitation. needs aggressive PT and vent weaning. LTAC would be most appropriate level of care. Objective Vital Signs / I&O: Vital Signs 12/20/17 07:25 12/20/17 07:45 12/20/17 08:00 Temperature 36.8 C Pulse Rate 80 81 Respiratory Rate 13 23 21 Blood Pressure 110/64 116/57 L Pulse Oximetry 100 100 100 12/20/17 08:15 12/20/17 08:30 12/20/17 08:45 Temperature Pulse Rate 75 79 79 Respiratory Rate 15 20 29 H Blood Pressure 106/55 L 119/72 109/59 L Pulse Oximetry 100 100 100 12/20/17 09:00 12/20/17 09:15 12/20/17 09:30 Temperature Pulse Rate 81 73 79 Respiratory Rate 80 H 94 H 83 H Blood Pressure 111/57 L 116/60 121/70 Pulse Oximetry 100 100 100 12/20/17 09:45 12/20/17 10:00 12/20/17 10:15 Temperature Pulse Rate 69 69 78 Respiratory Rate 136 H 32 H 69 H Blood Pressure 112/57 L 112/61 115/63 Pulse Oximetry 100 100 100 12/20/17 10:30 12/20/17 10:45 12/20/17 11:00 Temperature Pulse Rate 69 69 68 Respiratory Rate 12 11 L 12 Blood Pressure 112/58 L 114/63 110/61 Pulse Oximetry 100 12/20/17 11:15 12/20/17 11:30 12/20/17 11:33 Temperature Pulse Rate 81 76 Respiratory Rate 20 12 12 Blood Pressure 124/64 102/57 L Pulse Oximetry 100 100 100 12/20/17 12:00 12/20/17 13:00 12/20/17 14:00 Temperature 36.9 C Pulse Rate 80 77 69 Respiratory Rate 58 H 17 166 H Blood Pressure 126/58 L 106/56 L 113/55 L Pulse Oximetry 100 100 12/20/17 15:00 12/20/17 16:00 12/20/17 16:19 Temperature 37.3 C Pulse Rate 67 73 Respiratory Rate 0 L 20 21 Blood Pressure 113/58 L 102/54 L Pulse Oximetry 100 100 100 12/20/17 17:00 12/20/17 18:00 12/20/17 19:00 Temperature Pulse Rate 65 72 62 Respiratory Rate 51 H 17 57 H Blood Pressure 102/56 L 104/53 L 100/55 L Pulse Oximetry 100 100 100 12/20/17 19:20 12/20/17 20:00 12/20/17 20:14 Temperature 36.8 C Pulse Rate 65 71 Respiratory Rate 21 82 H 20 Blood Pressure 110/56 L Pulse Oximetry 100 100 12/20/17 21:00 12/20/17 22:00 12/20/17 22:15 Temperature Pulse Rate 62 68 Respiratory Rate 48 H 20 Blood Pressure 111/56 L 117/56 L Pulse Oximetry 100 100 100 12/20/17 23:00 12/21/17 00:00 12/21/17 00:46 Temperature 37.7 C H Pulse Rate 65 73 74 Respiratory Rate 72 H 105 H 20 Blood Pressure 106/56 L 109/71 Pulse Oximetry 100 100 12/21/17 01:00 12/21/17 01:05 12/21/17 01:10 Temperature Pulse Rate 76 80 Respiratory Rate 36 H 48 H 20 Blood Pressure 119/57 L Pulse Oximetry 93 L 100 100 12/21/17 02:00 12/21/17 03:00 12/21/17 03:46 Temperature Pulse Rate 71 67 74 Respiratory Rate 31 H 25 H 22 Blood Pressure 111/59 L 111/55 L 124/59 L Pulse Oximetry 100 100 100 12/21/17 04:00 12/21/17 04:21 12/21/17 06:00 Temperature 37.0 C Pulse Rate 71 66 Respiratory Rate 20 20 Blood Pressure 124/58 L Pulse Oximetry 100 100 Intake & Output 12/20/17 12/20/17 12/21/17 06:59 18:59 06:59 Intake Total 105 / 105 355 / 355 299 / 299 Output Total 4300 / 4300 Balance 105 / 105 -3945 / -3945 299 / 299 Weight 81.3 kg 77.7 kg Intake: IV 100 / 100 100 / 100 Levaquin 500 mg Premix Inj 500 100 / 100 mg In 100 ml @ 100 mls/hr IV. SIG Q48H KRUNAL Rx#:[id number] Tazicef Inj 1,000 MG In NS Inj 100 / 100 100 ML @ 200 mls/hr IV.SIG Q24H KRUNAL Rx#:[id number] Tube Feeding 55 / 55 5 / 5 99 / 99 Tube Irrigant 50 / 50 100 / 100 Water Bolus Amount 250 / 250 Output: Hemodialysis Amount 4300 / 4300 Other: # Incontinent Voids 1 1 Date of Last Bowel Movement 12/19/17 12/20/17 12/21/17 # Bowel Movements 2 2 1 Result Diagrams: 12/21/17 02:31 12/21/17 02:31 Objective Remarks: GENERAL: Middle-age male who appears much older than stated age, lying in bed, trached, critically ill HEENT: Normocephalic. Atraumatic. Pupils equal, round, reactive, conjugate. Mucous membranes are moist NECK: Trachea is midline. There is no JVD. fresh 8.[address], no bleeding around site. CHEST: Equal chest rise. PRVC mode of ventilation. CARDIOVASCULAR: Normal rate, regular rhythm. sinus rhythm. ABDOMEN: Soft, nontender, nondistended. No guarding. MUSCULOSKELETAL: Pulses 2+. No peripheral edema. NEUROLOGICAL: RASS -1. CAM+. GCS 9 ([id number]). Does not follow commands. withdraws to pain. Assessment and Plan - Assessment and Plan Plan: ASSESSMENT: Acute respiratory failure, recurrent Severe encephalopathy ? Hypoglycemic, anoxic HCAP Aspiration pneumonia Septic Shock Hypotension multifactorial Upper GI bleed Tachyarrhythmia Leukocytosis Dilated pancreatic duct, elevated CA 19-9 (88.5) Radiological evidence of chronic pancreatitis s/p PEG tube placement Hypoglycemia now resolved History of coronary artery disease End-stage renal disease atrial fibrillation with rapid ventricular response: now back in sinus rhythm PLAN: NEURO: - scheduled oxycodone for background pain control - haldol for prn agitation. -Workup for encephalopathy essentially negative MRI was negative for acute findings. -Encephalopathy most likely secondary to prolonged hypoglycemia and possible anoxia -LP not consistent with acute bacterial meningoencephalitis. f/u serology testing. RESP: -Reintubated 12/15/2017 for lack of airway protection and worsening hypoxia - s/p trach 12/[address] Irvin/Bib for chronic resp failure -DuoNeb every 6 hours scheduled and as needed - needs to be OOB to stretcher chair daily PT consults CV: - midodrine - po diltiazem -Hold all antihypertensive including Procardia XL, lisinopril, carvedilol GI: -tube feeds, and IV Protonix 40 mg q12 -CT abdomen pelvis showed massive pancreatic duct dilation and chronic pancreatitis, confirmed on MRCP -Ampullary mass cannot be ruled out. Patient may need an ERCP, but at this time remains unstable for any invasive procedures -CA-19-9 88.5. : -ESRD on hemodialysis per nephrology ID: -Continue vancomycin, Azactam for gram-negative coverage and Flagyl for anaerobic coverage - levaquin for bukholderia species. -F/U Blood urine and sputum cultures-negative to date -Leukocytosis and hypotension persistent, ID following HEME: -Monitor CBC, coags -Transfuse to keep hemoglobin more than 8 due to hypotension ENDO: -Sliding scale insulin if needed PROPH: -Bilateral lower extremity SCDs. Eliquis on hold due to GI bleed, and INR >2 -IV Protonix 40 mg every 12 hours LINES: -Utilize peripheral IVs OVERALL IMPRESSION: s/p trach/peg. encephalopathy may be chronic or permanent. needs aggressive rehab efforts. LTAC appropriate.
[2017-12-21] MEDS: Lipase/Protease/Amylase 24/76/120 DR Capsule PO SCH ×4 (08:41→20:07)
[2017-12-21] MEDS: Vitamin B Complex/Vit C/Folic Tablet PO SCH (08:41)
[2017-12-21] MEDS: Pantoprazole Inj 40 MG Vial IV.PUSH SCH ×2 (08:41→20:08)
[2017-12-21] MEDS: Chlorhexidine 0.12% Oral Kit 15 ML UDC OROPHARYNG SCH ×2 (08:41→20:08)
[2017-12-21] MEDS: Insulin NovoLOG Aspart Correctional Sugar Inj SQ SCH ×4 (12:34→20:08)
--- NOTE | 2017-12-21 14:49 | P.PNNP ---
Physical Exam Vital signs: Vital Signs 12/20/17 15:00 12/20/17 16:00 12/20/17 16:19 Temperature 99.2 F Pulse Rate 67 73 Respiratory Rate 0 L 20 21 Blood Pressure 113/58 L 102/54 L Pulse Oximetry 100 100 100 12/20/17 17:00 12/20/17 18:00 12/20/17 19:00 Temperature Pulse Rate 65 72 62 Respiratory Rate 51 H 17 57 H Blood Pressure 102/56 L 104/53 L 100/55 L Pulse Oximetry 100 100 100 12/20/17 19:20 12/20/17 20:00 12/20/17 20:14 Temperature 98.3 F Pulse Rate 65 71 Respiratory Rate 21 82 H 20 Blood Pressure 110/56 L Pulse Oximetry 100 100 12/20/17 21:00 12/20/17 22:00 12/20/17 22:15 Temperature Pulse Rate 62 68 Respiratory Rate 48 H 20 Blood Pressure 111/56 L 117/56 L Pulse Oximetry 100 100 100 12/20/17 23:00 12/21/17 00:00 12/21/17 00:46 Temperature 99.8 F H Pulse Rate 65 73 74 Respiratory Rate 72 H 105 H 20 Blood Pressure 106/56 L 109/71 Pulse Oximetry 100 100 12/21/17 01:00 12/21/17 01:05 12/21/17 01:10 Temperature Pulse Rate 76 80 Respiratory Rate 36 H 48 H 20 Blood Pressure 119/57 L Pulse Oximetry 93 L 100 100 12/21/17 02:00 12/21/17 03:00 12/21/17 03:46 Temperature Pulse Rate 71 67 74 Respiratory Rate 31 H 25 H 22 Blood Pressure 111/59 L 111/55 L 124/59 L Pulse Oximetry 100 100 100 12/21/17 04:00 12/21/17 04:21 12/21/17 05:00 Temperature 98.6 F Pulse Rate 71 69 Respiratory Rate 20 20 18 Blood Pressure 124/58 L 119/56 L Pulse Oximetry 100 100 100 12/21/17 06:00 12/21/17 07:00 12/21/17 07:47 Temperature Pulse Rate 66 73 Respiratory Rate 18 31 H 14 Blood Pressure 125/60 118/59 L Pulse Oximetry 100 100 100 12/21/17 08:00 12/21/17 09:00 12/21/17 10:00 Temperature Pulse Rate 78 78 80 Respiratory Rate 13 20 22 Blood Pressure 117/64 112/56 L 133/69 Pulse Oximetry 100 100 100 12/21/17 12:45 Temperature Pulse Rate Respiratory Rate 19 Blood Pressure Pulse Oximetry 100 Intake & Output 12/20/17 12/21/17 12/21/17 18:59 06:59 18:59 Intake Total 355 / 355 299 / 299 Output Total 4300 / 4300 Balance -3945 / -3945 299 / 299 Weight 77.7 kg Intake: IV 100 / 100 100 / 100 Levaquin 500 mg Premix Inj 500 100 / 100 mg In 100 ml @ 100 mls/hr IV. SIG Q48H KRUNAL Rx#:[id number] Tazicef Inj 1,000 MG In NS Inj 100 / 100 100 ML @ 200 mls/hr IV.SIG Q24H KRUNAL Rx#:[id number] Tube Feeding 5 / 5 99 / 99 Tube Irrigant 100 / 100 Water Bolus Amount 250 / 250 Output: Hemodialysis Amount 4300 / 4300 Other: # Incontinent Voids 1 Date of Last Bowel Movement 12/20/17 12/21/17 12/21/17 # Bowel Movements 2 1 Narrative: - Constitutional Withe Trach. and o the vent., sedated hypotensive critically ill - Routine Respiratory Exam CTA bilaterally, no wheezes or crackles - Routine Cardiovascular Exam Sinus rhythm, intermittently tachycardic, hypotensive currently on 80 mcg/min of Jonas-Synephrine - Routine Abdominal Exam soft, nontender. New PEG tube site without evidence of bleeding - Routine Extremities Exam No pedal edema. - Routine Neurological Exam Patient is sedated, on the vent. - Urinary Catheter Management Straight Cath placed during this visit: yes Reason for continuing: Not indwelling catheter Insertion date: 12/01/17 Insertion time: 13:46 Assessment and Plan - Assessment (1) Altered mental status Code(s): R41.82 - Altered mental status, unspecified Status: Acute Qualifiers: Altered mental status type: unspecified Qualified Code(s): R41.82 - Altered mental status, unspecified (2) Hypoglycemia Code(s): E16.2 - Hypoglycemia, unspecified Status: Acute (3) Sepsis Code(s): A41.9 - Sepsis, unspecified organism Status: Acute Qualifiers: Sepsis type: sepsis due to unspecified organism Qualified Code(s): A41.9 - Sepsis, unspecified organism (4) ESRD (end stage renal disease) on dialysis Code(s): N18.6 - End stage renal disease; Z99.2 - Dependence on renal dialysis Status: Acute - Plan Patient now on mechanical ventilation there is a possibility of aspiration pneumonia, sepsis, hypotension, condition critical on vasopressors and ventilator Suspect AMS secondary to hypoglycemic event/another event on the floor possible aspiration pneumonia Hemodialysis continue hemodialysis on Tuesday and Tuesday Continue aggressive care Now post Trach. Hemodialysis TTS
[2017-12-22] MEDS: Oral Hygiene Kit OROPHARYNG SCH ×3 (00:36→13:29)
[2017-12-22] MEDS: Carboxymethylcellulose 0.5% Opth Drops 15 ML Bottle EACH EYE SCH ×3 (03:13→15:20)
[2017-12-22] MEDS: dilTIAZem 60 MG Tablet PO SCH ×3 (03:13→15:20)
[2017-12-22 03:48] LABS: Hematocrit 25.2 % (39.0-51.0); Hemoglobin 7.9 gm/dL (13.0-17.0); Mean Corpuscular HGB Conc 31.3 % (32.0-36.0); Mean Corpuscular Hemoglobin 27.8 pg (27.0-34.0); Platelet Count 278 th/mm3 (150-450); Red Blood Count 2.83 mil/mm3 (4.50-5.90); Red Cell Distribution Width 18.2 % (11.6-17.2); White Blood Count 16.6 th/mm3 (4.0-11.0)
[2017-12-22 03:58] LABS: INR 1.5 Ratio; Prothrombin Time 15.1 sec (9.8-11.6)
[2017-12-22 04:21] LABS: Calcium 8.3 mg/dL (8.5-10.1); Carbon Dioxide 27.4 meq/L (21.0-32.0); Magnesium 2.2 mg/dL (1.5-2.5); Phosphorus 3.5 mg/dL (2.5-4.9); Potassium 3.9 meq/L (3.5-5.1)
[2017-12-22] MEDS: Levothyroxine 50 MCG Tablet PO SCH (06:10)
[2017-12-22] MEDS: Lipase/Protease/Amylase 24/76/120 DR Capsule PO SCH ×2 (09:03→13:37)
[2017-12-22] MEDS: Pantoprazole Inj 40 MG Vial IV.PUSH SCH (09:03)
[2017-12-22] MEDS: Vitamin B Complex/Vit C/Folic Tablet PO SCH (09:03)
[2017-12-22] MEDS: Insulin NovoLOG Aspart Correctional Sugar Inj SQ SCH ×2 (09:03→13:29)
[2017-12-22] MEDS: Chlorhexidine 0.12% Oral Kit 15 ML UDC OROPHARYNG SCH (09:04)
--- NOTE | 2017-12-22 09:07 | XR ---
EXAM DATE: 12/22/2017 8:32 AM EDT AGE/SEX: 67 years / Male INDICATIONS: Abdominal pain. CLINICAL DATA: This is the patient's subsequent encounter. Patient reports that signs and symptoms h ave been present for 1 week and indicates a pain score of Nonresponsive. MEDICAL/SURGICAL HISTORY: . Chronic obstructive pulmonary disease. Diabetes mellitus type II. Chronic kidney disease, End of stage renal disease, Peripheral artery disease . COMPARISON: [facility] – [place] [place], 12/08/2017. . FINDINGS: Anatomic detail is limited due to body habitus. No bowel obstruction. NG tube appears to been remove d. I believe there is a feeding tube projecting over the left upper abdominal quadrant. No pneumoperi toneum on the images submitted. Lung bases are clear.. CONCLUSION: 1. There appears to be a feeding tube projecting over the left upper abdominal quadrant, presumably within the gastric lumen. 2. It is the seen nasogastric tube has been removed. 3. No obstruction or obvious pneumoperitoneum. Lung bases are clear. Electronically signed by: Tung Gray MD 12/22/2017 9:06 AM EDT
--- NOTE | 2017-12-22 15:32 | P.PNNP ---
Subjective Interval history: Remains on vent unresponsive Physical Exam Vital signs: Vital Signs 12/21/17 16:00 12/21/17 16:10 12/21/17 17:00 Temperature Pulse Rate 85 93 H Respiratory Rate 62 H 23 24 Blood Pressure 123/62 119/67 Pulse Oximetry 100 100 100 12/21/17 18:00 12/21/17 19:00 12/21/17 20:00 Temperature 100.5 F H Pulse Rate 86 86 80 Respiratory Rate 21 23 23 Blood Pressure 104/57 L 112/56 L 107/58 L Pulse Oximetry 99 97 100 12/21/17 20:36 12/21/17 21:00 12/21/17 22:00 Temperature Pulse Rate 87 75 78 Respiratory Rate 23 20 62 H Blood Pressure 108/57 L 119/59 L Pulse Oximetry 100 100 94 L 12/21/17 23:00 12/21/17 23:37 12/22/17 00:00 Temperature 99.5 F Pulse Rate 75 75 Respiratory Rate 19 21 127 H Blood Pressure 105/59 L 105/59 L Pulse Oximetry 96 98 98 12/22/17 01:00 12/22/17 02:00 12/22/17 03:00 Temperature Pulse Rate 77 69 75 Respiratory Rate 22 28 H 78 H Blood Pressure 102/57 L 100/57 L 99/57 L Pulse Oximetry 98 100 100 12/22/17 03:58 12/22/17 04:00 12/22/17 05:00 Temperature 99.5 F Pulse Rate 70 63 Respiratory Rate 21 66 H 20 Blood Pressure 97/55 L 110/55 L Pulse Oximetry 100 100 100 12/22/17 06:00 12/22/17 07:00 12/22/17 08:00 Temperature 98.3 F Pulse Rate 74 72 72 Respiratory Rate 22 120 H 132 H Blood Pressure 104/57 L 113/57 L 107/56 L Pulse Oximetry 100 96 99 12/22/17 08:22 12/22/17 08:45 12/22/17 09:00 Temperature Pulse Rate 69 73 Respiratory Rate 20 121 H 63 H Blood Pressure 103/58 L 109/57 L Pulse Oximetry 100 95 12/22/17 09:15 12/22/17 11:16 Temperature Pulse Rate 73 Respiratory Rate 139 H 22 Blood Pressure 109/61 Pulse Oximetry 98 99 Intake & Output 12/21/17 12/22/17 12/22/17 18:59 06:59 18:59 Intake Total 100 / 100 130 / 130 Output Total 0 / 0 1000 / 1000 Balance 100 / 100 130 / 130 -1000 / -1000 Weight 75.2 kg Intake: IV 100 / 100 Tazicef Inj 1,000 MG In NS Inj 100 / 100 100 ML @ 200 mls/hr IV.SIG Q24H KRUNAL Rx#:[id number] Tube Feeding 30 / 30 Tube Irrigant 100 / 100 Output: Urine 0 / 0 Hemodialysis Amount 1000 / 1000 Other: Date of Last Bowel Movement 12/21/17 12/21/17 12/21/17 # Bowel Movements 1 0 Narrative: - Constitutional With Trach. and o the vent., Unresponsive critically ill - Routine Respiratory Exam CTA bilaterally, no wheezes or crackles - Routine Cardiovascular Exam Sinus rhythm, intermittently tachycardic, hypotensive currently on 80 mcg/min of Jonas-Synephrine - Routine Abdominal Exam soft, nontender. New PEG tube site without evidence of bleeding - Routine Extremities Exam No pedal edema. - Routine Neurological Exam Patient is unresponsive on the vent. - Urinary Catheter Management Straight Cath placed during this visit: yes Reason for continuing: Not indwelling catheter Insertion date: 12/01/17 Insertion time: 13:46 Assessment and Plan - Assessment (1) Altered mental status Code(s): R41.82 - Altered mental status, unspecified Status: Acute Qualifiers: Altered mental status type: unspecified Qualified Code(s): R41.82 - Altered mental status, unspecified (2) Hypoglycemia Code(s): E16.2 - Hypoglycemia, unspecified Status: Acute (3) Sepsis Code(s): A41.9 - Sepsis, unspecified organism Status: Acute Qualifiers: Sepsis type: sepsis due to unspecified organism Qualified Code(s): A41.9 - Sepsis, unspecified organism (4) ESRD (end stage renal disease) on dialysis Code(s): N18.6 - End stage renal disease; Z99.2 - Dependence on renal dialysis Status: Acute - Plan Patient now on mechanical ventilation there is a possibility of aspiration pneumonia, sepsis, hypotension, condition critical on ventilator Suspect AMS secondary to hypoglycemic event/another event on the floor possible aspiration pneumonia Hemodialysis continue hemodialysis on Tuesday and Tuesday Patient had hemodialysis 1 L was removed he remains on responsive poor neurological condition Continue aggressive care Now post Trach. Hemodialysis TTS
--- NOTE | 2017-12-22 15:54 | XR ---
EXAM DATE: 12/22/2017 3:50 PM EDT AGE/SEX: 67 years / Male INDICATIONS: Respiratory failure. CLINICAL DATA: This is the patient's subsequent encounter. Patient reports that signs and symptoms h ave been present for 4 - 6 days and indicates a pain score of Nonresponsive. MEDICAL/SURGICAL HISTORY: . Chronic obstructive pulmonary disease. Diabetes mellitus type II. C hronic kidney disease, End of stage renal disease, Peripheral artery disease . None. COMPARISON: C, CHEST 1V SINGLE AP, 12/20/2017. . FINDINGS: Stable tracheostomy and right IJ dialysis catheter. Minimal diffuse interstitial prominence with sign ificantly improved aeration at the lung bases. Cardiomegaly mediastinal contours are within normal li mits. Bony thorax is intact. CONCLUSION: 1. Improved aeration at the lung bases. 2. Minimal residual interstitial edema. Electronically signed by: Elio Mcgarry MD 12/22/2017 3:53 PM EDT
--- NOTE | 2017-12-22 17:20 | P.PNID ---
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 clx no fever, WBC still high @ 16.6 K Antibiotics: ceftaz levaquine Lines: R IJ VAscath Allergies/Adverse Reactions: Allergies Penicillins Allergy (Mild, Verified 12/01/17 17:09) rash Objective Vital Signs 12/21/17 18:00 12/21/17 19:00 12/21/17 20:00 Temperature 100.5 F H Pulse Rate 86 86 80 Respiratory Rate 21 23 23 Blood Pressure 104/57 L 112/56 L 107/58 L Pulse Oximetry 99 97 100 12/21/17 20:36 12/21/17 21:00 12/21/17 22:00 Temperature Pulse Rate 87 75 78 Respiratory Rate 23 20 62 H Blood Pressure 108/57 L 119/59 L Pulse Oximetry 100 100 94 L 12/21/17 23:00 12/21/17 23:37 12/22/17 00:00 Temperature 99.5 F Pulse Rate 75 75 Respiratory Rate 19 21 127 H Blood Pressure 105/59 L 105/59 L Pulse Oximetry 96 98 98 12/22/17 01:00 12/22/17 02:00 12/22/17 03:00 Temperature Pulse Rate 77 69 75 Respiratory Rate 22 28 H 78 H Blood Pressure 102/57 L 100/57 L 99/57 L Pulse Oximetry 98 100 100 12/22/17 03:58 12/22/17 04:00 12/22/17 05:00 Temperature 99.5 F Pulse Rate 70 63 Respiratory Rate 21 66 H 20 Blood Pressure 97/55 L 110/55 L Pulse Oximetry 100 100 100 12/22/17 06:00 12/22/17 07:00 12/22/17 08:00 Temperature 98.3 F Pulse Rate 74 72 72 Respiratory Rate 22 120 H 132 H Blood Pressure 104/57 L 113/57 L 107/56 L Pulse Oximetry 100 96 99 12/22/17 08:22 12/22/17 08:45 12/22/17 09:00 Temperature Pulse Rate 69 73 Respiratory Rate 20 121 H 63 H Blood Pressure 103/58 L 109/57 L Pulse Oximetry 100 95 12/22/17 09:15 12/22/17 11:16 Temperature Pulse Rate 73 Respiratory Rate 139 H 22 Blood Pressure 109/61 Pulse Oximetry 98 99 Intake & Output 12/21/17 12/22/17 12/22/17 18:59 06:59 18:59 Intake Total 100 / 100 130 / 130 100 / 100 Output Total 0 / 0 1000 / 1000 Balance 100 / 100 130 / 130 -900 / -900 Weight 75.2 kg Intake: IV 100 / 100 100 / 100 Tazicef Inj 1,000 MG In NS Inj 100 / 100 100 / 100 100 ML @ 200 mls/hr IV.SIG Q24H KRUNAL Rx#:[id number] Tube Feeding 30 / 30 Tube Irrigant 100 / 100 Output: Urine 0 / 0 Hemodialysis Amount 1000 / 1000 Other: Date of Last Bowel Movement 12/21/17 12/21/17 12/21/17 # Bowel Movements 1 0 12/15/17 13:10 Cerebral Spinal Fluid - Lumbar Puncture Fungal Smear - Final No fungal elements seen 12/15/17 13:10 Cerebral Spinal Fluid - Lumbar Puncture Fungal Culture - Preliminary No growth in 1 week 12/15/17 13:10 Cerebral Spinal Fluid - Lumbar Puncture Acid Fast Bacilli Smear - Final No acid fast bacilli seen 12/15/17 13:10 Cerebral Spinal Fluid - Lumbar Puncture Mycobacterial Culture - Preliminary No growth in 1 week Lab - Hematology Results 12/21/17 12/22/17 02:31 02:26 WBC 12.6 H 16.6 H RBC 2.64 L 2.83 L Hgb 7.5 L 7.9 L Hct 23.9 L 25.2 L MCV 90.3 89.0 MCH 28.3 27.8 MCHC 31.3 L 31.3 L RDW 18.9 H 18.2 H Plt Count 236 278 MPV 9.4 9.0 Lab - Chemistry Results 12/20/17 12/20/17 12/21/17 17:51 19:50 02:31 Sodium 140 Potassium 3.5 Chloride 98 Carbon Dioxide 27.3 Anion Gap 15 BUN 39 H Creatinine 6.94 H Estimated GFR 8 L POC Glucose 216 H 203 H Random Glucose 179 H Calcium 8.3 L Phosphorus 2.7 D Magnesium 1.9 12/21/17 12/21/17 12/21/17 12:15 18:08 19:54 Sodium Potassium Chloride Carbon Dioxide Anion Gap BUN Creatinine Estimated GFR POC Glucose 313 H 284 H 318 H Random Glucose Calcium Phosphorus Magnesium 12/22/17 12/22/17 12/22/17 02:26 08:25 13:28 Sodium 138 Potassium 3.9 Chloride 96 L Carbon Dioxide 27.4 Anion Gap 15 BUN 53 H Creatinine 9.09 H Estimated GFR 6 L POC Glucose 270 H 153 H Random Glucose 185 H Calcium 8.3 L Phosphorus 3.5 Magnesium 2.2 Imaging: ITS Impressions Head CT 12/01/17 11:12 CONCLUSION: 1. Mild cerebral atrophy. 2. No acute infarct, acute hemorrhage, midline shift or extra-axial fluid collections. 3. Small fluid level within the left maxillary sinus. Head MRI 12/02/17 00:00 CONCLUSION: 1. No acute findings. 2. Atrophy and minimal white matter disease. Hand X-Ray 12/04/17 00:00 CONCLUSION: Unremarkable study. Forearm X-Ray 12/04/17 18:49 CONCLUSION: Unremarkable study. Shoulder X-Ray 12/04/17 18:49 CONCLUSION: No definite fracture is identified for technique. Abdomen/Pelvis CT 12/13/17 00:00 CONCLUSION: 1. Percutaneous gastrostomy tube present without abnormal fluid collection or free air identified. 2. 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 There is evidence for chronic pancreatitis. Cannot exclude an obstructing mass in the pancreatic head. Recommend further evaluation with MRCP. 3. 3 cm fat-containing umbilical hernia. 4. Focal small airspace disease right posterior costophrenic angle. Cholangiopancreatography MRI 12/13/17 00:00 CONCLUSION: 1. Dilatation of the pancreatic duct ranging from 2 cm in the head of pancreas to 1.6 images in the mid body with a chain of lakes pseudocyst appearance. 2. Findings would be consistent with a chronic pancreatitis. 3. If there is a focal mass present it would be at the ampulla. This can be followed by MR or endoscopic ultrasound. 4. Trace ascites 5. No other recent cross-sectional imaging studies of the pancreas. These would be most helpful given the appearance. Catheter Placement 12/16/17 00:00 CONCLUSION: 1. Uncomplicated line placement as above. Fibrin sheath stripping was also performed. Abdomen X-Ray 12/22/17 00:00 CONCLUSION: 1. There appears to be a feeding tube projecting over the left upper abdominal quadrant, presumably within the gastric lumen. 2. It is the seen nasogastric tube has been removed. 3. No obstruction or obvious pneumoperitoneum. Lung bases are clear. Chest X-Ray 12/22/17 15:29 CONCLUSION: 1. Improved aeration at the lung bases. 2. Minimal residual interstitial edema. Physical Exam: GENERAL: NAD, on vent OOB in chair SKIN: Warm and dry. No rash HEAD: Atraumatic. Normocephalic. EYES: Pupils equal and round. No scleral icterus. No injection or drainage. ENT: No nasal bleeding or discharge. Mucous membranes pink and moist. NECK: Trach in place No JVD. CARDIOVASCULAR: Regular rate and rhythm. No murmurs RESPIRATORY: No accessory muscle use. scattered rhonchi to auscultation. Breath sounds decreased bilaterally. GASTROINTESTINAL: Abdomen soft, non-tender, nondistended. MUSCULOSKELETAL: Extremities without clubbing, cyanosis, or edema. No obvious deformities. NEUROLOGICAL: letahrgic, but arousable. Not following comamnds, moving BUE PSYCHIATRIC: unable to assess Assessment and Plan - Plan Anoxic encephalopathy CSF reviewew: borderline WBC, protein slightly up, clx NGTD Hypotension sepsis PNA, B. cepacia CXR improved ESRD, on HD, persistetnt leukocytosis: worse cont levaquine, ceftazidime thru at least 12/27 repeat CBC repeat sputum clx
[2017-12-22 17:30] VITALS: BP 112/60; PULSE 70; RESP 20; TEMP 98; O2SAT 98
--- NOTE | 2018-01-04 14:49 | P.DS ---
Date of admission: 12/01/17 16:09 Primary care physician: UNKNOWN Attending physician on discharge: Lorenzo Irvin Brief History from admission: 67-year-old white male being admitted for acute metabolic encephalopathy. Patient was in his usual state of health until he was found to be lying on the floor at home. His dialysis center contacted the patient's brother today when they noted that he missed his session today, and they say that the patient never misses his dialysis sessions. They say at baseline the patient is ambulatory and quite functional. Upon the brothers investigation, patient was found to be needed medical help. Dialysis session read mentions that the patient has been on NovoLog and Levemir flex pens for the past month. Patient was brought to the emergency department with confusion. Blood work demonstrated leukocytosis at about 13,000, elevated creatinine greater than 5. CT head is negative for any acute insults. Chest x-ray which I independently reviewed is negative. EKG which independently reviewed shows normal rate with hypertrophy otherwise. Troponin is minimally elevated at 0.06. In the emergency department patient was given vancomycin and Zosyn. Given about 1300 mL's of fluid. Patient attends [facility] dialysis in [place]. DS: Diagnosis - Discharge Diagnosis (1) Agitation Status: Acute (2) Altered mental status Status: Acute (3) Diabetes Status: Acute (4) Dyspnea Status: Acute (5) ESRD (end stage renal disease) on dialysis Status: Acute (6) Hypoglycemia Status: Acute (7) Nutritional deficiency Status: Acute (8) Pain Status: Acute (9) Sepsis Status: Acute DS: Summary Hospital Course: 67-year-old male patient with history of CAD, multiple stent placement, COPD, end-stage renal disease, type 2 diabetes, who presented to the emergency room on 12/01/17 after being found to be unresponsive with a glucose of 36. Patient was admitted to hospitalist service and despite correction of hypoglycemia remained agitated and encephalopathic. GI was consulted for PEG tube placement for nutrition as the patient had pulled out NG tube several times. Initially the PEG tube placement was started as an LMA procedure. Apparently there was large amount of regurgitation and possible aspiration. He was endotracheally intubated during the procedure by anesthesiologist. Patient remained hemodynamically unstable and was started on Jonas-Synephrine infusion. Apparently per anesthesia patient had evidence of gastritis and duodenitis with stigmata of bleeding. Also there was a question of bowel ischemia on endoscopy. Due to hemodynamic instability requiring Jonas-Synephrine, and possible aspiration patient was left intubated for stabilization and critical care medicine was consulted. I evaluated the patient in the PACU. He remains on Jonas-Synephrine hypotensive with map hardly 50. I have instructed the RN to give 500 ML normal saline bolus , 25 g of IV albumin and also increase Jonas-Synephrine to target map above 65. Patient appears to have intermittent irregular rhythm which appears like atrial fibrillation. EKG and lab work is pending at this time. Blood and urine culture and sputum culture ordered, currently on vancomycin, add Azactam for gram-negative coverage. Clinically there is no evidence gastric perforation related to PEG placement, check CT abdomen pelvis to rule out gastric perforation SUBJ 12/13: Patient remains intubated sedated with Versed and fentanyl. Currently on Jonas-Synephrine at 40 mcg/min. CT abdomen pelvis did not show any evidence of perforation however showed massive dilation of pancreatic duct up to 2 cm. Cannot rule out mass. MRCP ordered, check CA 19-9 12/14: Intubated off sedation moving all extremities tracking but not following commands. Patient has baseline encephalopathy prior to intubation. MRCP yesterday showed Dilatation of the pancreatic duct 2 cm in the head of pancreas to 1.6 images in the mid body with a chain of lakes pseudocyst appearance. Findings would be consistent with a chronic pancreatitis. Per radiologist If there is a focal mass present it would be at the ampulla. May need ERCP, GI following 12/15: Patient was extubated yesterday however mentation continued to gradually worsen unable to protect airway. On my evaluation today a.m. patient was tachypneic clearly not protecting airway. I proceeded with endotracheal intubation and placed on mechanical ventilation. Large amounts of secretions suctioned out from the oropharynx and glottic opening. WBC count continued to increase 19.6 today. Appreciate ID and neurology input. Discussed with Dr. Ruby even though infectious etiology unlikely for mental status change, will proceed with a lumbar puncture with routine studies and her previous studies. I agreed to Dr. Ruby's opinion that his encephalopathy is most likely from prolonged hypoglycemia 12/16: remains encephalopathic. re-intubated yesterday. will need trach to move forward. LP not consistent with acute bacterial meningoencephalitis. sputum from 12/13 growing burkholderia, started levaquin. 12/17: almost off phenylephrine. plan for trach today. likely can come off pressors when sedation is weaned. 12/18: off vasopressors. s/p trach yesterday. more awake, but persistently encephalopathic. 12/19: off sedation. continues to be very agitated. weaning from mechanical ventilation. no changes in mentation. 12/20: continues off sedation. very slow weaning efforts. encephalopathy remains. OOB to chair yesterday. 12/21: continues to fail any weaning attempts. very deconditioned. difficult to wean. went from 12-10 of PS today, but gets tachypneic after only a few hours. neuro exam slightly better and less agitation. needs aggressive PT and vent weaning. LTAC would be most appropriate level of care. 12/22: discharged to LTAC. - Time Spent with Patient Total time spent providing and/or coordinating discharge services: Less than 30 minutes - Quality: VTE Deep Vein Thrombosis/Pulmonary Embolism Present on Admission: No Results Procedures completed during hospitalization: trach/peg Completed studies during hospitalization: Pending at discharge 12/12/17 07:32 Surgical [PTH] Routine Labs on day of discharge: Preliminary micro results at discharge 12/15/17 13:10 Fungal Culture - Preliminary Cerebral Spinal Fluid - Lumbar Puncture No growth in 2 weeks 12/15/17 13:10 Mycobacterial Culture - Preliminary Cerebral Spinal Fluid - Lumbar Puncture No growth in 2 weeks - Impressions ITS Impressions Head CT 12/01/17 11:12 CONCLUSION: 1. Mild cerebral atrophy. 2. No acute infarct, acute hemorrhage, midline shift or extra-axial fluid collections. 3. Small fluid level within the left maxillary sinus. Head MRI 12/02/17 00:00 CONCLUSION: 1. No acute findings. 2. Atrophy and minimal white matter disease. Hand X-Ray 12/04/17 00:00 CONCLUSION: Unremarkable study. Forearm X-Ray 12/04/17 18:49 CONCLUSION: Unremarkable study. Shoulder X-Ray 12/04/17 18:49 CONCLUSION: No definite fracture is identified for technique. Abdomen/Pelvis CT 12/13/17 00:00 CONCLUSION: 1. Percutaneous gastrostomy tube present without abnormal fluid collection or free air identified. 2. 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 There is evidence for chronic pancreatitis. Cannot exclude an obstructing mass in the pancreatic head. Recommend further evaluation with MRCP. 3. 3 cm fat-containing umbilical hernia. 4. Focal small airspace disease right posterior costophrenic angle. Cholangiopancreatography MRI 12/13/17 00:00 CONCLUSION: 1. Dilatation of the pancreatic duct ranging from 2 cm in the head of pancreas to 1.6 images in the mid body with a chain of lakes pseudocyst appearance. 2. Findings would be consistent with a chronic pancreatitis. 3. If there is a focal mass present it would be at the ampulla. This can be followed by MR or endoscopic ultrasound. 4. Trace ascites 5. No other recent cross-sectional imaging studies of the pancreas. These would be most helpful given the appearance. Catheter Placement 12/16/17 00:00 CONCLUSION: 1. Uncomplicated line placement as above. Fibrin sheath stripping was also performed. Abdomen X-Ray 12/22/17 00:00 CONCLUSION: 1. There appears to be a feeding tube projecting over the left upper abdominal quadrant, presumably within the gastric lumen. 2. It is the seen nasogastric tube has been removed. 3. No obstruction or obvious pneumoperitoneum. Lung bases are clear. Chest X-Ray 12/22/17 15:29 CONCLUSION: 1. Improved aeration at the lung bases. 2. Minimal residual interstitial edema. Discharge Plan - Discharge Disposition Patient Disposition: 64 [employer] Acute Care - Discharge Condition Condition: Stable - Discharge Order Discharge Orders: Discharge Order (Routine); Ordered 12/22/17 Ordered By: Dell Marina - Physicians Team Primary Care Provider: UNKNOWN, Attending Provider: Sandra Smith Other Providers: Vladislav Ruby MD, PhD ; Akira Bryson MD ; Antonina Cartagena MD ; Ed Lai MD ; Varinder Serrano MD ; Keagan Doherty MD ; Vinnie Vuong MD ; Maryann Parmar MD ; Joel Millan MD ; [facility]
== END 2017-12-22 16:30 ==
LOC: NEPC 10:43 → NEDA 16:09 → N05 19:49 → HIMC 12-12 17:27
PROVIDERS: ADMIT Internal Medicine; ATTEND Internal Medicine